=== PATIENT | female | born 1945 | race Caucasian/White ===

== ENCOUNTER 2016-12-20 14:49 | Emergency (ER) | payer OTHER, BC ==
[~2016-12-20] VITALS: Ht 157.5 cm; Wt 56.0 kg
[~2016-12-20 14:49] MED LIST: ASPI81TA28 PO; CARB25TA12 PO; LISI-461 PO; ONDA8TAB6 PO; PRLSR20 PO
[2016-12-20 15:02] VITALS: TEMP 36.4; Ht 157.5 cm; Wt 56.0 kg
[2016-12-20] MEDS ORDERED: DOCU100C31 PO (15:07)
[2016-12-20] MEDS ORDERED: SODIUM CHLORIDE 0.9% 500ML 500 ML IV STA (16:04)
--- NOTE | 2016-12-20 16:05 | EMERGENCY ROOM VISIT NOTE ---
History Report prepared by Gayatri: Cecil Ashton Under the Supervision of: Dr. Kirk Hoff D.O. First contact with patient: 15:50 Chief Complaint: CONSTIPATION Stated Complaint: DEHYDRATED Nursing Triage Summary: pt c/o constipation lbm 2 days ago. pt reports has been seen here for same sx in past History of Present Illness The patient is a 71 year old female who presents to the Emergency Room with complaints of persistent constipation and lower abdominal pains that she has been experiencing for the past several months. The patient states that she believes she is constipated, but normally only has a bowel movement every couple days at baseline. She had a bowel movement two days ago. She has been taking a "couple cups" of Miralax daily, which has not remedied her symptoms. Her abdominal pain is located mainly in her lower abdomen, and is worsened when she sits down. When she sits down she also feels a pain in her vaginal area. The patient also complains of nausea and dry heaving over the past week. She did see a urologist at [facility] yesterday, there were no extraordinary findings from this visit. Her postvoid residual volume was 20. The patient denies headache, change in vision, fevers, chest pain, shortness of breath, and melena. Source of History: patient Onset: Several months Position: other (Gastrointestinal ) Quality: other (Constipation) Timing: other (Persistent) Modifying Factors (Worsening): other (Sitting) Associated Symptoms: + abdominal pain, + nausea Review of Systems See HPI for pertinent positives & negatives. A total of 10 systems reviewed and were otherwise negative. Past Medical & Surgical Medical Problems: (1) CAD (coronary artery disease) (2) Chest Pain (3) CKD (chronic kidney disease) stage 3, GFR 30-59 ml/min (4) Depression (5) Diaphragmatic hernia (6) GERD (gastroesophageal reflux disease) (7) History of breast cancer (8) History of kidney stones (9) Parkinson disease Surgical Problems: (1) H/O breast surgery (2) History of carpal tunnel surgery (3) History of tubal ligation Family History Cancer Hypertension Kidney disease Kidney stones Social History Smoking Status: Never Smoker Alcohol Use: none Drug Use: none Marital Status: Housing Status: lives with significant other Occupation Status: retired Current/Historical Medications Scheduled Aspirin (Aspirin Ec), 81 MG PO DAILY Buspirone HCl (Buspirone HCl), 10 MG PO BID Carbidopa/Levodopa (Sinemet 25MG/100MG), 1 TAB PO QID Docusate Sodium (Docusate Sodium), 1 CAP PO BID Duloxetine HCl (Duloxetine HCl), 60 MG PO DAILY Entacapone (Comtan), 200 MG PO QID Fluticasone Propionate (Nasal) (Flonase Allergy Relief), 2 SPRAY JAYDON DAILY Lisinopril (Lisinopril), 10 MG PO DAILY Mirtazapine Soltab (Remeron Soltab), 15 MG PO HS Omeprazole (Prilosec), 40 MG PO BID Pimavanserin Tartrate (Nuplazid), 2 TABS PO DAILY Polyethylene Glycol 3350 (Miralax), 17 GM PO TID Trospium Chloride (Trospium Chloride), 20 MG PO QPM Scheduled PRN Diphenhydramine Hcl (Benadryl Allergy), 1 CAP PO Q6 PRN for Itching Ondansetron Hcl (Zofran), 8 MG PO BID PRN for Nausea Allergies Coded Allergies: Sulfa Antibiotics (Verified Allergy, Unknown, UNKNOWN, 11/14/16) Selegiline (Verified Adverse Reaction, Intermediate, loss of taste, ) Tramadol (Verified Adverse Reaction, Intermediate, GENERAL ITCHINESS, ) Physical Exam Vital Signs Date Time Temp Pulse Resp B/P Pulse Ox O2 Delivery O2 Flow Rate FiO2 12/20/16 19:48 77 16 137/86 99 12/20/16 19:20 77 16 137/86 99 Room Air 12/20/16 17:02 73 16 129/65 96 Room Air 12/20/16 15:02 36.4 87 18 153/79 98 Room Air Physical Exam GENERAL: Sitting up in bed, soft spoken, in no acute distress. Non-toxic on exam. EYE EXAM: normal conjunctiva. OROPHARYNX: no exudate, no erythema, lips, buccal mucosa, and tongue normal and mucous membranes are moist NECK: supple, no nuchal rigidity, no adenopathy, non-tender LUNGS: Clear to auscultation. Normal chest wall mechanics HEART: no murmurs, S1 normal and S2 normal ABDOMEN: abdomen soft, non-tender, normo-active bowel sounds, no masses, no rebound or guarding. BACK: Back is symmetrical on inspection and there is no deformity, no midline tenderness, no CVA tenderness. SKIN: no rashes and no bruising Rectal: External hemorrhoids present no stool in vault : Normal external genitalia. No obvious prolapse. UPPER EXTREMITIES: upper extremities are grossly normal. LOWER EXTREMITIES: No pitting edema. NEURO EXAM: Normal sensorium. Medical Decision & Procedures ER Provider Diagnostic Interpretation: Xray results per the radiologist and my interpretation. Other results have been interpreted by the radiologist and reviewed by me. ABDOMEN AND PELVIS CT WITH IV CONTRAST CT DOSE: 300.98 mGy.cm HISTORY: Pelvic pain diffuse lower abd pain TECHNIQUE: Multiaxial CT images of the abdomen and pelvis were performed following the use of intravenous contrast. COMPARISON STUDY: 11/05/2016 FINDINGS: Lung bases are clear. Liver spleen and pancreas are uniform. Moderate increase in fecal load throughout the colon consistent with a component of fecal stasis. Appendix is normal. A potential mild nonspecific enteritis. No evidence for fecal impaction. No significant free fluid within the pelvic cul-de-sac. IMPRESSION: 1. Mild nonspecific enteritis. 2. Moderate increase in fecal load throughout the colon consistent with a component of fecal stasis. 3. Otherwise negative study Electronically signed by: Mckay Cerda M.D. 12/20/2016 5:42 PM Dictated Date/Time: 12/20/2016 5:38 PM Laboratory Results 12/20/16 16:21 Red Blood Count 4.09, Mean Corpuscular Volume 91.2, Mean Corpuscular Hemoglobin 30.1, Mean Corpuscular Hemoglobin Concent 33.0, Mean Platelet Volume 8.2, Neutrophils (%) (Auto) 82.1, Lymphocytes (%) (Auto) 11.8, Monocytes (%) (Auto) 4.1, Eosinophils (%) (Auto) 1.5, Basophils (%) (Auto) 0.3, Neutrophils # (Auto) 5.03, Lymphocytes # (Auto) 0.72, Monocytes # (Auto) 0.25, Eosinophils # (Auto) 0.09, Basophils # (Auto) 0.02 12/20/16 16:21 Test 12/20/16 16:21 12/20/16 17:10 White Blood Count 6.12 K/uL (4.8-10.8) Red Blood Count 4.09 M/uL (4.2-5.4) Hemoglobin 12.3 g/dL (12.0-16.0) Hematocrit 37.3 % (37-47) Mean Corpuscular Volume 91.2 fL (80-100) Mean Corpuscular Hemoglobin 30.1 pg (25-34) Mean Corpuscular Hemoglobin Concent 33.0 g/dl (32-36) Platelet Count 225 K/uL (130-400) Mean Platelet Volume 8.2 fL (7.4-10.4) Neutrophils (%) (Auto) 82.1 % Lymphocytes (%) (Auto) 11.8 % Monocytes (%) (Auto) 4.1 % Eosinophils (%) (Auto) 1.5 % Basophils (%) (Auto) 0.3 % Neutrophils # (Auto) 5.03 K/uL (1.4-6.5) Lymphocytes # (Auto) 0.72 K/uL (1.2-3.4) Monocytes # (Auto) 0.25 K/uL (0.11-0.59) Eosinophils # (Auto) 0.09 K/uL (0-0.5) Basophils # (Auto) 0.02 K/uL (0-0.2) RDW Standard Deviation 45.3 fL (36.4-46.3) RDW Coefficient of Variation 13.6 % (11.5-14.5) Immature Granulocyte % (Auto) 0.2 % Immature Granulocyte # (Auto) 0.01 K/uL (0.00-0.02) Anion Gap 6.0 mmol/L (3-11) Est Creatinine Clear Calc Drug Dose 30.5 ml/min Estimated GFR () 47.1 Estimated GFR (Non- 40.7 BUN/Creatinine Ratio 18.9 (10-20) Calcium Level 9.3 mg/dl (8.5-10.1) Total Bilirubin 0.3 mg/dl (0.2-1) Direct Bilirubin < 0.1 mg/dl (0-0.2) Aspartate Amino Transf (AST/SGOT) 22 U/L (15-37) Alanine Aminotransferase (ALT/SGPT) 18 U/L (12-78) Alkaline Phosphatase 64 U/L (45-117) Total Protein 7.3 gm/dl (6.4-8.2) Albumin 3.9 gm/dl (3.4-5.0) Lipase 282 U/L (73-393) Urine Color DK YELLOW Urine Appearance TURBID (CLEAR) Urine pH 8.5 (4.5-7.5) Urine Specific [place] 1.017 (1.000-1.030) Urine Protein NEG (NEG) Urine Glucose (UA) NEG (NEG) Urine Ketones NEG (NEG) Urine Occult Blood NEG (NEG) Urine Nitrite NEG (NEG) Urine Bilirubin NEG (NEG) Urine Urobilinogen NEG (NEG) Urine Leukocyte Esterase TRACE (NEG) Urine WBC (Auto) 1-5 /hpf (0-5) Urine RBC (Auto) 10-30 /hpf (0-4) Urine Hyaline Casts (Auto) 1-5 /lpf (0-5) Urine Epithelial Cells (Auto) 10-20 /lpf (0-5) Urine Bacteria (Auto) NEG (NEG) Laboratory results per my review. Medications Administered Medications (Trade) Dose Ordered Sig/Patricia Route Start Time Stop Time Status Last Admin Dose Admin Sodium Chloride (Nss 500ml) 500 ml @ 999 mls/hr Q31M STAT IV 12/20/16 16:04 12/20/16 16:34 DC 12/20/16 17:05 999 MLS/HR Calcium Carbonate (Tums Chew Tab) 1,000 mg NOW PRN PO 12/20/16 16:45 12/20/16 21:31 DC 12/20/16 17:47 1,000 MG Lorazepam (Ativan Tab) 0.25 mg NOW STAT SL 12/20/16 16:45 12/20/16 16:46 DC 12/20/16 17:03 0.25 MG Miscellaneous (Soap Suds Enema) 1 ea NOW ONCE IN 12/20/16 18:00 12/20/16 18:04 DC 12/20/16 18:47 1 EA Magnesium Citrate (Citrate Of Magnesia Soln) 296 ml NOW ONCE PO 12/20/16 18:00 12/20/16 18:04 DC 12/20/16 18:11 296 ML ED Course ED COURSE: Vital signs were reviewed and showed normal vitals. The patients medical record was reviewed The above diagnostic studies were performed and reviewed. ED treatments and interventions as stated above. 1555: The patient was evaluated in room C4. A complete history and physical examination was performed. 1558: I reviewed the patient's paper work from her urology visit yesterday. She void 17 mL at the visit. 1604: Ordered Sodium Chloride 500 mL @ 999 mL/hr IV. 1645: Ordered Lorazepam 0.25 mg SL, Calcium Carbonate CHEW 1000 mg. 1800: Ordered Magnesium Citrate 296 mL PO, Soap Suds Enema 1 IN. 1809: I updated the patient at this time at bedside. 1927: Upon reevaluation, the patient has had a small bowel movement and is ready to go home.I discussed my findings with the patient and he understands and agrees with the treatment plan. Based on the patients age, coexisting illnesses, exam and lab findings the decision to treat as an outpatient was made. The patient remained stable while under my care. The patient appeared well at the time of discharge. Medical Decision Differential diagnoses includes but is not limited to gastritis, peptic ulcer disease, GERD, gallbladder disease, pancreatitis, small bowel obstruction, acute coronary syndrome, pericarditis, ischemic bowel, irritable bowel disease, irritable bowel syndrome, appendicitis, diverticulitis, malignancy, hernia, urinary tract infection, torsion, [/ectopic (if female)], perforation, trauma, infectious. Patient is a 71-year-old female who presents to the ER for lower abdominal pain which has been present for the past several months. She notes that has been unchanged. She did bowel movement 2 days ago but has not had one since then. Sitting down exacerbates the pain. No other remitting factors. Patient does have Parkinson's. Her abdominal exam is completely benign. CT of the abdomen and pelvis was unremarkable. CBC along with BMP, LFTs, bilirubin and lipase were negative. UA was unremarkable. Patient was given an enema and had a bowel movement. She is discharged follow-up with her primary care doctor. Uncertain of the true etiology of her chronic abdominal pain at this time however the CT did show large stool and she was given a MiraLAX prep to take at home following drinking mag citrate here. Discussed with Pt concerning signs and symptoms to watch out for. Pt was instructed to follow up with their PCP and discussed with the patient their option to return to the ED at anytime for persistent or worsening symptoms. The appropriate anticipatory guidance and out- patient management, including indications for return to the emergency department , were explained at length to the patient and understood. Impression Primary Impression: Abdominal pain Scribe Attestation The scribe's documentation has been prepared under my direction and personally reviewed by me in its entirety. I confirm that the note above accurately reflects all work, treatment, procedures, and medical decision making performed by me. Departure Information Dispostion Home / Self-Care Referrals Michael Mittal M.D. (PCP) Forms HOME CARE DOCUMENTATION FORM, IMPORTANT VISIT INFORMATION Patient Instructions [facility] Additional Instructions Please follow up with your primary care doctor with in the next 24 hours. Any worsening of your symptoms, please return to the ED immediately. This includes worsening pain, fevers greater than 100.4, persistent nausea vomiting, or any other concerning signs or symptoms from your standpoint. If she gets home and she is not having diarrhea please take 250 g of MiraLAX in next with 64 ounces of Gatorade. Drink 8 ounces every 15-30 minutes until you have loose watery stools. This can be repeated once. Problem Qualifiers Primary Impression: Abdominal pain Abdominal location: generalized Qualified Codes: R10.84 - Generalized abdominal pain
[2016-12-20 16:28] LABS: BASO % 0.3 %; BASO ABS # 0.02 K/uL (0-0.2); COMPLETE YES; EOS % 1.5 %; HEMATOCRIT 37.3 % (37-47); IG% 0.2 %; LYMPH % 11.8 %; LYMPH ABS # 0.72 K/uL (1.2-3.4); MEAN CELL VOLUME 91.2 fL (80-100); MEAN CORPUSCULAR HEMOGLOBIN 30.1 pg (25-34); MEAN PLATELET VOLUME 8.2 fL (7.4-10.4); MONO % 4.1 %; NEUT % 82.1 %; PLATELET COUNT 225 K/uL (130-400); RED BLOOD COUNT 4.09 M/uL (4.2-5.4); WHITE BLOOD COUNT 6.12 K/uL (4.8-10.8)
[2016-12-20] MEDS ORDERED: PIMA17TA PO (16:37)
[2016-12-20] MEDS ORDERED: CALCIUM CARBONATE 500 MG CHEWABLE PO PRN (16:45)
[2016-12-20] MEDS ORDERED: LORAZEPAM 0.5 MG TAB SL STA (16:45)
[2016-12-20 16:47] LABS: BLOOD UREA NITROGEN 25 mg/dl (7-18); BUN/CREATININE RATIO 18.9 (10-20); CALCIUM 9.3 mg/dl (8.5-10.1); CARBON DIOXIDE 32 mmol/L (21-32); CHLORIDE 106 mmol/L (98-107); GLUCOSE 129 mg/dl (70-99); POTASSIUM 4.1 mmol/L (3.5-5.1); SODIUM 144 mmol/L (136-145)
[2016-12-20] MEDS ORDERED: TROS20TA3 PO (16:53)
[2016-12-20] MEDS ORDERED: ENTA200T PO (16:53)
[2016-12-20] MEDS ORDERED: DIPH25CA65 PO (16:53)
[2016-12-20] MEDS ORDERED: FLUT0.15 NAE (16:53)
[2016-12-20] MEDS ORDERED: CYM30 PO (16:53)
[2016-12-20 17:02] LABS: ALKALINE PHOSPHATASE 64 U/L (45-117); ALT/SGPT 18 U/L (12-78); AST/SGOT 22 U/L (15-37)
[2016-12-20] MEDS ORDERED: OPTIRAY 320 IV PRN (17:15)
[2016-12-20 17:19] LABS: URINE APPEARANCE TURBID (CLEAR); URINE BILIRUBIN NEG (NEG); URINE COLOR DK YELLOW; URINE NITRITE NEG (NEG); URINE PH 8.5 (4.5-7.5); URINE SPECIFIC GRAVITY 1.017 (1.000-1.030); UROBILINOGEN NEG (NEG); ZZUR CULT IF INDIC CLEAN CATCH NO
[2016-12-20 17:21] LABS: MANUAL MICROSCOPIC REQUIRED? NO; REVIEW REQ? NO
--- NOTE | 2016-12-20 17:43 | DIAGNOSTIC IMAGING REPORT ---
ABDOMEN AND PELVIS CT WITH IV CONTRAST CT DOSE: 300.98 mGy.cm HISTORY: Pelvic pain diffuse lower abd pain TECHNIQUE: Multiaxial CT images of the abdomen and pelvis were performed following the use of intravenous contrast. COMPARISON STUDY: 11/05/2016 FINDINGS: Lung bases are clear. Liver spleen and pancreas are uniform. Moderate increase in fecal load throughout the colon consistent with a component of fecal stasis. Appendix is normal. A potential mild nonspecific enteritis. No evidence for fecal impaction. No significant free fluid within the pelvic cul-de-sac. IMPRESSION: 1. Mild nonspecific enteritis. 2. Moderate increase in fecal load throughout the colon consistent with a component of fecal stasis. 3. Otherwise negative study Electronically signed by: Mckay Cerda M.D. 12/20/2016 5:42 PM Dictated Date/Time: 12/20/2016 5:38 PM
[2016-12-20] MEDS ORDERED: SOAP SUDS ENEMA PR ONE (18:00)
[2016-12-20] MEDS ORDERED: MAGNESIUM CITRATE 296 ML/BTL PO ONE (18:00)
[2016-12-20 19:48] VITALS: BP 137/86; PULSE 77; O2SAT 99
[2016-12-20] MEDS ORDERED: BSP/5 PO (22:48)
[2016-12-20] MEDS ORDERED: POLY335019 PO (23:00)
[2016-12-20] MEDS ORDERED: MIRT15TA2 PO (23:00)
== END 2016-12-20 19:48 | disposition home or self-care (01) ==
LOC: C.EDB 14:50 → C.EDC 19:48
DX: R10.84 Generalized abdominal pain (principal); I25.10 Atherosclerotic heart disease of native coronary artery without angina pectoris; N18.3 Chronic kidney disease, stage 3 (moderate); F32.9 Major depressive disorder, single episode, unspecified; K21.9 Gastro-esophageal reflux disease without esophagitis; G20 Parkinson's disease; Z98.51 Tubal ligation status; Z79.82 Long term (current) use of aspirin

== ENCOUNTER 2017-01-23 17:28 | Emergency (ER) | payer OTHER, BC ==
[~2017-01-23] VITALS: Ht 162.6 cm; Wt 75.0 kg
[~2017-01-23 17:28] MED LIST changes: +BSP/5 PO; +CYM30 PO; +DIPH25CA65 PO; +DOCU100C31 PO; +ENTA200T PO; +FLUT0.15 NAE; +MIRT15TA2 PO; +PIMA17TA PO; +POLY335019 PO; +TROS20TA3 PO
[2017-01-23 17:45] VITALS: TEMP 36.8; O2SAT 97; Ht 162.6 cm; Wt 75.0 kg
[2017-01-23] MEDS ORDERED: SODIUM CHLORIDE 0.9% 500ML 500 ML IV STA (18:38)
[2017-01-23] MEDS ORDERED: MoRPHine SULFATE 4 MG/ML 1 ML CARP\\VIAL IV STA ×2 (18:38→20:35)
[2017-01-23 18:45] LABS: BASO % 0.3 %; BASO ABS # 0.02 K/uL (0-0.2); COMPLETE YES; EOS % 0.7 %; HEMATOCRIT 36.9 % (37-47); IG% 0.2 %; LYMPH % 11.1 %; LYMPH ABS # 0.65 K/uL (1.2-3.4); MEAN CELL VOLUME 90.2 fL (80-100); MEAN CORPUSCULAR HEMOGLOBIN 30.1 pg (25-34); MEAN CORPUSCULAR HGB CONC 33.3 g/dl (32-36); MEAN PLATELET VOLUME 8.7 fL (7.4-10.4); MONO % 9.2 %; NEUT % 78.5 %; PLATELET COUNT 251 K/uL (130-400); RED BLOOD COUNT 4.09 M/uL (4.2-5.4); WHITE BLOOD COUNT 5.85 K/uL (4.8-10.8)
--- NOTE | 2017-01-23 18:46 | DIAGNOSTIC IMAGING REPORT ---
CHEST ONE VIEW PORTABLE CLINICAL HISTORY: Acute change in mental status COMPARISON STUDY: 11/03/2016 FINDINGS: The cardiac and mediastinal contours are normal. There is no evidence of focal pulmonary consolidation. There is no evidence of failure. No pleural effusions are visualized.[ Surgical clips are visualized in the left axillary region. IMPRESSION: No active disease in the chest. Electronically signed by: Dom Askew M.D. 01/23/2017 6:45 PM Dictated Date/Time: 01/23/2017 6:45 PM
[2017-01-23 18:55] LABS: URINE APPEARANCE CLEAR (CLEAR); URINE BILIRUBIN NEG (NEG); URINE COLOR DK YELLOW; URINE EPITHELIAL CELL AUTO 0-5 /lpf (0-5); URINE NITRITE NEG (NEG); URINE PH 7.5 (4.5-7.5); URINE SPECIFIC GRAVITY 1.009 (1.000-1.030); UROBILINOGEN NEG (NEG); ZZURINE CULT IF INDIC CATH NO
[2017-01-23 18:59] LABS: MANUAL MICROSCOPIC REQUIRED? NO; REVIEW REQ? NO
[2017-01-23] MEDS ORDERED: CARBIDOPA/LEVODOPA 25/100MG TAB PO SCH (19:00)
[2017-01-23 19:02] LABS: ALT/SGPT 14 U/L (12-78); AST/SGOT 19 U/L (15-37); BLOOD UREA NITROGEN 26 mg/dl (7-18); BUN/CREATININE RATIO 17.3 (10-20); CALCIUM 8.9 mg/dl (8.5-10.1); CARBON DIOXIDE 33 mmol/L (21-32); CHLORIDE 106 mmol/L (98-107); GLUCOSE 87 mg/dl (70-99); POTASSIUM 4.5 mmol/L (3.5-5.1); SODIUM 144 mmol/L (136-145)
[2017-01-23 19:07] LABS: ALKALINE PHOSPHATASE 56 U/L (45-117)
[2017-01-23 19:10] LABS: PARTIAL THROMBOPLASTIN RATIO 0.9; PROTHROMBIN TIME (PATIENT) 10.6 SECONDS (9.0-12.0)
[2017-01-23] MEDS ORDERED: OPTIRAY 320 IV PRN (19:30)
--- NOTE | 2017-01-23 19:42 | DIAGNOSTIC IMAGING REPORT ---
CT HEAD WITHOUT CONTRAST (CT) CLINICAL HISTORY: Acute change in mental status COMPARISON STUDY: A 2714 TECHNIQUE: Axial CT of the brain is performed from the vertex to the skull base. IV contrast was not administered for this examination. CT DOSE: 537.48 mGy.cm FINDINGS: No intra or extra-axial mass lesions are visualized. There is no CT evidence of acute cortical infarction. There is no evidence of midline shift. There is no acute hemorrhage. No calvarial fractures are visualized. There are minimal white matter hypodensities likely on a small vessel basis. There is no evidence of pathologic ventricular dilatation. There is no evidence of acute sinusitis IMPRESSION: No acute intracranial findings Electronically signed by: Dom Askew M.D. 01/23/2017 7:07 PM Dictated Date/Time: 01/23/2017 7:06 PM
--- NOTE | 2017-01-23 19:49 | DIAGNOSTIC IMAGING REPORT ---
CT ABD/PELVIS IV CONTRAST ONLY CLINICAL HISTORY: Diffuse lower abdominal pain COMPARISON STUDY: December 20, 2016 TECHNIQUE: Following the IV administration of 93 mL of Optiray-320, CT scan of the abdomen and pelvis was performed from the lung bases to the proximal femurs. Images are reviewed in the axial, sagittal, and coronal planes. IV contrast was administered without complication. CT DOSE: 391.10 mGy.cm FINDINGS: Lower chest: There are minor dependent atelectatic changes Liver: The contrast-enhanced liver is normal in size, contour, and attenuation. There is no intrahepatic biliary ductal dilatation. The hepatic veins and portal veins are patent. Gallbladder: Unremarkable. Spleen: Normal in size and attenuation. Pancreas: Unremarkable. Adrenal glands: There is stable bilateral adrenal gland thickening left greater than right Kidneys: There are 4 mm and 5 mm left renal cortical cysts. 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 There is no hydronephrosis. Bowel: There is fecal retention. There are no transition zones indicate bowel obstruction. There is a 6.8 cm stool ball within the rectum. There is diverticulosis. There are no acute peridiverticular inflammatory changes. There are no findings to indicate acute appendicitis. Peritoneum: There is no intraperitoneal free air or abdominal ascites. Vasculature: The abdominal aorta is normal in course and caliber. Adenopathy: None. Pelvic viscera: The bladder, and pelvic viscera are unremarkable. Skeletal structures: No destructive osseous lesions are seen. IMPRESSION: 1. No evidence of bowel obstruction. No evidence of free air 2. No evidence of pathologic adenopathy 3. Diverticulosis. No evidence of acute diverticulitis. No evidence of acute appendicitis. 4. Fecal retention. Constipation is suspected. 5. 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 01/23/2017 7:48 PM Dictated Date/Time: 01/23/2017 7:43 PM
--- NOTE | 2017-01-23 20:03 | DIAGNOSTIC IMAGING REPORT ---
CT LUMBAR SPINE WITHOUT CT DOSE: CLINICAL HISTORY: Low back pain TECHNIQUE: Helical images were acquired in transverse plane. Reformatted sagittal and coronal images were reviewed. CONTRAST: No contrast was administered COMPARISON STUDY: None. FINDINGS: L1-2 level: There is no evidence of significant disc bulge or focal herniation. There is no evidence of spinal or foraminal stenosis. L2-3 level: There is minimal retrolisthesis of L2 on L3. There is a circumferential disc bulge present. There is mild spinal stenosis. L3-4 level: There is a mild circumferential disc bulge. There is mild to moderate spinal stenosis. L4-5 level: There is a circumferential disc bulge. There is mild spinal stenosis. L5-S1 level: There is no evidence of significant disc bulge or focal herniation. There is no evidence of spinal or foraminal stenosis. 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 There is fecal retention. IMPRESSION: 1. No acute fractures or traumatic subluxations identified 2. Lumbar levoscoliosis 3. Multilevel spondylitic changes with multilevel spinal stenosis. Electronically signed by: Dom Askew M.D. 01/23/2017 8:02 PM Dictated Date/Time: 01/23/2017 7:59 PM
[2017-01-23] MEDS ORDERED: HYDROmorphone INJ 0.5 MG/0.5 ML SYR IV ONE (20:45)
[2017-01-23 21:04] VITALS: BP 138/65; PULSE 74; O2SAT 96
--- NOTE | 2017-01-24 00:22 | EMERGENCY ROOM VISIT NOTE ---
History Report prepared by Gayatri: Jodie Win Under the Supervision of: Dr. Kirk Hoff D.O. First contact with patient: 17:54 Chief Complaint: CONFUSION Stated Complaint: AMS Nursing Triage Summary: Patient found wandering around town, PSP called, and then EMS for evaluation. Patient reports vaginal pain, and that her legs hurt because she is due for her Q4hr parkinson medications; though she is not aware of what htis medication is. Patient reports that she was walking around town because her wants her placed in an "old person's home." Patinet oriented to time person, place and event. Negative neurodeficits noted. She does have a blank start on her face; unknown what baseline is. History of Present Illness The patient is a 71 year old female who presents to the Emergency Room with complaints of worsening confusion that was noticed INFORMATION CLERK BROKERAGE. Per the nursing notes, the patient was found wandering around town. The nursing notes also report that her PCP was called and then EMS was called for evaluation. The patient came to the ED via ambulance. The patient states that she ran away from home because her was yelling at her to drink water, but per nursing staff notes that patient ran away because her wants her to be placed in an "old person's home." She is complaining of back pain and abdominal pain. Patient notes that this is been present for the past several years and has not worsened. She states that she feels like she needs to void. The patient denies headaches, changes in vision, and chest pain. She also denies any recent falls. Nursing staff called the patient's daughter and she told them that the patient was walking around town because her was trying to put her in a alf. She also reported that the patient is due for her Parkinson's medications at 1900 and she will get increasingly confused until them. Family notes that she has chronic lower abdominal pain and back pain. This is been present for the past several years. They're working with neurology at this time to treat this. Patient is at her baseline at this point. and daughter is at bedside. They currently have help and are approved for additional help with additional nursing staff. Source of History: patient, nursing staff History Limited By: AMS Onset: INFORMATION CLERK BROKERAGE Quality: other (confusion) Timing: worsening Associated Symptoms: + abdominal pain (like she has to void), + back pain, No chest pain, No headache Note: no changes in vision Review of Systems See HPI for pertinent positives & negatives. ROS limited secondary to altered mental status. Past Medical & Surgical Medical Problems: (1) CAD (coronary artery disease) (2) Chest Pain (3) CKD (chronic kidney disease) stage 3, GFR 30-59 ml/min (4) Depression (5) Diaphragmatic hernia (6) GERD (gastroesophageal reflux disease) (7) History of breast cancer (8) History of kidney stones (9) Parkinson disease Surgical Problems: (1) H/O breast surgery (2) History of carpal tunnel surgery (3) History of tubal ligation Family History Cancer Hypertension Kidney disease Kidney stones Social History Smoking Status: Never Smoker Alcohol Use: none Drug Use: none Marital Status: Housing Status: lives with significant other Occupation Status: retired Current/Historical Medications Scheduled Aspirin (Aspirin Ec), 81 MG PO DAILY Buspirone HCl (Buspirone HCl), 10 MG PO BID Carbidopa/Levodopa (Sinemet 25MG/100MG), 1 TAB PO QID Docusate Sodium (Docusate Sodium), 1 CAP PO BID Duloxetine HCl (Duloxetine HCl), 60 MG PO DAILY Entacapone (Comtan), 200 MG PO QID Fluticasone Propionate (Nasal) (Flonase Allergy Relief), 2 SPRAY JAYDON DAILY Lisinopril (Lisinopril), 10 MG PO DAILY Mirtazapine Soltab (Remeron Soltab), 15 MG PO HS Omeprazole (Prilosec), 40 MG PO BID Pimavanserin Tartrate (Nuplazid), 1 TABS PO DAILY Polyethylene Glycol 3350 (Miralax), 17 GM PO TID Trospium Chloride (Trospium Chloride), 20 MG PO QPM Scheduled PRN Diphenhydramine Hcl (Benadryl Allergy), 1 CAP PO Q6 PRN for Itching Ondansetron Hcl (Zofran), 8 MG PO BID PRN for Nausea Allergies Coded Allergies: Morphine (Unverified Allergy, Unknown, unknown, 01/23/17) Sulfa Antibiotics (Verified Allergy, Unknown, UNKNOWN, 01/23/17) Selegiline (Verified Adverse Reaction, Intermediate, loss of taste, 01/23/17 ) Tramadol (Verified Adverse Reaction, Intermediate, GENERAL ITCHINESS, ) Physical Exam Vital Signs Date Time Temp Pulse Resp B/P Pulse Ox O2 Delivery O2 Flow Rate FiO2 01/23/17 21:04 74 138/65 96 01/23/17 17:45 36.8 84 16 134/56 99 01/23/17 17:45 97 Room Air Physical Exam GENERAL: alert, sitting up in bed, disheveled, chronically ill appearing with blank stare, well nourished, no distress, non-toxic EYE EXAM: normal conjunctiva, PERRL and EOM's intact OROPHARYNX: no exudate, no erythema, lips, buccal mucosa, and tongue normal and mucous membranes are moist NECK: supple, no nuchal rigidity, no adenopathy, non-tender LUNGS: Clear to auscultation. Normal chest wall mechanics HEART: no murmurs, S1 normal and S2 normal ABDOMEN: abdomen soft, non-tender, normo-active bowel sounds, no masses, no rebound or guarding. BACK: Back is symmetrical on inspection and there is no deformity, no midline tenderness, no CVA tenderness. SKIN: no rashes and no bruising UPPER EXTREMITIES: upper extremities are grossly normal. LOWER EXTREMITIES: No pitting edema. NEURO EXAM: Oriented to place and name but not year, cranial nerves II-XII intact, normal speech, no weakness of arms, no weakness of legs. No drift. Finger to nose intact. Gross sensation intact. Medical Decision & Procedures ER Provider Diagnostic Interpretation: Xray results per the radiologist and my interpretation. Other results have been interpreted by the radiologist and reviewed by me. CHEST ONE VIEW PORTABLE IMPRESSION: No active disease in the chest. Electronically signed by: Dom Askew M.D. 01/23/2017 6:45 PM Dictated Date/Time: 01/23/2017 6:[address] HEAD WITHOUT CONTRAST (CT) IMPRESSION: No acute intracranial findings Electronically signed by: Dom Askew M.D. 01/23/2017 7:07 PM Dictated Date/Time: 01/23/2017 7:[address] ABD/PELVIS IV CONTRAST ONLY IMPRESSION: 1. No evidence of bowel obstruction. No evidence of free air 2. No evidence of pathologic adenopathy 3. Diverticulosis. No evidence of acute diverticulitis. No evidence of acute appendicitis. 4. Fecal retention. Constipation is suspected. 5. 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 01/23/2017 7:48 PM Dictated Date/Time: 01/23/2017 7:[address] LUMBAR SPINE WITHOUT IMPRESSION: 1. No acute fractures or traumatic subluxations identified 2. Lumbar levoscoliosis 3. Multilevel spondylitic changes with multilevel spinal stenosis. Electronically signed by: Dom Askew M.D. 01/23/2017 8:02 PM Dictated Date/Time: 01/23/2017 7:59 PM Laboratory Results 01/23/17 18:30 Red Blood Count 4.09, Mean Corpuscular Volume 90.2, Mean Corpuscular Hemoglobin 30.1, Mean Corpuscular Hemoglobin Concent 33.3, Mean Platelet Volume 8.7, Neutrophils (%) (Auto) 78.5, Lymphocytes (%) (Auto) 11.1, Monocytes (%) (Auto) 9.2, Eosinophils (%) (Auto) 0.7, Basophils (%) (Auto) 0.3, Neutrophils # (Auto) 4.59, Lymphocytes # (Auto) 0.65, Monocytes # (Auto) 0.54, Eosinophils # (Auto) 0.04, Basophils # (Auto) 0.02 01/23/17 18:30 Test 01/23/17 00:00 01/23/17 18:30 Urine Color DK YELLOW Urine Appearance CLEAR (CLEAR) Urine pH 7.5 (4.5-7.5) Urine Specific [place] 1.009 (1.000-1.030) Urine Protein NEG (NEG) Urine Glucose (UA) NEG (NEG) Urine Ketones NEG (NEG) Urine Occult Blood NEG (NEG) Urine Nitrite NEG (NEG) Urine Bilirubin NEG (NEG) Urine Urobilinogen NEG (NEG) Urine Leukocyte Esterase NEG (NEG) Urine WBC (Auto) 0 /hpf (0-5) Urine RBC (Auto) 5-10 /hpf (0-4) Urine Hyaline Casts (Auto) 1-5 /lpf (0-5) Urine Epithelial Cells (Auto) 0-5 /lpf (0-5) Urine Bacteria (Auto) NEG (NEG) White Blood Count 5.85 K/uL (4.8-10.8) Red Blood Count 4.09 M/uL (4.2-5.4) Hemoglobin 12.3 g/dL (12.0-16.0) Hematocrit 36.9 % (37-47) Mean Corpuscular Volume 90.2 fL (80-100) Mean Corpuscular Hemoglobin 30.1 pg (25-34) Mean Corpuscular Hemoglobin Concent 33.3 g/dl (32-36) Platelet Count 251 K/uL (130-400) Mean Platelet Volume 8.7 fL (7.4-10.4) Neutrophils (%) (Auto) 78.5 % Lymphocytes (%) (Auto) 11.1 % Monocytes (%) (Auto) 9.2 % Eosinophils (%) (Auto) 0.7 % Basophils (%) (Auto) 0.3 % Neutrophils # (Auto) 4.59 K/uL (1.4-6.5) Lymphocytes # (Auto) 0.65 K/uL (1.2-3.4) Monocytes # (Auto) 0.54 K/uL (0.11-0.59) Eosinophils # (Auto) 0.04 K/uL (0-0.5) Basophils # (Auto) 0.02 K/uL (0-0.2) RDW Standard Deviation 45.9 fL (36.4-46.3) RDW Coefficient of Variation 13.8 % (11.5-14.5) Immature Granulocyte % (Auto) 0.2 % Immature Granulocyte # (Auto) 0.01 K/uL (0.00-0.02) Prothrombin Time 10.6 SECONDS (9.0-12.0) Prothromb Time International Ratio 1.0 (0.9-1.1) Activated Partial Thromboplast Time 24.2 SECONDS (21.0-31.0) Partial Thromboplastin Ratio 0.9 Anion Gap 5.0 mmol/L (3-11) Est Creatinine Clear Calc Drug Dose 33.1 ml/min Estimated GFR () 39.6 Estimated GFR (Non- 34.2 BUN/Creatinine Ratio 17.3 (10-20) Calcium Level 8.9 mg/dl (8.5-10.1) Total Bilirubin 0.4 mg/dl (0.2-1) Direct Bilirubin < 0.1 mg/dl (0-0.2) Aspartate Amino Transf (AST/SGOT) 19 U/L (15-37) Alanine Aminotransferase (ALT/SGPT) 14 U/L (12-78) Alkaline Phosphatase 56 U/L (45-117) Troponin I < 0.015 ng/ml (0-0.045) Total Protein 7.2 gm/dl (6.4-8.2) Albumin 3.9 gm/dl (3.4-5.0) Laboratory results per my review. Medications Administered Medications (Trade) Dose Ordered Sig/Patricia Route Start Time Stop Time Status Last Admin Dose Admin Carbidopa/ Levodopa 1 tab 1 tab ONE PO 01/23/17 19:00 01/23/17 22:47 DC 01/23/17 19:14 1 TAB Sodium Chloride (Nss 500ml) 500 ml @ 999 mls/hr Q31M STAT IV 01/23/17 18:38 01/23/17 19:08 DC 01/23/17 18:38 999 MLS/HR Hydromorphone HCl (Dilaudid Inj) 0.5 mg NOW ONCE IV 01/23/17 20:45 01/23/17 20:46 DC 01/23/17 20:52 0.5 MG ECG Indication: altered mental status Rate (beats per minute): 73 Rhythm: sinus rhythm Findings: no ectopy, other (poor baseline) ED Course ED COURSE: Vital signs were reviewed and showed normal. The patients medical record was reviewed The above diagnostic studies were performed and reviewed. ED treatments and interventions as stated above. 1757: The patient was evaluated in room A3. A complete history and physical examination was performed. 1814: I attempted to call both of the patient's family members, but neither answered my calls. 1816: The nurse informed me that patient's is at bedside. 1835: I reassessed the patient and updated her . Her states that she is at baseline and always complains of lower abdominal pain. He states that she was always complaining of being weak earlier today. 1838: Ordered Sodium Chloride 500 ml @ 999 mls/hr IV 1900: Ordered Carbidopa/Levodopa 1 tab PO 2030: Upon reevaluation, the patient is doing well. The patient's sisters and note that the patient is at her baseline and her complaints are not new. The patient's family reports that this pain has been there for years and the patient agrees. They also informed me that the patient is following with urology for her pain. She is also not allowed to get benzos or narcotics because it will increase her confusion. The patient's family also states that there are additional services coming to help out at home. I discussed my findings with the patient and her family. They understand and agree with the treatment plan. Based on the patients age, coexisting illnesses, exam and lab findings the decision to treat as an inpatient was made. The patient remained stable while under my care. The patient will be evaluated for further management. 2044: Ordered Dilaudid Inj 0.5 mg IV Medical Decision Differential diagnoses includes but is not limited to toxic, metabolic, infectious, traumatic, cardiac, neurologic, hematologic, psychiatric and inflammatory etiologies. Patient is a 71-year-old female who presents the ER following being picked up by EMS by walking around outside. She notes that she left the house because she was frustrated with the who is instructed her to drink more fluids. Patient is complaining of lower abdominal pain and back pain but this has been present for the past several years and unchanged. Family collaborates this story. They note that she is at her baseline. She has no other complaints. She denied any back pain on the ER. The patient's sisters and note that the patient is at her baseline and her complaints are not new. The patient's family reports that this pain has been there for years and the patient agrees. They also informed me that the patient is following with neurology for her pain. She is also not allowed to get benzos or narcotics because it will increase her confusion. The patient's family also states that there are additional services coming to help out at home. CT of the abdomen and pelvis, lumbar and head were unremarkable. CBC along with BMP, LFTs and UA are unremarkable. Chest x-ray was unremarkable. Offered observation/placement but preferred to take the patient home. Impression Primary Impression: Lower abdominal pain Additional Impression: Constipation Scribe Attestation The scribe's documentation has been prepared under my direction and personally reviewed by me in its entirety. I confirm that the note above accurately reflects all work, treatment, procedures, and medical decision making performed by me. Departure Information Dispostion Home / Self-Care Referrals Michael Mittal M.D. (PCP) Forms HOME CARE DOCUMENTATION FORM, IMPORTANT VISIT INFORMATION, WORK / SCHOOL INSTRUCTIONS Patient Instructions Abdominal Pain - [facility], Constipation, My [facility] Additional Instructions Please follow up with your primary care doctor with in the next 24 hours. Any worsening of your symptoms, please return to the ED immediately. This includes fevers, persistent nausea vomiting, worsening pain, or any other concerning signs or symptoms from your standpoint. Please follow up with neurology for persistent pain. Problem Qualifiers Additional Impression: Constipation Constipation type: unspecified constipation type Qualified Codes: K59.00 - Constipation, unspecified
== END 2017-01-23 21:05 | disposition home or self-care (01) ==
LOC: EDBD 17:28 → C.EDA 17:29
DX: R10.30 Lower abdominal pain, unspecified (principal); K59.00 Constipation, unspecified; I25.10 Atherosclerotic heart disease of native coronary artery without angina pectoris; N18.3 Chronic kidney disease, stage 3 (moderate); F32.9 Major depressive disorder, single episode, unspecified; K21.9 Gastro-esophageal reflux disease without esophagitis; Z85.3 Personal history of malignant neoplasm of breast; G20 Parkinson's disease; Z98.51 Tubal ligation status; Z79.82 Long term (current) use of aspirin

== ENCOUNTER 2017-01-29 14:08 | Emergency (ER) | payer OTHER, BC ==
[~2017-01-29] VITALS: Ht 157.5 cm; Wt 60.1 kg
[2017-01-29 14:23] VITALS: TEMP 36.4; Ht 157.5 cm; Wt 60.1 kg
[2017-01-29] MEDS ORDERED: HYDR1CAP85 PO (15:23)
[2017-01-29] MEDS ORDERED: OMEP40CA41 PO (15:23)
--- NOTE | 2017-01-29 16:50 | DIAGNOSTIC IMAGING REPORT ---
PA CHEST RADIOGRAPH AND UPRIGHT AND SUPINE AP RADIOGRAPHS OF THE ABDOMEN CLINICAL HISTORY: Abdominal pain and constipation. COMPARISON STUDY: Chest radiograph and CT of the abdomen and pelvis January 23, 2017. FINDINGS: Left axillary surgical clips are noted. There is no pneumothorax or pleural effusion. Cardiac size is normal. Mediastinal contours are normal. There is no evidence of pulmonary edema. There is a suspected previous distal right clavicular resection. There is no free air. Bowel gas pattern is normal. There is a large amount of stool within the rectum and moderate amount of stool within the ascending colon. Similar findings were shown on CT of January 21, 2017. IMPRESSION: 1. No free air or evidence of bowel obstruction. 2. Large amount stool within the rectum and moderate amount of stool within the ascending colon. 3. No acute cardiopulmonary findings. Electronically signed by: Vinicio Warren M.D. 01/29/2017 4:48 PM Dictated Date/Time: 01/29/2017 4:46 PM
[2017-01-29 17:21] LABS: BASO % 0.1 %; BASO ABS # 0.01 K/uL (0-0.2); COMPLETE YES; HEMATOCRIT 36.6 % (37-47); IG% 0.2 %; LYMPH % 6.4 %; LYMPH ABS # 0.72 K/uL (1.2-3.4); MEAN CELL VOLUME 89.5 fL (80-100); MEAN CORPUSCULAR HEMOGLOBIN 29.8 pg (25-34); MEAN CORPUSCULAR HGB CONC 33.3 g/dl (32-36); MEAN PLATELET VOLUME 8.6 fL (7.4-10.4); MONO % 2.9 %; NEUT % 90.4 %; PLATELET COUNT 241 K/uL (130-400); RED BLOOD COUNT 4.09 M/uL (4.2-5.4)
[2017-01-29 18:16] LABS: ALKALINE PHOSPHATASE 55 U/L (45-117); ALT/SGPT 10 U/L (12-78); AST/SGOT 21 U/L (15-37); BLOOD UREA NITROGEN 28 mg/dl (7-18); BUN/CREATININE RATIO 20.3 (10-20); CALCIUM 9.5 mg/dl (8.5-10.1); CARBON DIOXIDE 27 mmol/L (21-32); CHLORIDE 106 mmol/L (98-107); GLUCOSE 90 mg/dl (70-99); POTASSIUM 4.3 mmol/L (3.5-5.1); SODIUM 140 mmol/L (136-145)
[2017-01-29 20:16] LABS: URINE APPEARANCE CLEAR (CLEAR); URINE BILIRUBIN NEG (NEG); URINE COLOR DK YELLOW; URINE NITRITE NEG (NEG); URINE SPECIFIC GRAVITY 1.015 (1.000-1.030); UROBILINOGEN NEG (NEG); ZZUR CULT IF INDIC CLEAN CATCH NO
[2017-01-29 20:19] LABS: MANUAL MICROSCOPIC REQUIRED? NO; REVIEW REQ? NO
[2017-01-29] MEDS ORDERED: MAGNESIUM CITRATE 296 ML/BTL PO ONE (21:00)
[2017-01-29 21:14] VITALS: BP 105/60; PULSE 75; O2SAT 98
--- NOTE | 2017-01-30 01:14 | EMERGENCY ROOM VISIT NOTE ---
History Report prepared by Gayatri: Perry Sanchez Under the Supervision of: Dr. Manuel Lange M.D. First contact with patient: 15:10 Chief Complaint: ABDOMINAL PAIN Stated Complaint: MUSCLE SPASMS IN STOMACH History of Present Illness The patient is a 71 year old female who presents to the Emergency Room with complaints of constant constipation and severe lower abdominal pain for the past few days. The patient denies seeing any blood in her stool. She is additionally complaining of dysuria. The patient states that similar situations in the past in 2016 and 2013. The patient additionally states that she has been here multiple times in the past few weeks. During those episodes she had pain, nausea, and vomiting. The patient states that she was diagnosed with diverticulosis. She states that she takes stool softeners and two caps of miralax twice every day to try and help with her bowel movements, however she does not take the whole thing. She states that it feels like she is oozing stool , and she has not had a normal bowel movement for a few days now. Her states that the patient has been nauseous as well. He states that she has been taking pain medications due to back pain and feet pain. Additionally, the patient has a past history with constipation, Parkinson's, and Dementia. The states that the patient has been eating well, however she is not drinking very much fluids. Pt denies LOC, headache, fevers, chills, diaphoresis , visual changes, neck pain, chest pain, breathing difficulties, nausea, melena , hematochezia, numbness, weakness, lymphadenopathy, rash, or other complaints. Source of History: patient, spouse/significant other Onset: past few days Position: other (global) Quality: other (constipation) Timing: constant Associated Symptoms: + nausea Review of Systems See HPI for pertinent positives and negatives. A total of ten systems were reviewed and were otherwise negative. Past Medical & Surgical Medical Problems: (1) CAD (coronary artery disease) (2) Chest Pain (3) CKD (chronic kidney disease) stage 3, GFR 30-59 ml/min (4) Depression (5) Diaphragmatic hernia (6) GERD (gastroesophageal reflux disease) (7) History of breast cancer (8) History of kidney stones (9) Parkinson disease Surgical Problems: (1) H/O breast surgery (2) History of carpal tunnel surgery (3) History of tubal ligation Family History Cancer Hypertension Kidney disease Kidney stones Social History Smoking Status: Never Smoker Alcohol Use: none Drug Use: none Marital Status: Housing Status: lives with significant other Occupation Status: retired Current/Historical Medications Scheduled Aspirin (Aspirin Ec), 81 MG PO DAILY Buspirone HCl (Buspirone HCl), 10 MG PO BID Carbidopa/Levodopa (Sinemet 25MG/100MG), 1 TAB PO QID Docusate Sodium (Docusate Sodium), 1 CAP PO BID Duloxetine HCl (Duloxetine HCl), 60 MG PO DAILY Entacapone (Comtan), 200 MG PO QID Fluticasone Propionate (Nasal) (Flonase Allergy Relief), 2 SPRAY JAYDON DAILY Hydroxyzine Pamoate (Vistaril), 25 MG PO TID Lisinopril (Lisinopril), 10 MG PO DAILY Mirtazapine Soltab (Remeron Soltab), 15 MG PO HS Omeprazole (Prilosec), 40 MG PO AMPM Polyethylene Glycol 3350 (Miralax), 17 GM PO TID Trospium Chloride (Trospium Chloride), 20 MG PO QPM Scheduled PRN Diphenhydramine Hcl (Benadryl Allergy), 1 CAP PO Q6 PRN for Itching Ondansetron Hcl (Zofran), 8 MG PO BID PRN for Nausea Allergies Coded Allergies: Morphine (Unverified Allergy, Unknown, unknown, 01/23/17) Sulfa Antibiotics (Verified Allergy, Unknown, UNKNOWN, 01/23/17) Selegiline (Verified Adverse Reaction, Intermediate, loss of taste, 01/23/17 ) Tramadol (Verified Adverse Reaction, Intermediate, GENERAL ITCHINESS, ) Physical Exam Vital Signs Date Time Temp Pulse Resp B/P Pulse Ox O2 Delivery O2 Flow Rate FiO2 01/29/17 21:14 75 18 105/60 98 01/29/17 20:05 78 18 109/56 95 Room Air 01/29/17 18:00 82 18 134/82 96 Room Air 01/29/17 14:23 36.4 93 19 109/57 96 Room Air Physical Exam GENERAL: Awake, alert, well-appearing, in no distress HENT: Normocephalic, atraumatic. Oropharynx unremarkable. EYES: Normal conjunctiva. Sclera non-icteric. NECK: Supple. No nuchal rigidity. FROM. No JVD. RESPIRATORY: Clear to auscultation. CARDIAC: Regular rate, normal rhythm. Extremities warm and well perfused. Pulses equal. ABDOMEN: Mild lower abdominal discomfort. Soft, non-distended. No rebound or guarding. No masses. RECTAL: There is hard brown stool in the rectal vault but it is too far to disimpact manually. MUSCULOSKELETAL: Chest examination reveals no tenderness. The back is symmetrical on inspection without obvious abnormality. There is no CVA tenderness to palpation. No joint edema. LOWER EXTREMITIES: Calves are equal size bilaterally and non-tender. No edema. No discoloration. NEURO: Normal sensorium. No sensory or motor deficits noted. SKIN: No rash or jaundice noted. Medical Decision & Procedures ER Provider Diagnostic Interpretation: X-ray: Per my interpretation, radiologist review. PA CHEST RADIOGRAPH AND UPRIGHT AND SUPINE AP RADIOGRAPHS OF THE ABDOMEN CLINICAL HISTORY: Abdominal pain and constipation. COMPARISON STUDY: Chest radiograph and CT of the abdomen and pelvis January 23, 2017. FINDINGS: Left axillary surgical clips are noted. There is no pneumothorax or pleural effusion. Cardiac size is normal. Mediastinal contours are normal. There is no evidence of pulmonary edema. There is a suspected previous distal right clavicular resection. There is no free air. Bowel gas pattern is normal. There is a large amount of stool within the rectum and moderate amount of stool within the ascending colon. Similar findings were shown on CT of January 21, 2017. IMPRESSION: 1. No free air or evidence of bowel obstruction. 2. Large amount stool within the rectum and moderate amount of stool within the ascending colon. 3. No acute cardiopulmonary findings. Electronically signed by: Vinicio Warren M.D. 01/29/2017 4:48 PM Dictated Date/Time: 01/29/2017 4:46 PM Laboratory Results 01/29/17 17:00 Red Blood Count 4.09, Mean Corpuscular Volume 89.5, Mean Corpuscular Hemoglobin 29.8, Mean Corpuscular Hemoglobin Concent 33.3, Mean Platelet Volume 8.6, Neutrophils (%) (Auto) 90.4, Lymphocytes (%) (Auto) 6.4, Monocytes (%) (Auto) 2.9, Eosinophils (%) (Auto) 0.0, Basophils (%) (Auto) 0.1, Neutrophils # (Auto) 10.22, Lymphocytes # (Auto) 0.72, Monocytes # (Auto) 0.33, Eosinophils # (Auto) 0.00, Basophils # (Auto) 0.01 01/29/17 17:00 Test 01/29/17 17:00 01/29/17 18:45 White Blood Count 11.30 K/uL (4.8-10.8) Red Blood Count 4.09 M/uL (4.2-5.4) Hemoglobin 12.2 g/dL (12.0-16.0) Hematocrit 36.6 % (37-47) Mean Corpuscular Volume 89.5 fL (80-100) Mean Corpuscular Hemoglobin 29.8 pg (25-34) Mean Corpuscular Hemoglobin Concent 33.3 g/dl (32-36) Platelet Count 241 K/uL (130-400) Mean Platelet Volume 8.6 fL (7.4-10.4) Neutrophils (%) (Auto) 90.4 % Lymphocytes (%) (Auto) 6.4 % Monocytes (%) (Auto) 2.9 % Eosinophils (%) (Auto) 0.0 % Basophils (%) (Auto) 0.1 % Neutrophils # (Auto) 10.22 K/uL (1.4-6.5) Lymphocytes # (Auto) 0.72 K/uL (1.2-3.4) Monocytes # (Auto) 0.33 K/uL (0.11-0.59) Eosinophils # (Auto) 0.00 K/uL (0-0.5) Basophils # (Auto) 0.01 K/uL (0-0.2) RDW Standard Deviation 45.5 fL (36.4-46.3) RDW Coefficient of Variation 13.9 % (11.5-14.5) Immature Granulocyte % (Auto) 0.2 % Immature Granulocyte # (Auto) 0.02 K/uL (0.00-0.02) Anion Gap 7.0 mmol/L (3-11) Est Creatinine Clear Calc Drug Dose 28.3 ml/min Estimated GFR () 43.1 Estimated GFR (Non- 37.2 BUN/Creatinine Ratio 20.3 (10-20) Calcium Level 9.5 mg/dl (8.5-10.1) Total Bilirubin 0.5 mg/dl (0.2-1) Direct Bilirubin mg/dl (0-0.2) Aspartate Amino Transf (AST/SGOT) 21 U/L (15-37) Alanine Aminotransferase (ALT/SGPT) 10 U/L (12-78) Alkaline Phosphatase 55 U/L (45-117) Total Protein 6.8 gm/dl (6.4-8.2) Albumin 3.6 gm/dl (3.4-5.0) Lipase 235 U/L (73-393) Chemistry Specimen Hemolysis Urine Color DK YELLOW Urine Appearance CLEAR (CLEAR) Urine pH 5.0 (4.5-7.5) Urine Specific [place] 1.015 (1.000-1.030) Urine Protein NEG (NEG) Urine Glucose (UA) NEG (NEG) Urine Ketones TRACE (NEG) Urine Occult Blood NEG (NEG) Urine Nitrite NEG (NEG) Urine Bilirubin NEG (NEG) Urine Urobilinogen NEG (NEG) Urine Leukocyte Esterase NEG (NEG) Laboratory results reviewed by me ED Course 1557: The patient was evaluated in room B3. A complete history and physical exam was performed. 2050: I reevaluated the patient, and she was feeling better. Repeat abdominal examination was benign. No pain. No CVA tenderness. The patient was smiling. She was ambulating without difficulty. I discussed the plans with the patient 's family as well. Discussed results and discharge instructions: They verbalized understanding and agreement. The patient is ready for discharge. 2100: Magnesium Citrate 296ml PO Medical Decision Prior records/ancillary studies reviewed. Triage Nursing notes reviewed and agree them. Additional history obtained from family. notes that the patient should be taking MiraLAX, 2 capsules but is only drinking about half of this twice a day. Record review indicates that this has been prescribed for 3 times a day. The patient's history was concerning for constipation. Differential diagnosis: Etiologies such as functional constipation, impaction, obstruction, volvulus, metabolic abnormality, infection, neurologic, UTI, as well as others were entertained. Physical examination findings: As above. ER treatment provided: Soapsuds enema with good result On reassessment the patient felt completely better. Diagnostics interpreted by me: The labs revealed a very subtle leukocytosis on CBC. Patient's urinalysis was unremarkable. Chemistry panel was unremarkable. LFTs and lipase were negative. Imaging studies: Obstruction series as above The patient has had issues with constipation. She has had 2 recent Emergency Room visits. CT imaging was unremarkable except for constipation. The patient did have a slight leukocytosis. She had some lower abdominal pain. Obstruction series was unremarkable. Urinalysis was unremarkable. The patient did not have any lower rectal stool for mental disimpaction. A soapsuds enema was ordered. This was done. The patient had a sizable bowel movement. This resolved her symptoms. The patient was observed for an extended period while waiting for urinalysis. Her urinalysis was unremarkable. Repeat abdominal examination was benign. Patient was smiling. She is ambulating without difficulty. The leukocytosis may be from the patient's discomfort or some possible inflammation secondary to the constipation. She had a moderate amount of stool. As her pain is resolved with the clearance of the constipation I discussed conservative management. The patient felt comfortable going home and she is feeling much better, actually better than she has since just after her last Emergency Room visit. I discussed bowel regimen with the patient and family. I discussed use of magnesium citrate to help promote a colon cleanse his it was a moderate amount of stool on the right side. Patient felt comfortable with this. She will follow-up this week with her primary physician or return to the Emergency Room if she worsens in any way. I had a long discussion with the patient and family about this.I gave my usual and customary discussion regarding this issue. By the evaluation outlined above emergent etiologies such as obstruction, volvulus, metabolic abnormality, infection , neurologic, as well as others were deemed relatively unlikely. The patient and family were informed about the findings as listed above. All questions were answered and they were pleased with the treatment. Return instructions were outlined and the patient was discharged in stable condition. Referral: The patient was referred back to their primary care physician for follow-up this week for a recheck of the current condition. The chart was completed utilizing [email or web address] Speech voice recognition software. Grammatical errors, random word insertions, pronoun errors, and incomplete sentences are an occasional consequence of this system due to software limitations, ambient noise, and hardware issues. Any formal questions or concerns about the content, text, or information contained within the body of this dictation should be directly addressed to the physician for clarification. Impression Primary Impression: Constipation Additional Impression: Lower abdominal pain Scribe Attestation The scribe's documentation has been prepared under my direction and personally reviewed by me in its entirety. I confirm that the note above accurately reflects all work, treatment, procedures, and medical decision making performed by me. Departure Information Dispostion Home / Self-Care Referrals Michael Mittal M.D. (PCP) Forms HOME CARE DOCUMENTATION FORM, IMPORTANT VISIT INFORMATION Patient Instructions [facility] Additional Instructions Magnesium citrate, 1/2 bottle for constipation. If you don't have a good bowel movement in 8 hrs then drink the other half. This is available over-the- counter. Rest and drink plenty of fluids. Continue the MiraLAX as recommended. Increase fiber in your diet. Return to the ER for recurrent abdominal pain, vomiting, fevers, bloody stools, or as needed. Follow-up with your primary care physician in one to 2 days for a recheck of your current condition. Problem Qualifiers
== END 2017-01-29 21:08 | disposition home or self-care (01) ==
LOC: C.EDB 14:09
DX: K59.00 Constipation, unspecified (principal); R10.30 Lower abdominal pain, unspecified; F32.9 Major depressive disorder, single episode, unspecified; I25.10 Atherosclerotic heart disease of native coronary artery without angina pectoris; N18.3 Chronic kidney disease, stage 3 (moderate); K21.9 Gastro-esophageal reflux disease without esophagitis; Z85.3 Personal history of malignant neoplasm of breast; G20 Parkinson's disease; Z98.51 Tubal ligation status; Z79.82 Long term (current) use of aspirin

== ENCOUNTER 2017-01-31 21:25 | Emergency (ER) | payer OTHER, BC ==
[~2017-01-31] VITALS: Ht 157.5 cm; Wt 60.4 kg
[~2017-01-31 21:25] MED LIST changes: +HYDR1CAP85 PO; +OMEP40CA41 PO; -PIMA17TA PO; -PRLSR20 PO
[2017-01-31 21:43] VITALS: TEMP 36.4; Ht 157.5 cm; Wt 60.4 kg
[2017-01-31] MEDS: SODIUM CHLORIDE 0.9% 1000ML 1,000 ML IV STA ×2 (22:55→23:06)
[2017-01-31] MEDS ORDERED: HYDR-5688 PO (23:42)
[2017-02-01 00:06] LABS: BASO % 0.7 %; BASO ABS # 0.04 K/uL (0-0.2); COMPLETE YES; EOS % 1.2 %; HEMATOCRIT 33.3 % (37-47); IG% 0.2 %; LYMPH % 17.7 %; LYMPH ABS # 1.05 K/uL (1.2-3.4); MEAN CELL VOLUME 88.3 fL (80-100); MEAN CORPUSCULAR HEMOGLOBIN 29.2 pg (25-34); MEAN PLATELET VOLUME 8.4 fL (7.4-10.4); MONO % 9.1 %; NEUT % 71.1 %; PLATELET COUNT 239 K/uL (130-400); RED BLOOD COUNT 3.77 M/uL (4.2-5.4); WHITE BLOOD COUNT 5.93 K/uL (4.8-10.8)
[2017-02-01 00:30] LABS: ALT/SGPT 16 U/L (12-78); AST/SGOT 22 U/L (15-37); BLOOD UREA NITROGEN 30 mg/dl (7-18); BUN/CREATININE RATIO 21.5 (10-20); CARBON DIOXIDE 30 mmol/L (21-32); CHLORIDE 107 mmol/L (98-107); GLUCOSE 108 mg/dl (70-99); POTASSIUM 4.4 mmol/L (3.5-5.1); SODIUM 143 mmol/L (136-145)
[2017-02-01 00:33] LABS: URINE APPEARANCE CLEAR (CLEAR); URINE BILIRUBIN NEG (NEG); URINE COLOR DK YELLOW; URINE NITRITE NEG (NEG); URINE SPECIFIC GRAVITY 1.022 (1.000-1.030); UROBILINOGEN NEG (NEG)
[2017-02-01 00:34] LABS: ALKALINE PHOSPHATASE 57 U/L (45-117)
[2017-02-01 00:49] LABS: MANUAL MICROSCOPIC REQUIRED? NO; REVIEW REQ? NO
[2017-02-01] MEDS ORDERED: MAGNESIUM CITRATE 296 ML/BTL PO STA (02:44)
[2017-02-01 03:01] VITALS: BP 163/79; PULSE 80; O2SAT 98
--- NOTE | 2017-02-01 06:22 | DIAGNOSTIC IMAGING REPORT ---
ABDOMEN AND PELVIS CT WITHOUT CONTRAST CT DOSE: 461.19 mGy.cm HISTORY: Pain lower abd pain, constipation, urinary symptoms TECHNIQUE: Multiaxial CT images of the abdomen and pelvis were performed without contrast. COMPARISON STUDY: 01/23/2017 FINDINGS: Lung bases are clear. Liver spleen and pancreas are unremarkable. Small benign right adrenal angiomyolipoma. Kidneys are negative for obstructive change. Bowel pattern is nonobstructive. There is increased fecal load throughout the colon. No evidence for fecal impaction. Bladder is midline. IMPRESSION: Mild increase in fecal load throughout the colon. No acute process of the abdomen or pelvis. Electronically signed by: Mckay Cerda M.D. 02/01/2017 6:21 AM Dictated Date/Time: 02/01/2017 6:20 AM
--- NOTE | 2017-02-01 06:28 | EMERGENCY ROOM VISIT NOTE ---
History Report prepared by Gayatri: Med Bradley Under the Supervision of: Dr. Manuel Lange M.D. First contact with patient: 23:06 Chief Complaint: OTHER COMPLAINT Stated Complaint: ABD PAIN, MENTAL HEALTH EVAL? HX OF DEMENTIA/PARKI History of Present Illness The patient is a 71 year old female who presents to the Emergency Room with complaints of persistent abdominal pain for that past few days. The patient presented to the ED a few days ago for similar symptoms. She was treated for constipation and her symptoms resolved after an enema. She was discharged with magnesium citrate. The patient did not take the magnesium citrate when she got home, but instead she drank some Miralax. The patient has not had another bowel movement since being discharged from the hospital a few days ago. Today, she complained of abdominal pain, nausea, and difficulty urinating. The patient also complains of sinus congestion and drainage for the past few days and notes some difficulty breathing. Pt denies LOC, headache, fevers, chills, diaphoresis , visual changes, neck pain, chest pain, vomiting, melena, hematochezia, numbness, weakness, lymphadenopathy, rash, or other complaints. Source of History: patient, family Onset: past few days Position: abdomen Timing: other (persistent) Associated Symptoms: + nausea, + urinary symptoms Note: Other associated symptoms: nasal congestion and drainage. Review of Systems See HPI for pertinent positives and negatives. A total of ten systems were reviewed and were otherwise negative. Past Medical & Surgical Medical Problems: (1) CAD (coronary artery disease) (2) Chest Pain (3) CKD (chronic kidney disease) stage 3, GFR 30-59 ml/min (4) Depression (5) Diaphragmatic hernia (6) GERD (gastroesophageal reflux disease) (7) History of breast cancer (8) History of kidney stones (9) Parkinson disease Surgical Problems: (1) H/O breast surgery (2) History of carpal tunnel surgery (3) History of tubal ligation Family History Cancer Hypertension Kidney disease Kidney stones Social History Smoking Status: Never Smoker Alcohol Use: none Drug Use: none Marital Status: Housing Status: lives with significant other Occupation Status: retired Current/Historical Medications Scheduled Aspirin (Aspirin Ec), 81 MG PO DAILY Buspirone HCl (Buspirone HCl), 10 MG PO BID Carbidopa/Levodopa (Sinemet 25MG/100MG), 1 TAB PO QID Docusate Sodium (Docusate Sodium), 1 CAP PO BID Duloxetine HCl (Duloxetine HCl), 60 MG PO DAILY Entacapone (Comtan), 200 MG PO QID Fluticasone Propionate (Nasal) (Flonase Allergy Relief), 2 SPRAY JAYDON DAILY Hydroxyzine Pamoate (Vistaril), 25 MG PO TID Lisinopril (Lisinopril), 10 MG PO DAILY Mirtazapine Soltab (Remeron Soltab), 15 MG PO HS Omeprazole (Prilosec), 40 MG PO AMPM Polyethylene Glycol 3350 (Miralax), 17 GM PO TID Scheduled PRN Diphenhydramine Hcl (Benadryl Allergy), 1 CAP PO Q6 PRN for Itching Hydrocodone/Acetaminophen 5MG/325MG ([place] 5MG/325MG), 1 TAB PO TID PRN for Pain Ondansetron Hcl (Zofran), 8 MG PO BID PRN for Nausea Allergies Coded Allergies: Morphine (Unverified Allergy, Unknown, unknown, 01/23/17) Sulfa Antibiotics (Verified Allergy, Unknown, UNKNOWN, 01/23/17) Selegiline (Verified Adverse Reaction, Intermediate, loss of taste, 01/23/17 ) Tramadol (Verified Adverse Reaction, Intermediate, GENERAL ITCHINESS, ) Physical Exam Vital Signs Date Time Temp Pulse Resp B/P Pulse Ox O2 Delivery O2 Flow Rate FiO2 02/01/17 03:01 80 20 163/79 98 02/01/17 01:03 82 18 162/70 96 Room Air 01/31/17 23:37 85 20 144/66 96 Room Air 01/31/17 21:43 36.4 85 18 135/71 96 Room Air Physical Exam GENERAL: Awake, alert, tired-appearing, in no distress HENT: Normocephalic, atraumatic. Oropharynx unremarkable. EYES: Normal conjunctiva. Sclera non-icteric. NECK: Supple. No nuchal rigidity. FROM. No JVD. RESPIRATORY: Clear to auscultation. CARDIAC: Regular rate, normal rhythm. Extremities warm and well perfused. Pulses equal. ABDOMEN: Soft, non-distended. Suprapubic abdominal tenderness. No rebound or guarding. No masses. RECTAL: Deferred. MUSCULOSKELETAL: Chest examination reveals no tenderness. The back is symmetrical on inspection without obvious abnormality. There is no CVA tenderness to palpation. No joint edema. Small bruise to anterior left soto. LOWER EXTREMITIES: Calves are equal size bilaterally and non-tender. No edema. No discoloration. NEURO: Normal sensorium. No sensory or motor deficits noted. Masked facies of Parkinson's Disease. SKIN: No rash or jaundice noted. Medical Decision & Procedures ER Provider Diagnostic Interpretation: Radiology results as stated below per my review and radiologist interpretation CT Abdomen & Pelvis: Colonic diverticula without diverticulitis. No GI or urinary tract obstruction. Appendix is not identified. Laboratory Results 01/31/17 23:50 Red Blood Count 3.77, Mean Corpuscular Volume 88.3, Mean Corpuscular Hemoglobin 29.2, Mean Corpuscular Hemoglobin Concent 33.0, Mean Platelet Volume 8.4, Neutrophils (%) (Auto) 71.1, Lymphocytes (%) (Auto) 17.7, Monocytes (%) (Auto) 9.1, Eosinophils (%) (Auto) 1.2, Basophils (%) (Auto) 0.7, Neutrophils # (Auto) 4.22, Lymphocytes # (Auto) 1.05, Monocytes # (Auto) 0.54, Eosinophils # (Auto) 0.07, Basophils # (Auto) 0.04 01/31/17 23:50 Test 01/31/17 23:50 02/01/17 00:01 White Blood Count 5.93 K/uL (4.8-10.8) Red Blood Count 3.77 M/uL (4.2-5.4) Hemoglobin 11.0 g/dL (12.0-16.0) Hematocrit 33.3 % (37-47) Mean Corpuscular Volume 88.3 fL (80-100) Mean Corpuscular Hemoglobin 29.2 pg (25-34) Mean Corpuscular Hemoglobin Concent 33.0 g/dl (32-36) Platelet Count 239 K/uL (130-400) Mean Platelet Volume 8.4 fL (7.4-10.4) Neutrophils (%) (Auto) 71.1 % Lymphocytes (%) (Auto) 17.7 % Monocytes (%) (Auto) 9.1 % Eosinophils (%) (Auto) 1.2 % Basophils (%) (Auto) 0.7 % Neutrophils # (Auto) 4.22 K/uL (1.4-6.5) Lymphocytes # (Auto) 1.05 K/uL (1.2-3.4) Monocytes # (Auto) 0.54 K/uL (0.11-0.59) Eosinophils # (Auto) 0.07 K/uL (0-0.5) Basophils # (Auto) 0.04 K/uL (0-0.2) RDW Standard Deviation 45.5 fL (36.4-46.3) RDW Coefficient of Variation 13.9 % (11.5-14.5) Immature Granulocyte % (Auto) 0.2 % Immature Granulocyte # (Auto) 0.01 K/uL (0.00-0.02) Anion Gap 6.0 mmol/L (3-11) Est Creatinine Clear Calc Drug Dose 30.6 ml/min Estimated GFR () 43.1 Estimated GFR (Non- 37.2 BUN/Creatinine Ratio 21.5 (10-20) Calcium Level 9.0 mg/dl (8.5-10.1) Total Bilirubin 0.4 mg/dl (0.2-1) Direct Bilirubin < 0.1 mg/dl (0-0.2) Aspartate Amino Transf (AST/SGOT) 22 U/L (15-37) Alanine Aminotransferase (ALT/SGPT) 16 U/L (12-78) Alkaline Phosphatase 57 U/L (45-117) Total Protein 6.7 gm/dl (6.4-8.2) Albumin 3.6 gm/dl (3.4-5.0) Lipase 453 U/L (73-393) Urine Color DK YELLOW Urine Appearance CLEAR (CLEAR) Urine pH 6.0 (4.5-7.5) Urine Specific [place] 1.022 (1.000-1.030) Urine Protein NEG (NEG) Urine Glucose (UA) NEG (NEG) Urine Ketones TRACE (NEG) Urine Occult Blood NEG (NEG) Urine Nitrite NEG (NEG) Urine Bilirubin NEG (NEG) Urine Urobilinogen NEG (NEG) Urine Leukocyte Esterase NEG (NEG) Laboratory results reviewed by me Medications Administered Medications (Trade) Dose Ordered Sig/Patricia Route Start Time Stop Time Status Last Admin Dose Admin Sodium Chloride (Nss 1000ml) 1,000 ml @ 125 mls/hr Q8H STAT IV 01/31/17 23:06 02/01/17 03:41 DC 01/31/17 23:06 125 MLS/HR Magnesium Citrate (Citrate Of Magnesia Soln) 296 ml NOW STAT PO 02/01/17 02:44 02/01/17 02:45 DC 02/01/17 02:54 296 ML ED Course 2312: The patient was evaluated in room C1. A complete history and physical exam was performed. 2306: Ordered NSS 1000 ml @ 125 mls/hr IV. 0135: At this time, I reevaluated the patient and updated her and her daughter. Case management is meeting with the patient. 0219: At this time, I reevaluated the patient after they met with case management. The patient doesn't meet criteria for admission and family is not interested in seeing geriatric psych. The patient is feeling better at this time. 0229: I reevaluated the patient. Discussed results and discharge instructions: They verbalized understanding and agreement. The patient is ready for discharge. Medical Decision Triage Nursing notes reviewed. The patient's presentation and history were concerning for abdominal complaints , urinary symptoms, and constipation. The patient did not take the medication as prescribed from her last visit. Etiologies such as constipation, medication noncompliance, appendicitis, diverticulitis, obstruction, inflammatory bowel disease, renal colic, PUD, biliary pathology, pancreatitis, mesenteric ischemia, aortic pathology, infections, genitourinary, UTI, perforated viscus, as well as others were entertained. Patient was evaluated. She appeared clinically the same as she did 2 days ago. She had some suprapubic abdominal discomfort on examination. She had a leukocytosis on her last visit. This was concerning and therefore she underwent CT imaging. The patient also underwent blood work and catheterized urinalysis. She was hydrated. She was minimally dehydrated on chemistry panel. Urinalysis was negative. Her LITES were unremarkable. Her CBC was normal. The patient had an unremarkable CT scan for any acute pathology. She had moderate stool noted on the right side. There is no significant descending colon, sigmoid, or rectal stool present. The patient did receive an enema her last visit. The patient's family notes that she was not taking her MiraLAX as previously prescribed. The patient was also reluctant to take her magnesium citrate as she was worried about the effects. Her complaints are similar to the last visit. There was some concerns about her mood. I did offer through case management to have the patient evaluated. Unfortunately since she has her ongoing medical issues she would have to be referred out of this facility for mental health. The family and patient do not want to go anywhere else. The patient has no criteria for admission after review with case management. Case management did meet with the patient and family. The patient does not wish to To a nursing facility. She is just starting to have home services come to her house. I had a long discussion with the patient and her daughter. At that time the patient felt much more relaxed and was having no symptoms. I reinforced her need to try the magnesium citrate and take the MiraLAX as prescribed. I was somewhat of her abdominal symptoms are directly related to her moderate amount of constipation. She was encouraged to hydrate as well. Her daughter readily admits that the patient does not drink enough fluids. The patient and daughter felt comfortable with going home and following up as an outpatient. I encouraged him to come back to the emergency department if any problems develop or there are more issues at home. If she worsens in anyway she agrees to come back. By the evaluation outlined above other emergent etiologies such as those listed in the differential, as well as others, were deemed relatively unlikely. The patient and daughter were informed about the findings as listed above. All questions were answered and they were pleased with the treatment. Return instructions were outlined and the patient was discharged in stable condition. The patient was referred to her PCP for follow-up on Friday for a recheck of the current condition. The chart was completed utilizing [employer] Speech voice recognition software. Grammatical errors, random word insertions, pronoun errors, and incomplete sentences are an occasional consequence of this system due to software limitations, ambient noise, and hardware issues. Any formal questions or concerns about the content, text, or information contained within the body of this dictation should be directly addressed to the physician for clarification. Impression Primary Impression: Abdominal pain Additional Impressions: Constipation Noncompliance with medications Parkinson disease Scribe Attestation The scribe's documentation has been prepared under my direction and personally reviewed by me in its entirety. I confirm that the note above accurately reflects all work, treatment, procedures, and medical decision making performed by me. Departure Information Dispostion Home / Self-Care Referrals Michael Mittal M.D. (PCP) Forms HOME CARE DOCUMENTATION FORM, IMPORTANT VISIT INFORMATION, WORK / SCHOOL INSTRUCTIONS Patient Instructions My [facility] Additional Instructions Magnesium citrate, 1/2 bottle for constipation. If you don't have a good bowel movement in 8 hrs then drink the other half. This is available over-the- counter. Rest and drink plenty of fluids. Continue the MiraLAX. Make sure you take this 3 times a day as previously prescribed. Increase fiber in your diet. Return to the ER for worsening abdominal pain, vomiting, fevers, bloody stools, or as needed. Follow-up with your primary care physician on Friday for a recheck of your current condition. Problem Qualifiers
== END 2017-02-01 03:02 | disposition home or self-care (01) ==
LOC: C.EDB 21:29 → C.EDC 02-01 03:02
DX: R10.9 Unspecified abdominal pain (principal); K59.00 Constipation, unspecified; Z91.14 Patient's other noncompliance with medication regimen; G20 Parkinson's disease; I25.10 Atherosclerotic heart disease of native coronary artery without angina pectoris; N18.3 Chronic kidney disease, stage 3 (moderate); F32.9 Major depressive disorder, single episode, unspecified; K21.9 Gastro-esophageal reflux disease without esophagitis; Z85.3 Personal history of malignant neoplasm of breast; Z98.51 Tubal ligation status; Z79.82 Long term (current) use of aspirin

== ENCOUNTER 2017-05-26 11:58 | Emergency (ER) | payer OTHER ==
[~2017-05-26] VITALS: Ht 157.5 cm; Wt 60.0 kg
[~2017-05-26 11:58] MED LIST changes: +HYDR-5688 PO; -TROS20TA3 PO
[2017-05-26 12:03] VITALS: TEMP 36.3; Ht 157.5 cm; Wt 60.0 kg
[2017-05-26] MEDS ORDERED: SODIUM CHLORIDE 0.9% 1000ML 1,000 ML IV STA (13:25)
[2017-05-26] MEDS ORDERED: ARTISPR PO (13:44)
[2017-05-26] MEDS ORDERED: PIMA17TA PO (13:44)
[2017-05-26] MEDS ORDERED: MIRT30TA2 PO (13:44)
[2017-05-26] MEDS ORDERED: CITA10TA8 PO (13:44)
--- NOTE | 2017-05-26 14:03 | DIAGNOSTIC IMAGING REPORT ---
CHEST ONE VIEW PORTABLE CLINICAL HISTORY: Altered mental status. Weakness. COMPARISON STUDY: Chest radiograph January 29, 2017. FINDINGS: There is no pneumothorax or pleural effusion. Cardiomediastinal silhouette is normal. There is no evidence of pulmonary edema. There is no consolidation to suggest pneumonia. There are left axillary surgical clips. There are postoperative findings within the left breast. IMPRESSION: No acute cardiopulmonary findings. Electronically signed by: Vinicio Warren M.D. 05/26/2017 2:02 PM Dictated Date/Time: 05/26/2017 2:00 PM
[2017-05-26 14:40] LABS: BASO % 0.4 %; BASO ABS # 0.02 K/uL (0-0.2); COMPLETE YES; EOS % 0.4 %; HEMATOCRIT 32.8 % (37-47); IG% 0.2 %; LYMPH % 14.9 %; LYMPH ABS # 0.74 K/uL (1.2-3.4); MEAN CELL VOLUME 90.6 fL (80-100); MEAN PLATELET VOLUME 8.8 fL (7.4-10.4); MONO % 5.8 %; NEUT % 78.3 %; PLATELET COUNT 229 K/uL (130-400); RED BLOOD COUNT 3.62 M/uL (4.2-5.4); WHITE BLOOD COUNT 4.98 K/uL (4.8-10.8)
[2017-05-26 14:54] LABS: PROTHROMBIN TIME (PATIENT) 10.6 SECONDS (9.0-12.0)
[2017-05-26 14:59] LABS: BLOOD UREA NITROGEN 25 mg/dl (7-18); BUN/CREATININE RATIO 17.5 (10-20); CALCIUM 9.3 mg/dl (8.5-10.1); CARBON DIOXIDE 27 mmol/L (21-32); CHLORIDE 109 mmol/L (98-107); GLUCOSE 87 mg/dl (70-99); POTASSIUM 4.3 mmol/L (3.5-5.1); SODIUM 142 mmol/L (136-145)
[2017-05-26 15:04] LABS: CKMB/CK RATIO 1.6 (0-3.0)
--- NOTE | 2017-05-26 16:07 | EMERGENCY ROOM VISIT NOTE ---
History Report prepared by Gayatri: Art Benson Under the Supervision of: Dr. Aaron Faustin D.O. First contact with patient: 13:13 Chief Complaint: ILLNESS Stated Complaint: STOMACH ACHE, ILLNESS History of Present Illness The patient is a 72 year old female who presents to the Emergency Room with complaints of persistent nausea starting about a month ago. She reports increased mucous production which worsens her nausea. She denies vomiting. This morning, she had a small amount of breakfast, took her prescribed medicine, and started having nausea again. She has been taking Zofran at home with some relief. She currently denies nausea. She denies fevers, chills, or any other complaints. She has a history of Parkinson's disease. Source of History: patient Onset: about a month ago Position: other (global) Quality: other (nausea) Timing: other (persistent) Modifying Factors (Relieving): other (Zofran with some relief) Associated Symptoms: No fevers, No chills, No vomiting Review of Systems See HPI for pertinent positives & negatives. A total of 10 systems reviewed and were otherwise negative. Past Medical & Surgical Medical Problems: (1) CAD (coronary artery disease) (2) Chest Pain (3) CKD (chronic kidney disease) stage 3, GFR 30-59 ml/min (4) Depression (5) Diaphragmatic hernia (6) GERD (gastroesophageal reflux disease) (7) History of breast cancer (8) History of kidney stones (9) Parkinson disease Surgical Problems: (1) H/O breast surgery (2) History of carpal tunnel surgery (3) History of tubal ligation Family History Cancer Hypertension Kidney disease Kidney stones Social History Smoking Status: Never Smoker Alcohol Use: none Drug Use: none Marital Status: Housing Status: lives with significant other Occupation Status: retired Current/Historical Medications Scheduled Artificial Saliva (Biotene Moisturizing Mout), 2 SPRAYS PO PRN Aspirin (Aspirin Ec), 81 MG PO QAM Buspirone HCl (Buspirone HCl), 10 MG PO BID Carbidopa/Levodopa (Sinemet 25MG/100MG), 1 TAB PO 5XD Citalopram Hydrobromide (Celexa), 10 MG PO QAM Docusate Sodium (Docusate Sodium), 1 CAP PO BID Duloxetine HCl (Duloxetine HCl), 60 MG PO DAILY Entacapone (Comtan), 200 MG PO 5XD Fluticasone Propionate (Nasal) (Flonase Allergy Relief), 2 SPRAY JAYDON QAM Lisinopril (Lisinopril), 10 MG PO QAM Mirtazapine Soltab (Remeron Soltab), 30 MG PO HS Omeprazole (Prilosec), 40 MG PO AMPM Pimavanserin Tartrate (Nuplazid), 2 TABS PO DAILY Polyethylene Glycol 3350 (Miralax), 17 GM PO QAM Scheduled PRN Hydrocodone/Acetaminophen 5MG/325MG ([place] 5MG/325MG), 1 TAB PO Q8 PRN for Pain Hydroxyzine Pamoate (Vistaril), 25 MG PO TID PRN for Anxiety Ondansetron Hcl (Zofran), 8 MG PO BID PRN for Nausea Allergies Coded Allergies: Morphine (Unverified Allergy, Unknown, unknown, 05/26/17) Sulfa Antibiotics (Verified Allergy, Unknown, UNKNOWN, 05/26/17) Selegiline (Verified Adverse Reaction, Intermediate, loss of taste, ) Tramadol (Verified Adverse Reaction, Intermediate, GENERAL ITCHINESS, 05/26) Physical Exam Vital Signs Date Time Temp Pulse Resp B/P (MAP) Pulse Ox O2 Delivery O2 Flow Rate FiO2 05/26/17 14:49 64 16 124/61 97 05/26/17 12:46 82 05/26/17 12:03 36.3 94 20 150/69 99 Room Air Physical Exam CONSTITUTIONAL/VITAL SIGNS: Reviewed / noted above. GENERAL: Non-toxic in appearance. INTEGUMENTARY: Warm, dry, and [place]. HEAD: Normocephalic. EYES: without scleral icterus or trauma. ENT/OROPHARYNX: clear and moist. LYMPHADENOPATHY/NECK: Is supple without lymphadenopathy or meningismus. RESPIRATORY: Lungs clear and equal. CARDIOVASCULAR: Regular rate and rhythm. GI/ABDOMEN: Soft and nontender. No organomegaly or pulsatile mass. No rebound or guarding. Normal bowel sounds. EXTREMITIES: Warm and well perfused. BACK: No CVA tenderness. NEUROLOGICAL: Intact without focal deficits. PSYCHIATRIC: normal affect. MUSCULOSKELETAL: Normally developed with good muscle tone. Medical Decision & Procedures ER Provider Diagnostic Interpretation: X ray results and stated below per my interpretation and radiology interpretation. CHEST ONE VIEW PORTABLE CLINICAL HISTORY: Altered mental status. Weakness. COMPARISON STUDY: Chest radiograph January 29, 2017. FINDINGS: There is no pneumothorax or pleural effusion. Cardiomediastinal silhouette is normal. There is no evidence of pulmonary edema. There is no consolidation to suggest pneumonia. There are left axillary surgical clips. There are postoperative findings within the left breast. IMPRESSION: No acute cardiopulmonary findings. Electronically signed by: Vinicio Warren M.D. 05/26/2017 2:02 PM Dictated Date/Time: 05/26/2017 2:00 PM Laboratory Results 05/26/17 14:05 Red Blood Count 3.62, Mean Corpuscular Volume 90.6, Mean Corpuscular Hemoglobin 29.0, Mean Corpuscular Hemoglobin Concent 32.0, Mean Platelet Volume 8.8, Neutrophils (%) (Auto) 78.3, Lymphocytes (%) (Auto) 14.9, Monocytes (%) (Auto) 5.8, Eosinophils (%) (Auto) 0.4, Basophils (%) (Auto) 0.4, Neutrophils # (Auto) 3.90, Lymphocytes # (Auto) 0.74, Monocytes # (Auto) 0.29, Eosinophils # (Auto) 0.02, Basophils # (Auto) 0.02 05/26/17 14:05 Test 05/26/17 14:05 White Blood Count 4.98 K/uL (4.8-10.8) Red Blood Count 3.62 M/uL (4.2-5.4) Hemoglobin 10.5 g/dL (12.0-16.0) Hematocrit 32.8 % (37-47) Mean Corpuscular Volume 90.6 fL (80-100) Mean Corpuscular Hemoglobin 29.0 pg (25-34) Mean Corpuscular Hemoglobin Concent 32.0 g/dl (32-36) Platelet Count 229 K/uL (130-400) Mean Platelet Volume 8.8 fL (7.4-10.4) Neutrophils (%) (Auto) 78.3 % Lymphocytes (%) (Auto) 14.9 % Monocytes (%) (Auto) 5.8 % Eosinophils (%) (Auto) 0.4 % Basophils (%) (Auto) 0.4 % Neutrophils # (Auto) 3.90 K/uL (1.4-6.5) Lymphocytes # (Auto) 0.74 K/uL (1.2-3.4) Monocytes # (Auto) 0.29 K/uL (0.11-0.59) Eosinophils # (Auto) 0.02 K/uL (0-0.5) Basophils # (Auto) 0.02 K/uL (0-0.2) RDW Standard Deviation 46.8 fL (36.4-46.3) RDW Coefficient of Variation 14.1 % (11.5-14.5) Immature Granulocyte % (Auto) 0.2 % Immature Granulocyte # (Auto) 0.01 K/uL (0.00-0.02) Prothrombin Time 10.6 SECONDS (9.0-12.0) Prothromb Time International Ratio 1.0 (0.9-1.1) Activated Partial Thromboplast Time 25.2 SECONDS (21.0-31.0) Partial Thromboplastin Ratio 1.0 Anion Gap 6.0 mmol/L (3-11) Est Creatinine Clear Calc Drug Dose 27.9 ml/min Estimated GFR () 42.8 Estimated GFR (Non- 36.9 BUN/Creatinine Ratio 17.5 (10-20) Calcium Level 9.3 mg/dl (8.5-10.1) Total Creatine Kinase 74 U/L (26-192) Creatine Kinase MB 1.2 ng/ml (0.5-3.6) Creatine Kinase MB Ratio 1.6 (0-3.0) Troponin I < 0.015 ng/ml (0-0.045) Lipase 267 U/L (73-393) Laboratory results as stated above per my review. Medications Administered Medications (Trade) Dose Ordered Sig/Patricia Route Start Time Stop Time Status Last Admin Dose Admin Sodium Chloride 1,000 ml @ 999 mls/hr Q1H1M STAT IV 05/26/17 13:25 05/26/17 14:25 DC 05/26/17 14:07 999 MLS/HR ECG Indication: nausea Rate (beats per minute): 70 Rhythm: sinus rhythm Findings: no acute ischemic change, no ectopy, other (Sinus arrhythmia) ED Course 1313: Previous medical records were reviewed. The patient was evaluated in room C01B. A complete history and physical examination was performed. 1325: Sodium Chloride 1000 ml @ 999 mls/hr IV 1609: On reevaluation, the patient is resting comfortably. I discussed the results and findings with the patient and her . They verbalized agreement of the treatment plan. The patient was discharged home. 1615: Ativan 1mg SL Medical Decision Medication Reconciliation: I attest that I have personally reviewed the patient' s current medication list. Blood pressure Screening: Patient was found to have normal blood pressure on screening and does not require follow-up. Differential diagnosis: Etiologies such as gastroenteritis, food borne illness, infections, appendicitis , diverticulitis, inflammatory bowel disease, obstruction, GI bleed, biliary pathology, as well as others were entertained. This is a 72-year-old female who presents to the ED with a chief complaint of feeling sick for months. The patient states that she has nausea but does not vomit. She states this has been going on for a while. This morning she ate a little breakfast and got nauseated. She tried some Zofran but this didn't help much. The patient came in primarily to see if she was dehydrated. Her physical exam was unremarkable. Her vital signs are stable. An EKG shows a sinus rhythm at a rate of 70. CBC is unremarkable. The BUN is 25 and a creatinine is 1.4. Troponin was negative. Chest x-ray did not reveal acute disease. The patient was treated with IV fluids. She is told results and was felt to be stable for discharge. She was given Ativan SL as well. Impression Primary Impression: Nausea Additional Impression: Dehydration Scribe Attestation The scribe's documentation has been prepared under my direction and personally reviewed by me in its entirety. I confirm that the note above accurately reflects all work, treatment, procedures, and medical decision making performed by me. Departure Information Dispostion Home / Self-Care Referrals Michael Mittal M.D. (PCP) Forms HOME CARE DOCUMENTATION FORM, IMPORTANT VISIT INFORMATION, WORK / SCHOOL INSTRUCTIONS Patient Instructions Dehydration, My [facility] Additional Instructions Follow-up with your doctor for further care and evaluation in 1-2 days. Return to the emergency department for worsening or new symptoms or any concerns. You have been examined and treated today on an emergency basis only. This is not a substitute for, or an effort to provide, complete comprehensive medical care. It is impossible to recognize and treat all injuries or illnesses in a single emergency department visit. It is therefore important that you follow up closely with your doctor. Call as soon as possible for an appointment. Problem Qualifiers
[2017-05-26] MEDS ORDERED: LORAZEPAM 1 MG TAB SL STA (16:12)
[2017-05-26] MEDS ORDERED: D5W AND LACTATED RINGERS 1,000 ML IV STA (16:13)
[2017-05-26 16:33] VITALS: BP 158/71; PULSE 99; O2SAT 97
== END 2017-05-26 16:35 | disposition home or self-care (01) ==
LOC: C.EDB 12:00 → C.EDC 16:35
DX: E86.0 Dehydration (principal); R11.0 Nausea; I25.10 Atherosclerotic heart disease of native coronary artery without angina pectoris; N18.3 Chronic kidney disease, stage 3 (moderate); K21.9 Gastro-esophageal reflux disease without esophagitis; G20 Parkinson's disease; F32.9 Major depressive disorder, single episode, unspecified; Z85.3 Personal history of malignant neoplasm of breast; Z87.442 Personal history of urinary calculi; Z98.51 Tubal ligation status; Z98.890 Other specified postprocedural states; Z79.82 Long term (current) use of aspirin; Z79.899 Other long term (current) drug therapy; Z88.2 Allergy status to sulfonamides; Z88.5 Allergy status to narcotic agent; Z88.8 Allergy status to other drugs, medicaments and biological substances; Z80.9 Family history of malignant neoplasm, unspecified; Z82.49 Family history of ischemic heart disease and other diseases of the circulatory system; Z84.1 Family history of disorders of kidney and ureter

== ENCOUNTER 2017-05-29 14:10 | Emergency (ER) | payer OTHER ==
[~2017-05-29 14:10] MED LIST changes: +ARTISPR PO; +CITA10TA8 PO; -DIPH25CA65 PO; -MIRT15TA2 PO; +MIRT30TA2 PO; +PIMA17TA PO
[2017-05-29 14:25] VITALS: TEMP 36.6; Ht 157.5 cm
[2017-05-29] MEDS ORDERED: MIRT15TA2 PO (15:06)
[2017-05-29] MEDS ORDERED: BUSP-8 PO (15:12)
[2017-05-29] MEDS ORDERED: VASELINE TOP (15:16)
[2017-05-29] MEDS ORDERED: SODIUM CHLORIDE 0.9% 1000ML 1,000 ML IV STA (15:28)
--- NOTE | 2017-05-29 15:34 | EMERGENCY ROOM VISIT NOTE ---
History Report prepared by Gayatri: Daniel Montana Under the Supervision of: Dr. Stuart Ness M.D. First contact with patient: 15:14 Chief Complaint: MENTAL HEALTH EVALUATION Stated Complaint: DR SENT OVER FOR MEDICATIONS History of Present Illness The patient is a 72 year old female with a history of severe depression, Parkinson's, and dementia, who presents to the Emergency Room for a mental health evaluation. Per the patient's daughter, the patient has had worsening emotional ups and downs for the past few weeks, and has been having episodes where she refuses her medications, and is hard to deal with. There is concern that perhaps the patient's depression medication is not at the right place. The patient lives with her , and has a nursing scheduler come in a couple times per week, but the patient's daughter says that it is becoming "impossible" to treat the patient when she has these "down spells". Today, the patient was somehow on the floor, and was refusing to get up, take her medications, or go to the bathroom. The patient did not fall onto the floor. The patient's daughter notes that a few days ago, the patient had a spell where she said she was dying and could not swallow. The patient does get nauseous from her Parkinson's medication , and she does not deal with it well during the down spells. The patient wanted to come here for treatment, but a few hours later, the patient was dancing in the camper and was totally fine. The patient's daughter says that the patient has "manic highs and manic lows". Today, the patient said that her was trying to kill her, although this is not the case. For a while intermittently, the patient has voiced thoughts of hurting herself, but has never tried to hurt herself. She also has intermittent hallucinations, where she says that there are "women and kids" around, when there is no one else around. The patient's daughter got the patient in to see a psychiatrist at [facility], and the patient has seen the psychiatrist once so far. The psychiatrist has not changed any of the patient's medications or doses. The patient's daughter called [facility] today, and it was recommended that the patient come here for possibly looking at having her admitted for evaluation. Any recent falls or overdoses were denied on behalf of the patient. The patient denies any chest pain or abdominal pain. She does note that she does not want to go to a residential. Per the patient's daughter, the patient was here 3 days ago and was noted to be dehydrated. The patient says she has a chronic feeling of having to go to the bathroom all the time, and she is chronically cold. She has complained of having something in her vagina that is "pushing", but the patient had a DEVELOPMENT CHEMIST exam and nothing was abnormal. The patient was admitted to the [facility] 20 years ago. Source of History: patient, family Onset: Past few weeks Position: other (global - mental health evaluation) Quality: other (emotions ups and downs) Timing: worsening Associated Symptoms: No chest pain, No abdominal pain Note: Associated symptoms: Intermittent "down spells" where she refuses medication, very hard to deal with. Intermittent hallucination. Occasionally says she wants to hurt herself, but has not acted on it. Review of Systems See HPI for pertinent positives & negatives. A total of 10 systems reviewed and were otherwise negative. Past Medical & Surgical Medical Problems: (1) CAD (coronary artery disease) (2) Chest Pain (3) CKD (chronic kidney disease) stage 3, GFR 30-59 ml/min (4) Depression (5) Diaphragmatic hernia (6) GERD (gastroesophageal reflux disease) (7) History of breast cancer (8) History of kidney stones (9) Parkinson disease Surgical Problems: (1) H/O breast surgery (2) History of carpal tunnel surgery (3) History of tubal ligation Old medical records were reviewed. Nurse's notes were reviewed and I agree with. Family History Cancer Hypertension Kidney disease Kidney stones Social History Smoking Status: Never Smoker Alcohol Use: none Drug Use: none Marital Status: Housing Status: lives with significant other Occupation Status: retired Current/Historical Medications Scheduled Artificial Saliva (Biotene Moisturizing Mout), 2 SPRAYS PO PRN Aspirin (Aspirin Ec), 81 MG PO QAM Buspirone Hcl (Buspirone Hcl), 10 MG PO BID Carbidopa/Levodopa (Sinemet 25MG/100MG), 1 TAB PO 5XD Citalopram Hydrobromide (Celexa), 10 MG PO QAM Docusate Sodium (Docusate Sodium), 1 CAP PO BID Duloxetine HCl (Duloxetine HCl), 30 MG PO DAILY Entacapone (Comtan), 200 MG PO 5XD Fluticasone Propionate (Nasal) (Flonase Allergy Relief), 2 SPRAY JAYDON QAM Lisinopril (Lisinopril), 10 MG PO QAM Mirtazapine Soltab (Remeron Soltab), 15 MG PO HS Omeprazole (Prilosec), 40 MG PO AMPM Pimavanserin Tartrate (Nuplazid), 34 MG PO DAILY Polyethylene Glycol 3350 (Miralax), 17 GM PO TID Scheduled PRN Hydrocodone/Acetaminophen 5MG/325MG ([place] 5MG/325MG), 1 TAB PO Q8 PRN for Pain Hydroxyzine Pamoate (Vistaril), 25 MG PO TID PRN for Anxiety Ondansetron Hcl (Zofran), 8 MG PO BID PRN for Nausea [Vaseline Oint], 1 APPLN TOP BID PRN for IRRITATION Allergies Coded Allergies: Morphine (Unverified Allergy, Unknown, unknown, 05/29/17) Sulfa Antibiotics (Verified Allergy, Unknown, UNKNOWN, 05/29/17) Selegiline (Verified Adverse Reaction, Intermediate, loss of taste, ) Tramadol (Verified Adverse Reaction, Intermediate, GENERAL ITCHINESS, 05/29) Physical Exam Vital Signs Date Time Temp Pulse Resp B/P (MAP) Pulse Ox O2 Delivery O2 Flow Rate FiO2 05/29/17 23:31 65 20 118/58 95 05/29/17 22:35 78 18 122/55 96 Room Air 05/29/17 20:15 79 18 137/68 96 Room Air 05/29/17 17:51 85 20 147/65 95 Room Air 05/29/17 14:25 36.6 74 20 117/59 99 Room Air Physical Exam General: Well developed well nourished chronically ill appearing older female in no acute distress, breathing comfortably on room air. Normal speech HEENT: Normal cephalic atraumatic. Pupils are equal round and reactive to light. Extraocular movements are intact. Oropharynx is pink with moist mucous membranes. No swelling of the mouth lips or tongue. Neck: Supple with a midline trachea. No meningeal signs or stiffness, no JVD or bruits. No Stridor. Chest: Clear to auscultation bilaterally. No wheezes or rhonchi. No increased work of breathing. Heart: regular rate and rhythm. Abdomen: Soft nontender, nondistended without rebound guarding or rigidity. Extremities: No cyanosis clubbing or edema. No calf tenderness or assymetry Spine/Back. Non tender to palpation. No CVA tenderness Skin: Good turgor without rashes. Neurologic exam: Cranial nerves two through 12 are intact. Motor and sensation are intact and symmetrical throughout. Psych: Flattened affect but answers questions appropriately. Medical Decision & Procedures Laboratory Results 05/29/17 16:18 Red Blood Count 3.73, Mean Corpuscular Volume 89.8, Mean Corpuscular Hemoglobin 29.8, Mean Corpuscular Hemoglobin Concent 33.1, Mean Platelet Volume 8.4, Neutrophils (%) (Auto) 77.1, Lymphocytes (%) (Auto) 11.2, Monocytes (%) (Auto) 10.7, Eosinophils (%) (Auto) 0.5, Basophils (%) (Auto) 0.3, Neutrophils # (Auto ) 4.68, Lymphocytes # (Auto) 0.68, Monocytes # (Auto) 0.65, Eosinophils # (Auto ) 0.03, Basophils # (Auto) 0.02 05/29/17 16:18 05/29/17 17:15 Test 05/29/17 14:45 05/29/17 16:18 05/29/17 17:15 Urine Color DK YELLOW Urine Appearance CLEAR (CLEAR) Urine pH 5.0 (4.5-7.5) Urine Specific [place] 1.017 (1.000-1.030) Urine Protein NEG (NEG) Urine Glucose (UA) NEG (NEG) Urine Ketones NEG (NEG) Urine Occult Blood TRACE (NEG) Urine Nitrite NEG (NEG) Urine Bilirubin NEG (NEG) Urine Urobilinogen NEG (NEG) Urine Leukocyte Esterase NEG (NEG) Urine WBC (Auto) 1-5 /hpf (0-5) Urine RBC (Auto) 0-4 /hpf (0-4) Urine Hyaline Casts (Auto) 1-5 /lpf (0-5) Urine Epithelial Cells (Auto) 10-20 /lpf (0-5) Urine Bacteria (Auto) NEG (NEG) Urine Opiates Screen NEG (NEG) Urine Methadone, Qualitative NEG (NEG) Urine Barbiturates NEG (NEG) Urine Phencyclidine (PCP) Level NEG (NEG) Ur Amphetamine/Methamphetamine NEG (NEG) MDMA (Ecstasy) Screen NEG (NEG) Urine Benzodiazepines Screen NEG (NEG) Urine Cocaine Metabolite NEG (NEG) Urine Marijuana (THC) NEG (NEG) White Blood Count 6.07 K/uL (4.8-10.8) Red Blood Count 3.73 M/uL (4.2-5.4) Hemoglobin 11.1 g/dL (12.0-16.0) Hematocrit 33.5 % (37-47) Mean Corpuscular Volume 89.8 fL (80-100) Mean Corpuscular Hemoglobin 29.8 pg (25-34) Mean Corpuscular Hemoglobin Concent 33.1 g/dl (32-36) Platelet Count 224 K/uL (130-400) Mean Platelet Volume 8.4 fL (7.4-10.4) Neutrophils (%) (Auto) 77.1 % Lymphocytes (%) (Auto) 11.2 % Monocytes (%) (Auto) 10.7 % Eosinophils (%) (Auto) 0.5 % Basophils (%) (Auto) 0.3 % Neutrophils # (Auto) 4.68 K/uL (1.4-6.5) Lymphocytes # (Auto) 0.68 K/uL (1.2-3.4) Monocytes # (Auto) 0.65 K/uL (0.11-0.59) Eosinophils # (Auto) 0.03 K/uL (0-0.5) Basophils # (Auto) 0.02 K/uL (0-0.2) RDW Standard Deviation 45.7 fL (36.4-46.3) RDW Coefficient of Variation 13.8 % (11.5-14.5) Immature Granulocyte % (Auto) 0.2 % Immature Granulocyte # (Auto) 0.01 K/uL (0.00-0.02) Anion Gap 5.0 mmol/L (3-11) Estimated GFR () 42.8 Estimated GFR (Non- 36.9 BUN/Creatinine Ratio 13.7 (10-20) Calcium Level 9.1 mg/dl (8.5-10.1) Total Bilirubin 0.4 mg/dl (0.2-1) Alanine Aminotransferase (ALT/SGPT) 21 U/L (12-78) Alkaline Phosphatase 60 U/L (45-117) Total Protein 6.5 gm/dl (6.4-8.2) Albumin 3.5 gm/dl (3.4-5.0) Lipase 326 U/L (73-393) Thyroid Stimulating Hormone (TSH) 4.390 uIu/ml (0.300-4.500) Ethyl Alcohol mg/dL < 3.0 mg/dl (0-3) Direct Bilirubin 0.1 mg/dl (0-0.2) Aspartate Amino Transf (AST/SGOT) 25 U/L (15-37) Laboratory studies as stated above per my review. Medications Administered Medications (Trade) Dose Ordered Sig/Patricia Route Start Time Stop Time Status Last Admin Dose Admin Sodium Chloride 1,000 ml @ 999 mls/hr Q1H1M STAT IV 05/29/17 15:28 05/29/17 16:28 DC 05/29/17 15:28 999 MLS/HR ED Course 1516: Past medical records reviewed. The patient was evaluated in room A5, and a complete history and physical examination were performed. 1528: Ordered NSS 1000 ml @ 999 mls/hr IV. 1714: Ordered Comtan 200 mg PO. 171: Ordered Sinemet 25/100MG Tab 1 tab PO. 1824: I reevaluated the patient and she is currently being evaluated by the psych wrapper caser at the time. 2199: I was notified by case management that the patient will be going to [facility] in [place] for further treatment. The patient verbally expressed understanding and agreement with the plan. Medical Decision Differentials include, but are not limited to; depression, anxiety, infection, electrolyte or metabolic abnormality, dementia. Medication Reconciliation: I attest that I have personally reviewed the patient' s current medication list. Blood pressure Screening: Patient was found to have normal blood pressure on screening and does not require follow-up. This patient comes in as described above. She does have history of Parkinson's as well as some dementia and has had increasing problems with her depression. Her daughter thinks she has trouble functioning at home. She won't take her medications. She's had no fall or trauma or recent illness. she does have some chronic urinary symptoms. IV access established and she was hydrated with IV normal saline. Multiple blood testing urinalysis was obtained for medical clearance. She was reassessed frequently. She has remained stable. She has nothing to suggest a medical reason for her symptoms . she's been medically cleared. She is being voluntarily transferred to [facility] for geriatric psychiatric program. The patient's family is very happy with this plan as do not feel she is safe at home at present until she gets more stabilized on her medications. Impression Primary Impression: Depression Scribe Attestation The scribe's documentation has been prepared under my direction and personally reviewed by me in its entirety. I confirm that the note above accurately reflects all work, treatment, procedures, and medical decision making performed by me. Departure Information Dispostion Mental Health Acute Care (to [facility]) Referrals Michael Mittal M.D. (PCP) Patient Instructions My [facility]
[2017-05-29 16:07] LABS: URINE APPEARANCE CLEAR (CLEAR); URINE BILIRUBIN NEG (NEG); URINE COLOR DK YELLOW; URINE NITRITE NEG (NEG); URINE SPECIFIC GRAVITY 1.017 (1.000-1.030); UROBILINOGEN NEG (NEG)
[2017-05-29 16:09] LABS: MANUAL MICROSCOPIC REQUIRED? NO; REVIEW REQ? NO
[2017-05-29 16:36] LABS: BASO % 0.3 %; BASO ABS # 0.02 K/uL (0-0.2); COMPLETE YES; EOS % 0.5 %; HEMATOCRIT 33.5 % (37-47); IG% 0.2 %; LYMPH % 11.2 %; LYMPH ABS # 0.68 K/uL (1.2-3.4); MEAN CELL VOLUME 89.8 fL (80-100); MEAN CORPUSCULAR HEMOGLOBIN 29.8 pg (25-34); MEAN CORPUSCULAR HGB CONC 33.1 g/dl (32-36); MEAN PLATELET VOLUME 8.4 fL (7.4-10.4); MONO % 10.7 %; NEUT % 77.1 %; PLATELET COUNT 224 K/uL (130-400); RED BLOOD COUNT 3.73 M/uL (4.2-5.4); WHITE BLOOD COUNT 6.07 K/uL (4.8-10.8)
[2017-05-29 16:37] LABS: BENZODIAZEPINE, URINE NEG (NEG); COCAINE,URINE NEG (NEG); PHENCYCLIDINE, URINE NEG (NEG)
[2017-05-29] MEDS ORDERED: ENTACAPONE 200 MG TAB PO STA (17:14)
[2017-05-29] MEDS ORDERED: CARBIDOPA/LEVODOPA 25/100MG TAB PO STA (17:15)
[2017-05-29 17:42] LABS: ALKALINE PHOSPHATASE 60 U/L (45-117); ALT/SGPT 21 U/L (12-78); BLOOD UREA NITROGEN 19 mg/dl (7-18); BUN/CREATININE RATIO 13.7 (10-20); CALCIUM 9.1 mg/dl (8.5-10.1); CARBON DIOXIDE 27 mmol/L (21-32); CHLORIDE 111 mmol/L (98-107); GLUCOSE 92 mg/dl (70-99); SODIUM 143 mmol/L (136-145)
[2017-05-29 17:43] LABS: POTASSIUM 3.9 mmol/L (3.5-5.1)
[2017-05-29] MEDS ORDERED: CARBIDOPA/LEVODOPA 25/100MG TAB PO SCH (19:00)
[2017-05-29] MEDS ORDERED: ENTACAPONE 200 MG TAB PO SCH (19:00)
[2017-05-29 23:31] VITALS: BP 118/58; PULSE 65; O2SAT 95
== END 2017-05-29 23:31 | disposition short-term general hospital (02) ==
LOC: C.EDB 14:13 → C.EDA 23:31
DX: F32.9 Major depressive disorder, single episode, unspecified (principal); G20 Parkinson's disease; F03.90 Unspecified dementia, unspecified severity, without behavioral disturbance, psychotic disturbance, mood disturbance, and anxiety; N18.3 Chronic kidney disease, stage 3 (moderate); I25.10 Atherosclerotic heart disease of native coronary artery without angina pectoris; K21.9 Gastro-esophageal reflux disease without esophagitis; Z85.3 Personal history of malignant neoplasm of breast; Z87.442 Personal history of urinary calculi; Z98.51 Tubal ligation status; Z98.890 Other specified postprocedural states; Z79.82 Long term (current) use of aspirin; Z79.899 Other long term (current) drug therapy; Z80.9 Family history of malignant neoplasm, unspecified; Z82.49 Family history of ischemic heart disease and other diseases of the circulatory system; Z84.1 Family history of disorders of kidney and ureter; Z88.2 Allergy status to sulfonamides; Z88.5 Allergy status to narcotic agent; Z88.8 Allergy status to other drugs, medicaments and biological substances

== ENCOUNTER 2017-07-11 20:47 | Emergency (ER) | payer OTHER ==
[~2017-07-11] VITALS: Ht 157.5 cm; Wt 60.0 kg
[~2017-07-11 20:47] MED LIST changes: -BSP/5 PO; +BUSP-8 PO; +MIRT15TA2 PO; -MIRT30TA2 PO; +VASELINE TOP
[2017-07-11 20:54] VITALS: TEMP 36.8; Ht 157.5 cm; Wt 60.0 kg
[2017-07-11] MEDS ORDERED: hydrOXYzine HCL 25 MG TAB PO STA (21:09)
[2017-07-11] MEDS ORDERED: SODIUM CHLORIDE 0.9% 1000ML 1,000 ML IV STA (21:09)
[2017-07-11] MEDS ORDERED: CARBIDOPA/LEVODOPA 25/100MG EXT REL TAB PO ONE (21:15)
[2017-07-11] MEDS ORDERED: MIRTAZAPINE TAB 15 MG TAB PO ONE (21:15)
[2017-07-11 21:44] LABS: BASO % 0.8 %; BASO ABS # 0.04 K/uL (0-0.2); COMPLETE YES; EOS % 1.4 %; HEMATOCRIT 34.4 % (37-47); IG% 0.2 %; LYMPH % 21.3 %; LYMPH ABS # 1.05 K/uL (1.2-3.4); MEAN CELL VOLUME 89.6 fL (80-100); MEAN CORPUSCULAR HEMOGLOBIN 30.2 pg (25-34); MEAN CORPUSCULAR HGB CONC 33.7 g/dl (32-36); MEAN PLATELET VOLUME 8.7 fL (7.4-10.4); MONO % 7.5 %; NEUT % 68.8 %; PLATELET COUNT 234 K/uL (130-400); RED BLOOD COUNT 3.84 M/uL (4.2-5.4); WHITE BLOOD COUNT 4.94 K/uL (4.8-10.8)
[2017-07-11 21:54] LABS: URINE APPEARANCE CLEAR (CLEAR); URINE BILIRUBIN NEG (NEG); URINE COLOR DK YELLOW; URINE NITRITE NEG (NEG); URINE PH 6.5 (4.5-7.5); UROBILINOGEN NEG (NEG); ZZURINE CULT IF INDIC CATH NO
[2017-07-11 21:56] LABS: MANUAL MICROSCOPIC REQUIRED? NO; REVIEW REQ? NO
[2017-07-11 22:00] LABS: BLOOD UREA NITROGEN 28 mg/dl (7-18); CALCIUM 9.3 mg/dl (8.5-10.1); CARBON DIOXIDE 30 mmol/L (21-32); CHLORIDE 108 mmol/L (98-107); GLUCOSE 117 mg/dl (70-99); POTASSIUM 4.1 mmol/L (3.5-5.1); SODIUM 142 mmol/L (136-145)
--- NOTE | 2017-07-11 22:11 | DIAGNOSTIC IMAGING REPORT ---
CHEST ONE VIEW PORTABLE HISTORY: 72 years-old Female ALTERED MENTAL STATUS/WEAKNESS COMPARISON: Portable chest radiograph 05/26/2017 TECHNIQUE: Portable upright AP view of the chest FINDINGS: The patient is side bent to the right. Cardiac silhouette is within normal limits. There is atherosclerosis of the aorta. No pneumothorax, pleural effusion or focal airspace consolidation. There are surgical clips in the left axilla. An changes involve the shoulders. IMPRESSION: No acute cardiopulmonary process. The above report was generated using voice recognition software. It may contain grammatical, syntax or spelling errors. Electronically signed by: Say Castrjeon M.D. 07/11/2017 10:10 PM Dictated Date/Time: 07/11/2017 10:03 PM
--- NOTE | 2017-07-11 23:10 | EMERGENCY ROOM VISIT NOTE ---
History Report prepared by Gayatri: Pramod Juárez Under the Supervision of: Dr. Aaron Faustin D.O. First contact with patient: 20:58 Chief Complaint: ILLNESS Stated Complaint: GEN ILLNESS History of Present Illness The patient is a 72 year old female who presents to the Emergency Room with complaints of altered mental status. This history is limited secondary to the patient's altered mental status. Per the patient's daughter, she has a history of Parkinson's Disease. She takes her medications every evening, and gets very nauseated before taking them, because they make her sick when she takes them. However, tonight, the patient called 911 and hung up. She states this was an accident, but is not responding like she normally does at baseline. Source of History: patient, family History Limited By: AMS Onset: today Position: other (global) Symptom Intensity: moderate Quality: other (AMS) Timing: constant Review of Systems Limited secondary to the patient's altered mental status. Past Medical & Surgical Medical Problems: (1) CAD (coronary artery disease) (2) Chest Pain (3) CKD (chronic kidney disease) stage 3, GFR 30-59 ml/min (4) Depression (5) Diaphragmatic hernia (6) GERD (gastroesophageal reflux disease) (7) History of breast cancer (8) History of kidney stones (9) Parkinson disease Surgical Problems: (1) H/O breast surgery (2) History of carpal tunnel surgery (3) History of tubal ligation Family History Cancer Hypertension Kidney disease Kidney stones Social History Smoking Status: Unknown if Ever Smoked Alcohol Use: none Drug Use: none Marital Status: Housing Status: lives with significant other Occupation Status: retired Current/Historical Medications Scheduled Artificial Saliva (Biotene Moisturizing Mout), 2 SPRAYS PO PRN Aspirin (Aspirin Ec), 81 MG PO QAM Buspirone Hcl (Buspirone Hcl), 10 MG PO BID Carbidopa/Levodopa (Sinemet 25MG/100MG), 1 TAB PO 5XD Citalopram Hydrobromide (Celexa), 10 MG PO QAM Docusate Sodium (Docusate Sodium), 1 CAP PO BID Duloxetine HCl (Duloxetine HCl), 30 MG PO DAILY Entacapone (Comtan), 200 MG PO 5XD Fluticasone Propionate (Nasal) (Flonase Allergy Relief), 2 SPRAY JAYDON QAM Lisinopril (Lisinopril), 10 MG PO QAM Mirtazapine Soltab (Remeron Soltab), 15 MG PO HS Omeprazole (Prilosec), 40 MG PO AMPM Pimavanserin Tartrate (Nuplazid), 34 MG PO DAILY Polyethylene Glycol 3350 (Miralax), 17 GM PO TID Scheduled PRN Hydrocodone/Acetaminophen 5MG/325MG ([place] 5MG/325MG), 1 TAB PO Q8 PRN for Pain Hydroxyzine Pamoate (Vistaril), 25 MG PO TID PRN for Anxiety Ondansetron Hcl (Zofran), 8 MG PO BID PRN for Nausea [Vaseline Oint], 1 APPLN TOP BID PRN for IRRITATION Allergies Coded Allergies: Morphine (Unverified Allergy, Unknown, unknown, 05/29/17) Sulfa Antibiotics (Verified Allergy, Unknown, UNKNOWN, 05/29/17) Selegiline (Verified Adverse Reaction, Intermediate, loss of taste, ) Tramadol (Verified Adverse Reaction, Intermediate, GENERAL ITCHINESS, 05/29) Physical Exam Vital Signs Date Time Temp Pulse Resp B/P (MAP) Pulse Ox O2 Delivery O2 Flow Rate FiO2 07/11/17 23:17 65 16 140/66 97 Room Air 07/11/17 22:59 67 18 118/60 97 Room Air 07/11/17 21:04 91 07/11/17 20:54 36.8 89 16 161/65 97 Room Air Physical Exam CONSTITUTIONAL/VITAL SIGNS: Reviewed / noted above. GENERAL: Non-toxic in appearance. Patient appears to be tired but in no distress. INTEGUMENTARY: Warm, dry, and [place]. HEAD: Normocephalic. EYES: without scleral icterus or trauma. ENT/OROPHARYNX: clear and moist. LYMPHADENOPATHY/NECK: Is supple without lymphadenopathy or meningismus. RESPIRATORY: Lungs clear and equal. CARDIOVASCULAR: Regular rate and rhythm. Systolic ejection murmur. GI/ABDOMEN: Soft and nontender. No organomegaly or pulsatile mass. No rebound or guarding. Normal bowel sounds. EXTREMITIES: Warm and well perfused. BACK: No CVA tenderness. NEUROLOGICAL: Intact without focal deficits. PSYCHIATRIC: normal affect. MUSCULOSKELETAL: Normally developed with good muscle tone. Medical Decision & Procedures ER Provider Diagnostic Interpretation: Radiology results as stated below per my review and radiologist interpretation: CHEST ONE VIEW PORTABLE HISTORY: 72 years-old Female ALTERED MENTAL STATUS/WEAKNESS COMPARISON: Portable chest radiograph 05/26/2017 TECHNIQUE: Portable upright AP view of the chest FINDINGS: The patient is side bent to the right. Cardiac silhouette is within normal limits. There is atherosclerosis of the aorta. No pneumothorax, pleural effusion or focal airspace consolidation. There are surgical clips in the left axilla. An changes involve the shoulders. IMPRESSION: No acute cardiopulmonary process. The above report was generated using voice recognition software. It may contain grammatical, syntax or spelling errors. Electronically signed by: Say Castrejon M.D. 07/11/2017 10:10 PM Dictated Date/Time: 07/11/2017 10:03 PM Laboratory Results 07/11/17 21:15 Red Blood Count 3.84, Mean Corpuscular Volume 89.6, Mean Corpuscular Hemoglobin 30.2, Mean Corpuscular Hemoglobin Concent 33.7, Mean Platelet Volume 8.7, Neutrophils (%) (Auto) 68.8, Lymphocytes (%) (Auto) 21.3, Monocytes (%) (Auto) 7.5, Eosinophils (%) (Auto) 1.4, Basophils (%) (Auto) 0.8, Neutrophils # (Auto) 3.40, Lymphocytes # (Auto) 1.05, Monocytes # (Auto) 0.37, Eosinophils # (Auto) 0.07, Basophils # (Auto) 0.04 07/11/17 21:15 Test 07/11/17 21:15 07/11/17 21:25 White Blood Count 4.94 K/uL (4.8-10.8) Red Blood Count 3.84 M/uL (4.2-5.4) Hemoglobin 11.6 g/dL (12.0-16.0) Hematocrit 34.4 % (37-47) Mean Corpuscular Volume 89.6 fL (80-100) Mean Corpuscular Hemoglobin 30.2 pg (25-34) Mean Corpuscular Hemoglobin Concent 33.7 g/dl (32-36) Platelet Count 234 K/uL (130-400) Mean Platelet Volume 8.7 fL (7.4-10.4) Neutrophils (%) (Auto) 68.8 % Lymphocytes (%) (Auto) 21.3 % Monocytes (%) (Auto) 7.5 % Eosinophils (%) (Auto) 1.4 % Basophils (%) (Auto) 0.8 % Neutrophils # (Auto) 3.40 K/uL (1.4-6.5) Lymphocytes # (Auto) 1.05 K/uL (1.2-3.4) Monocytes # (Auto) 0.37 K/uL (0.11-0.59) Eosinophils # (Auto) 0.07 K/uL (0-0.5) Basophils # (Auto) 0.04 K/uL (0-0.2) RDW Standard Deviation 45.4 fL (36.4-46.3) RDW Coefficient of Variation 13.8 % (11.5-14.5) Immature Granulocyte % (Auto) 0.2 % Immature Granulocyte # (Auto) 0.01 K/uL (0.00-0.02) Prothrombin Time 11.0 SECONDS (9.0-12.0) Prothromb Time International Ratio 1.0 (0.9-1.1) Activated Partial Thromboplast Time 25.4 SECONDS (21.0-31.0) Partial Thromboplastin Ratio 1.0 Anion Gap 4.0 mmol/L (3-11) Est Creatinine Clear Calc Drug Dose 27.9 ml/min Estimated GFR () 42.8 Estimated GFR (Non- 36.9 BUN/Creatinine Ratio 20.0 (10-20) Calcium Level 9.3 mg/dl (8.5-10.1) Total Creatine Kinase 93 U/L (26-192) Creatine Kinase MB 1.9 ng/ml (0.5-3.6) Creatine Kinase MB Ratio 2.0 (0-3.0) Troponin I < 0.015 ng/ml (0-0.045) Urine Color DK YELLOW Urine Appearance CLEAR (CLEAR) Urine pH 6.5 (4.5-7.5) Urine Specific [place] 1.020 (1.000-1.030) Urine Protein NEG (NEG) Urine Glucose (UA) NEG (NEG) Urine Ketones NEG (NEG) Urine Occult Blood 1+ (NEG) Urine Nitrite NEG (NEG) Urine Bilirubin NEG (NEG) Urine Urobilinogen NEG (NEG) Urine Leukocyte Esterase NEG (NEG) Urine WBC (Auto) 1-5 /hpf (0-5) Urine RBC (Auto) 10-30 /hpf (0-4) Urine Hyaline Casts (Auto) 1-5 /lpf (0-5) Urine Epithelial Cells (Auto) 10-20 /lpf (0-5) Urine Bacteria (Auto) NEG (NEG) Laboratory results as stated above per my review. Medications Administered Medications (Trade) Dose Ordered Sig/Patricia Route Start Time Stop Time Status Last Admin Dose Admin Sodium Chloride 1,000 ml @ 200 mls/hr Q5H STAT IV 07/11/17 21:09 07/12/17 02:08 07/11/17 21:36 200 MLS/HR Mirtazapine (Remeron Tab) 15 mg NOW ONCE PO 07/11/17 21:15 07/11/17 21:16 DC 07/11/17 21:36 15 MG Hydroxyzine HCl (Vistaril Tab) 25 mg NOW STAT PO 07/11/17 21:09 07/11/17 21:13 DC 07/11/17 21:36 25 MG Carbidopa/Levodopa (Sinemet Cr 25/ 100MG Tab) 1 tab NOW ONCE PO 07/11/17 21:15 07/11/17 21:16 DC 07/11/17 21:36 1 TAB ECG Indication: weakness Rate (beats per minute): 82 Rhythm: normal sinus Findings: no acute ischemic change, no ectopy ED Course 2057: Previous medical records were reviewed. The patient was evaluated in room A10. A complete history and physical examination was performed. 2108: Ordered Vistaril Tab 25 mg PO, Sodium Chloride 1000 ml @ 200 mls/hr IV 2114: Ordered Carbidopa/Levodopa 1 tab PO, Remeron Tab 15 mg PO 2312: On reevaluation, the patient is resting. I discussed the results and findings with the patient and her daughter. They verbalized agreement of the treatment plan. She was discharged home. Medical Decision Differentials include: Acute coronary syndrome, myocardial infarction, CVA, TIA , anemia, infection, pneumonia, UTI, pyelonephritis, poor nutrition, dehydration , electrolyte disturbance, and hypoglycemia. This is a 72-year-old female who presents to the ED with a chief complaint of weakness. The patient called 911 tonight and hung up. She was brought in for evaluation. She states that it was a mistake but she has not been feeling well recently. Her vital signs here are stable. Her physical exam did not reveal any obvious abnormalities. She appears generally tired but otherwise is in no distress. Blood work reveals a normal CBC. Her BUN is 28 and creatinine is 1.4. Troponin was negative. EKG shows a normal sinus rhythm. Urine did not show infection and a chest x-ray was negative for acute disease. The patient was told the results. She was hydrated with IV fluids. The patient was discharged. Medication Reconcilliation Current Medication List: was personally reviewed by me Blood Pressure Screening Patient's blood pressure: Elevated blood pressure Blood pressure disposition: Elevated BP felt to be situational Impression Primary Impression: Weakness Additional Impression: Dehydration Scribe Attestation The scribe's documentation has been prepared under my direction and personally reviewed by me in its entirety. I confirm that the note above accurately reflects all work, treatment, procedures, and medical decision making performed by me. Departure Information Dispostion Home / Self-Care Referrals Michael Mittal M.D. (PCP) Forms HOME CARE DOCUMENTATION FORM, IMPORTANT VISIT INFORMATION, WORK / SCHOOL INSTRUCTIONS Patient Instructions My [facility] Additional Instructions Follow-up with your doctor for further care and evaluation in 1-2 days. Return to the emergency department for worsening or new symptoms or any concerns. You have been examined and treated today on an emergency basis only. This is not a substitute for, or an effort to provide, complete comprehensive medical care. It is impossible to recognize and treat all injuries or illnesses in a single emergency department visit. It is therefore important that you follow up closely with your doctor. Call as soon as possible for an appointment. Problem Qualifiers
[2017-07-11 23:17] VITALS: BP 140/66; PULSE 65; O2SAT 97
== END 2017-07-11 23:28 | disposition home or self-care (01) ==
LOC: EDBD 20:47 → C.ED 20:48 → C.EDA 23:28
DX: R53.1 Weakness (principal); E86.0 Dehydration; G20 Parkinson's disease; I25.10 Atherosclerotic heart disease of native coronary artery without angina pectoris; N18.3 Chronic kidney disease, stage 3 (moderate); F32.9 Major depressive disorder, single episode, unspecified; K21.9 Gastro-esophageal reflux disease without esophagitis; Z85.3 Personal history of malignant neoplasm of breast; Z87.442 Personal history of urinary calculi; Z98.51 Tubal ligation status; Z80.9 Family history of malignant neoplasm, unspecified; Z82.49 Family history of ischemic heart disease and other diseases of the circulatory system; Z84.1 Family history of disorders of kidney and ureter; Z79.82 Long term (current) use of aspirin; Z79.899 Other long term (current) drug therapy

== ENCOUNTER 2017-10-17 16:38 | Inpatient (IN) | payer OTHER ==
[~2017-10-17] VITALS: Ht 157.5 cm; Wt 59.0 kg
[2017-10-17] MEDS ORDERED: KETOROLAC TROMETHAMINE 30 MG/ML VIAL IV STA (17:01)
[2017-10-17 17:34] LABS: BASO % 0.7 %; BASO ABS # 0.03 K/uL (0-0.2); COMPLETE YES; EOS % 2.4 %; HEMATOCRIT 36.5 % (37-47); IG% 0.4 %; LYMPH % 19.7 %; LYMPH ABS # 0.91 K/uL (1.2-3.4); MEAN CELL VOLUME 89.2 fL (80-100); MEAN CORPUSCULAR HEMOGLOBIN 29.3 pg (25-34); MEAN CORPUSCULAR HGB CONC 32.9 g/dl (32-36); MEAN PLATELET VOLUME 8.8 fL (7.4-10.4); MONO % 5.4 %; NEUT % 71.4 %; PLATELET COUNT 204 K/uL (130-400); RED BLOOD COUNT 4.09 M/uL (4.2-5.4); WHITE BLOOD COUNT 4.61 K/uL (4.8-10.8)
[2017-10-17 17:44] LABS: PARTIAL THROMBOPLASTIN RATIO 0.9; PROTHROMBIN TIME (PATIENT) 10.4 SECONDS (9.0-12.0)
--- NOTE | 2017-10-17 17:57 | DIAGNOSTIC IMAGING REPORT ---
SINGLE VIEW CHEST CLINICAL HISTORY: Hip fracture. FINDINGS: 2 AP portable chest radiographs are compared to study dated 07/11/2017. The examination is degraded by portable technique and patient rotation. The cardiomediastinal silhouette is unremarkable. There is atherosclerotic calcification of the thoracic aorta. A calcification projecting over the left lower lobe likely represents a calcified granuloma. No airspace consolidation, large pleural effusion, or pneumothorax is seen. The skeletal structures are osteopenic. The bony thorax is grossly intact. Surgical clips are noted in the left axilla and likely within the left breast. Atherosclerotic calcification is seen in the right carotid bulb. IMPRESSION: No acute cardiopulmonary abnormality. Electronically signed by: Carlos Plummer M.D. 10/17/2017 5:56 PM Dictated Date/Time: 10/17/2017 5:54 PM
[2017-10-17 17:58] LABS: BUN/CREATININE RATIO 19.5 (10-20); CALCIUM 9.6 mg/dl (8.5-10.1); CREATININE 1.67 mg/dl (0.60-1.20); POTASSIUM 4.3 mmol/L (3.5-5.1)
--- NOTE | 2017-10-17 18:00 | DIAGNOSTIC IMAGING REPORT ---
SINGLE VIEW PELVIS; 2 VIEWS LEFT HIP CLINICAL HISTORY: Fall with left hip injury. FINDINGS: An AP view of the pelvis with AP and crosstable lateral views of the left hip are correlated with pelvic CT dated 02/01/2017. The skeletal structures are osteopenic. There is an impacted and distracted subcapital fracture of the left femur. No fracture is seen involving the bony pelvis or the right hip. Mild arthritic change is seen in both hips. The sacroiliac joints appear maintained. Lumbosacral spondylosis and scoliosis are partially visualized. Soft tissue edema is noted in the left upper thigh around the fracture. No bowel obstruction is identified. Pelvic phleboliths are observed. IMPRESSION: 1. There is an impacted and distracted subcapital fracture of the left femur with overlying soft tissue edema. 2. No fracture is seen involving the bony pelvis or the right hip. 3. Osteopenia and mild arthritic change as above. Electronically signed by: Carlos Plummer M.D. 10/17/2017 5:58 PM Dictated Date/Time: 10/17/2017 5:56 PM
--- NOTE | 2017-10-17 18:13 | DIAGNOSTIC IMAGING REPORT ---
LUMBAR SPINE CT CT DOSE: 567.05 mGy.cm HISTORY: fall/back pain TECHNIQUE: Multiaxial CT images of the lumbar spine were performed and reformatted in the sagittal and coronal plane without the use of contrast. A dose lowering technique was utilized adhering to the principles of ALARA. COMPARISON: None. FINDINGS: Mild S-shaped scoliosis of the lumbar spine. No fracture or subluxation. Severe disc space narrowing at L2-L3 and moderate disc space narrowing at L5-S1. Mild disc space narrowing at L3-L4 and L4-L5. Moderate facet degenerative changes seen within the lower lumbar spine. Broad-based posterior disc bulges at L2-L3, L3-L4, L4-L5, and L5-S1. Moderate central canal narrowing at L2-L3, L3-L4, and L4-L5 due to the disc bulges and ligamentum and facet hypertrophy. IMPRESSION: No fractures within the lumbar spine. Degenerative changes and scoliosis as described above. Electronically signed by: Zeeshan Diaz M.D. 10/17/2017 6:12 PM Dictated Date/Time: 10/17/2017 6:06 PM
[2017-10-17] MEDS ORDERED: DULO-24 PO (18:35)
--- NOTE | 2017-10-17 18:41 | EMERGENCY ROOM VISIT NOTE ---
History First contact with patient: 16:46 Chief Complaint: FALL Stated Complaint: FALL /PELVIC PAIN History of Present Illness The patient is a 72 year old female who presents to the Emergency Room to EMS with complaints of left hip pain and low back pain. The patient states that she fell but did not hit her head. The patient denies any dizziness prior to or to the fall. She states she landed on her buttocks and left hip. The patient denies any numbness and tingling in her lower extremities. The patient was not able to ambulate after the fall occurred. The patient denies any chest pain or shortness of breath. The patient denies any head or neck pain. The patient denies any loss of consciousness. Review of Systems 10 system review was performed and was negative unless stated otherwise history of present illness. Past Medical/Surgical History Medical Problems: (1) CAD (coronary artery disease) (2) Chest Pain (3) CKD (chronic kidney disease) stage 3, GFR 30-59 ml/min (4) Depression (5) Diaphragmatic hernia (6) GERD (gastroesophageal reflux disease) (7) History of breast cancer (8) History of kidney stones (9) Parkinson disease Surgical Problems: (1) H/O breast surgery (2) History of carpal tunnel surgery (3) History of tubal ligation Family History Cancer Hypertension Kidney disease Kidney stones Social History Smoking Status: Unknown if Ever Smoked Alcohol Use: none Drug Use: none Marital Status: Housing Status: lives with significant other Occupation Status: retired Current/Historical Medications Scheduled Artificial Saliva (Biotene Moisturizing Mout), 2 SPRAYS PO PRN Aspirin (Aspirin Ec), 81 MG PO QAM Buspirone Hcl (Buspirone Hcl), 10 MG PO Q2D Carbidopa/Levodopa (Sinemet 25MG/100MG), 1 TAB PO 4XD Citalopram Hydrobromide (Celexa), 10 MG PO QAM Docusate Sodium (Docusate Sodium), 1 CAP PO BID Duloxetine HCl (Cymbalta), 2 CAP PO QAM Entacapone (Comtan), 200 MG PO 4XD Fluticasone Propionate (Nasal) (Flonase Allergy Relief), 2 SPRAY JAYDON QAM Hydroxyzine Pamoate (Vistaril), 25 MG PO 4XD Lisinopril (Lisinopril), 10 MG PO QAM Mirtazapine Soltab (Remeron Soltab), 15 MG PO HS Omeprazole (Prilosec), 40 MG PO AMPM Pimavanserin Tartrate (Nuplazid), 34 MG PO DAILY Polyethylene Glycol 3350 (Miralax), 17 GM PO QAM Scheduled PRN Ondansetron Hcl (Zofran), 8 MG PO BID PRN for Nausea [Vaseline Oint], 1 APPLN TOP BID PRN for IRRITATION Physical Exam Vital Signs Date Time Temp Pulse Resp B/P (MAP) Pulse Ox O2 Delivery O2 Flow Rate FiO2 10/17/17 18:17 85 10/17/17 17:00 36.4 84 20 164/68 96 Room Air Physical Exam GENERAL: 72-year-old white female appears older than stated age. MENTAL Status: Alert and oriented. The patient answers questions appropriately. EYES: PERRLA. EOMs intact. NECK: Supple, no lymphadenopathy noted. No carotid bruits noted. LUNGS: Clear auscultation without wheezes rales or rhonchi. CARDIAC: Regular rate and rhythm without murmur. Pulses is full and equal throughout. ABDOMEN: Positive bowel sounds all 4 quadrants. Soft, nontender to palpation without organomegaly or masses. CERVICAL SPINE: Nontender to palpation THORACIC SPINE: Nontender to palpation throughout LUMBAR SPINE: Patient is tender to palpation over the mid to lower spinous processes. PELVIS: The patient is tender to palpation over the left hip right side is nontender. The left foot is shortened and externally rotated. Medical Decision & Procedures ER Provider Diagnostic Interpretation: LUMBAR SPINE CT CT DOSE: 567.05 mGy.cm HISTORY: fall/back pain TECHNIQUE: Multiaxial CT images of the lumbar spine were performed and reformatted in the sagittal and coronal plane without the use of contrast. A dose lowering technique was utilized adhering to the principles of ALARA. COMPARISON: None. FINDINGS: Mild S-shaped scoliosis of the lumbar spine. No fracture or subluxation. Severe disc space narrowing at L2-L3 and moderate disc space narrowing at L5-S1. Mild disc space narrowing at L3-L4 and L4-L5. Moderate facet degenerative changes seen within the lower lumbar spine. Broad-based posterior disc bulges at L2-L3, L3-L4, L4-L5, and L5-S1. Moderate central canal narrowing at L2-L3, L3-L4, and L4-L5 due to the disc bulges and ligamentum and facet hypertrophy. IMPRESSION: No fractures within the lumbar spine. Degenerative changes and scoliosis as described above. Electronically signed by: Zeeshan Diaz M.D. SINGLE VIEW CHEST CLINICAL HISTORY: Hip fracture. FINDINGS: 2 AP portable chest radiographs are compared to study dated 07/11/2017. The examination is degraded by portable technique and patient rotation. The cardiomediastinal silhouette is unremarkable. There is atherosclerotic calcification of the thoracic aorta. A calcification projecting over the left lower lobe likely represents a calcified granuloma. No airspace consolidation, large pleural effusion, or pneumothorax is seen. The skeletal structures are osteopenic. The bony thorax is grossly intact. Surgical clips are noted in the left axilla and likely within the left breast. Atherosclerotic calcification is seen in the right carotid bulb. IMPRESSION: No acute cardiopulmonary abnormality. Electronically signed by: Carlos Plmumer M.D. 10/17/2017 5:56 PM SINGLE VIEW PELVIS; 2 VIEWS LEFT HIP CLINICAL HISTORY: Fall with left hip injury. FINDINGS: An AP view of the pelvis with AP and crosstable lateral views of the left hip are correlated with pelvic CT dated 02/01/2017. The skeletal structures are osteopenic. There is an impacted and distracted subcapital fracture of the left femur. No fracture is seen involving the bony pelvis or the right hip. Mild arthritic change is seen in both hips. The sacroiliac joints appear maintained. Lumbosacral spondylosis and scoliosis are partially visualized. Soft tissue edema is noted in the left upper thigh around the fracture. No bowel obstruction is identified. Pelvic phleboliths are observed. IMPRESSION: 1. There is an impacted and distracted subcapital fracture of the left femur with overlying soft tissue edema. 2. No fracture is seen involving the bony pelvis or the right hip. 3. Osteopenia and mild arthritic change as above. Electronically signed by: Carlos Plummer M.D. 10/17/2017 5:58 PM Laboratory Results 10/17/17 17:15 Red Blood Count 4.09, Mean Corpuscular Volume 89.2, Mean Corpuscular Hemoglobin 29.3, Mean Corpuscular Hemoglobin Concent 32.9, Mean Platelet Volume 8.8, Neutrophils (%) (Auto) 71.4, Lymphocytes (%) (Auto) 19.7, Monocytes (%) (Auto) 5.4, Eosinophils (%) (Auto) 2.4, Basophils (%) (Auto) 0.7, Neutrophils # (Auto) 3.29, Lymphocytes # (Auto) 0.91, Monocytes # (Auto) 0.25, Eosinophils # (Auto) 0.11, Basophils # (Auto) 0.03 10/17/17 17:15 Test 10/17/17 17:15 White Blood Count 4.61 K/uL (4.8-10.8) Red Blood Count 4.09 M/uL (4.2-5.4) Hemoglobin 12.0 g/dL (12.0-16.0) Hematocrit 36.5 % (37-47) Mean Corpuscular Volume 89.2 fL (80-100) Mean Corpuscular Hemoglobin 29.3 pg (25-34) Mean Corpuscular Hemoglobin Concent 32.9 g/dl (32-36) Platelet Count 204 K/uL (130-400) Mean Platelet Volume 8.8 fL (7.4-10.4) Neutrophils (%) (Auto) 71.4 % Lymphocytes (%) (Auto) 19.7 % Monocytes (%) (Auto) 5.4 % Eosinophils (%) (Auto) 2.4 % Basophils (%) (Auto) 0.7 % Neutrophils # (Auto) 3.29 K/uL (1.4-6.5) Lymphocytes # (Auto) 0.91 K/uL (1.2-3.4) Monocytes # (Auto) 0.25 K/uL (0.11-0.59) Eosinophils # (Auto) 0.11 K/uL (0-0.5) Basophils # (Auto) 0.03 K/uL (0-0.2) RDW Standard Deviation 44.7 fL (36.4-46.3) RDW Coefficient of Variation 13.7 % (11.5-14.5) Immature Granulocyte % (Auto) 0.4 % Immature Granulocyte # (Auto) 0.02 K/uL (0.00-0.02) Prothrombin Time 10.4 SECONDS (9.0-12.0) Prothromb Time International Ratio 1.0 (0.9-1.1) Activated Partial Thromboplast Time 24.1 SECONDS (21.0-31.0) Partial Thromboplastin Ratio 0.9 Anion Gap 6.0 mmol/L (3-11) Est Creatinine Clear Calc Drug Dose 23.4 ml/min Estimated GFR () 34.6 Estimated GFR (Non- 29.8 BUN/Creatinine Ratio 19.5 (10-20) Calcium Level 9.6 mg/dl (8.5-10.1) Medications Administered Medications (Trade) Dose Ordered Sig/Patricia Route Start Time Stop Time Status Last Admin Dose Admin Ketorolac Tromethamine (Toradol Inj) 30 mg NOW STAT IV 10/17/17 17:01 10/17/17 17:03 DC 10/17/17 17:41 30 MG ED Course The patient was evaluated. Hip protocol order set was initiated. The patient was given Toradol 30 mg IV for pain since she has allergies to morphine and tramadol. Labs are reviewed. The patient's white count was normal. Coags are normal. The patient's BUN was 33 and creatinine was 1.6 consistent with her chronic kidney disease. Chest x-ray was normal. CT of the lumbar spine revealed degenerative changes but no acute fractures this was interpreted by the radiologist. Pelvis and left hip x-ray was ordered interpreted by the radiologist as above with findings of an impacted and distracted subcapital fracture of the left femur. The patient was independently evaluated by Dr. fermin who agreed with treatment plan. [facility] hospitalist was consulted for admission. I also contacted Dr. Gaspar who is cash applications associate for [facility] to inform him that the patient will be coming into the hospital and they will be contacting him for the hip fracture. Medical Decision Differential diagnosis include hip fracture versus hip contusion. Since the patient had signs of leg shortening and external rotation hip fracture protocol was initiated. [place] Drug Monitoring Program Search Results: patient reviewed within database Medication Reconcilliation Current Medication List: was personally reviewed by me Blood Pressure Screening Patient's blood pressure: Elevated blood pressure Blood pressure disposition: Did not require urgent referral Impression Primary Impression: Hip fracture, left Additional Impressions: Fall Lumbar back pain Departure Information Dispostion Being Evaluated By Hospitalist Condition GOOD Referrals Michael Mittal M.D. (PCP) Patient Instructions My [facility] Problem Qualifiers Primary Impression: Hip fracture, left Encounter type: initial encounter Fracture type: closed Qualified Codes: S72.002A - Fracture of unspecified part of neck of left femur, initial encounter for closed fracture Additional Impressions: Fall Encounter type: initial encounter Qualified Codes: W19.XXXA - Unspecified fall, initial encounter
--- NOTE | 2017-10-17 19:00 | EMERGENCY ROOM VISIT NOTE ---
ED Visit Note First contact with patient: 16:46 HPI: 72F pmhx of parkinson mechanical fall at home onto left side. Plan: Left hip fx with impacted and distracted subcapital fracture of the left femur. Admit to medicine and ortho consultation. I reviewed the patient's past medical history, medications, and visit nursing notes. I discussed the case with the physician geriatric nurse assistant, examined the patient, and agree with the findings and plan as documented in the physician assistants note.
[2017-10-17] MEDS ORDERED: HYDROmorphone INJ 0.5 MG/0.5 ML SYR ONE (19:15)
[2017-10-17] MEDS ORDERED: HYDROmorphone INJ 0.5 MG/0.5 ML SYR IV PRN (19:15)
[2017-10-17] MEDS ORDERED: TRIM300C14 PO (19:19)
[2017-10-17] MEDS ORDERED: QUET1TAB91 PO (19:19)
[2017-10-17] MEDS ORDERED: POLYETHYLENE (MIRALAX) 17 GM PACK PO PRN (19:45)
[2017-10-17] MEDS ORDERED: ACETAMINOPHEN 325 MG TAB PO PRN (19:45)
[2017-10-17] MEDS ORDERED: BISACODYL 10 MG SUPP PR PRN (19:45)
[2017-10-17] MEDS ORDERED: MAGNESIUM HYDROXIDE SUSP 30 ML UDC PO PRN (19:45)
[2017-10-17] MEDS ORDERED: ONDANSETRON INJ 2 MG/ML 2 ML VIAL IV PRN (19:45)
[2017-10-17] MEDS ORDERED: NALOXONE HCL 0.4 MG/1 ML VIAL/CARP IV PRN (19:45)
[2017-10-17] MEDS ORDERED: SOD PHOSPHATE/SOD BIPHOSPHATE ENEMA 132 ML BTL PR PRN (19:45)
[2017-10-17 19:50] VITALS: BP 147/66; PULSE 91; TEMP 36.8; O2SAT 93
[2017-10-17 20:00] VITALS: Ht 157.5 cm; Wt 59.0 kg
--- NOTE | 2017-10-17 20:17 | History and Physical ---
History & Physical Date & Time of Service: Oct 17, 2017 at ~ 19:00 Chief Complaint: Fall, Left Hip Pain Primary Care Physician: Michael Mittal M.D. History of Present Illness 72 year old female who presents to the ER with a fall and left hip pain. Patient was standing from her chair when she lost her balance and fell to the ground onto her left side. She had immediate left hip pain and was unable to stand. There was no preceding lightheadedness, dizziness, chest pain, or shortness of breath. She did not strike her head and did not loose consciousness. Patient's is at the bedside who reports she has been doing well recently. No reports of chest pain or shortness of breath. Denies fever and chills. Her appetite is chronically poor and she has frequent nausea. No abdominal pain, vomiting, or diarrhea. No urinary symptoms. In the ED, patient is found to have subcapital hip fracture. Creat is mildly elevated from baseline at 1.6. Vitals are stable. Other labs are unremarkable. Past Medical/Surgical History Medical Problems: (1) CKD (chronic kidney disease) stage 3, GFR 30-59 ml/min Status: Chronic (2) Depression Status: Chronic (3) Diaphragmatic hernia Status: Chronic (4) GERD (gastroesophageal reflux disease) Status: Chronic (5) History of breast cancer Status: Resolved (6) History of kidney stones Status: Resolved (7) Parkinson disease Status: Chronic Surgical Problems: (1) H/O breast surgery Permanent Comment: malignant-stage I tubular CA left breast Status: Resolved (2) History of carpal tunnel surgery Permanent Comment: R side Status: Resolved (3) History of tubal ligation Status: Resolved (4) Hx of cardiac cath Permanent Comment: 05/2013 - normal coronaries Status: Chronic Family History Cancer FATHER MOTHER BROTHER Social History Smoking Status: Never Smoker Alcohol Use: none Marital Status: Housing status: lives with family Immunizations History of Influenza Vaccine: Yes Influenza Vaccine Date: Aug 11, 2017 History of Tetanus Vaccine?: Yes Tetanus Immunization Date: March 18, 2013 History of Pneumococcal: Yes Pneumococcal Date: Nov 02, 2015 Multi-Drug Resistant Organisms History of MDRO: No Allergies Coded Allergies: Morphine (Unverified Allergy, Unknown, unknown, 10/17/17) Sulfa Antibiotics (Verified Allergy, Unknown, UNKNOWN, 10/17/17) Selegiline (Verified Adverse Reaction, Intermediate, loss of taste, ) Tramadol (Verified Adverse Reaction, Intermediate, GENERAL ITCHINESS, 10/17) Home Medications Scheduled Artificial Saliva (Biotene Moisturizing Mout), 2 SPRAYS PO PRN Aspirin (Aspirin Ec), 81 MG PO QAM Buspirone Hcl (Buspirone Hcl), 10 MG PO Q2D Carbidopa/Levodopa (Sinemet 25MG/100MG), 1 TAB PO 4XD Citalopram Hydrobromide (Celexa), 10 MG PO QAM Docusate Sodium (Docusate Sodium), 1 CAP PO BID Duloxetine HCl (Cymbalta), 2 CAP PO QAM Entacapone (Comtan), 200 MG PO 4XD Fluticasone Propionate (Nasal) (Flonase Allergy Relief), 2 SPRAY JAYDON QAM Hydroxyzine Pamoate (Vistaril), 25 MG PO 4XD Lisinopril (Lisinopril), 10 MG PO QAM Mirtazapine Soltab (Remeron Soltab), 15 MG PO HS Omeprazole (Prilosec), 40 MG PO BID Polyethylene Glycol 3350 (Miralax), 17 GM PO QAM Quetiapine Fumarate (Seroquel), 1 TAB PO BID Scheduled PRN Ondansetron Hcl (Zofran), 8 MG PO BID PRN for Nausea Trimethobenzamide Hcl (Tigan), 1 CAP PO TID PRN for Nausea or Vomiting Review of Systems ROS per HPI, all other systems reviewed and negative Physical Exam Vital Signs Date Time Temp Pulse Resp B/P (MAP) Pulse Ox O2 Delivery O2 Flow Rate FiO2 10/17/17 18:57 87 20 122/61 95 Room Air 10/17/17 18:17 85 10/17/17 17:00 36.4 84 20 164/68 96 Room Air General Appearance: no apparent distress, + thin, + pertinent finding ( chronically ill appearing) Head: normocephalic, atraumatic Eyes: normal inspection, EOMI, sclerae normal ENT: hearing grossly normal, + pertinent finding (mucous membranes dry; weak voice) Neck: supple, no JVD, trachea midline Respiratory/Chest: lungs clear, normal breath sounds, no respiratory distress Cardiovascular: regular rate, rhythm, no edema, normal peripheral pulses Abdomen/GI: normal bowel sounds, non tender, soft, no organomegaly Extremities/Musculoskelatal: no calf tenderness, normal capillary refill, + pertinent finding (pain with palpation over left hip) Neurologic/Psych: no motor/sensory deficits, alert, normal mood/affect, oriented x 3 Skin: normal color, warm/dry Diagnostics Laboratory Results Results Past 24 Hours Test 10/17/17 17:15 Range/Units White Blood Count 4.61 4.8-10.8 K/uL Red Blood Count 4.09 4.2-5.4 M/uL Hemoglobin 12.0 12.0-16.0 g/dL Hematocrit 36.5 37-47 % Mean Corpuscular Volume 89.2 80-100 fL Mean Corpuscular Hemoglobin 29.3 25-34 pg Mean Corpuscular Hemoglobin Concent 32.9 32-36 g/dl Platelet Count 204 130-400 K/uL Mean Platelet Volume 8.8 7.4-10.4 fL Neutrophils (%) (Auto) 71.4 % Lymphocytes (%) (Auto) 19.7 % Monocytes (%) (Auto) 5.4 % Eosinophils (%) (Auto) 2.4 % Basophils (%) (Auto) 0.7 % Neutrophils # (Auto) 3.29 1.4-6.5 K/uL Lymphocytes # (Auto) 0.91 1.2-3.4 K/uL Monocytes # (Auto) 0.25 0.11-0.59 K/uL Eosinophils # (Auto) 0.11 0-0.5 K/uL Basophils # (Auto) 0.03 0-0.2 K/uL RDW Standard Deviation 44.7 36.4-46.3 fL RDW Coefficient of Variation 13.7 11.5-14.5 % Immature Granulocyte % (Auto) 0.4 % Immature Granulocyte # (Auto) 0.02 0.00-0.02 K/uL Prothrombin Time 10.4 9.0-12.0 SECONDS Prothromb Time International Ratio 1.0 0.9-1.1 Activated Partial Thromboplast Time 24.1 21.0-31.0 SECONDS Partial Thromboplastin Ratio 0.9 Sodium Level 138 136-145 mmol/L Potassium Level 4.3 3.5-5.1 mmol/L Chloride Level 103 98-107 mmol/L Carbon Dioxide Level 29 21-32 mmol/L Anion Gap 6.0 3-11 mmol/L Blood Urea Nitrogen 33 7-18 mg/dl Creatinine 1.67 0.60-1.20 mg/dl Est Creatinine Clear Calc Drug Dose 23.4 ml/min Estimated GFR () 34.6 Estimated GFR (Non- 29.8 BUN/Creatinine Ratio 19.5 10-20 Random Glucose 104 70-99 mg/dl Calcium Level 9.6 8.5-10.1 mg/dl Microbiology Results 10/17/17 MRSA DNA Surveillance Screen, [place] Pending Diagnostic Radiology CT LUMBAR SPINE IMPRESSION: No fractures within the lumbar spine. Degenerative changes and scoliosis as described above. PELVIS XR IMPRESSION: 1. There is an impacted and distracted subcapital fracture of the left femur with overlying soft tissue edema. 2. No fracture is seen involving the bony pelvis or the right hip. 3. Osteopenia and mild arthritic change as above. CXR IMPRESSION: No acute cardiopulmonary abnormality. Impression Assessment and Plan LEFT SUBCAPITAL FEMUR FRACTURE - admit to med/surg - patient presenting after a mechanical fall at home trying to get up from the chair; pelvis XR in the ED shows impacted and distracted subcapital fracture of the left femur - ortho consulted - CXR clear, EKG without acute changes, patient denies cardiopulmonary complaints; can proceed to the OR without further testing and be considered low- moderate risk - noted cardiac cath 2012 - normal coronaries - echo 10/2016 - 65-70%, aortic valve sclerosis moderate, without significant aortic valvular stenosis, trace mitral regurgitation,mild tricuspid regurgitation KAYCEE ON CKD STAGE III - likely prerenal due to patient's poor PO intake - baseline creat ~ 1.4, up to 1.6 today - IVF, avoid nephrotoxic agents when able - hold ACEi HTN - BP controlled - holding ACEi for now due to KAYCEE PARKINSON'S - continue Sinemet, Comtan - also had psychiatric complications from Parkinson's - continue BuSpar, Cymbalta, Seroquel. and Remeron DVT PROPHYLAXIS - SCDs in light of likely surgical procedure DISPO In my clinical judgment this beneficiary meets acute admission criteria, established by [facility], that includes being hospitalized through two midnights. ADDENDUM: I have seen and examined the patient and agree with the assessment and plan as above. She was started on Rocephin for empiric coverage for UTI and was also started on scheduled IV Tylenol. The IV was given as she has trouble moving and is a higher aspiration risk with Parkinson's disease. José , DO Level of Care Med/Surg Resuscitation Status FULL RESUSCITATION VTE Prophylaxis VTE Risk Assessment Done? Y/N: Yes Risk Level: Moderate
[2017-10-17] MEDS: ENTACAPONE 200 MG TAB PO SCH (20:55)
[2017-10-17] MEDS: SODIUM CHLORIDE 0.9% 1000ML 1,000 ML IV SCH (20:55)
[2017-10-17] MEDS: MIRTAZAPINE SOLTAB 15 MG PO SCH (20:56)
[2017-10-17] MEDS: QUETIAPINE FUMARATE 25 MG TAB PO SCH (20:56)
[2017-10-17] MEDS: CARBIDOPA/LEVODOPA 25/100MG TAB PO SCH (20:56)
[2017-10-17] MEDS: DOCUSATE SODIUM/SENNA 50/8.6MG TAB PO SCH (20:56)
[2017-10-17] MEDS: PANTOprazole SOD 40 MG TAB PO SCH (20:56)
[2017-10-17 22:26] LABS: MANUAL MICROSCOPIC REQUIRED? YES; REVIEW REQ? NO; SULFASALICYLIC ACID POS (NEG); URINE APPEARANCE CLEAR (CLEAR); URINE COLOR ORANGE; URINE SPECIFIC GRAVITY 1.021 (1.000-1.030)
[2017-10-17 22:32] LABS: URINE BACTERIA 1+ (NEG); URINE HYALINE CAST >30 /lpf (0-5); URINE RBC >30 /hpf (0-4)
[2017-10-17 22:33] LABS: ZZURINE CULT IF INDIC CATH YES
[2017-10-17 23:15] VITALS: BP 131/79; PULSE 76; TEMP 37.1; O2SAT 95
[2017-10-18] MEDS: CEFTRIAXONE SOD INJ 1 GM in DEXTROSE 5% ADD-VANTAGE 50ML 50 ML IV SCH (00:16)
[2017-10-18] MEDS: ACETAMINOPHEN IV 650 MG in EMPTY BAG 0 ML IV SCH ×3 (01:01→16:09)
[2017-10-18] MEDS: SODIUM CHLORIDE 0.9% 1000ML 1,000 ML IV SCH ×2 (05:29→15:37)
[2017-10-18] MEDS ORDERED: CEFAZOLIN IV 2,000 MG in DEXTROSE 5% 50ML 50 ML IV SCH (06:00)
[2017-10-18] MEDS ORDERED: CEFAZOLIN 2000MG IV PUSH 10 ML IV SCH (06:00)
[2017-10-18 07:34] VITALS: BP 146/75; PULSE 77; TEMP 36.8; O2SAT 97
--- NOTE | 2017-10-18 07:41 | Anesthesiology Progress Note ---
Anesthesia Progress Note Date of Service Oct 18, 2017. Progress Notes Per chart review, do not see any contraindications for surgery. has not yet been scheduled with the OR.
[2017-10-18] MEDS: QUETIAPINE FUMARATE 25 MG TAB PO SCH ×2 (08:25→20:03)
[2017-10-18] MEDS: CARBIDOPA/LEVODOPA 25/100MG TAB PO SCH ×4 (08:25→20:01)
[2017-10-18] MEDS: ENTACAPONE 200 MG TAB PO SCH ×4 (08:25→20:01)
[2017-10-18] MEDS: PANTOprazole SOD 40 MG TAB PO SCH ×2 (08:25→20:03)
[2017-10-18] MEDS: DULOXETINE HCL 20 MG CAP PO SCH (08:26)
[2017-10-18] MEDS: CITALOPRAM 20 MG TAB PO SCH (08:26)
[2017-10-18] MEDS: POLYETHYLENE (MIRALAX) 17 GM PACK PO SCH (08:26)
[2017-10-18 08:31] LABS: HEMATOCRIT 33.2 % (37-47); MEAN CELL VOLUME 89.5 fL (80-100); MEAN CORPUSCULAR HEMOGLOBIN 29.6 pg (25-34); MEAN CORPUSCULAR HGB CONC 33.1 g/dl (32-36); MEAN PLATELET VOLUME 8.6 fL (7.4-10.4); PLATELET COUNT 177 K/uL (130-400); RED BLOOD COUNT 3.71 M/uL (4.2-5.4)
[2017-10-18 08:45] LABS: BUN/CREATININE RATIO 20.6 (10-20); CALCIUM 8.8 mg/dl (8.5-10.1); CREATININE 1.54 mg/dl (0.60-1.20); POTASSIUM 4.2 mmol/L (3.5-5.1)
--- NOTE | 2017-10-18 09:47 | ORTHOPEDIC CONSULTATION ---
DATE OF CONSULTATION: 10/18/2017 Special attention to left hip fracture. HISTORY OF PRESENT ILLNESS: This is a 72-year-old female who sustained a mechanical fall while at home. The patient's family states that she was standing on chair, lost her balance, and fell on her left side. She has inability to bear weight on the left hip. She denies any preceding dizziness, chest pain, or shortness of breath. Denies any other injury or loss of consciousness. PAST MEDICAL HISTORY: Chronic kidney disease stage III, depression, hiatal hernia, GERD, breast cancer, history of kidney stones, history of Parkinson's disease with baseline decrease in function. PAST SURGICAL HISTORY: Breast surgery, carpal tunnel release on the right, tubal ligation. She was previously seen in [facility] for her shoulder and her knee. PHYSICAL EXAMINATION: GENERAL: The patient is awake and does respond to stimuli, but is nonconversant. EXTREMITIES: Left hip exam shows pain with logroll. Left hip is slightly shortened and internally rotated. TEDs and SCDs are applied. She can wiggle her toes. AP and lateral of the left hip does show a subcapital displaced femoral neck fracture. I did not see any obvious evidence of a lytic lesion. There is minimal arthritic change in the acetabular region. MEDICATIONS: Reviewed and does not include any blood thinners. ASSESSMENT: A 72-year-old female with: 1. Left subcapital hip fracture. 2. Parkinson's disease. PLAN: I discussed treatment options with the family in detail. Recommendation is for a hemiarthroplasty. I feel it is unlikely she will need a total hip replacement. There are minimal degenerative changes in the acetabulum. Family states that she at baseline ambulates in the house with a cane. She does live at home with her son in [place]. We discussed risks and benefits, reasonable outcomes. We discussed possibility of infection, dislocation, loss of function, anesthesia complications, medical complications, etc. They are agreeable and wished to proceed. Plan is for surgical intervention in the a.m. with a left hip hemiarthroplasty, likely by Dr. Samy Garcia.
[2017-10-18] MEDS: HYDROmorphone INJ 1 MG/ML SYR IV ONE ×2 (12:48→13:28)
--- NOTE | 2017-10-18 14:33 | Progress Note ---
Internal Med Progress Note Date of Service: Oct 18, 2017. Provider Documentation: SUBJECTIVE: Patient seen and examined at bedside. She is soft spoken. bedbound. No acute distress but reporting pain from hip injury OBJECTIVE: General Appearance: No acute distress but reporting pain from hip injury Head: normocephalic, atraumatic Eyes: normal inspection, EOMI, sclerae normal ENT: hearing grossly normal, dry mucous membranes Neck: supple, no JVD, trachea midline Respiratory/Chest: lungs clear, normal breath sounds, no respiratory distress Cardiovascular: regular rate, rhythm, no edema, normal peripheral pulses Abdomen/GI: normal bowel sounds, non tender, soft, no organomegaly Extremities/Musculoskelatal: no calf tenderness, normal capillary refill, pain with palpation over left hip Neurologic/Psych: alert , oriented ASSESSMENT & PLAN: A 72-year-old female with Parkinson's disease and left subcapital hip fracture after mechanical fall Orthopedics planning for left hip hemiarthroplasty on 10/19/2017 NPO after midnight Pain control with Dilaudid, bowel regimen, pre-op antibiotics Continue home medications for Parkinson's disease (continue Sinemet, Comtan) and medications from psychiatric complications from Parkinson's (BuSpar, Cymbalta, Seroquel. and Remero) KAYCEE ON CKD STAGE III: IV fluids, avoid nephrotoxic agents, hold NADIYA inhibitor, blood pressure controlled DVT PROPHYLAXIS: SCDs Vital Signs: Date Time Temp Pulse Resp B/P (MAP) Pulse Ox O2 Delivery O2 Flow Rate FiO2 10/18/17 07:55 Room Air 10/18/17 07:34 36.8 77 16 146/75 (98) 97 Room Air 10/17/17 23:15 37.1 76 16 131/79 (96) 95 Room Air 10/17/17 20:00 Room Air 10/17/17 20:00 Room Air 10/17/17 19:50 36.8 91 18 147/66 (93) 93 Room Air 10/17/17 18:57 87 20 122/61 95 Room Air 10/17/17 18:17 85 10/17/17 17:00 36.4 84 20 164/68 96 Room Air Lab Results: Results Past 24 Hours Test 10/17/17 17:15 10/17/17 22:15 10/18/17 07:31 Range/Units White Blood Count 4.61 5.30 4.8-10.8 K/uL Red Blood Count 4.09 3.71 4.2-5.4 M/uL Hemoglobin 12.0 11.0 12.0-16.0 g/dL Hematocrit 36.5 33.2 37-47 % Mean Corpuscular Volume 89.2 89.5 80-100 fL Mean Corpuscular Hemoglobin 29.3 29.6 25-34 pg Mean Corpuscular Hemoglobin Concent 32.9 33.1 32-36 g/dl Platelet Count 204 177 130-400 K/uL Mean Platelet Volume 8.8 8.6 7.4-10.4 fL Neutrophils (%) (Auto) 71.4 % Lymphocytes (%) (Auto) 19.7 % Monocytes (%) (Auto) 5.4 % Eosinophils (%) (Auto) 2.4 % Basophils (%) (Auto) 0.7 % Neutrophils # (Auto) 3.29 1.4-6.5 K/uL Lymphocytes # (Auto) 0.91 1.2-3.4 K/uL Monocytes # (Auto) 0.25 0.11-0.59 K/uL Eosinophils # (Auto) 0.11 0-0.5 K/uL Basophils # (Auto) 0.03 0-0.2 K/uL RDW Standard Deviation 44.7 45.2 36.4-46.3 fL RDW Coefficient of Variation 13.7 13.7 11.5-14.5 % Immature Granulocyte % (Auto) 0.4 % Immature Granulocyte # (Auto) 0.02 0.00-0.02 K/uL Prothrombin Time 10.4 9.0-12.0 SECONDS Prothromb Time International Ratio 1.0 0.9-1.1 Activated Partial Thromboplast Time 24.1 21.0-31.0 SECONDS Partial Thromboplastin Ratio 0.9 Sodium Level 138 139 136-145 mmol/L Potassium Level 4.3 4.2 3.5-5.1 mmol/L Chloride Level 103 106 98-107 mmol/L Carbon Dioxide Level 29 28 21-32 mmol/L Anion Gap 6.0 5.0 3-11 mmol/L Blood Urea Nitrogen 33 32 7-18 mg/dl Creatinine 1.67 1.54 0.60-1.20 mg/dl Est Creatinine Clear Calc Drug Dose 23.4 25.4 ml/min Estimated GFR () 34.6 38.1 Estimated GFR (Non- 29.8 32.9 BUN/Creatinine Ratio 19.5 20.6 10-20 Random Glucose 104 84 70-99 mg/dl Calcium Level 9.6 8.8 8.5-10.1 mg/dl Urine Color ORANGE Urine Appearance CLEAR CLEAR Urine pH 4.5-7.5 Urine Specific [place] 1.021 1.000-1.030 Urine Protein NEG Urine Glucose (UA) NEG Urine Ketones NEG Urine Occult Blood NEG Urine Nitrite NEG Urine Bilirubin NEG Urine Urobilinogen NEG Urine Leukocyte Esterase NEG Urine RBC >30 0-4 /hpf Urine WBC 10-30 0-5 /hpf Urine Epithelial Cells >30 0-5 /lpf Urine Renal Cells 10-20 FEW /lpf Urine Bacteria 1+ NEG Urine Hyaline Casts >30 0-5 /lpf Microbiology Results 10/17/17 MRSA DNA Surveillance Screen - Final, Complete Specimen Negative for MRSA by DNA Probe 10/17/17 Urine Culture - Preliminary, Resulted NO GROWTH - LESS THAN 1,000 COLONIES/...
[2017-10-18 15:44] VITALS: BP 120/67; PULSE 69; TEMP 36.4; O2SAT 94
--- NOTE | 2017-10-18 16:19 | DIAGNOSTIC IMAGING REPORT ---
L FEMUR 2 VIEWS ROUTINE HISTORY: 72 years-old Female s/p left hip fx follow-up study in a patient with left hip fracture. COMPARISON: Pelvis and left hip radiographs 10/17/2017 TECHNIQUE: Portable AP and crosstable lateral views of the left femur FINDINGS: Impacted mildly angulated subcapital fracture left femur redemonstrated with overlying soft tissue edema and unchanged alignment. The bones appear mildly demineralized. The mid and distal portions of the femur are intact. 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 No pelvic fracture identified. There are degenerative changes of the imaged lower lumbar spine. IMPRESSION: Unchanged alignment of the acute mildly impacted subcapital fracture of the left femur with associated soft tissue swelling. The above report was generated using voice recognition software. It may contain grammatical, syntax or spelling errors. Electronically signed by: Say Castrejon M.D. 10/18/2017 4:18 PM Dictated Date/Time: 10/18/2017 4:15 PM
[2017-10-18] MEDS: HYDROmorphone INJ 0.5 MG/0.5 ML SYR IV SCH (18:35)
[2017-10-18] MEDS: DOCUSATE SODIUM/SENNA 50/8.6MG TAB PO SCH (20:03)
[2017-10-18] MEDS: MIRTAZAPINE SOLTAB 15 MG PO SCH (20:03)
[2017-10-18 22:55] VITALS: BP 150/72; PULSE 84; TEMP 37.5; O2SAT 94
[2017-10-19] VITALS (13 sets, daily range): BP systolic 98–175; BP diastolic 47–81; PULSE 74–117; TEMP 36.5–38.8; O2SAT 92–99
[2017-10-19] MEDS: ACETAMINOPHEN IV 650 MG in EMPTY BAG 0 ML IV SCH ×3 (00:01→16:38)
[2017-10-19] MEDS: CEFTRIAXONE SOD INJ 1 GM in DEXTROSE 5% ADD-VANTAGE 50ML 50 ML IV SCH ×2 (00:01→23:26)
[2017-10-19] MEDS: HYDROmorphone INJ 0.5 MG/0.5 ML SYR IV SCH ×2 (00:01→05:30)
[2017-10-19] MEDS: SODIUM CHLORIDE 0.9% 1000ML 1,000 ML IV SCH ×2 (01:49→13:15)
[2017-10-19] MEDS ORDERED: CEFAZOLIN 2000MG IV PUSH 10 ML IV SCH (06:00)
[2017-10-19] MEDS ORDERED: CEFAZOLIN SOD 1000MG/5 ML IV PUSH IV ONE (06:00)
[2017-10-19 06:17] LABS: BASO % 0.5 %; BASO ABS # 0.03 K/uL (0-0.2); COMPLETE YES; EOS % 5.5 %; HEMATOCRIT 32.2 % (37-47); IG% 0.4 %; LYMPH % 9.3 %; LYMPH ABS # 0.51 K/uL (1.2-3.4); MEAN CELL VOLUME 89.9 fL (80-100); MEAN CORPUSCULAR HEMOGLOBIN 29.1 pg (25-34); MEAN CORPUSCULAR HGB CONC 32.3 g/dl (32-36); MEAN PLATELET VOLUME 8.5 fL (7.4-10.4); MONO % 9.1 %; NEUT % 75.2 %; PLATELET COUNT 159 K/uL (130-400); RED BLOOD COUNT 3.58 M/uL (4.2-5.4); WHITE BLOOD COUNT 5.47 K/uL (4.8-10.8)
[2017-10-19 06:50] LABS: BUN/CREATININE RATIO 18.3 (10-20); CALCIUM 8.5 mg/dl (8.5-10.1); CREATININE 1.28 mg/dl (0.60-1.20); MAGNESIUM 1.7 mg/dl (1.8-2.4); POTASSIUM 4.6 mmol/L (3.5-5.1)
[2017-10-19 06:53] LABS: ALB/GLOB RATIO 0.9 (0.9-2)
[2017-10-19] MEDS: CARBIDOPA/LEVODOPA 25/100MG TAB PO SCH ×4 (07:59→20:16)
[2017-10-19] MEDS: DULOXETINE HCL 20 MG CAP PO SCH (07:59)
[2017-10-19] MEDS: QUETIAPINE FUMARATE 25 MG TAB PO SCH ×2 (07:59→21:26)
[2017-10-19] MEDS: POLYETHYLENE (MIRALAX) 17 GM PACK PO SCH (07:59)
[2017-10-19] MEDS: PANTOprazole SOD 40 MG TAB PO SCH ×2 (07:59→21:26)
[2017-10-19] MEDS: CITALOPRAM 20 MG TAB PO SCH (07:59)
[2017-10-19] MEDS: ENTACAPONE 200 MG TAB PO SCH ×4 (07:59→20:16)
[2017-10-19] MEDS ORDERED: FENTANYL CITRATE INJ 50 MCG/1 ML 2 ML VIAL ONE (08:13)
[2017-10-19] MEDS ORDERED: PROPOFOL IV EMULSION 10 MG/ML 20 ML VIAL IV ONE (08:13)
[2017-10-19] MEDS ORDERED: LIDOCAINE HCL 2% 2 ML VIAL (20MG/ML) ONE (08:13)
--- NOTE | 2017-10-19 08:14 | History & Physical Bridge Note ---
H&P Re-Evaluation Bridge Note: I have examined the patient, reviewed the History & Physical and in the interval since the performance of the History & Physical I have noted the following changes of clinical significance: No changes noted
[2017-10-19] MEDS ORDERED: FLUMAZENIL 0.1 MG/1 ML 10 ML VIAL IV PRN (08:15)
[2017-10-19] MEDS ORDERED: LABETALOL HCL IV 5 MG/ML 20ML IV PRN (08:15)
[2017-10-19] MEDS ORDERED: PHENYLEPHRINE 100MCG/ML 5ML SYR IV PRN (08:15)
[2017-10-19] MEDS ORDERED: ATROPINE SULFATE 0.1 MG/ML 5ML SYR IV PRN (08:15)
[2017-10-19] MEDS ORDERED: FENTANYL CITRATE INJ 50 MCG/1 ML 2 ML VIAL IV PRN (08:15)
[2017-10-19] MEDS ORDERED: MEPERIDINE HCL 25 MG/ML CARP IV PRN (08:15)
[2017-10-19] MEDS ORDERED: HYDROmorphone INJ 2 MG/ML SYR/VIAL IV PRN (08:15)
[2017-10-19] MEDS ORDERED: EpHEDrine SULFATE INJ 50 MG/ML AMP IV PRN (08:15)
[2017-10-19] MEDS ORDERED: NALOXONE HCL 0.4 MG/1 ML VIAL/CARP IV PRN ×2 (08:15→10:45)
[2017-10-19] MEDS ORDERED: ONDANSETRON INJ 2 MG/ML 2 ML VIAL IV PRN ×2 (08:15→10:45)
[2017-10-19] MEDS ORDERED: BACITRACIN 50000 UNIT VIAL ONE (08:16)
[2017-10-19] MEDS ORDERED: POVIDONE-IODINE OP SOLN 30 ML BTL ONE (08:16)
[2017-10-19] MEDS ORDERED: BUPIVACAINE 0.5 % 5 MG/1 ML PF 10ML VIAL ONE (08:30)
[2017-10-19] MEDS ORDERED: CEFAZOLIN SOD 1 GM VIAL ONE (08:50)
--- NOTE | 2017-10-19 10:33 | [facility] Post Operative Brief Note ---
Immediate Operative Summary Operative Date Oct 19, 2017. Pre-Operative Diagnosis Left subcapital hip fracture Post-Operative Diagnosis Left subcapital hip fracture Procedure(s) Performed Left Bipolar Hip Prosthesis Surgeon Dr. Samy Garcia Boat Engine Mechanic Surgeon(s) Sujata Ferraro PA-C Estimated Blood Loss 50 mL Findings garden 4 displaced fracture Specimens Permanent specimens A: Right femoral head Drains 2 hemovac Complication(s) None Disposition Recovery Room / PACU
[2017-10-19] MEDS ORDERED: D5W AND NSS 1,000 ML IV SCH (10:44)
[2017-10-19] MEDS ORDERED: BISACODYL 10 MG SUPP PR PRN (10:45)
[2017-10-19] MEDS ORDERED: HYDROmorphone INJ 0.5 MG/0.5 ML SYR IV PRN (10:45)
[2017-10-19] MEDS ORDERED: ARTIFICIAL SALIVA PO SCH (10:45)
[2017-10-19] MEDS ORDERED: SOD PHOSPHATE/SOD BIPHOSPHATE ENEMA 132 ML BTL PR PRN (10:45)
[2017-10-19] MEDS ORDERED: MAGNESIUM HYDROXIDE SUSP 30 ML UDC PO PRN (10:45)
[2017-10-19] MEDS ORDERED: OXYCODONE HCL IR 5 MG TAB (IMMEDIATE RELEASE) PO PRN ×2 (10:45)
--- NOTE | 2017-10-19 11:09 | Anesthesiology Progress Note ---
Anesthesia Post Op Note Date & Time Oct 19, 2017 at 11:09 Vital Signs Pain Intensity: 0 Vital Signs Past 12 Hours Date Time Temp Pulse Resp B/P (MAP) Pulse Ox O2 Delivery O2 Flow Rate FiO2 10/19/17 10:55 36.8 70 12 141/56 96 Nasal Cannula 2 10/19/17 10:45 65 12 107/70 99 Oxymask 2 10/19/17 10:36 36.7 70 12 136/54 100 Oxymask 4 10/19/17 07:52 Room Air 10/19/17 04:03 81 142/69 (93) 10/19/17 03:20 37.1 95 18 175/78 (110) 92 Room Air 10/19/17 00:00 Room Air Notes Mental Status: alert / awake / arousable, participated in evaluation Pt Amnestic to Procedure: Yes Nausea / Vomiting: adequately controlled Pain: adequately controlled Airway Patency, RR, SpO2: stable & adequate BP & HR: stable & adequate Hydration State: stable & adequate Neuraxial Anesthesia: was administered, sensory block is resolving Anesthetic Complications: no major complications apparent
--- NOTE | 2017-10-19 11:16 | OPERATIVE REPORT ---
DATE OF OPERATION: 10/19/2017 INDICATION FOR PROCEDURE: The patient is a 72-year-old female who has known Parkinson disease. She is a household ambulator. She had a fall and fractured her left hip. She has a displaced femoral neck fracture. PREOPERATIVE DIAGNOSES: 1. Displaced left femoral neck fracture. 2. History of Parkinson disease. POSTOPERATIVE DIAGNOSIS: Same. PROCEDURE: Bipolar hemiarthroplasty, left hip, uncemented. SURGEON: Dr. Garcia. FLOOR TRADER: MARTY Stevenson. ANESTHESIA: Spinal with sedation. OPERATIVE PROCEDURE: The patient was taken to the operating room, anesthetized under anesthesia as dictated. She was placed supine on the operating room table. She was placed on a sacral pad. She was translated to the left side of the bed, so her hip could be exposed. We did place a lumbar towel roll under her hip for support. Placed a foot roll to flex her knee to 90 degrees and hip 60 degrees during the procedure as needed. The bed was placed in some Trendelenburg and tilted to the right to help expose the left hip. Her exam demonstrates she had significant scoliosis given her pelvic obliquity. The left leg appeared to be a bit more short of than it should be, based on her pelvic obliquity. The left hip also had some bruising from the injury and skin was all intact. Her left hip was then prepped and draped in usual sterile fashion. She did have 2 grams of IV Ancef preop. Her hip was sterilely prepped and draped with ChloraPrep. A longitudinal incision was made over the lateral left hip. Skin was incised sharply and deep layer fat was divided down to the fascia. The subcutaneous bleeders were cauterized. Subcutaneous flaps were elevated. The fascia geoffrey was divided longitudinally and the gluteus chacorta fascia was split proximally. We did a lateral type approach to the hip with a Hardinge type approach. The abductors had some multiple bone spurs underneath the abductor tendon, but there was no superficial tearing of the abductors. The gluteus medius was split between its anterior 40% and posterior 60%. A curvilinear incision was made through the gluteus medius tendon leaving a cuff of tissue for repair on the greater trochanter. The vastus lateralis was split for about 3.5 cm. Muscular capsular flap was elevated off the hip. While this was being elevated, there was some deeper tearing of the abductors, chronic type tearing and some bone spurs on the trochanter. We released the minimus and reflected off the deep capsule, the capsule was divided longitudinally up to the acetabular labrum which was kept intact. The femur fracture was exposed with flexion and external rotation. We used the [employer] Accolade pressfit stem and bipolar head for the procedure. The femoral neck cut was freshened up to 15 mm proximal to the lesser trochanter in neutral anteversion. The neck fragments were removed. There was good calcar were noted. The patient had very thick calcar bone which I felt was good for pressfit stem. The femoral head fracture was identified. Then, the corkscrew was placed into the femoral head and hip skid was used to remove it. There was some bleeding from the ligamentum teres, which the remnants were resected and the bleeders were cauterized. The box osteotome was used to open up the canal followed by canal reamer, followed by sequential broaches up to a size 3, which had the appropriate fit and fill. A trial reduction with a +0 neck length and the bipolar head was measured at a 26 inner diameter and a 42 mm outer diameter to match the femoral diameter. We did a trial reduction with those and the leg lengths to be satisfactory and range of motion and soft tissue tension on the abductors was satisfactory. The patient had stable full range of motion including complete flexion, adduction, internal rotation, and external rotation, adduction. The trials were removed. After copious irrigation with antibiotic solution and bacitracin, the final implants were placed. The Accolade II stem size 3 with 127 degree neck angle was impacted and fully seated and then the +0 mm, 26 mm cobalt chromium head was impacted onto the stem followed by the bipolar 42/26 mm diameter bipolar head. This was reduced to the acetabulum. Stability was verified. After Betadine soaked and further irrigation, 2 Hemovac drains were brought out laterally. The abductor tear was performed by removing some of the bone spurs on the greater trochanter and then placing transosseous #5 FiberWire sutures through the trochanter. Then, the capsule and minimus were repaired with [id number] #1 Vicryl sutures. The medius was repaired with the #5 FiberWire sutures using Junior-Macario suture technique and lateral row soft tissue repair performed with [id number] #2 FiberWire and the split in the vastus lateralis closed with a running #1 Vicryl and interrupted [id number] #1 Vicryls in the split in the gluteus medius. A stable repair was performed and the hip was taken through full range of motion and the repair was secure. After further irrigation of the fascia geoffrey, the gluteus chacorta fascia was closed with ghaqeu-[id number] #1 Vicryl sutures. Subcutaneous tissue closed with interrupted large #2 Vicryls to close the space and then 2-0 Vicryl and skin shereen and Silverlon dressing. The patient had 50 mL of blood loss estimated, and tolerated the procedure well. Sujata Ferraro was my physician pharmacy affairs assistant and se assisted in patient positioning, prepping, draping, soft tissue retraction, instrument management during the procedure and she assisted in the subcutaneous skin closure with just postoperative care of the patient. I attest to the content of the Intraoperative Record and any orders documented therein. Any exception s are noted below.
--- NOTE | 2017-10-19 11:44 | DIAGNOSTIC IMAGING REPORT ---
LEFT HIP 2 VIEWS CLINICAL HISTORY: Postoperative examination. FINDINGS: AP and crosstable lateral views of the left hip are correlated with femoral radiographs dated 10/18/2017. The skeletal structures are osteopenic. A unipolar left hip arthroplasty is in near-anatomic alignment. No acute fracture is seen. The visualized left hemipelvis appears intact. There are expected postoperative changes overlying the left hip including skin clips, subcutaneous gas, soft tissue swelling, and a surgical drain. IMPRESSION: Expected postoperative findings status post left hip arthroplasty. No acute fracture is seen. Electronically signed by: Carlos Plummer M.D. 10/19/2017 11:42 AM Dictated Date/Time: 10/19/2017 11:41 AM
[2017-10-19] MEDS: hydrOXYzine HCL 25 MG TAB PO SCH ×3 (13:24→21:26)
[2017-10-19] MEDS ORDERED: NURSING VERBAL MED ORDER ONE (14:00)
[2017-10-19] MEDS ORDERED: CEFAZOLIN IV 1,000 MG in DEXTROSE 5% 50ML 50 ML IV SCH (16:00)
--- NOTE | 2017-10-19 16:19 | Progress Note ---
Internal Med Progress Note Date of Service: Oct 19, 2017. Provider Documentation: SUBJECTIVE: Patient seen and examined at bedside. s/p orthopedic surgery for hip fracture. She is soft spoken. Sometimes mumbling OBJECTIVE: General Appearance: No acute distress Head: normocephalic, atraumatic Eyes: normal inspection, EOMI, sclerae normal ENT: hearing grossly normal, dry mucous membranes Neck: supple, no JVD, trachea midline Respiratory/Chest: lungs clear, normal breath sounds, no respiratory distress Cardiovascular: mild tachycardia Abdomen/GI: normal bowel sounds, non tender, soft, no organomegaly Extremities/Musculoskelatal: left hip/leg in supports, pulses palpable, able to wiggle toes on both feet when asked Neurologic/Psych: awake, follows verbal commands ASSESSMENT & PLAN: A 72-year-old female with Parkinson's disease and left subcapital hip fracture after mechanical fall. S/P Left Bipolar Hip Prosthesis on 10/19/17 Pain control medications, bowel regimen Continue home medications for Parkinson's disease (continue Sinemet, Comtan) and medications from psychiatric complications from Parkinson's (BuSpar, Cymbalta, Seroquel. and Remero) KAYCEE ON CKD STAGE III: IV fluids, avoid nephrotoxic agents, hold NADIYA inhibitor, blood pressure controlled Diet: diet ordered post-op but patient may need assistance with eating and may have poor oral intake. Start D5 - 1/2 normal saline at 75 cc/hr for now to avoid hypoglycemia DVT PROPHYLAXIS Vital Signs: Date Time Temp Pulse Resp B/P (MAP) Pulse Ox O2 Delivery O2 Flow Rate FiO2 10/19/17 15:55 95 Room Air 10/19/17 15:12 38.8 105 20 142/62 (88) 97 Nasal Cannula 2.0 10/19/17 14:19 38.1 106 20 162/69 (100) 96 Nasal Cannula 2.0 10/19/17 13:37 117 15 157/75 (102) 95 Nasal Cannula 2.0 10/19/17 12:26 89 16 158/81 (106) 99 Nasal Cannula 2.0 10/19/17 12:02 91 16 154/75 (101) 97 2.0 10/19/17 11:53 98 Nasal Cannula 2.0 10/19/17 11:30 36.5 74 16 137/47 (77) 98 Nasal Cannula 2.0 10/19/17 11:05 72 12 141/56 96 Nasal Cannula 2 10/19/17 10:55 36.8 70 12 141/56 96 Nasal Cannula 2 10/19/17 10:45 65 12 107/70 99 Oxymask 2 10/19/17 10:36 36.7 70 12 136/54 100 Oxymask 4 10/19/17 07:52 Room Air 10/19/17 04:03 81 142/69 (93) 10/19/17 03:20 37.1 95 18 175/78 (110) 92 Room Air 10/19/17 00:00 Room Air 10/18/17 22:55 37.5 84 16 150/72 (98) 94 Room Air Lab Results: Results Past 24 Hours Test 10/19/17 05:54 Range/Units White Blood Count 5.47 4.8-10.8 K/uL Red Blood Count 3.58 4.2-5.4 M/uL Hemoglobin 10.4 12.0-16.0 g/dL Hematocrit 32.2 37-47 % Mean Corpuscular Volume 89.9 80-100 fL Mean Corpuscular Hemoglobin 29.1 25-34 pg Mean Corpuscular Hemoglobin Concent 32.3 32-36 g/dl Platelet Count 159 130-400 K/uL Mean Platelet Volume 8.5 7.4-10.4 fL Neutrophils (%) (Auto) 75.2 % Lymphocytes (%) (Auto) 9.3 % Monocytes (%) (Auto) 9.1 % Eosinophils (%) (Auto) 5.5 % Basophils (%) (Auto) 0.5 % Neutrophils # (Auto) 4.11 1.4-6.5 K/uL Lymphocytes # (Auto) 0.51 1.2-3.4 K/uL Monocytes # (Auto) 0.50 0.11-0.59 K/uL Eosinophils # (Auto) 0.30 0-0.5 K/uL Basophils # (Auto) 0.03 0-0.2 K/uL RDW Standard Deviation 45.1 36.4-46.3 fL RDW Coefficient of Variation 13.6 11.5-14.5 % Immature Granulocyte % (Auto) 0.4 % Immature Granulocyte # (Auto) 0.02 0.00-0.02 K/uL Sodium Level 138 136-145 mmol/L Potassium Level 4.6 3.5-5.1 mmol/L Chloride Level 107 98-107 mmol/L Carbon Dioxide Level 27 21-32 mmol/L Anion Gap 4.0 3-11 mmol/L Blood Urea Nitrogen 23 7-18 mg/dl Creatinine 1.28 0.60-1.20 mg/dl Est Creatinine Clear Calc Drug Dose 30.5 ml/min Estimated GFR () 47.7 Estimated GFR (Non- 41.1 BUN/Creatinine Ratio 18.3 10-20 Random Glucose 104 70-99 mg/dl Calcium Level 8.5 8.5-10.1 mg/dl Magnesium Level 1.7 1.8-2.4 mg/dl Total Bilirubin 0.3 0.2-1 mg/dl Aspartate Amino Transf (AST/SGOT) 22 15-37 U/L Alanine Aminotransferase (ALT/SGPT) 9 12-78 U/L Alkaline Phosphatase 56 45-117 U/L Total Protein 6.4 6.4-8.2 gm/dl Albumin 3.0 3.4-5.0 gm/dl Globulin 3.4 2.5-4.0 gm/dl Albumin/Globulin Ratio 0.9 0.9-2
[2017-10-19] MEDS ORDERED: D5W AND 1/2NSS 1,000 ML IV SCH (17:00)
[2017-10-19] MEDS: CEFAZOLIN IV 1,000 MG in SYRINGE 0 ML IV SCH ×2 (17:21→23:25)
[2017-10-19] MEDS ORDERED: DOCUSATE SODIUM/SENNA 50/8.6MG TAB PO SCH (21:00)
[2017-10-19] MEDS: ASPIRIN/ALUM/MAGNES/CAL CARB 325 MG TAB PO SCH (21:26)
[2017-10-19] MEDS: MIRTAZAPINE SOLTAB 15 MG PO SCH (21:26)
[2017-10-19] MEDS: DOCUSATE SODIUM/SENNA 50/8.6MG TAB PO SCH (21:26)
[2017-10-20] VITALS (8 sets, daily range): BP systolic 86–130; BP diastolic 49–65; PULSE 60–80; TEMP 36.4–37.1; O2SAT 95–97
[2017-10-20] MEDS: ACETAMINOPHEN IV 650 MG in EMPTY BAG 0 ML IV SCH ×3 (00:43→15:40)
[2017-10-20] MEDS ORDERED: SODIUM CHLORIDE 0.9% 1000ML 1,000 ML IV SCH (04:00)
[2017-10-20 04:11] LABS: HEMATOCRIT 23.8 % (37-47); MEAN CELL VOLUME 87.8 fL (80-100); MEAN CORPUSCULAR HEMOGLOBIN 29.2 pg (25-34); MEAN CORPUSCULAR HGB CONC 33.2 g/dl (32-36); MEAN PLATELET VOLUME 8.3 fL (7.4-10.4); PLATELET COUNT 104 K/uL (130-400); RED BLOOD COUNT 2.71 M/uL (4.2-5.4); WHITE BLOOD COUNT 6.47 K/uL (4.8-10.8)
[2017-10-20 04:28] LABS: BUN/CREATININE RATIO 15.4 (10-20); CALCIUM 7.8 mg/dl (8.5-10.1); CREATININE 1.11 mg/dl (0.60-1.20); MAGNESIUM 1.5 mg/dl (1.8-2.4); POTASSIUM 3.8 mmol/L (3.5-5.1)
[2017-10-20] MEDS: MAGNESIUM SULFATE 1GM / D5W 1 GM in PREMIXED IN D5W 100 ML IV SCH ×2 (04:48→06:06)
[2017-10-20 04:58] LABS: BASO % 0.2 %; BASO ABS # 0.01 K/uL (0-0.2); COMPLETE YES; EOS % 0.6 %; IG% 0.2 %; LYMPH % 11.1 %; LYMPH ABS # 0.72 K/uL (1.2-3.4); MONO % 9.3 %; NEUT % 78.6 %
[2017-10-20] MEDS ORDERED: NSS + 20MEQ KCL 1000ML 1,000 ML IV ONE (05:00)
[2017-10-20 06:37] LABS: URINE APPEARANCE CLEAR (CLEAR); URINE BILIRUBIN NEG (NEG); URINE COLOR DK YELLOW; URINE NITRITE NEG (NEG); URINE SPECIFIC GRAVITY 1.026 (1.000-1.030); UROBILINOGEN NEG (NEG); ZZUR CULT IF INDIC CLEAN CATCH NO
[2017-10-20 06:38] LABS: MANUAL MICROSCOPIC REQUIRED? NO; REVIEW REQ? NO
[2017-10-20] MEDS ORDERED: hydrOXYzine HCL 25 MG TAB PO PRN (09:00)
[2017-10-20] MEDS: CARBIDOPA/LEVODOPA 25/100MG TAB PO SCH ×4 (09:33→20:09)
[2017-10-20] MEDS: ENTACAPONE 200 MG TAB PO SCH ×4 (09:33→20:09)
[2017-10-20] MEDS: ASPIRIN/ALUM/MAGNES/CAL CARB 325 MG TAB PO SCH ×2 (09:33→21:12)
[2017-10-20] MEDS: PANTOprazole SOD 40 MG TAB PO SCH ×2 (09:34→21:33)
[2017-10-20] MEDS: QUETIAPINE FUMARATE 25 MG TAB PO SCH ×2 (09:34→21:11)
[2017-10-20] MEDS: CITALOPRAM 20 MG TAB PO SCH (09:34)
[2017-10-20] MEDS: DULOXETINE HCL 20 MG CAP PO SCH (09:35)
[2017-10-20] MEDS: LISINOPRIL 10 MG TAB PO SCH (09:35)
[2017-10-20] MEDS: POLYETHYLENE (MIRALAX) 17 GM PACK PO SCH (09:36)
--- NOTE | 2017-10-20 10:08 | Orthopedic Progress Note ---
Orthopedic Progress Note Date of Service Oct 20, 2017. Subjective Post OP Day: 1 Additional Notes: Pt sitting up in bed this AM. Nursing helping her take her medicines. Pt states she's having pain off and on in the operative hip. No other complaints. Objective calves soft nontender, N/V intact, dressing C/D/I, toes mobile Date Time Temp Pulse Resp B/P (MAP) Pulse Ox O2 Delivery O2 Flow Rate FiO2 10/20/17 08:11 96 Room Air 10/20/17 07:57 36.5 74 18 130/64 (86) 96 Room Air 10/20/17 04:05 75 124/65 (84) 10/20/17 03:28 37.0 60 22 98/52 (67) 97 Room Air 10/19/17 23:30 Room Air 10/19/17 22:45 36.8 76 18 98/59 (72) 96 Room Air 10/19/17 19:45 37.7 83 20 119/63 (81) 95 Room Air 10/19/17 16:30 97 Nasal Cannula 2.0 10/19/17 15:55 95 Room Air 10/19/17 15:12 38.8 105 20 142/62 (88) 97 Nasal Cannula 2.0 10/19/17 14:19 38.1 106 20 162/69 (100) 96 Nasal Cannula 2.0 10/19/17 13:37 117 15 157/75 (102) 95 Nasal Cannula 2.0 10/19/17 12:26 89 16 158/81 (106) 99 Nasal Cannula 2.0 10/19/17 12:02 91 16 154/75 (101) 97 2.0 10/19/17 11:53 98 Nasal Cannula 2.0 10/19/17 11:30 36.5 74 16 137/47 (77) 98 Nasal Cannula 2.0 10/19/17 11:05 72 12 141/56 96 Nasal Cannula 2 10/19/17 10:55 36.8 70 12 141/56 96 Nasal Cannula 2 10/19/17 10:45 65 12 107/70 99 Oxymask 2 10/19/17 10:36 36.7 70 12 136/54 100 Oxymask 4 Laboratory Results 24 Hours: Test 10/20/17 04:01 White Blood Count 6.47 K/uL Red Blood Count 2.71 M/uL Hemoglobin 7.9 g/dL Hematocrit 23.8 % Mean Corpuscular Volume 87.8 fL Mean Corpuscular Hemoglobin 29.2 pg Mean Corpuscular Hemoglobin Concent 33.2 g/dl Platelet Count 104 K/uL Mean Platelet Volume 8.3 fL Neutrophils (%) (Auto) 78.6 % Lymphocytes (%) (Auto) 11.1 % Monocytes (%) (Auto) 9.3 % Eosinophils (%) (Auto) 0.6 % Basophils (%) (Auto) 0.2 % Neutrophils # (Auto) 5.09 K/uL Lymphocytes # (Auto) 0.72 K/uL Monocytes # (Auto) 0.60 K/uL Eosinophils # (Auto) 0.04 K/uL Basophils # (Auto) 0.01 K/uL Assessment & Plan Assessment: POD 1 s/p Left Bipolar Hemiarthroplasty Acute blood loss anemia likely due to procedure. Plan: PT/OT - WBAT; hip precautions DC plans - [facility] referral placed. H/H rechecked at 11. Hgb 9.0 . Follow for now Inhouse Planning Pain Management: Dilaudid, Oxy IR DVT Prophylaxis: TEDs, SCDs, ASA Discharge Planning Discharge Planning: rehab hospital
--- NOTE | 2017-10-20 10:09 | Consultant Recommendations ---
Bunk Assembler Recommendations Date of Service Oct 20, 2017. Bunk Assembler Recommendations ACTIVITY RECOMMENDATIONS: SELF CARE INSTRUCTIONS AFTER BIPOLAR HEMIARTHROPLASTY HIP REPLACEMENT Until the incision and soft tissues around your hip have healed, there is a possibility that the hip prosthesis could dislocate. A. Observe the following precautions to prevent dislocation: 1. Don't bend your hip greater than 90 degrees. 2. Avoid crossing your legs or ankles while standing or lying. 3. Sit with your feet placed 6 inches apart. 4. When sitting, keep your knees below your hips. Sit on a firm surface, avoid deep, soft chairs and couches. Use an elevated toilet seat in the bathroom. 5. Don't bend over at the waist. Use a long handled shoehorn and a sock aid to help you put on your shoes and socks. A dragline operator can help you pickling drum operator objects that are too high or too low to reach. 6. Keep car riding to a minimum for at least one month after surgery. B. Your balance may be shaky for a while. Use crutches or a walker until directed by your doctor. C. Use hand rails when walking on stairs. D. Wear low heeled shoes with non-slip soles. E. Be sure that your floors are free of things that could trip you - throw rugs , electrical cords, small objects. Avoid wet and waxed floors, especially with crutches and canes. F. Try to walk several times a day with rest periods between. G. Continue with all the exercises taught to you in the hospital. Again, make walking a part of your daily routine. SPECIAL CARE INSTRUCTIONS: VERY IMPORTANT TO READ AND REVIEW A. You may still be at risk for phlebitis and blood clots. 1. Wear surgical stockings (JUAN ALBERTO hose) for 2 weeks after surgery to improve circulation and reduce swelling. 2. Take Aspirin 325mg twice daily for 4 weeks or as directed by your doctor. This is your blood thinner. 3. High risk patients may be prescribed a stronger blood thinner if necessary. 4. If you are on Coumadin normally, your family doctor/community youth secretary should monitor your blood work. Expect a phone call the day of or the day after bloodwork is drawn to adjust your dosage. B. You must take antibiotics before having dental work, bladder, bowel and other surgery. Your doctor will provide you with a permanent card to carry describing precautions. C. Call [facility] if you have a fever, redness or swelling around the incision, cloudy drainage from incision, or sudden increase in pain in your hip, not relieved by your regular pain medication. D. Please call the office at if you have any concerns or questions about your operation or recovery. * YOU MAY SHOWER, NO TUB BATHS UNTIL CLEARED BY YOUR DOCTOR. * WEAR JUAN ALBERTO HOSE 20 HOURS PER DAY FOR 2 WEEKS. * YOU SHOULD USE A WALKER OR CRUTCHES FOR 2-4 WEEKS. THIS WILL HELP PREVENT STRAIN ON YOUR HIP MUSCLE AND ALLOW IT TO HEAL PROPERLY. YOU MAY WEAN TO A CANE TOLERATED. * MOST PATIENTS WILL HAVE HOME NURSING FOR THERAPY. IF YOU DECIDE TO DO OUTPATIENT PHYSICAL THERAPY, PLEASE SCHEDULE THIS 3 TIMES PER WEEK. * Silverlon- This is a large adhesive bandage that contains silver ions. This helps your incision heal by fighting off bacteria and protecting it from the outside environment. You are permitted to shower with this dressing. This will remain on your incision for 7 days and then should be removed. Some visible blood or drainage through the dressing window is normal. If there is significant drainage or leaking noted before the 7 days notify your doctor's office immediately. Once removed, keep incision clean and dry. If there is any drainage or redness noted, please call your surgeon. . FOLLOW UP VISIT: If appointment is not already scheduled: Please call [facility] to make a follow-up appointment for 2 weeks after your surgery at .
[2017-10-20 11:05] LABS: HEMATOCRIT 27.1 % (37-47); MEAN CELL VOLUME 87.1 fL (80-100); MEAN CORPUSCULAR HEMOGLOBIN 28.9 pg (25-34); MEAN CORPUSCULAR HGB CONC 33.2 g/dl (32-36); MEAN PLATELET VOLUME 8.4 fL (7.4-10.4); PLATELET COUNT 155 K/uL (130-400); RED BLOOD COUNT 3.11 M/uL (4.2-5.4); WHITE BLOOD COUNT 9.19 K/uL (4.8-10.8)
[2017-10-20 11:24] LABS: BUN/CREATININE RATIO 13.9 (10-20); CALCIUM 8.3 mg/dl (8.5-10.1); CREATININE 1.19 mg/dl (0.60-1.20); MAGNESIUM 2.2 mg/dl (1.8-2.4); POTASSIUM 3.9 mmol/L (3.5-5.1)
[2017-10-20 11:27] LABS: ALB/GLOB RATIO 0.8 (0.9-2)
[2017-10-20 11:45] LABS: BASO % 0.2 %; BASO ABS # 0.02 K/uL (0-0.2); COMPLETE YES; EOS % 0.9 %; IG% 0.2 %; LYMPH % 5.8 %; LYMPH ABS # 0.53 K/uL (1.2-3.4); MONO % 6.1 %; NEUT % 86.8 %
[2017-10-20] MEDS ORDERED: SODIUM CHLORIDE 0.9% 1000ML 1,000 ML IV ONE (14:15)
--- NOTE | 2017-10-20 19:58 | Progress Note ---
Internal Med Progress Note Date of Service: Oct 20, 2017. Provider Documentation: SUBJECTIVE: Patient seen and examined at bedside. s/p orthopedic surgery for hip fracture. Denies acute concerns OBJECTIVE: General Appearance: No acute distress Head: normocephalic, atraumatic Eyes: normal inspection, EOMI, sclerae normal ENT: hearing grossly normal, dry mucous membranes Neck: supple, no JVD, trachea midline Respiratory/Chest: lungs clear, normal breath sounds, no respiratory distress Cardiovascular: mild tachycardia Abdomen/GI: normal bowel sounds, non tender, soft, no organomegaly Extremities/Musculoskelatal: left hip/leg with wound dressing and WADE drain, pulses palpable, able to wiggle toes on both feet when asked Neurologic/Psych: awake, follows verbal commands ASSESSMENT & PLAN: A 72-year-old female with Parkinson's disease and left subcapital hip fracture after mechanical fall. S/P Left Bipolar Hip Prosthesis on 10/19/17 POD 1 s/p Left Bipolar Hemiarthroplasty Acute blood loss anemia likely due to procedure, rechecked CBC was acceptable level and blood transfusion not needed at this time Pain control medications, bowel regimen Continue home medications for Parkinson's disease (continue Sinemet, Comtan) and medications from psychiatric complications from Parkinson's (BuSpar, Cymbalta, Seroquel. and Remero) KAYCEE ON CKD STAGE III: IV fluids, avoid nephrotoxic agents, hold NADIYA inhibitor, blood pressure controlled Diet: diet ordered post-op but patient may need assistance with eating and may have poor oral intake. IV fluids given today DVT ppx Plan: PT/OT - WBAT; hip precautions DC plans - [facility] referral placed. Vital Signs: Date Time Temp Pulse Resp B/P (MAP) Pulse Ox O2 Delivery O2 Flow Rate FiO2 10/20/17 15:48 36.4 80 15 101/60 (74) 96 Room Air 10/20/17 15:23 Room Air 10/20/17 13:45 91/51 (64) 10/20/17 11:53 36.7 18 86/49 (61) 95 Room Air 10/20/17 08:11 96 Room Air 10/20/17 08:00 Room Air 10/20/17 07:57 36.5 74 18 130/64 (86) 96 Room Air 10/20/17 04:05 75 124/65 (84) 10/20/17 03:28 37.0 60 22 98/52 (67) 97 Room Air 10/19/17 23:30 Room Air 10/19/17 22:45 36.8 76 18 98/59 (72) 96 Room Air Lab Results: Results Past 24 Hours Test 10/20/17 04:01 10/20/17 06:12 10/20/17 10:50 Range/Units White Blood Count 6.47 9.19 4.8-10.8 K/uL Red Blood Count 2.71 3.11 4.2-5.4 M/uL Hemoglobin 7.9 9.0 12.0-16.0 g/dL Hematocrit 23.8 27.1 37-47 % Mean Corpuscular Volume 87.8 87.1 80-100 fL Mean Corpuscular Hemoglobin 29.2 28.9 25-34 pg Mean Corpuscular Hemoglobin Concent 33.2 33.2 32-36 g/dl Platelet Count 104 155 130-400 K/uL Mean Platelet Volume 8.3 8.4 7.4-10.4 fL Neutrophils (%) (Auto) 78.6 86.8 % Lymphocytes (%) (Auto) 11.1 5.8 % Monocytes (%) (Auto) 9.3 6.1 % Eosinophils (%) (Auto) 0.6 0.9 % Basophils (%) (Auto) 0.2 0.2 % Neutrophils # (Auto) 5.09 7.98 1.4-6.5 K/uL Lymphocytes # (Auto) 0.72 0.53 1.2-3.4 K/uL Monocytes # (Auto) 0.60 0.56 0.11-0.59 K/uL Eosinophils # (Auto) 0.04 0.08 0-0.5 K/uL Basophils # (Auto) 0.01 0.02 0-0.2 K/uL RDW Standard Deviation 43.6 43.9 36.4-46.3 fL RDW Coefficient of Variation 13.5 13.7 11.5-14.5 % Immature Granulocyte % (Auto) 0.2 0.2 % Immature Granulocyte # (Auto) 0.01 0.02 0.00-0.02 K/uL Basophilic Stippling OCCASIONAL Sodium Level 137 136 136-145 mmol/L Potassium Level 3.8 3.9 3.5-5.1 mmol/L Chloride Level 107 106 98-107 mmol/L Carbon Dioxide Level 27 24 21-32 mmol/L Anion Gap 3.0 6.0 3-11 mmol/L Blood Urea Nitrogen 17 17 7-18 mg/dl Creatinine 1.11 1.19 0.60-1.20 mg/dl Est Creatinine Clear Calc Drug Dose 35.2 32.8 ml/min Estimated GFR () 56.7 52.1 Estimated GFR (Non- 48.9 44.9 BUN/Creatinine Ratio 15.4 13.9 10-20 Random Glucose 143 125 70-99 mg/dl Lactic Acid Level 1.2 0.4-2.0 mmol/L Calcium Level 7.8 8.3 8.5-10.1 mg/dl Magnesium Level 1.5 2.2 1.8-2.4 mg/dl Urine Color DK YELLOW Urine Appearance CLEAR CLEAR Urine pH 5.0 4.5-7.5 Urine Specific [place] 1.026 1.000-1.030 Urine Protein TRACE NEG Urine Glucose (UA) NEG NEG Urine Ketones TRACE NEG Urine Occult Blood 2+ NEG Urine Nitrite NEG NEG Urine Bilirubin NEG NEG Urine Urobilinogen NEG NEG Urine Leukocyte Esterase NEG NEG Urine WBC (Auto) 1-5 0-5 /hpf Urine RBC (Auto) >30 0-4 /hpf Urine Hyaline Casts (Auto) 5-10 0-5 /lpf Urine Epithelial Cells (Auto) 10-20 0-5 /lpf Urine Bacteria (Auto) NEG NEG Total Bilirubin 0.3 0.2-1 mg/dl Aspartate Amino Transf (AST/SGOT) 33 15-37 U/L Alanine Aminotransferase (ALT/SGPT) 9 12-78 U/L Alkaline Phosphatase 51 45-117 U/L Total Protein 6.3 6.4-8.2 gm/dl Albumin 2.8 3.4-5.0 gm/dl Globulin 3.5 2.5-4.0 gm/dl Albumin/Globulin Ratio 0.8 0.9-2
[2017-10-20] MEDS: MIRTAZAPINE SOLTAB 15 MG PO SCH (21:11)
[2017-10-20] MEDS: DOCUSATE SODIUM/SENNA 50/8.6MG TAB PO SCH (21:11)
[2017-10-21] MEDS: CEFTRIAXONE SOD INJ 1 GM in DEXTROSE 5% ADD-VANTAGE 50ML 50 ML IV SCH (00:02)
[2017-10-21] MEDS: ACETAMINOPHEN IV 650 MG in EMPTY BAG 0 ML IV SCH ×3 (00:03→16:39)
[2017-10-21 03:40] VITALS: BP 115/66; PULSE 83; TEMP 36.8; O2SAT 95
[2017-10-21 05:37] VITALS: BP 114/66
[2017-10-21 07:24] VITALS: BP 124/75; PULSE 98; TEMP 36.7; O2SAT 99
--- NOTE | 2017-10-21 07:47 | Orthopedic Progress Note ---
Orthopedic Progress Note Date of Service Oct 21, 2017. Subjective Post OP Day: 2 Reports: pain controlled w PO medications, Denies: complaints, chest pain, SOB, nausea / vomiting, light headedness, calf pain Objective calves soft nontender, N/V intact, capillary refill less than 2 sec., incision C /D/I, toes mobile Patient confused, sitting in chair this AM [place] in tact. Drain sponge in tact. Date Time Temp Pulse Resp B/P (MAP) Pulse Ox O2 Delivery O2 Flow Rate FiO2 10/21/17 07:24 36.7 98 18 124/75 (91) 99 Room Air 10/21/17 05:37 114/66 (82) 10/21/17 03:40 36.8 83 18 115/66 (82) 95 Room Air 10/21/17 00:10 Room Air 10/20/17 23:02 37.1 78 18 99/59 (72) 96 Room Air 10/20/17 15:48 36.4 80 15 101/60 (74) 96 Room Air 10/20/17 15:23 Room Air 10/20/17 13:45 91/51 (64) 10/20/17 11:53 36.7 18 86/49 (61) 95 Room Air 10/20/17 08:11 96 Room Air 10/20/17 08:00 Room Air 10/20/17 07:57 36.5 74 18 130/64 (86) 96 Room Air Laboratory Results 24 Hours: Test 10/20/17 10:50 10/21/17 04:44 White Blood Count 9.19 K/uL Red Blood Count 3.11 M/uL Hemoglobin 9.0 g/dL Hematocrit 27.1 % Mean Corpuscular Volume 87.1 fL Mean Corpuscular Hemoglobin 28.9 pg Mean Corpuscular Hemoglobin Concent 33.2 g/dl Platelet Count 155 K/uL Mean Platelet Volume 8.4 fL Neutrophils (%) (Auto) 86.8 % Lymphocytes (%) (Auto) 5.8 % Monocytes (%) (Auto) 6.1 % Eosinophils (%) (Auto) 0.9 % Basophils (%) (Auto) 0.2 % Neutrophils # (Auto) 7.98 K/uL Lymphocytes # (Auto) 0.53 K/uL Monocytes # (Auto) 0.56 K/uL Eosinophils # (Auto) 0.08 K/uL Basophils # (Auto) 0.02 K/uL Assessment & Plan Assessment: POD 2 s/p Left Bipolar Hemiarthroplasty Acute blood loss anemia likely due to procedure, AM labs pending Plan: PT/OT - WBAT; hip precautions DC plans - [facility] referral placed. As per miguel AM labs pending. Inhouse Planning Pain Management: Dilaudid, Oxy IR DVT Prophylaxis: TEDs, SCDs, ASA Discharge Planning Discharge Planning: rehab hospital
[2017-10-21] MEDS: POLYETHYLENE (MIRALAX) 17 GM PACK PO SCH (07:58)
[2017-10-21] MEDS: CARBIDOPA/LEVODOPA 25/100MG TAB PO SCH ×4 (07:59→20:00)
[2017-10-21] MEDS: ASPIRIN/ALUM/MAGNES/CAL CARB 325 MG TAB PO SCH ×2 (07:59→21:00)
[2017-10-21] MEDS: ENTACAPONE 200 MG TAB PO SCH ×4 (07:59→20:00)
[2017-10-21] MEDS: CITALOPRAM 20 MG TAB PO SCH (08:00)
[2017-10-21] MEDS: QUETIAPINE FUMARATE 25 MG TAB PO SCH ×2 (08:00→21:00)
[2017-10-21] MEDS: PANTOprazole SOD 40 MG TAB PO SCH ×2 (08:00→21:00)
[2017-10-21] MEDS: DULOXETINE HCL 20 MG CAP PO SCH (08:00)
[2017-10-21] MEDS: LISINOPRIL 10 MG TAB PO SCH (08:01)
[2017-10-21 08:32] LABS: BASO % 0.3 %; BASO ABS # 0.02 K/uL (0-0.2); EOS % 2.2 %; HEMATOCRIT 23.8 % (37-47); IG% 0.1 %; LYMPH % 5.9 %; LYMPH ABS # 0.43 K/uL (1.2-3.4); MEAN CELL VOLUME 87.8 fL (80-100); MEAN CORPUSCULAR HEMOGLOBIN 29.2 pg (25-34); MEAN CORPUSCULAR HGB CONC 33.2 g/dl (32-36); MEAN PLATELET VOLUME 8.7 fL (7.4-10.4); MONO % 4.1 %; NEUT % 87.4 %; PLATELET COUNT 180 K/uL (130-400); RED BLOOD COUNT 2.71 M/uL (4.2-5.4); WHITE BLOOD COUNT 7.23 K/uL (4.8-10.8)
[2017-10-21 09:32] LABS: COMPLETE YES
--- NOTE | 2017-10-21 11:00 | Progress Note ---
Internal Med Progress Note Date of Service: Oct 21, 2017. Provider Documentation: SUBJECTIVE: Patient seen and examined at bedside. Patient soft spoken. Denies acute pain. OBJECTIVE: General Appearance: No acute distress Head: normocephalic, atraumatic Eyes: normal inspection, EOMI, sclerae normal ENT: hearing grossly normal Neck: no JVD, trachea midline Respiratory/Chest: lungs clear, normal breath sounds, no respiratory distress Cardiovascular: RRR Abdomen/GI: normal bowel sounds, non tender, soft, no organomegaly Extremities/Musculoskelatal: left hip/leg with wound dressing, pulses palpable, able to wiggle toes on both feet when asked Neurologic/Psych: awake, follows verbal commands ASSESSMENT & PLAN: A 72-year-old female with Parkinson's disease and left subcapital hip fracture after mechanical fall. Continue home medications for Parkinson's disease (continue Sinemet, Comtan) and medications from psychiatric complications from Parkinson's (BuSpar, Cymbalta, Seroquel. and Remero) S/P Left Bipolar Hip Prosthesis on 10/19/17 POD 2 s/p Left Bipolar Hemiarthroplasty Acute blood loss anemia likely due to procedure with Hgb 7.9 on 10/20/17, rechecked CBC later on 10/20/17 was acceptable level and blood transfusion not needed, Hgb 7.9 again seen on morning labs today and suggests stability of true post-op hemoglobin to be 7.9 KAYCEE ON CKD STAGE III resolving Pain Management: Dilaudid, Oxy IR DVT Prophylaxis: TEDs, SCDs, ASA Discharge Planning: rehab hospital ACTIVITY RECOMMENDATIONS for patient as per othropedics: SELF CARE INSTRUCTIONS AFTER BIPOLAR HEMIARTHROPLASTY HIP REPLACEMENT Until the incision and soft tissues around your hip have healed, there is a possibility that the hip prosthesis could dislocate. A. Observe the following precautions to prevent dislocation: 1. Don't bend your hip greater than 90 degrees. 2. Avoid crossing your legs or ankles while standing or lying. 3. Sit with your feet placed 6 inches apart. 4. When sitting, keep your knees below your hips. Sit on a firm surface, avoid deep, soft chairs and couches. Use an elevated toilet seat in the bathroom. 5. Don't bend over at the waist. Use a long handled shoehorn and a sock aid to help you put on your shoes and socks. A finish opener can help you sweet pickle maker objects that are too high or too low to reach. 6. Keep car riding to a minimum for at least one month after surgery. B. Your balance may be shaky for a while. Use crutches or a walker until directed by your doctor. C. Use hand rails when walking on stairs. D. Wear low heeled shoes with non-slip soles. E. Be sure that your floors are free of things that could trip you - throw rugs , electrical cords, small objects. Avoid wet and waxed floors, especially with crutches and canes. F. Try to walk several times a day with rest periods between. G. Continue with all the exercises taught to you in the hospital. Again, make walking a part of your daily routine. SPECIAL CARE INSTRUCTIONS: VERY IMPORTANT TO READ AND REVIEW A. You may still be at risk for phlebitis and blood clots. 1. Wear surgical stockings (JUAN ALBERTO hose) for 2 weeks after surgery to improve circulation and reduce swelling. 2. Take Aspirin 325mg twice daily for 4 weeks or as directed by your doctor. This is your blood thinner. 3. High risk patients may be prescribed a stronger blood thinner if necessary. 4. If you are on Coumadin normally, your family doctor/branch associate teller should monitor your blood work. Expect a phone call the day of or the day after bloodwork is drawn to adjust your dosage. B. You must take antibiotics before having dental work, bladder, bowel and other surgery. Your doctor will provide you with a permanent card to carry describing precautions. C. Call [facility] if you have a fever, redness or swelling around the incision, cloudy drainage from incision, or sudden increase in pain in your hip, not relieved by your regular pain medication. D. Please call the office at if you have any concerns or questions about your operation or recovery. * YOU MAY SHOWER, NO TUB BATHS UNTIL CLEARED BY YOUR DOCTOR. * WEAR JUAN ALBERTO HOSE 20 HOURS PER DAY FOR 2 WEEKS. * YOU SHOULD USE A WALKER OR CRUTCHES FOR 2-4 WEEKS. THIS WILL HELP PREVENT STRAIN ON YOUR HIP MUSCLE AND ALLOW IT TO HEAL PROPERLY. YOU MAY WEAN TO A CANE TOLERATED. * MOST PATIENTS WILL HAVE HOME NURSING FOR THERAPY. IF YOU DECIDE TO DO OUTPATIENT PHYSICAL THERAPY, PLEASE SCHEDULE THIS 3 TIMES PER WEEK. * Silverlon- This is a large adhesive bandage that contains silver ions. This helps your incision heal by fighting off bacteria and protecting it from the outside environment. You are permitted to shower with this dressing. This will remain on your incision for 7 days and then should be removed. Some visible blood or drainage through the dressing window is normal. If there is significant drainage or leaking noted before the 7 days notify your doctor's office immediately. Once removed, keep incision clean and dry. If there is any drainage or redness noted, please call your surgeon. . FOLLOW UP VISIT: If appointment is not already scheduled: Please call [facility] to make a follow-up appointment for 2 weeks after your surgery at . Vital Signs: Date Time Temp Pulse Resp B/P (MAP) Pulse Ox O2 Delivery O2 Flow Rate FiO2 10/21/17 07:24 36.7 98 18 124/75 (91) 99 Room Air 10/21/17 05:37 114/66 (82) 10/21/17 03:40 36.8 83 18 115/66 (82) 95 Room Air 10/21/17 00:10 Room Air 10/20/17 23:02 37.1 78 18 99/59 (72) 96 Room Air 10/20/17 15:48 36.4 80 15 101/60 (74) 96 Room Air 10/20/17 15:23 Room Air 10/20/17 13:45 91/51 (64) 10/20/17 11:53 36.7 18 86/49 (61) 95 Room Air Lab Results: Results Past 24 Hours Test 10/21/17 07:53 Range/Units White Blood Count 7.23 4.8-10.8 K/uL Red Blood Count 2.71 4.2-5.4 M/uL Hemoglobin 7.9 12.0-16.0 g/dL Hematocrit 23.8 37-47 % Mean Corpuscular Volume 87.8 80-100 fL Mean Corpuscular Hemoglobin 29.2 25-34 pg Mean Corpuscular Hemoglobin Concent 33.2 32-36 g/dl Platelet Count 180 130-400 K/uL Mean Platelet Volume 8.7 7.4-10.4 fL Neutrophils (%) (Auto) 87.4 % Lymphocytes (%) (Auto) 5.9 % Monocytes (%) (Auto) 4.1 % Eosinophils (%) (Auto) 2.2 % Basophils (%) (Auto) 0.3 % Neutrophils # (Auto) 6.31 1.4-6.5 K/uL Lymphocytes # (Auto) 0.43 1.2-3.4 K/uL Monocytes # (Auto) 0.30 0.11-0.59 K/uL Eosinophils # (Auto) 0.16 0-0.5 K/uL Basophils # (Auto) 0.02 0-0.2 K/uL RDW Standard Deviation 45.1 36.4-46.3 fL RDW Coefficient of Variation 14.0 11.5-14.5 % Immature Granulocyte % (Auto) 0.1 % Immature Granulocyte # (Auto) 0.01 0.00-0.02 K/uL Red Blood Cell Morphology Unremarkable
[2017-10-21] MEDS ORDERED: RXC5 PO (11:07)
--- NOTE | 2017-10-21 11:22 | Discharge Instructions ---
Discharge Instructions Date of Service Oct 21, 2017. Admission Reason for Admission: Hip Fracture, Left Discharge Discharge Diagnosis / Problem: Parkinson's, left subcapital hip fracture, HEMIARTHROPLASTY left hip Discharge Goals Goal(s): Improve function Activity Recommendations Activity Limitations: per Instructions/Follow-up section . Instructions / Follow-Up Instructions / Follow-Up A 72-year-old female with Parkinson's disease and left subcapital hip fracture after mechanical fall. Continue home medications for Parkinson's disease (continue Sinemet, Comtan) and medications from psychiatric complications from Parkinson's (BuSpar, Cymbalta, Seroquel. and Remero) S/P Left Bipolar Hip Prosthesis on 10/19/17 POD 2 s/p Left Bipolar Hemiarthroplasty Acute blood loss anemia likely due to procedure with Hgb 7.9 on 10/20/17, rechecked CBC later on 10/20/17 was acceptable level and blood transfusion not needed, Hgb 7.9 again seen on morning labs today and suggests stability of true post-op hemoglobin to be 7.9 KAYCEE ON CKD STAGE III resolving Pain Management: Dilaudid, Oxy IR DVT Prophylaxis: TEDs, SCDs, ASA Discharge Planning: rehab hospital ACTIVITY RECOMMENDATIONS for patient as per othropedics: SELF CARE INSTRUCTIONS AFTER BIPOLAR HEMIARTHROPLASTY HIP REPLACEMENT Until the incision and soft tissues around your hip have healed, there is a possibility that the hip prosthesis could dislocate. A. Observe the following precautions to prevent dislocation: 1. Don't bend your hip greater than 90 degrees. 2. Avoid crossing your legs or ankles while standing or lying. 3. Sit with your feet placed 6 inches apart. 4. When sitting, keep your knees below your hips. Sit on a firm surface, avoid deep, soft chairs and couches. Use an elevated toilet seat in the bathroom. 5. Don't bend over at the waist. Use a long handled shoehorn and a sock aid to help you put on your shoes and socks. A health plan advisor can help you picker and packer objects that are too high or too low to reach. 6. Keep car riding to a minimum for at least one month after surgery. B. Your balance may be shaky for a while. Use crutches or a walker until directed by your doctor. C. Use hand rails when walking on stairs. D. Wear low heeled shoes with non-slip soles. E. Be sure that your floors are free of things that could trip you - throw rugs , electrical cords, small objects. Avoid wet and waxed floors, especially with crutches and canes. F. Try to walk several times a day with rest periods between. G. Continue with all the exercises taught to you in the hospital. Again, make walking a part of your daily routine. SPECIAL CARE INSTRUCTIONS: VERY IMPORTANT TO READ AND REVIEW A. You may still be at risk for phlebitis and blood clots. 1. Wear surgical stockings (JUAN ALBERTO hose) for 2 weeks after surgery to improve circulation and reduce swelling. 2. Take Aspirin 325mg twice daily for 4 weeks or as directed by your doctor. This is your blood thinner. 3. High risk patients may be prescribed a stronger blood thinner if necessary. 4. If you are on Coumadin normally, your family doctor/quality cloth tester should monitor your blood work. Expect a phone call the day of or the day after bloodwork is drawn to adjust your dosage. B. You must take antibiotics before having dental work, bladder, bowel and other surgery. Your doctor will provide you with a permanent card to carry describing precautions. C. Call [facility] if you have a fever, redness or swelling around the incision, cloudy drainage from incision, or sudden increase in pain in your hip, not relieved by your regular pain medication. D. Please call the office at if you have any concerns or questions about your operation or recovery. * YOU MAY SHOWER, NO TUB BATHS UNTIL CLEARED BY YOUR DOCTOR. * WEAR JUAN ALBERTO HOSE 20 HOURS PER DAY FOR 2 WEEKS. * YOU SHOULD USE A WALKER OR CRUTCHES FOR 2-4 WEEKS. THIS WILL HELP PREVENT STRAIN ON YOUR HIP MUSCLE AND ALLOW IT TO HEAL PROPERLY. YOU MAY WEAN TO A CANE TOLERATED. * MOST PATIENTS WILL HAVE HOME NURSING FOR THERAPY. IF YOU DECIDE TO DO OUTPATIENT PHYSICAL THERAPY, PLEASE SCHEDULE THIS 3 TIMES PER WEEK. * Silverlon- This is a large adhesive bandage that contains silver ions. This helps your incision heal by fighting off bacteria and protecting it from the outside environment. You are permitted to shower with this dressing. This will remain on your incision for 7 days and then should be removed. Some visible blood or drainage through the dressing window is normal. If there is significant drainage or leaking noted before the 7 days notify your doctor's office immediately. Once removed, keep incision clean and dry. If there is any drainage or redness noted, please call your surgeon. . FOLLOW UP VISIT: If appointment is not already scheduled: Please call [facility] to make a follow-up appointment for 2 weeks after your surgery at . Current Hospital Diet Patient's current hospital diet: Regular Diet Discharge Diet Recommended Diet: Regular Diet Procedures Procedures Performed: Left Bipolar Hip Prosthesis Pending Studies Studies pending at discharge: no Laboratory Results 10/21/17 07:53 Red Blood Count 2.71, Mean Corpuscular Volume 87.8, Mean Corpuscular Hemoglobin 29.2, Mean Corpuscular Hemoglobin Concent 33.2, Mean Platelet Volume 8.7, Neutrophils (%) (Auto) 87.4, Lymphocytes (%) (Auto) 5.9, Monocytes (%) (Auto) 4.1, Eosinophils (%) (Auto) 2.2, Basophils (%) (Auto) 0.3, Neutrophils # (Auto) 6.31, Lymphocytes # (Auto) 0.43, Monocytes # (Auto) 0.30, Eosinophils # (Auto) 0.16, Basophils # (Auto) 0.02 10/20/17 10:50 Test 10/17/17 17:15 10/17/17 22:15 10/20/17 04:01 10/20/17 06:12 Prothrombin Time 10.4 SECONDS (9.0-12.0) Prothromb Time International Ratio 1.0 (0.9-1.1) Activated Partial Thromboplast Time 24.1 SECONDS (21.0-31.0) Partial Thromboplastin Ratio 0.9 Urine RBC >30 /hpf (0-4) Urine WBC 10-30 /hpf (0-5) Urine Epithelial Cells >30 /lpf (0-5) Urine Renal Cells 10-20 /lpf (FEW) Urine Bacteria 1+ (NEG) Urine Hyaline Casts >30 /lpf (0-5) Basophilic Stippling OCCASIONAL Lactic Acid Level 1.2 mmol/L (0.4-2.0) Urine Color DK YELLOW Urine Appearance CLEAR (CLEAR) Urine pH 5.0 (4.5-7.5) Urine Specific [place] 1.026 (1.000-1.030) Urine Protein TRACE (NEG) Urine Glucose (UA) NEG (NEG) Urine Ketones TRACE (NEG) Urine Occult Blood 2+ (NEG) Urine Nitrite NEG (NEG) Urine Bilirubin NEG (NEG) Urine Urobilinogen NEG (NEG) Urine Leukocyte Esterase NEG (NEG) Urine WBC (Auto) 1-5 /hpf (0-5) Urine RBC (Auto) >30 /hpf (0-4) Urine Hyaline Casts (Auto) 5-10 /lpf (0-5) Urine Epithelial Cells (Auto) 10-20 /lpf (0-5) Urine Bacteria (Auto) NEG (NEG) Test 10/20/17 10:50 10/21/17 07:53 Anion Gap 6.0 mmol/L (3-11) Est Creatinine Clear Calc Drug Dose 32.8 ml/min Estimated GFR () 52.1 Estimated GFR (Non- 44.9 BUN/Creatinine Ratio 13.9 (10-20) Calcium Level 8.3 mg/dl (8.5-10.1) Magnesium Level 2.2 mg/dl (1.8-2.4) Total Bilirubin 0.3 mg/dl (0.2-1) Aspartate Amino Transf (AST/SGOT) 33 U/L (15-37) Alanine Aminotransferase (ALT/SGPT) 9 U/L (12-78) Alkaline Phosphatase 51 U/L (45-117) Total Protein 6.3 gm/dl (6.4-8.2) Albumin 2.8 gm/dl (3.4-5.0) Globulin 3.5 gm/dl (2.5-4.0) Albumin/Globulin Ratio 0.8 (0.9-2) White Blood Count 7.23 K/uL (4.8-10.8) Red Blood Count 2.71 M/uL (4.2-5.4) Hemoglobin 7.9 g/dL (12.0-16.0) Hematocrit 23.8 % (37-47) Mean Corpuscular Volume 87.8 fL (80-100) Mean Corpuscular Hemoglobin 29.2 pg (25-34) Mean Corpuscular Hemoglobin Concent 33.2 g/dl (32-36) Platelet Count 180 K/uL (130-400) Mean Platelet Volume 8.7 fL (7.4-10.4) Neutrophils (%) (Auto) 87.4 % Lymphocytes (%) (Auto) 5.9 % Monocytes (%) (Auto) 4.1 % Eosinophils (%) (Auto) 2.2 % Basophils (%) (Auto) 0.3 % Neutrophils # (Auto) 6.31 K/uL (1.4-6.5) Lymphocytes # (Auto) 0.43 K/uL (1.2-3.4) Monocytes # (Auto) 0.30 K/uL (0.11-0.59) Eosinophils # (Auto) 0.16 K/uL (0-0.5) Basophils # (Auto) 0.02 K/uL (0-0.2) RDW Standard Deviation 45.1 fL (36.4-46.3) RDW Coefficient of Variation 14.0 % (11.5-14.5) Immature Granulocyte % (Auto) 0.1 % Immature Granulocyte # (Auto) 0.01 K/uL (0.00-0.02) Red Blood Cell Morphology Unremarkable Date/Time Source Procedure Growth Status 10/17/17 20:00 Nasal MRSA DNA Surveillance Screen - Final Specimen Negative for MRSA by DNA Probe Complete 10/17/17 22:15 Urine,Catheterized Urine Culture - Final NO GROWTH - LESS THAN 1,000 COLONIES/ML Complete Medical Emergencies . Who to Call and When: Medical Emergencies: If at any time you feel your situation is an emergency, please call 911 immediately. . Non-Emergent Contact Non-Emergency issues call your: Primary Care Provider, Specialist (orthopedics) . . "Provider Documentation" section prepared by Graham Matias. . Rechecker Recommendations Rechecker Recommendations: ACTIVITY RECOMMENDATIONS: SELF CARE INSTRUCTIONS AFTER BIPOLAR HEMIARTHROPLASTY HIP REPLACEMENT Until the incision and soft tissues around your hip have healed, there is a possibility that the hip prosthesis could dislocate. A. Observe the following precautions to prevent dislocation: 1. Don't bend your hip greater than 90 degrees. 2. Avoid crossing your legs or ankles while standing or lying. 3. Sit with your feet placed 6 inches apart. 4. When sitting, keep your knees below your hips. Sit on a firm surface, avoid deep, soft chairs and couches. Use an elevated toilet seat in the bathroom. 5. Don't bend over at the waist. Use a long handled shoehorn and a sock aid to help you put on your shoes and socks. A health plan advisor can help you picker and packer objects that are too high or too low to reach. 6. Keep car riding to a minimum for at least one month after surgery. B. Your balance may be shaky for a while. Use crutches or a walker until directed by your doctor. C. Use hand rails when walking on stairs. D. Wear low heeled shoes with non-slip soles. E. Be sure that your floors are free of things that could trip you - throw rugs , electrical cords, small objects. Avoid wet and waxed floors, especially with crutches and canes. F. Try to walk several times a day with rest periods between. G. Continue with all the exercises taught to you in the hospital. Again, make walking a part of your daily routine. SPECIAL CARE INSTRUCTIONS: VERY IMPORTANT TO READ AND REVIEW A. You may still be at risk for phlebitis and blood clots. 1. Wear surgical stockings (JUAN ALBERTO hose) for 2 weeks after surgery to improve circulation and reduce swelling. 2. Take Aspirin 325mg twice daily for 4 weeks or as directed by your doctor. This is your blood thinner. 3. High risk patients may be prescribed a stronger blood thinner if necessary. 4. If you are on Coumadin normally, your family doctor/quality cloth tester should monitor your blood work. Expect a phone call the day of or the day after bloodwork is drawn to adjust your dosage. B. You must take antibiotics before having dental work, bladder, bowel and other surgery. Your doctor will provide you with a permanent card to carry describing precautions. C. Call [facility] if you have a fever, redness or swelling around the incision, cloudy drainage from incision, or sudden increase in pain in your hip, not relieved by your regular pain medication. D. Please call the office at if you have any concerns or questions about your operation or recovery. * YOU MAY SHOWER, NO TUB BATHS UNTIL CLEARED BY YOUR DOCTOR. * WEAR JUAN ALBERTO HOSE 20 HOURS PER DAY FOR 2 WEEKS. * YOU SHOULD USE A WALKER OR CRUTCHES FOR 2-4 WEEKS. THIS WILL HELP PREVENT STRAIN ON YOUR HIP MUSCLE AND ALLOW IT TO HEAL PROPERLY. YOU MAY WEAN TO A CANE TOLERATED. * MOST PATIENTS WILL HAVE HOME NURSING FOR THERAPY. IF YOU DECIDE TO DO OUTPATIENT PHYSICAL THERAPY, PLEASE SCHEDULE THIS 3 TIMES PER WEEK. * Silverlon- This is a large adhesive bandage that contains silver ions. This helps your incision heal by fighting off bacteria and protecting it from the outside environment. You are permitted to shower with this dressing. This will remain on your incision for 7 days and then should be removed. Some visible blood or drainage through the dressing window is normal. If there is significant drainage or leaking noted before the 7 days notify your doctor's office immediately. Once removed, keep incision clean and dry. If there is any drainage or redness noted, please call your surgeon. . FOLLOW UP VISIT: If appointment is not already scheduled: Please call [facility] to make a follow-up appointment for 2 weeks after your surgery at . VTE Core Measure Inpt VTE Proph given/why not?: Unfractionated heparin SQ, Other Anticoagulation (aspirin 325 mg BID), SCD's
[2017-10-21] MEDS ORDERED: ASPI325T60 PO (11:24)
--- NOTE | 2017-10-21 11:32 | Discharge Summary ---
Discharge Summary Date of Service Oct 21, 2017. Discharge Summary Admission Date: Oct 17, 2017 at 19:09 Discharge Date: Oct 21, 2017 Discharge Disposition: Rehab Principal Diagnosis: Parkinson's disease, mechanical fall, left subcapital hip fracture,BIPOLAR HEMIARTHROPLASTY HIP REPLACEMENT Consultations: orthopedics Medication Reconciliation New Medications: Aspirin Buffered (Thom Carb-Mag (Tri-Buffered Aspirin) 1 Tab Tab 325 MG PO BID for 30 Days, #60 TAB Oxycodone HCl (Oxycodone HCl) 5 Mg Tab 5 MG PO Q4H PRN for Moderate Pain (pain scale 4-6) for 7 Days, #28 TAB Oxycodone HCl (Oxycodone HCl) 5 Mg Tab 10 MG PO Q4H PRN for Severe pain (pain scale 7-10) for 7 Days, #56 TAB Continued Medications: Artificial Saliva (Biotene Moisturizing Mout) 1 Spr Spr 2 SPRAYS PO PRN TWO SPRAYS TO THE MOUTH OR THROAT NEEDED Buspirone Hcl (Buspirone Hcl) 10 Mg Tab 10 MG PO Q2D Carbidopa/Levodopa (Sinemet 25MG/100MG) Tab 1 TAB PO 4XD 0754-7839-0490-2000 Citalopram Hydrobromide (Celexa) 10 Mg Tab 10 MG PO QAM Docusate Sodium (Docusate Sodium) 100 Mg Cap 1 CAP PO BID Duloxetine HCl (Cymbalta) 20 Mg Cap 2 CAP PO QAM Entacapone (Comtan) 200 Mg Tab 200 MG PO 4XD 5079-3964-8247-2000 Fluticasone Propionate (Nasal) (Flonase Allergy Relief) 50 Mcg/Act Spr 2 SPRAY JAYDON QAM Hydroxyzine Pamoate (Vistaril) 25 Mg Cap 25 MG PO 4XD 0800/1200/1600/2000 Lisinopril (Lisinopril) 10 Mg Tab 10 MG PO QAM Mirtazapine Soltab (Remeron Soltab) 15 Mg Soltab 15 MG PO HS Omeprazole (Prilosec) 40 Mg Cap 40 MG PO BID Ondansetron Hcl (Zofran) 8 Mg Tab 8 MG PO BID PRN for Nausea Polyethylene Glycol 3350 (Miralax) 1 Pow Pow 17 GM PO QAM Quetiapine Fumarate (Seroquel) 25 Mg Tab 1 TAB PO BID for 30 Days, #30 TAB 2 Refills Trimethobenzamide Hcl (Tigan) 300 Mg Cap 1 CAP PO TID PRN for Nausea or Vomiting Discontinued Medications: Aspirin (Aspirin Ec) 81 Mg Tab 81 MG PO QAM Admission Information HPI (per Admitting provider): 72 year old female who presents to the ER with a fall and left hip pain. Patient was standing from her chair when she lost her balance and fell to the ground onto her left side. She had immediate left hip pain and was unable to stand. There was no preceding lightheadedness, dizziness, chest pain, or shortness of breath. She did not strike her head and did not loose consciousness. Patient's is at the bedside who reports she has been doing well recently. No reports of chest pain or shortness of breath. Denies fever and chills. Her appetite is chronically poor and she has frequent nausea. No abdominal pain, vomiting, or diarrhea. No urinary symptoms. In the ED, patient is found to have subcapital hip fracture. Creat is mildly elevated from baseline at 1.6. Vitals are stable. Other labs are unremarkable. Physical Exam (per Admitting): General Appearance: no apparent distress, + thin, + pertinent finding ( chronically ill appearing) Head: normocephalic, atraumatic Eyes: normal inspection, EOMI, sclerae normal ENT: hearing grossly normal, + pertinent finding (mucous membranes dry; weak voice) Neck: supple, no JVD, trachea midline Respiratory/Chest: lungs clear, normal breath sounds, no respiratory distress Cardiovascular: regular rate, rhythm, no edema, normal peripheral pulses Abdomen/GI: normal bowel sounds, non tender, soft, no organomegaly Extremities/Musculoskelatal: no calf tenderness, normal capillary refill, + pertinent finding (pain with palpation over left hip) Neurologic/Psych: no motor/sensory deficits, alert, normal mood/affect, oriented x 3 Skin: normal color, warm/dry Hospital Course A 72-year-old female with Parkinson's disease and left subcapital hip fracture after mechanical fall. Continue home medications for Parkinson's disease (continue Sinemet, Comtan) and medications from psychiatric complications from Parkinson's (BuSpar, Cymbalta, Seroquel. and Remero) S/P Left Bipolar Hip Prosthesis on 10/19/17 POD 2 s/p Left Bipolar Hemiarthroplasty Acute blood loss anemia likely due to procedure with Hgb 7.9 on 10/20/17, rechecked CBC later on 10/20/17 was acceptable level and blood transfusion not needed, Hgb 7.9 again seen on morning labs today and suggests stability of true post-op hemoglobin to be 7.9 KAYCEE ON CKD STAGE III resolving Pain Management: Dilaudid, Oxy IR DVT Prophylaxis: TEDs, SCDs, ASA Discharge Planning: rehab hospital ACTIVITY RECOMMENDATIONS for patient as per othropedics: SELF CARE INSTRUCTIONS AFTER BIPOLAR HEMIARTHROPLASTY HIP REPLACEMENT Until the incision and soft tissues around your hip have healed, there is a possibility that the hip prosthesis could dislocate. A. Observe the following precautions to prevent dislocation: 1. Don't bend your hip greater than 90 degrees. 2. Avoid crossing your legs or ankles while standing or lying. 3. Sit with your feet placed 6 inches apart. 4. When sitting, keep your knees below your hips. Sit on a firm surface, avoid deep, soft chairs and couches. Use an elevated toilet seat in the bathroom. 5. Don't bend over at the waist. Use a long handled shoehorn and a sock aid to help you put on your shoes and socks. A supervisor wall mirror department can help you sweet pickled fruit maker objects that are too high or too low to reach. 6. Keep car riding to a minimum for at least one month after surgery. B. Your balance may be shaky for a while. Use crutches or a walker until directed by your doctor. C. Use hand rails when walking on stairs. D. Wear low heeled shoes with non-slip soles. E. Be sure that your floors are free of things that could trip you - throw rugs , electrical cords, small objects. Avoid wet and waxed floors, especially with crutches and canes. F. Try to walk several times a day with rest periods between. G. Continue with all the exercises taught to you in the hospital. Again, make walking a part of your daily routine. SPECIAL CARE INSTRUCTIONS: VERY IMPORTANT TO READ AND REVIEW A. You may still be at risk for phlebitis and blood clots. 1. Wear surgical stockings (JUAN ALBERTO hose) for 2 weeks after surgery to improve circulation and reduce swelling. 2. Take Aspirin 325mg twice daily for 4 weeks or as directed by your doctor. This is your blood thinner. 3. High risk patients may be prescribed a stronger blood thinner if necessary. 4. If you are on Coumadin normally, your family doctor/wet cotton feeder should monitor your blood work. Expect a phone call the day of or the day after bloodwork is drawn to adjust your dosage. B. You must take antibiotics before having dental work, bladder, bowel and other surgery. Your doctor will provide you with a permanent card to carry describing precautions. C. Call [facility] if you have a fever, redness or swelling around the incision, cloudy drainage from incision, or sudden increase in pain in your hip, not relieved by your regular pain medication. D. Please call the office at if you have any concerns or questions about your operation or recovery. * YOU MAY SHOWER, NO TUB BATHS UNTIL CLEARED BY YOUR DOCTOR. * WEAR JUAN ALBERTO HOSE 20 HOURS PER DAY FOR 2 WEEKS. * YOU SHOULD USE A WALKER OR CRUTCHES FOR 2-4 WEEKS. THIS WILL HELP PREVENT STRAIN ON YOUR HIP MUSCLE AND ALLOW IT TO HEAL PROPERLY. YOU MAY WEAN TO A CANE TOLERATED. * MOST PATIENTS WILL HAVE HOME NURSING FOR THERAPY. IF YOU DECIDE TO DO OUTPATIENT PHYSICAL THERAPY, PLEASE SCHEDULE THIS 3 TIMES PER WEEK. * Silverlon- This is a large adhesive bandage that contains silver ions. This helps your incision heal by fighting off bacteria and protecting it from the outside environment. You are permitted to shower with this dressing. This will remain on your incision for 7 days and then should be removed. Some visible blood or drainage through the dressing window is normal. If there is significant drainage or leaking noted before the 7 days notify your doctor's office immediately. Once removed, keep incision clean and dry. If there is any drainage or redness noted, please call your surgeon. . FOLLOW UP VISIT: If appointment is not already scheduled: Please call [facility] to make a follow-up appointment for 2 weeks after your surgery at . Total time spent on discharge = This includes examination of the patient, discharge planning, medication reconciliation, and communication with other providers. Discharge Instructions see above
[2017-10-21 15:30] VITALS: O2SAT 99
[2017-10-21 15:43] VITALS: BP 108/63; PULSE 81; TEMP 36.8; O2SAT 98
[2017-10-21] MEDS: DOCUSATE SODIUM/SENNA 50/8.6MG TAB PO SCH (21:00)
[2017-10-21] MEDS: MIRTAZAPINE SOLTAB 15 MG PO SCH (21:00)
[2017-10-21 23:11] VITALS: BP 126/64; PULSE 87; TEMP 37.3; O2SAT 95
[2017-10-22] MEDS: ACETAMINOPHEN IV 650 MG in EMPTY BAG 0 ML IV SCH ×3 (00:26→15:50)
[2017-10-22 03:27] VITALS: BP 155/70; PULSE 91; TEMP 36.8; O2SAT 96
--- NOTE | 2017-10-22 07:47 | Orthopedic Progress Note ---
Orthopedic Progress Note Date of Service Oct 22, 2017. Subjective Post OP Day: 2 Additional Notes: Pt lying in bed. Nursing staff currently present taking care of morning patient needs. Pt is awake but nonverbal this AM. Appears comfortable. Objective Incision benign. Mild swelling noted in thigh but soft. Palpation of calves are soft and causes no painful response. No edema noted. Bruising on LLE noted. Date Time Temp Pulse Resp B/P (MAP) Pulse Ox O2 Delivery O2 Flow Rate FiO2 10/22/17 03:27 36.8 91 18 155/70 (98) 96 Room Air 10/21/17 23:35 Room Air 10/21/17 23:11 37.3 87 18 126/64 (84) 95 Room Air 10/21/17 15:43 36.8 81 15 108/63 (78) 98 Room Air 10/21/17 15:30 99 Room Air Laboratory Results 24 Hours: Test 10/21/17 07:53 White Blood Count 7.23 K/uL Red Blood Count 2.71 M/uL Hemoglobin 7.9 g/dL Hematocrit 23.8 % Mean Corpuscular Volume 87.8 fL Mean Corpuscular Hemoglobin 29.2 pg Mean Corpuscular Hemoglobin Concent 33.2 g/dl Platelet Count 180 K/uL Mean Platelet Volume 8.7 fL Neutrophils (%) (Auto) 87.4 % Lymphocytes (%) (Auto) 5.9 % Monocytes (%) (Auto) 4.1 % Eosinophils (%) (Auto) 2.2 % Basophils (%) (Auto) 0.3 % Neutrophils # (Auto) 6.31 K/uL Lymphocytes # (Auto) 0.43 K/uL Monocytes # (Auto) 0.30 K/uL Eosinophils # (Auto) 0.16 K/uL Basophils # (Auto) 0.02 K/uL Assessment & Plan Assessment: POD 2 s/p Left Bipolar Hemiarthroplasty Acute blood loss anemia likely due to procedure Plan: PT/OT - WBAT; hip precautions Transfuse as per Med Service DC plans - [facility] referral placed. Transfer when ok with Med Service Inhouse Planning Pain Management: Dilaudid, Oxy IR DVT Prophylaxis: TEDs, SCDs, ASA Discharge Planning Discharge Planning: rehab hospital
[2017-10-22 08:11] VITALS: BP 158/76; PULSE 93; TEMP 37.4; O2SAT 95
[2017-10-22] MEDS: CARBIDOPA/LEVODOPA 25/100MG TAB PO SCH ×4 (08:22→20:55)
[2017-10-22] MEDS: ENTACAPONE 200 MG TAB PO SCH ×4 (08:22→20:55)
[2017-10-22] MEDS: LISINOPRIL 10 MG TAB PO SCH (09:26)
[2017-10-22] MEDS: QUETIAPINE FUMARATE 25 MG TAB PO SCH ×2 (09:27→20:55)
[2017-10-22] MEDS: ASPIRIN/ALUM/MAGNES/CAL CARB 325 MG TAB PO SCH ×2 (09:27→20:55)
[2017-10-22] MEDS: PANTOprazole SOD 40 MG TAB PO SCH ×2 (09:27→20:55)
[2017-10-22] MEDS: DULOXETINE HCL 20 MG CAP PO SCH (09:28)
[2017-10-22] MEDS: CITALOPRAM 20 MG TAB PO SCH (09:28)
[2017-10-22] MEDS: POLYETHYLENE (MIRALAX) 17 GM PACK PO SCH (10:22)
[2017-10-22 15:30] VITALS: O2SAT 95
[2017-10-22 16:21] VITALS: BP 128/74; PULSE 84; TEMP 36.6; O2SAT 97
--- NOTE | 2017-10-22 19:24 | Progress Note ---
Medicine Progress Note Date & Time of Visit: Oct 22, 2017 at 17:10 . Subjective Pleasantly confused. Denies pain. No chest pain. No cough or dyspnea. No nausea or vomiting. No reported BM. and daughter visiting. . Objective Last 8 Hrs Date Time Temp Pulse Resp B/P (MAP) Pulse Ox O2 Delivery O2 Flow Rate FiO2 10/22/17 16:21 36.6 84 16 128/74 (92) 97 Room Air 10/22/17 15:30 95 Room Air Physical Exam: General- lying in bed, no distress Neck- no JVD Lungs- clear Heart- RRR, no gallop Abdomen- + BS, soft, nontender Extremities- no pretibial edema or calf tenderness Skin- warm & dry Neuro- alert, pleasantly confused; no cogwheel rigidity . Assessment & Plan LEFT HIP FRACTURE S/P left bipolar hemiarthroplasty performed by Dr. Garcia 10/19/17. WBAT. ACUTE BLOOD LOSS ANEMIA Hgb 12.0 --> --> 7.9. Acute blood loss anemia secondary to hip fracture. No need for transfusion at this time per current guidelines. Follow. CKD III Serum creatinine at time of admission was 1.67. Creatinine 121/4 = 1.19. Follow. PARKINSON'S DISEASE Continue usual meds. DEMENTIA Monitor for delirium. VTE PROPHYLAXIS Aspirin, SCD's. DISPOSITION Needs skilled care or rehab. Case Management consulted. Family Medicine follow-up with Dr. Mittal. . Consultants: orthopedics Current Inpatient Medications: Current Inpatient Medications Medications (Trade) Dose Ordered Sig/Patricia Route Start Time Stop Time Status Last Admin Dose Admin Acetaminophen (Tylenol Tab) 650 mg Q4H PRN PO 10/17/17 19:45 11/16/17 19:44 Ondansetron HCl (Zofran Inj) 4 mg Q6H PRN IV 10/17/17 19:45 11/16/17 19:44 Naloxone HCl (Narcan Inj) 0.1 mg PRN PRN IV 10/17/17 19:45 11/16/17 19:44 Senna/Docusate Sodium (Senokot S Tab) 2 tab HS PO 10/17/17 21:00 11/16/17 20:59 10/20/17 21:11 2 TAB Polyethylene (Miralax Powder Packet) 17 gm DAILY PRN PO 10/17/17 19:45 11/16/17 19:44 Magnesium Hydroxide (Milk Of Magnesia Susp) 30 ml DAILY PRN PO 10/17/17 19:45 11/16/17 19:44 Bisacodyl (Dulcolax Supp) 10 mg DAILY PRN SD 10/17/17 19:45 11/16/17 19:44 Sodium Biphosphate/ Sodium Phosphate (Fleet Enema) 132 ml PRN PRN SD 10/17/17 19:45 Citalopram Hydrobromide (celeXA TAB) 10 mg QAM PO 10/18/17 09:00 11/17/17 08:59 10/22/17 09:28 10 MG Duloxetine HCl (Cymbalta Cap) 40 mg QAM PO 10/18/17 09:00 11/17/17 08:59 10/22/17 09:28 40 MG Quetiapine Fumarate (seroQUEL TAB) 25 mg BID PO 10/17/17 21:00 11/16/17 20:59 10/22/17 09:27 25 MG Buspirone HCl (Buspar Tab) 10 mg Q2D@0900 PO 10/18/17 09:00 11/17/17 08:59 10/22/17 09:27 10 MG Entacapone (Comtan) 200 mg QID@0800,1200,1600,2000 PO 10/17/17 20:30 11/16/17 20:29 10/22/17 15:50 200 MG Mirtazapine (Remeron Solutab) 15 mg HS PO 10/17/17 21:00 11/16/17 20:59 10/20/17 21:11 15 MG Pantoprazole Sodium (Protonix Tab) 40 mg BID PO 10/17/17 21:00 11/16/17 20:59 10/22/17 09:27 40 MG Polyethylene (Miralax Powder Packet) 17 gm QAM PO 10/18/17 09:00 11/17/17 08:59 10/22/17 10:22 17 GM Acetaminophen 650 mg/Empty Bag 65 ml @ 400 mls/hr Q8H IV 10/18/17 00:00 11/17/17 00:00 10/22/17 15:50 400 MLS/HR Carbidopa/Levodopa (Sinemet 25/ 100MG Tab) 1 tab QID@0800,1200,1600,2000 PO 10/18/17 20:00 11/16/17 19:59 10/22/17 15:50 1 TAB Oxycodone HCl (Roxicodone Immediate Rel Tab) 5 mg Q4H PRN PO 10/19/17 10:45 11/02/17 10:44 Oxycodone HCl (Roxicodone Immediate Rel Tab) 10 mg Q4H PRN PO 10/19/17 10:45 11/02/17 10:44 Aspirin/Aluminum/ Magnesium/Ca Carb (Ascriptin Tab) 325 mg BID PO 10/19/17 21:00 11/18/17 20:59 10/22/17 09:27 325 MG Hydromorphone HCl (Dilaudid Inj) 0.25 mg Q20M PRN IV 10/19/17 10:45 11/02/17 10:44 Naloxone HCl (Narcan Inj) 0.4 mg Q1M PRN IV 10/19/17 10:45 11/18/17 10:44 Lisinopril (Zestril Tab) 10 mg QAM PO 10/20/17 09:00 11/19/17 08:59 10/22/17 09:26 10 MG Hydroxyzine HCl (Vistaril Tab) 25 mg TID PRN PO 10/20/17 09:00 11/18/17 12:59
[2017-10-22] MEDS: MIRTAZAPINE SOLTAB 15 MG PO SCH (20:55)
[2017-10-22] MEDS: DOCUSATE SODIUM/SENNA 50/8.6MG TAB PO SCH (21:00)
[2017-10-22 22:44] VITALS: BP 118/74; PULSE 67; TEMP 37; O2SAT 96
[2017-10-23] MEDS: ACETAMINOPHEN IV 650 MG in EMPTY BAG 0 ML IV SCH ×2 (00:02→08:35)
[2017-10-23 02:44] VITALS: BP 122/63; PULSE 67; TEMP 36.4; O2SAT 96
[2017-10-23 07:15] VITALS: BP 114/68; PULSE 73; TEMP 36.5; O2SAT 99
[2017-10-23] MEDS: ENTACAPONE 200 MG TAB PO SCH ×2 (07:16→11:59)
[2017-10-23] MEDS: CARBIDOPA/LEVODOPA 25/100MG TAB PO SCH ×2 (07:16→11:59)
[2017-10-23 07:47] LABS: HEMATOCRIT 23.4 % (37-47); MEAN CELL VOLUME 87.6 fL (80-100); MEAN CORPUSCULAR HGB CONC 34.2 g/dl (32-36); MEAN PLATELET VOLUME 8.2 fL (7.4-10.4); PLATELET COUNT 229 K/uL (130-400); RED BLOOD COUNT 2.67 M/uL (4.2-5.4); WHITE BLOOD COUNT 4.81 K/uL (4.8-10.8)
[2017-10-23 08:17] LABS: BUN/CREATININE RATIO 23.2 (10-20); CALCIUM 8.6 mg/dl (8.5-10.1); CREATININE 1.09 mg/dl (0.60-1.20); POTASSIUM 3.9 mmol/L (3.5-5.1)
[2017-10-23] MEDS: LISINOPRIL 10 MG TAB PO SCH (08:35)
[2017-10-23] MEDS: QUETIAPINE FUMARATE 25 MG TAB PO SCH (08:35)
[2017-10-23] MEDS: ASPIRIN/ALUM/MAGNES/CAL CARB 325 MG TAB PO SCH (08:36)
[2017-10-23] MEDS: CITALOPRAM 20 MG TAB PO SCH (08:36)
[2017-10-23] MEDS: PANTOprazole SOD 40 MG TAB PO SCH (08:36)
[2017-10-23] MEDS: DULOXETINE HCL 20 MG CAP PO SCH (08:36)
[2017-10-23] MEDS: POLYETHYLENE (MIRALAX) 17 GM PACK PO SCH (08:37)
--- NOTE | 2017-10-23 09:05 | Orthopedic Progress Note ---
Orthopedic Progress Note Date of Service Oct 23, 2017. Subjective Post OP Day: 4 Additional Notes: Pt sitting in chair at bedside sleeping. Will wake up briefly but quickly falls back asleep. Objective hip located, incision C/D/I mild thigh swelling but soft Date Time Temp Pulse Resp B/P (MAP) Pulse Ox O2 Delivery O2 Flow Rate FiO2 10/23/17 07:15 Room Air 10/23/17 07:15 36.5 73 16 114/68 (83) 99 Room Air 10/23/17 02:44 36.4 67 16 122/63 (82) 96 Room Air 10/22/17 23:55 Room Air 10/22/17 22:44 37.0 67 15 118/74 (89) 96 Room Air 10/22/17 16:21 36.6 84 16 128/74 (92) 97 Room Air 10/22/17 15:30 95 Room Air Laboratory Results 24 Hours: Test 10/23/17 07:34 Hematocrit 23.4 % Hemoglobin 8.0 g/dL Assessment & Plan Assessment: POD 4 s/p Left Bipolar Hemiarthroplasty Acute blood loss anemia likely due to procedure Plan: PT/OT - WBAT; hip precautions Transfuse as per Med Service DC plans - [facility]/ SNF referral placed. Transfer when ok with Med Service Ortho will sign off at this time. Please call with any questions. Inhouse Planning Pain Management: Dilaudid, Oxy IR DVT Prophylaxis: TEDs, SCDs, ASA Discharge Planning [facility]charge Planning: [facility]
[2017-10-23 10:56] VITALS: BP 114/68; PULSE 73; TEMP 36.5; O2SAT 99
[2017-10-23] MEDS ORDERED: ACET-1138 PO (12:29)
[2017-10-23] MEDS ORDERED: CALCTAB65 PO (12:33)
--- NOTE | 2017-10-23 12:47 | Progress Note ---
Medicine Progress Note Date & Time of Visit: Oct 23, 2017 at ~ 11:15 . Subjective Ambulating with walker and assistance. Not experiencing much pain. Good PO intake. Had BM 2 days ago. visiting. . Objective Last 8 Hrs Date Time Temp Pulse Resp B/P (MAP) Pulse Ox O2 Delivery O2 Flow Rate FiO2 10/23/17 10:56 36.5 73 16 99 Room Air 10/23/17 07:15 Room Air 10/23/17 07:15 36.5 73 16 114/68 (83) 99 Room Air Physical Exam: General- lying in bed, no distress Neck- no JVD Lungs- clear Heart- RRR, no gallop Abdomen- + BS, soft, nontender Extremities- no pretibial edema or calf tenderness; left hip incision stapled, no erythema or drainage Skin- warm & dry Neuro- alert, pleasantly confused; no cogwheel rigidity . Laboratory Results: Last 24 Hours Test 10/23/17 00:00 10/23/17 07:34 White Blood Count 4.81 K/uL Red Blood Count 2.67 M/uL Hemoglobin 8.0 g/dL Hematocrit 23.4 % Mean Corpuscular Volume 87.6 fL Mean Corpuscular Hemoglobin 30.0 pg Mean Corpuscular Hemoglobin Concent 34.2 g/dl RDW Standard Deviation 46.1 fL RDW Coefficient of Variation 14.3 % Platelet Count 229 K/uL Mean Platelet Volume 8.2 fL Sodium Level 140 mmol/L Potassium Level 3.9 mmol/L Chloride Level 108 mmol/L Carbon Dioxide Level 26 mmol/L Anion Gap 5.0 mmol/L Blood Urea Nitrogen 25 mg/dl Creatinine 1.09 mg/dl Est Creatinine Clear Calc Drug Dose 35.8 ml/min Estimated GFR () 57.9 Estimated GFR (Non- 50.0 BUN/Creatinine Ratio 23.2 Random Glucose 84 mg/dl Calcium Level 8.6 mg/dl Assessment & Plan LEFT HIP FRACTURE S/P left bipolar hemiarthroplasty performed by Dr. Garcia 10/19/17. WBAT. Check vitamin D level- pending. Start calcium + D. ACUTE BLOOD LOSS ANEMIA Hgb 12.0 --> --> 8.0. Acute blood loss anemia secondary to hip fracture. No need for transfusion at this time per current guidelines. Discharge on FeSO4 (with vitamin C in light of PPI). Follow. GERD / HIATAL HERNIA Continue PPI. CKD III Serum creatinine at time of admission was 1.67. Creatinine today = 1.09. Follow. PARKINSON'S DISEASE Continue carbidopa / levodopa, entacapone, hydroxyzine. DEMENTIA Monitor for delirium. DEPRESSION / PSYCHOTIC FEATURES Medications reviewed with . Buspirone is being tapered and he feels that it is time to discontinue it. Med reconciliation listed 2 SSRI's - citalopram and duloxetine. No longer taking citalopram and it was removed from outpt med list. Continue duloxetine,mirtazapine, quetiapine. VTE PROPHYLAXIS Aspirin, SCD's. DISPOSITION Needs skilled care or rehab. Case Management consulted. Family Medicine follow-up with Dr. Mittal. . Consultants: orthopedics Current Inpatient Medications: Current Inpatient Medications Medications (Trade) Dose Ordered Sig/Patricia Route Start Time Stop Time Status Last Admin Dose Admin Acetaminophen (Tylenol Tab) 650 mg Q4H PRN PO 10/17/17 19:45 11/16/17 19:44 10/23/17 12:02 650 MG Ondansetron HCl (Zofran Inj) 4 mg Q6H PRN IV 10/17/17 19:45 11/16/17 19:44 Naloxone HCl (Narcan Inj) 0.1 mg PRN PRN IV 10/17/17 19:45 11/16/17 19:44 Senna/Docusate Sodium (Senokot S Tab) 2 tab HS PO 10/17/17 21:00 11/16/17 20:59 10/20/17 21:11 2 TAB Polyethylene (Miralax Powder Packet) 17 gm DAILY PRN PO 10/17/17 19:45 11/16/17 19:44 Magnesium Hydroxide (Milk Of Magnesia Susp) 30 ml DAILY PRN PO 10/17/17 19:45 11/16/17 19:44 Bisacodyl (Dulcolax Supp) 10 mg DAILY PRN PA 10/17/17 19:45 11/16/17 19:44 Sodium Biphosphate/ Sodium Phosphate (Fleet Enema) 132 ml PRN PRN PA 10/17/17 19:45 Citalopram Hydrobromide (celeXA TAB) 10 mg QAM PO 10/18/17 09:00 11/17/17 08:59 10/23/17 08:36 10 MG Duloxetine HCl (Cymbalta Cap) 40 mg QAM PO 10/18/17 09:00 11/17/17 08:59 10/23/17 08:36 40 MG Quetiapine Fumarate (seroQUEL TAB) 25 mg BID PO 10/17/17 21:00 11/16/17 20:59 10/23/17 08:35 25 MG Buspirone HCl (Buspar Tab) 10 mg Q2D@0900 PO 10/18/17 09:00 11/17/17 08:59 10/22/17 09:27 10 MG Entacapone (Comtan) 200 mg QID@0800,1200,1600,2000 PO 10/17/17 20:30 11/16/17 20:29 10/23/17 11:59 200 MG Mirtazapine (Remeron Solutab) 15 mg HS PO 10/17/17 21:00 11/16/17 20:59 10/22/17 20:55 15 MG Pantoprazole Sodium (Protonix Tab) 40 mg BID PO 10/17/17 21:00 11/16/17 20:59 10/23/17 08:36 40 MG Polyethylene (Miralax Powder Packet) 17 gm QAM PO 10/18/17 09:00 11/17/17 08:59 10/23/17 08:37 17 GM Acetaminophen 650 mg/Empty Bag 65 ml @ 400 mls/hr Q8H IV 10/18/17 00:00 11/17/17 00:00 10/23/17 08:35 400 MLS/HR Carbidopa/Levodopa (Sinemet 25/ 100MG Tab) 1 tab QID@0800,1200,1600,2000 PO 10/18/17 20:00 11/16/17 19:59 10/23/17 11:59 1 TAB Oxycodone HCl (Roxicodone Immediate Rel Tab) 5 mg Q4H PRN PO 10/19/17 10:45 11/02/17 10:44 Oxycodone HCl (Roxicodone Immediate Rel Tab) 10 mg Q4H PRN PO 10/19/17 10:45 11/02/17 10:44 Aspirin/Aluminum/ Magnesium/Ca Carb (Ascriptin Tab) 325 mg BID PO 10/19/17 21:00 11/18/17 20:59 10/23/17 08:36 325 MG Hydromorphone HCl (Dilaudid Inj) 0.25 mg Q20M PRN IV 10/19/17 10:45 11/02/17 10:44 Naloxone HCl (Narcan Inj) 0.4 mg Q1M PRN IV 10/19/17 10:45 11/18/17 10:44 Lisinopril (Zestril Tab) 10 mg QAM PO 10/20/17 09:00 11/19/17 08:59 10/23/17 08:35 10 MG Hydroxyzine HCl (Vistaril Tab) 25 mg TID PRN PO 10/20/17 09:00 11/18/17 12:59
[2017-10-23] MEDS ORDERED: FRRS300 PO (12:50)
[2017-10-23] MEDS ORDERED: [UNRECOGNIZED DRUG - OTHER] PO (12:50)
== END 2017-10-23 14:10 | DRG 470 ==
LOC: EDBD 16:38 → C.EDC 16:40 → C.MSN 19:09 → ENRESERV 19:23 → C.MSN 10-19 12:10
PROVIDERS: ADMIT Hospitalist; ATTEND Hospitalist
PROC: 0SRS0JA Replacement of Left Hip Joint, Femoral Surface with Synthetic Substitute, Uncemented, Open Approach (ICD-10-PCS; principal; 2017-10-19 11:00)
DX: S72.012A Unspecified intracapsular fracture of left femur, initial encounter for closed fracture (principal); N17.9 Acute kidney failure, unspecified; D62 Acute posthemorrhagic anemia; F32.3 Major depressive disorder, single episode, severe with psychotic features; G20 Parkinson's disease; I25.10 Atherosclerotic heart disease of native coronary artery without angina pectoris; N18.3 Chronic kidney disease, stage 3 (moderate); K21.9 Gastro-esophageal reflux disease without esophagitis; F03.90 Unspecified dementia, unspecified severity, without behavioral disturbance, psychotic disturbance, mood disturbance, and anxiety; Z79.82 Long term (current) use of aspirin; Z79.899 Other long term (current) drug therapy; W18.30XA Fall on same level, unspecified, initial encounter; Z88.2 Allergy status to sulfonamides; Z88.6 Allergy status to analgesic agent

== ENCOUNTER 2017-10-31 14:14 | Inpatient (IN) | payer OTHER ==
[2017-10-31] VITALS (7 sets, daily range): BP systolic 123–149; BP diastolic 64–72; PULSE 88–103; TEMP 36.7–37.6; O2SAT 94–97; Ht 157.5 cm; Wt 55.4 kg
[~2017-10-31] VITALS: Ht 157.5 cm; Wt 55.4 kg
[~2017-10-31 14:14] MED LIST changes: -ARTISOL23 BU; -ASCO500T16 PO; -BISA10SU5 RE; -CALC-456 PO; -CALC600T9 PO
[2017-10-31] MEDS ORDERED: SODIUM CHLORIDE 0.9% 1000ML 1,000 ML IV STA (14:38)
--- NOTE | 2017-10-31 14:49 | EMERGENCY ROOM VISIT NOTE ---
History Report prepared by Gayatri: Fabiana Valentine Under the Supervision of: Dr. Manuel Lange M.D. First contact with patient: 14:18 Chief Complaint: FALL Stated Complaint: LEG/BACK AND HIP PAIN History of Present Illness The patient is a 72 year old female who presents to the Emergency Room with complaints of sudden left hip pain after an unwitnessed fall. The patient recently was in the hospital and had a left hip replacement. She was at the [facility]. She was found on the floor. Reports indicated that she was complaining of left hip pain and they thought the leg was externally rotated. She was brought to the hospital for further evaluation. The patient denies any headache but does note some neck pain. She has pain in the left hip/ pelvis area. She cannot quantify. She denied any leg pain or upper extremity pain. She denied any back pain. The patient has Parkinson's. She is a difficult historian secondary to her advanced Parkinson's in mental status. Source of History: patient History Limited By: other (advanced Parkinson's in mental status ) Onset: shortly prior to arrival Position: other (left hip ) Quality: other (sudden) Associated Symptoms: + neck pain, No headache, No back pain Review of Systems As noted in history of present illness but otherwise limited secondary to mental status. Past Medical & Surgical Medical Problems: (1) CKD (chronic kidney disease) stage 3, GFR 30-59 ml/min (2) Depression (3) Diaphragmatic hernia (4) GERD (gastroesophageal reflux disease) (5) History of breast cancer (6) History of kidney stones (7) Parkinson disease Surgical Problems: (1) Closed fracture of left hip requiring operative repair (2) H/O breast surgery (3) History of carpal tunnel surgery (4) History of tubal ligation (5) Hx of cardiac cath Family History Cancer FATHER MOTHER BROTHER Social History Smoking Status: Never Smoker Alcohol Use: none Marital Status: Housing Status: lives with significant other Current/Historical Medications Scheduled Ascorbic Acid (Ascorbic Acid), 500 MG PO DAILY Aspirin Buffered (Thom Carb-Mag (Tri-Buffered Aspirin), 325 MG PO BID Calcium Carbonate-Vitamin D (Calcium + D), 1 TAB PO BID Calcium Carbonate-Vitamin D W/ (Caltrate 600+D Plus Min 300-800 mg-Unit), 1 TAB PO BID Carbidopa/Levodopa (Sinemet 25MG/100MG), 1 TAB PO 4XD Docusate Sodium (Docusate Sodium), 100 MG PO BID Duloxetine HCl (Cymbalta), 40 MG PO QAM Entacapone (Comtan), 200 MG PO 4XD Ferrous Sulfate (Ferrous Sulfate), 325 MG PO DAILY Fluticasone Propionate (Nasal) (Flonase Allergy Relief), 2 SPRAY JAYDON QAM Hydroxyzine Pamoate (Vistaril), 25 MG PO 4XD Lisinopril (Lisinopril), 10 MG PO QAM Mirtazapine Soltab (Remeron Soltab), 15 MG PO HS Omeprazole (Prilosec), 40 MG PO BID Polyethylene Glycol 3350 (Miralax), 17 GM PO QAM Quetiapine Fumarate (Seroquel), 20 MG PO BID Scheduled PRN Acetaminophen (Tylenol Extra Strength), 500 MG PO Q4H PRN for Pain Artificial Saliva (Mouthkote), 2 SPRAYS BU DAILY PRN for DRY MOUTH Bisacodyl (Bisacodyl), 10 MG RE DAILY PRN for Constipation Ondansetron Hcl (Zofran), 8 MG PO BID PRN for Nausea Allergies Coded Allergies: Morphine (Unverified Allergy, Unknown, unknown, 10/31/17) Sulfa Antibiotics (Verified Allergy, Unknown, UNKNOWN, 10/31/17) Selegiline (Verified Adverse Reaction, Intermediate, loss of taste, ) Tramadol (Verified Adverse Reaction, Intermediate, GENERAL ITCHINESS, ) Physical Exam Vital Signs Date Time Temp Pulse Resp B/P (MAP) Pulse Ox O2 Delivery O2 Flow Rate FiO2 10/31/17 17:43 107 142/61 96 Room Air 10/31/17 15:32 94 10/31/17 15:21 94 152/68 96 Room Air 10/31/17 14:15 37.8 96 18 140/54 96 Room Air 10/31/17 14:15 96 Room Air Physical Exam GENERAL: Awake, tired-appearing, in no distress HENT: Normocephalic, atraumatic. Oropharynx unremarkable. EYES: Normal conjunctiva. Sclera non-icteric. NECK: Supple. No nuchal rigidity. FROM. No JVD. RESPIRATORY: Clear to auscultation. CARDIAC: Systolic ejection murmur present. Regular rate, normal rhythm. Extremities warm and well perfused. Pulses equal. ABDOMEN: Soft, non-distended. No tenderness to palpation. No rebound or guarding. No masses. RECTAL: Deferred. MUSCULOSKELETAL: Chest examination reveals no tenderness. No joint edema. The incision is clean dry and intact of the left hip. The left hip there is limited range of motion secondary to pain. There is no significant shortening of the lower leg on the left side. Calves are equal size bilaterally and non-tender. No edema. No discoloration. NEURO: Masked facies present. Lethargic Sensorium. Unable to assess the left lower extremity secondary to pain. Moving upper extremities without difficulty. SKIN: No rash or jaundice noted. Medical Decision & Procedures ER Provider Diagnostic Interpretation: Radiology results as stated below per my review and radiologist interpretation: PELVIS 1 OR 2 VIEW ROUTINE CLINICAL HISTORY: fall, left hip pain, recent surgery COMPARISON STUDY: Left hip 10/19/2017. FINDINGS: Patient is status post left hip hemiarthroplasty. There is a new periprosthetic/intertrochanteric fracture within the proximal left femur. This demonstrates up to 8 mm of lateral displacement. There are lateral skin shereen and soft tissue swelling within the left hip. The visualized pelvic bones are intact. No dislocation of the left femoral prosthesis. No fracture or dislocation within the right hip. IMPRESSION: There is a new mildly displaced periprosthetic/intertrochanteric fracture within the proximal left femur. Electronically signed by: Zeeshan Diaz M.D. 10/31/2017 3:24 PM Dictated Date/Time: 10/31/2017 3:23 PM CHEST ONE VIEW PORTABLE CLINICAL HISTORY: Fall. Weakness. COMPARISON STUDY: Chest radiograph October 17, 2017. FINDINGS: Left axillary/left breast surgical clips are noted. Lungs are clear. No pneumothorax or pleural effusion is present. Cardiomediastinal silhouette is normal. Pulmonary vascularity is normal. IMPRESSION: No acute cardiopulmonary findings. Electronically signed by: Vinicio Warren M.D. 10/31/2017 3:22 PM Dictated Date/Time: 10/31/2017 3:21 PM CERVICAL SPINE W/O CLINICAL HISTORY: 72 years-old Female presenting with fall. TECHNIQUE: Multidetector CT of the cervical spine was performed without the use of intravenous contrast. IV contrast: None. A dose lowering technique was used consistent with the principles of ALARA (as low as reasonably achievable). COMPARISON: Cervical spine MR from 2007. CT DOSE (mGy.cm): The estimated cumulative dose is 958.48 mGy.cm. FINDINGS: Shift Superintendent topogram: Unremarkable. Allowing for cranial extension, overall slight straightening of normal cervical lordosis likely positional and/or degenerative. No acute fracture or subluxation. Multilevel degenerative changes. Uncovertebral hypertrophy results in bilateral osseous neural foraminal narrowing at C4-5 and to a lesser extent at C5-6. No osseous spinal canal narrowing. Allowing for noncontrast technique, few small thyroid nodules suggested. Atherosclerosis noted. Lung apices clear apart from minimal scarring at the right apex. IMPRESSION: No acute osseous injury of the cervical spine. Electronically signed by: Shamir Alejandro M.D. 10/31/2017 3:54 PM Dictated Date/Time: 10/31/2017 3:50 PM HEAD WITHOUT CONTRAST (CT) CLINICAL HISTORY: 72 years-old Female presenting with EVALUATE WEAKNESS. TECHNIQUE: Multidetector CT imaging of the head was performed without the use of intravenous contrast. IV contrast: None. A dose lowering technique was used consistent with the principles of ALARA (as low as reasonably achievable). COMPARISON: 01/23/2017. CT DOSE (mGy.cm): The estimated cumulative dose is 958.[address] cervical spine. FINDINGS: Shift Superintendent topogram: Unremarkable. Proportional ventricular and sulcal prominence, likely age-related parenchymal volume loss. Periventricular and subcortical white matter hypoattenuation, nonspecific but likely indicative of chronic small vessel ischemic change. No mass effect or midline shift. No hemorrhage or acute territorial infarct. No extra-axial fluid collection. Paranasal sinuses and mastoid air cells clear. Calvarium intact. IMPRESSION: 1. No acute intracranial abnormality. Electronically signed by: Shamir Alejandro M.D. 10/31/2017 3:50 PM Dictated Date/Time: 10/31/2017 3:48 PM LEFT HIP 2 VIEWS HISTORY: periprosthetic fx COMPARISON: Pelvis 10/31/2017. FINDINGS: The left femoral periprosthetic/intertrochanteric fracture is better appreciated on the pelvis radiograph. There is soft tissue swelling within the left hip. Lateral skin shereen are noted. The visual pelvic bones are intact. No dislocation of the left hip hemiarthroplasty. IMPRESSION: There is a left femoral periprosthetic/intertrochanteric fracture which is better appreciated on the prior pelvis radiograph. Electronically signed by: Zeeshan Diaz M.D. 10/31/2017 5:02 PM Dictated Date/Time: 10/31/2017 4:59 PM Laboratory Results 10/31/17 17:10 Red Blood Count 2.63, Mean Corpuscular Volume 90.9, Mean Corpuscular Hemoglobin 28.9, Mean Corpuscular Hemoglobin Concent 31.8, Mean Platelet Volume 7.9, Neutrophils (%) (Auto) 90.3, Lymphocytes (%) (Auto) 5.3, Monocytes (%) (Auto) 3.7, Eosinophils (%) (Auto) 0.1, Basophils (%) (Auto) 0.2, Neutrophils # (Auto) 12.87, Lymphocytes # (Auto) 0.75, Monocytes # (Auto) 0.52, Eosinophils # (Auto) 0.01, Basophils # (Auto) 0.03 10/31/17 17:10 Test 10/31/17 16:10 10/31/17 17:10 10/31/17 18:48 Urine WBC (Auto) 1-5 /hpf (0-5) Urine RBC (Auto) 0-4 /hpf (0-4) Urine Hyaline Casts (Auto) 10-30 /lpf (0-5) Urine Epithelial Cells (Auto) >30 /lpf (0-5) Urine Bacteria (Auto) NEG (NEG) Urine Renal Epithelial Cells 0-5 /lpf (0-5) White Blood Count 14.23 K/uL (4.8-10.8) Red Blood Count 2.63 M/uL (4.2-5.4) Hemoglobin 7.6 g/dL (12.0-16.0) Hematocrit 23.9 % (37-47) Mean Corpuscular Volume 90.9 fL (80-100) Mean Corpuscular Hemoglobin 28.9 pg (25-34) Mean Corpuscular Hemoglobin Concent 31.8 g/dl (32-36) Platelet Count 512 K/uL (130-400) Mean Platelet Volume 7.9 fL (7.4-10.4) Neutrophils (%) (Auto) 90.3 % Lymphocytes (%) (Auto) 5.3 % Monocytes (%) (Auto) 3.7 % Eosinophils (%) (Auto) 0.1 % Basophils (%) (Auto) 0.2 % Neutrophils # (Auto) 12.87 K/uL (1.4-6.5) Lymphocytes # (Auto) 0.75 K/uL (1.2-3.4) Monocytes # (Auto) 0.52 K/uL (0.11-0.59) Eosinophils # (Auto) 0.01 K/uL (0-0.5) Basophils # (Auto) 0.03 K/uL (0-0.2) RDW Standard Deviation 52.1 fL (36.4-46.3) RDW Coefficient of Variation 16.0 % (11.5-14.5) Immature Granulocyte % (Auto) 0.4 % Immature Granulocyte # (Auto) 0.05 K/uL (0.00-0.02) Basophilic Stippling 1+ Prothrombin Time 10.9 SECONDS (9.0-12.0) Prothromb Time International Ratio 1.0 (0.9-1.1) Activated Partial Thromboplast Time 23.8 SECONDS (21.0-31.0) Partial Thromboplastin Ratio 0.9 Anion Gap 6.0 mmol/L (3-11) Est Creatinine Clear Calc Drug Dose 31.7 ml/min Estimated GFR () 50.0 Estimated GFR (Non- 43.2 BUN/Creatinine Ratio 18.9 (10-20) Calcium Level 9.0 mg/dl (8.5-10.1) Magnesium Level 2.0 mg/dl (1.8-2.4) Total Bilirubin 0.5 mg/dl (0.2-1) Direct Bilirubin 0.1 mg/dl (0-0.2) Aspartate Amino Transf (AST/SGOT) 24 U/L (15-37) Alanine Aminotransferase (ALT/SGPT) 12 U/L (12-78) Alkaline Phosphatase 64 U/L (45-117) Troponin I < 0.015 ng/ml (0-0.045) Total Protein 7.0 gm/dl (6.4-8.2) Albumin 3.4 gm/dl (3.4-5.0) Lipase 235 U/L (73-393) Thyroid Stimulating Hormone (TSH) 3.120 uIu/ml (0.300-4.500) Laboratory results reviewed by me Medications Administered Medications (Trade) Dose Ordered Sig/Patricia Route Start Time Stop Time Status Last Admin Dose Admin Sodium Chloride 1,000 ml @ 125 mls/hr Q8H STAT IV 10/31/17 14:38 10/31/17 22:37 10/31/17 14:38 125 MLS/HR Fentanyl Citrate (Fentanyl Inj) 25 mcg Q15M PRN IV 10/31/17 18:00 11/14/17 17:59 10/31/17 18:06 25 MCG ED Course 1420: The patient was evaluated in room C8. A complete history and physical exam was performed. 1438: Ordered Sodium Chloride 1,000 ml @ 125 mls/hr IV. 1544: I checked on the patient. She is stable, the IV is in, and medications have been administered. 1636: I updated the patient's family. 1648: Discussed the patient's case with Jane Man PA-C. The patient will be evaluated for further treatment and disposition. 1650: Upon reexamination, the patient was resting. I discussed the test results and treatment plan with her family. The patient will be evaluated for further management. 1752: Discussed the patient's case with Dr. Fernandez. The patient will be evaluated for further treatment and disposition. Medical Decision Triage Nursing notes reviewed. The patient's presentation and history were concerning for hip pain and a fall. Etiologies such as soft tissue injury, fracture, dislocation, neurovascular compromise, compartment syndrome, closed head injury, metabolic issues, as well as others were entertained. The patient was evaluated. Imaging was ordered. She initially declined analgesia. Blood work and urinalysis was ordered as well. Head and neck CT did not reveal any evidence of injury. Pelvis imaging was concerning for a periprosthetic left hip fracture. The patient had a formal x-ray performed. Her CBC showed a mild anemia. She has been receiving iron for anemia. Patient had a leukocytosis. There is no evidence of UTI on urinalysis. Remainder of her blood work unremarkable. Chest Imaging was unremarkable. IV fentanyl was ordered. The patient was hydrated. She was kept nothing by mouth. Consultation was made with internal medicine and orthopedics. Both teams were notified of the situation. The patient was evaluated in the Emergency Room for further management. Medication Reconcilliation Current Medication List: was personally reviewed by me Blood Pressure Screening Patient's blood pressure: Elevated blood pressure Blood pressure disposition: Referred to PCP (will be evaluated by hospitalist ) Consults Time Called: 164 Consulting Physician: Jane Man PA-C Returned Call: 164 Discussed the patient's case. The patient will be evaluated for further treatment and disposition. Additional Consults: Time Called: 1700 Consulted Physician: Dr. Fernandez-Orthopedics Returned Call: [phone] Additional Comments: Discussed the patient's case. The patient will be evaluated for further treatment and disposition. Impression Primary Impression: Periprosthetic fracture around internal prosthetic left hip joint Additional Impressions: Fall Anemia Scribe Attestation The scribe's documentation has been prepared under my direction and personally reviewed by me in its entirety. I confirm that the note above accurately reflects all work, treatment, procedures, and medical decision making performed by me. Departure Information Dispostion Being Evaluated By Hospitalist Referrals [facility] (PCP) Patient Instructions My [facility] Problem Qualifiers
--- NOTE | 2017-10-31 15:23 | DIAGNOSTIC IMAGING REPORT ---
CHEST ONE VIEW PORTABLE CLINICAL HISTORY: Fall. Weakness. COMPARISON STUDY: Chest radiograph October 17, 2017. FINDINGS: Left axillary/left breast surgical clips are noted. Lungs are clear. No pneumothorax or pleural effusion is present. Cardiomediastinal silhouette is normal. Pulmonary vascularity is normal. IMPRESSION: No acute cardiopulmonary findings. Electronically signed by: Vinicio Warren M.D. 10/31/2017 3:22 PM Dictated Date/Time: 10/31/2017 3:21 PM
--- NOTE | 2017-10-31 15:26 | DIAGNOSTIC IMAGING REPORT ---
PELVIS 1 OR 2 VIEW ROUTINE CLINICAL HISTORY: fall, left hip pain, recent surgery COMPARISON STUDY: Left hip 10/19/2017. FINDINGS: Patient is status post left hip hemiarthroplasty. There is a new periprosthetic/intertrochanteric fracture within the proximal left femur. This demonstrates up to 8 mm of lateral displacement. There are lateral skin shereen and soft tissue swelling within the left hip. The visualized pelvic bones are intact. No dislocation of the left femoral prosthesis. No fracture or dislocation within the right hip. IMPRESSION: There is a new mildly displaced periprosthetic/intertrochanteric fracture within the proximal left femur. Electronically signed by: Zeeshan Diaz M.D. 10/31/2017 3:24 PM Dictated Date/Time: 10/31/2017 3:23 PM
[2017-10-31] MEDS ORDERED: ARTISOL23 BU (15:33)
[2017-10-31] MEDS ORDERED: CALC-456 PO (15:33)
[2017-10-31] MEDS ORDERED: ASCO500T16 PO (15:33)
[2017-10-31] MEDS ORDERED: BISA10SU5 RE (15:33)
--- NOTE | 2017-10-31 15:51 | DIAGNOSTIC IMAGING REPORT ---
HEAD WITHOUT CONTRAST (CT) CLINICAL HISTORY: 72 years-old Female presenting with EVALUATE WEAKNESS. TECHNIQUE: Multidetector CT imaging of the head was performed without the use of intravenous contrast. IV contrast: None. A dose lowering technique was used consistent with the principles of ALARA (as low as reasonably achievable). COMPARISON: 01/23/2017. CT DOSE (mGy.cm): The estimated cumulative dose is 958.[address] cervical spine. FINDINGS: Teaching Supervisor topogram: Unremarkable. Proportional ventricular and sulcal prominence, likely age-related parenchymal volume loss. Periventricular and subcortical white matter hypoattenuation, nonspecific but likely indicative of chronic small vessel ischemic change. No mass effect or midline shift. No hemorrhage or acute territorial infarct. No extra-axial fluid collection. Paranasal sinuses and mastoid air cells clear. Calvarium intact. IMPRESSION: 1. No acute intracranial abnormality. Electronically signed by: Shamir Alejandro M.D. 10/31/2017 3:50 PM Dictated Date/Time: 10/31/2017 3:48 PM
--- NOTE | 2017-10-31 15:55 | DIAGNOSTIC IMAGING REPORT ---
CERVICAL SPINE W/O CLINICAL HISTORY: 72 years-old Female presenting with fall. TECHNIQUE: Multidetector CT of the cervical spine was performed without the use of intravenous contrast. IV contrast: None. A dose lowering technique was used consistent with the principles of ALARA (as low as reasonably achievable). COMPARISON: Cervical spine MR from 2007. CT DOSE (mGy.cm): The estimated cumulative dose is 958.48 mGy.cm. FINDINGS: Rate Setter topogram: Unremarkable. Allowing for cranial extension, overall slight straightening of normal cervical lordosis likely positional and/or degenerative. No acute fracture or subluxation. Multilevel degenerative changes. Uncovertebral hypertrophy results in bilateral osseous neural foraminal narrowing at C4-5 and to a lesser extent at C5-6. No osseous spinal canal narrowing. Allowing for noncontrast technique, few small thyroid nodules suggested. Atherosclerosis noted. Lung apices clear apart from minimal scarring at the right apex. IMPRESSION: No acute osseous injury of the cervical spine. Electronically signed by: Shamir Alejandro M.D. 10/31/2017 3:54 PM Dictated Date/Time: 10/31/2017 3:50 PM
--- NOTE | 2017-10-31 17:03 | DIAGNOSTIC IMAGING REPORT ---
LEFT HIP 2 VIEWS HISTORY: periprosthetic fx COMPARISON: Pelvis 10/31/2017. FINDINGS: The left femoral periprosthetic/intertrochanteric fracture is better appreciated on the pelvis radiograph. There is soft tissue swelling within the left hip. Lateral skin shereen are noted. The visual pelvic bones are intact. No dislocation of the left hip hemiarthroplasty. IMPRESSION: There is a left femoral periprosthetic/intertrochanteric fracture which is better appreciated on the prior pelvis radiograph. Electronically signed by: Zeeshan Diaz M.D. 10/31/2017 5:02 PM Dictated Date/Time: 10/31/2017 4:59 PM
[2017-10-31 17:21] LABS: HEMATOCRIT 23.9 % (37-47); MEAN CELL VOLUME 90.9 fL (80-100); MEAN CORPUSCULAR HEMOGLOBIN 28.9 pg (25-34); MEAN CORPUSCULAR HGB CONC 31.8 g/dl (32-36); MEAN PLATELET VOLUME 7.9 fL (7.4-10.4); PLATELET COUNT 512 K/uL (130-400); RED BLOOD COUNT 2.63 M/uL (4.2-5.4); WHITE BLOOD COUNT 14.23 K/uL (4.8-10.8)
[2017-10-31 17:42] LABS: ALT/SGPT 12 U/L (12-78); BLOOD UREA NITROGEN 23 mg/dl (7-18); BUN/CREATININE RATIO 18.9 (10-20); CARBON DIOXIDE 28 mmol/L (21-32); CHLORIDE 106 mmol/L (98-107); CREATININE 1.23 mg/dl (0.60-1.20); GLUCOSE 121 mg/dl (70-99); POTASSIUM 4.4 mmol/L (3.5-5.1); SODIUM 141 mmol/L (136-145)
[2017-10-31 17:49] LABS: PARTIAL THROMBOPLASTIN RATIO 0.9; PROTHROMBIN TIME (PATIENT) 10.9 SECONDS (9.0-12.0)
[2017-10-31 17:53] LABS: ALKALINE PHOSPHATASE 64 U/L (45-117); AST/SGOT 24 U/L (15-37)
[2017-10-31] MEDS ORDERED: FENTANYL CITRATE INJ 50 MCG/1 ML 2 ML VIAL IV PRN (18:00)
[2017-10-31] MEDS ORDERED: SOD PHOSPHATE/SOD BIPHOSPHATE ENEMA 132 ML BTL PR PRN (18:15)
[2017-10-31] MEDS ORDERED: HYDROmorphone INJ 0.5 MG/0.5 ML SYR IM PRN (18:15)
[2017-10-31] MEDS ORDERED: POLYETHYLENE (MIRALAX) 17 GM PACK PO PRN (18:15)
[2017-10-31] MEDS ORDERED: NALOXONE HCL 0.4 MG/1 ML VIAL/CARP IV PRN (18:15)
[2017-10-31] MEDS ORDERED: MAGNESIUM HYDROXIDE SUSP 30 ML UDC PO PRN (18:15)
[2017-10-31] MEDS ORDERED: ONDANSETRON INJ 2 MG/ML 2 ML VIAL IV PRN (18:15)
[2017-10-31] MEDS ORDERED: BISACODYL 10 MG SUPP PR PRN (18:15)
[2017-10-31 18:23] LABS: BASO % 0.2 %; BASO ABS # 0.03 K/uL (0-0.2); COMPLETE YES; EOS % 0.1 %; IG% 0.4 %; LYMPH % 5.3 %; LYMPH ABS # 0.75 K/uL (1.2-3.4); MONO % 3.7 %; NEUT % 90.3 %
[2017-10-31] MEDS ORDERED: CALC600T9 PO (18:38)
[2017-10-31 19:02] LABS: URINE APPEARANCE CLEAR (CLEAR); URINE BILIRUBIN NEG (NEG); URINE COLOR DK YELLOW; URINE EPITHELIAL CELL AUTO >30 /lpf (0-5); URINE NITRITE NEG (NEG); URINE SPECIFIC GRAVITY 1.026 (1.000-1.030); UROBILINOGEN NEG (NEG)
[2017-10-31 19:05] LABS: MANUAL MICROSCOPIC REQUIRED? NO; REVIEW REQ? YES
--- NOTE | 2017-10-31 19:20 | DIAGNOSTIC IMAGING REPORT ---
R HIP UNILATERAL 2 VIEWS CLINICAL HISTORY: 72 years-old Female presenting with pain. TECHNIQUE: Frontal and frog-leg lateral views of the right hip were obtained. COMPARISON: Pelvic radiograph performed earlier the same day and CT from 02/01/2017. FINDINGS: The right hip joint is congruent. The right acetabulum appears somewhat irregular with apparent abnormally shallow posterior wall with prominence of the ischial portion of the inferior acetabulum. However, no such abnormality is detected on prior CT. This may be projectional. No femoral neck fracture. Joint space is preserved at the hip joint. Visualized portion of the bony pelvis within normal limits. Large stool burden noted. IMPRESSION: No acute osseous injury of the right hip. Electronically signed by: Shamir Alejandro M.D. 10/31/2017 7:18 PM Dictated Date/Time: 10/31/2017 7:13 PM
--- NOTE | 2017-10-31 19:46 | DIAGNOSTIC IMAGING REPORT ---
L HIP-LOWER EXTREMITY WITHOUT CLINICAL HISTORY: 72 years-old Female presenting with Periprosthetic fracture left hip. TECHNIQUE: Multidetector CT of the left hip was performed without the use of intravenous contrast. 3-D volumetric and/or maximum intensity projection (MIP) images were subsequently reconstructed for review. IV contrast: None. A dose lowering technique was used consistent with the principles of ALARA (as low as reasonably achievable). COMPARISON: Plain radiographs of the left hip performed earlier the same day. CT DOSE (mGy.cm): The estimated cumulative dose is 596.97 mGy.cm. FINDINGS: Treasury Analyst topogram: Unremarkable. Total left hip arthroplasty. No malalignment. Evidence of a subtrochanteric obliquely oriented periprosthetic fracture, which primarily involves the posterior third of the proximal metaphysis. There is 7 mm of diastases at the fracture plane posteriorly. The prosthesis remains well seated within the medullary cavity of the proximal femoral diaphysis. Similarly, the femoral head and acetabular components are nondisplaced. Associated gas within the medullary space and anteromedial to the fracture plane may represent postsurgical change. Extensive associated muscular edema. Underlying hematoma is also likely present surrounding the fracture plane. Overlying skin shereen evidence of recent surgery. No acetabular fracture. Large stool burden in the rectum. IMPRESSION: Subtrochanteric obliquely oriented periprosthetic fracture without significant displacement of the total left hip arthroplasty prosthesis. 7 mm of diastases at the fracture plane. Electronically signed by: Shamir Alejandro M.D. 10/31/2017 7:44 PM Dictated Date/Time: 10/31/2017 7:40 PM
--- NOTE | 2017-10-31 20:40 | History and Physical ---
History & Physical Date & Time of Service: Oct 31, 2017 at 18:16 Chief Complaint: Leg/Back And Hip Pain Primary Care Physician: Edwige Young History of Present Illness Source: family, spouse, clinic records, hospital records Pt is 72 y/o F with PMH Parkinson's, dementia, depression, GERD, CKD III, HTN presented to ER after fall. Pt is unable to give any history. Pt hospitalized -10/23/17 for fall and L hip fracture and repaired by Dr Garcia on . She was discharged to [facility]. states pt was ambulating with walking in PT. He reports he was told by nursing staff yesterday that pt was found to be wondering the halls without a walker and she has been getting up out of bed frequently with her hx dementia. He reports today was told pt was found lying on floor at bottom of her bed. reports was told she c/o L hip pain. Pt with hx post op anemia. reports was told pt eating ok. Unsure if has been any fevers reported. reports pt's current mental status is at baseline. Today in ER temp: 37.8C. WBC: 14 (was 7 this am). Hgb: 7.6. (was 7.9 on 10/21/17 and 8.0 on 10/23/17). Cr: 1.2 (baseline 1.4, was 1.1 on 10/20/17), pending u/a. pending blood cultures. L hip xray: mildly displaced periprosthetic/ intertrochanteric fracture w/i L proximal femur. Negative head CT. Negative CXR. Negative C-spine xray. pt given fentanyl. Past Medical/Surgical History Medical Problems: (1) CKD (chronic kidney disease) stage 3, GFR 30-59 ml/min Status: Chronic (2) Depression Status: Chronic (3) Diaphragmatic hernia Status: Chronic (4) GERD (gastroesophageal reflux disease) Status: Chronic (5) History of breast cancer Status: Resolved (6) History of kidney stones Status: Resolved (7) Parkinson disease Status: Chronic Surgical Problems: (1) Closed fracture of left hip requiring operative repair Permanent Comment: 10/19/17 - Dr Garcia Status: Resolved (2) H/O breast surgery Permanent Comment: malignant-stage I tubular CA left breast Status: Resolved (3) History of carpal tunnel surgery Permanent Comment: R side Status: Resolved (4) History of tubal ligation Status: Resolved (5) Hx of cardiac cath Permanent Comment: 05/2013 - normal coronaries Status: Chronic Family History Cancer FATHER MOTHER BROTHER Social History Smoking Status: Never Smoker Smokeless Tobacco Use: No Alcohol Use: none Drug Use: none Marital Status: Housing status: other ([facility]) Immunizations History of Influenza Vaccine: Yes Influenza Vaccine Date: Aug 11, 2017 History of Tetanus Vaccine?: Yes Tetanus Immunization Date: March 18, 2013 History of Pneumococcal: Yes Pneumococcal Date: Nov 02, 2015 Multi-Drug Resistant Organisms History of MDRO: No Allergies Coded Allergies: Morphine (Unverified Allergy, Unknown, unknown, 10/31/17) Sulfa Antibiotics (Verified Allergy, Unknown, UNKNOWN, 10/31/17) Selegiline (Verified Adverse Reaction, Intermediate, loss of taste, ) Tramadol (Verified Adverse Reaction, Intermediate, GENERAL ITCHINESS, ) Home Medications Scheduled Ascorbic Acid (Ascorbic Acid), 500 MG PO DAILY Aspirin Buffered (Thom Carb-Mag (Tri-Buffered Aspirin), 325 MG PO BID Calcium Carbonate-Vitamin D (Calcium + D), 1 TAB PO BID Calcium Carbonate-Vitamin D W/ (Caltrate 600+D Plus Min 300-800 mg-Unit), 1 TAB PO BID Carbidopa/Levodopa (Sinemet 25MG/100MG), 1 TAB PO 4XD Docusate Sodium (Docusate Sodium), 100 MG PO BID Duloxetine HCl (Cymbalta), 40 MG PO QAM Entacapone (Comtan), 200 MG PO 4XD Ferrous Sulfate (Ferrous Sulfate), 325 MG PO DAILY Fluticasone Propionate (Nasal) (Flonase Allergy Relief), 2 SPRAY JAYDON QAM Hydroxyzine Pamoate (Vistaril), 25 MG PO 4XD Lisinopril (Lisinopril), 10 MG PO QAM Mirtazapine Soltab (Remeron Soltab), 15 MG PO HS Omeprazole (Prilosec), 40 MG PO BID Polyethylene Glycol 3350 (Miralax), 17 GM PO QAM Quetiapine Fumarate (Seroquel), 20 MG PO BID Scheduled PRN Acetaminophen (Tylenol Extra Strength), 500 MG PO Q4H PRN for Pain Artificial Saliva (Mouthkote), 2 SPRAYS BU DAILY PRN for DRY MOUTH Bisacodyl (Bisacodyl), 10 MG RE DAILY PRN for Constipation Ondansetron Hcl (Zofran), 8 MG PO BID PRN for Nausea Review of Systems unable to further obtain secondary to pt's mental status Physical Exam Vital Signs Date Time Temp Pulse Resp B/P (MAP) Pulse Ox O2 Delivery O2 Flow Rate FiO2 10/31/17 17:43 107 142/61 96 Room Air 10/31/17 15:32 94 10/31/17 15:21 94 152/68 96 Room Air 10/31/17 14:15 37.8 96 18 140/54 96 Room Air 10/31/17 14:15 96 Room Air General Appearance: + thin, + pertinent finding (chronic ill appearing, alert, lying in bed without noted distress) Head: normocephalic, atraumatic Eyes: normal inspection, PERRL ENT: pharynx normal, + pertinent finding (mucous membranes dry) Neck: supple, no JVD, trachea midline Respiratory/Chest: chest non-tender, lungs clear, normal breath sounds, no respiratory distress, no accessory muscle use Cardiovascular: regular rate, rhythm, no murmur, normal peripheral pulses Abdomen/GI: normal bowel sounds, non tender, soft Extremities/Musculoskelatal: + pertinent finding (Left hip: +surgical incision with shereen in place without surrounding erythema, edema or discharge. Pt c/o pain with palpation Left hip, holding L hip extended and will not move. Limited ROM R hip, pt c/o pain, non-tender to palpation. bilateral lower extremities non -tender to palpation, Pt moves upper extremities without difficulty or c/o pain. distal pulses intact, brisk capillary refill) Neurologic/Psych: alert (confused, pleasant) Skin: normal color, warm/dry (see extremity) Diagnostics Laboratory Results Last 24 Hours Test 10/31/17 16:10 10/31/17 17:10 10/31/17 18:48 Urine Color DK YELLOW Urine Appearance CLEAR Urine pH 5.0 Urine Specific [place] 1.026 Urine Protein NEG Urine Glucose (UA) NEG Urine Ketones 1+ Urine Occult Blood NEG Urine Nitrite NEG Urine Bilirubin NEG Urine Urobilinogen NEG Urine Leukocyte Esterase TRACE White Blood Count 14.23 K/uL Red Blood Count 2.63 M/uL Hemoglobin 7.6 g/dL Hematocrit 23.9 % Mean Corpuscular Volume 90.9 fL Mean Corpuscular Hemoglobin 28.9 pg Mean Corpuscular Hemoglobin Concent 31.8 g/dl Platelet Count 512 K/uL Mean Platelet Volume 7.9 fL Neutrophils (%) (Auto) 90.3 % Lymphocytes (%) (Auto) 5.3 % Monocytes (%) (Auto) 3.7 % Eosinophils (%) (Auto) 0.1 % Basophils (%) (Auto) 0.2 % Neutrophils # (Auto) 12.87 K/uL Lymphocytes # (Auto) 0.75 K/uL Monocytes # (Auto) 0.52 K/uL Eosinophils # (Auto) 0.01 K/uL Basophils # (Auto) 0.03 K/uL RDW Standard Deviation 52.1 fL RDW Coefficient of Variation 16.0 % Immature Granulocyte % (Auto) 0.4 % Immature Granulocyte # (Auto) 0.05 K/uL Basophilic Stippling 1+ Prothrombin Time 10.9 SECONDS Prothromb Time International Ratio 1.0 Activated Partial Thromboplast Time 23.8 SECONDS Partial Thromboplastin Ratio 0.9 Sodium Level 141 mmol/L Potassium Level 4.4 mmol/L Chloride Level 106 mmol/L Carbon Dioxide Level 28 mmol/L Anion Gap 6.0 mmol/L Blood Urea Nitrogen 23 mg/dl Creatinine 1.23 mg/dl Est Creatinine Clear Calc Drug Dose 31.7 ml/min Estimated GFR () 50.0 Estimated GFR (Non- 43.2 BUN/Creatinine Ratio 18.9 Random Glucose 121 mg/dl Calcium Level 9.0 mg/dl Magnesium Level 2.0 mg/dl Total Bilirubin 0.5 mg/dl Direct Bilirubin 0.1 mg/dl Aspartate Amino Transf (AST/SGOT) 24 U/L Alanine Aminotransferase (ALT/SGPT) 12 U/L Alkaline Phosphatase 64 U/L Troponin I < 0.015 ng/ml Total Protein 7.0 gm/dl Albumin 3.4 gm/dl Lipase 235 U/L Thyroid Stimulating Hormone (TSH) 3.120 uIu/ml Diagnostic Radiology CXR: IMPRESSION: No acute cardiopulmonary findings HEAD CT: IMPRESSION: 1. No acute intracranial abnormality. L HIP XRAY: IMPRESSION: There is a left femoral periprosthetic/intertrochanteric fracture which is better appreciated on the prior pelvis radiograph. PELVIS XRAY: IMPRESSION: There is a new mildly displaced periprosthetic/intertrochanteric fracture within the proximal left femur. CERVICAL SPINE XRAY: IMPRESSION: No acute osseous injury of the cervical spine. Impression Assessment and Plan L PERIPROSTHETIC FRACTURE Pt with hx L hip fracture on 10/17/17 with repair on 10/19/17 with secondary post op anemia. Today pt fell. L hip xray: new mildly displaced periprosthetic/ intertrochanteric fracture within the proximal left femur. CXR: no infiltrate. Negative CT head. EKG: sinus tachy 101 Hx echo 10/2016: EF: 65-70%, moderate aortic valve sclerosis, mild tricuspid regurg, trace mitral regurg. Hx normal cardiac cath cath 2012 Moderate surgical risk - admit to med/surg -hold asa -ortho consulted -consult anesthesia LEUKOCYTOSIS WBC: 14 tonight was 7 this am. U/A non-remarkable. Negative CXR. L hip surgical incision without erythema or discharge -pending blood cultures. -continue to monitor at this time -IVF -cbc in am ANEMIA Hx post op anemia. Hgb 7.9 on 10/21/17 & 8.0 on 10/23/17. Today Hgb: 7.6. No active bleeding. -continue iron -Type and Cross 2 units PRBC -transfuse 1 unit -cbc in am CKD III Cr: 1.2 today. Previous baseline 1.4 -avoid nephrotoxic agents when able -prp in am HTN -continue lisinopril PARKINSON'S Hx psych symptoms from Parkinson's. -continue Comtan, Sinemet -continue Cymbalta, Seroquel, Remeron DVT PROPHYLAXIS -SCD's DISPOSITION -admit med/surg -Full Code as per discussion with family -Follows with Dr Mittal for routine care Pt was seen with Dr Fernández. See addendum ADDENDUM: This is a 72 year old female with a PMH of dementia, Parkinson's, CKD stage 3 - with recent L hip fracture and repair on October 19, 2017. Was at the intermediate when she got up and fell on the L side. Presented here, had radiographs and a CT of the hip showing periprosthetic fracture - no displacement of the L RICKI. Plan: fall risk and bed alarm consult ortho and anesthesia EKG - NSR echo done one year prior - normal LVEF, no significant wall motion abnormality she has chronic anemia, though Hgb today is 7.6, lower than prior - will type and cross and transfuse one unit further management as per ortho Level of Care Med/Surg Resuscitation Status FULL RESUSCITATION VTE Prophylaxis VTE Risk Assessment Done? Y/N: Yes Risk Level: Moderate Given or contraindicated: SCD's Additional Copies To Michael Mittal M.D.
[2017-10-31] MEDS ORDERED: PANTOprazole SOD 40 MG TAB PO SCH (21:00)
[2017-10-31] MEDS ORDERED: SODIUM CHLORIDE 0.9% 1000ML 1,000 ML IV SCH (21:15)
[2017-10-31] MEDS: MIRTAZAPINE SOLTAB 15 MG PO SCH (21:59)
[2017-10-31] MEDS: DOCUSATE SODIUM/SENNA 50/8.6MG TAB PO SCH (22:00)
[2017-10-31] MEDS: CARBIDOPA/LEVODOPA 25/100MG TAB PO SCH (22:00)
[2017-10-31] MEDS: CALCIUM 600MG + VIT D 400 IU TAB PO SCH (23:07)
[2017-10-31] MEDS: QUETIAPINE FUMARATE 25 MG TAB PO SCH (23:07)
[2017-10-31] MEDS: ACETAMINOPHEN 325 MG TAB PO PRN (23:26)
[2017-11-01] VITALS (13 sets, daily range): BP systolic 103–156; BP diastolic 61–80; PULSE 74–91; TEMP 36.4–37; O2SAT 94–98
[2017-11-01] MEDS ORDERED: CEFAZOLIN 2000MG IV PUSH 10 ML IV SCH (06:00)
[2017-11-01] MEDS ORDERED: CEFAZOLIN IV 2,000 MG in DEXTROSE 5% 50ML 50 ML IV SCH (06:00)
[2017-11-01] MEDS: CARBIDOPA/LEVODOPA 25/100MG TAB PO SCH ×4 (08:17→20:40)
[2017-11-01] MEDS: FLUTICASONE PROPIONATE NA SPR 16 GM BTL NAE SCH (08:17)
[2017-11-01] MEDS: hydrOXYzine HCL 25 MG TAB PO SCH ×4 (08:18→20:39)
[2017-11-01] MEDS: LANSOPRAZOLE SOLUTAB 30 MG PO SCH ×2 (08:18→20:40)
[2017-11-01] MEDS: QUETIAPINE FUMARATE 25 MG TAB PO SCH ×2 (08:18→20:38)
[2017-11-01] MEDS: ASCORBIC ACID 500 MG TAB PO SCH (08:18)
[2017-11-01] MEDS: ENTACAPONE 200 MG TAB PO SCH ×4 (08:19→20:39)
[2017-11-01] MEDS: DULOXETINE HCL 20 MG CAP PO SCH (08:19)
[2017-11-01] MEDS: FERROUS SULFATE 325 MG TAB PO SCH (08:19)
[2017-11-01] MEDS: LISINOPRIL 10 MG TAB PO SCH (08:19)
[2017-11-01 08:25] LABS: BASO % 0.2 %; BASO ABS # 0.02 K/uL (0-0.2); EOS % 0.4 %; HEMATOCRIT 26.9 % (37-47); IG% 0.2 %; LYMPH % 7.8 %; LYMPH ABS # 0.63 K/uL (1.2-3.4); MEAN CELL VOLUME 90.9 fL (80-100); MEAN CORPUSCULAR HEMOGLOBIN 30.1 pg (25-34); MEAN CORPUSCULAR HGB CONC 33.1 g/dl (32-36); MEAN PLATELET VOLUME 8.2 fL (7.4-10.4); MONO % 6.9 %; NEUT % 84.5 %; PLATELET COUNT 353 K/uL (130-400); RED BLOOD COUNT 2.96 M/uL (4.2-5.4)
[2017-11-01 08:43] LABS: COMPLETE YES
[2017-11-01 08:56] LABS: CALCIUM 8.8 mg/dl (8.5-10.1); CREATININE 1.09 mg/dl (0.60-1.20); POTASSIUM 4.1 mmol/L (3.5-5.1)
--- NOTE | 2017-11-01 09:15 | Orthopedic Progress Note ---
Orthopedic Progress Note Date of Service Nov 01, 2017. Subjective Additional Notes: No hx from the patient. She has dementia. Most of the visit the patient was sleeping. Discussed the fall with the patient's . [facility] and suffered a fall after getting up from her wheelchair on her own. Objective calves soft nontender, N/V intact, hip located, capillary refill less than 2 sec., incision C/D/I Left hip: Walling still intact at the lateral hip. Incision is healing well. No ROM or strength testing were performed on the left hip. Date Time Temp Pulse Resp B/P (MAP) Pulse Ox O2 Delivery O2 Flow Rate FiO2 11/01/17 07:15 Room Air 11/01/17 06:57 36.8 85 16 139/67 (91) 97 Room Air 11/01/17 01:22 119/62 11/01/17 01:21 36.6 80 16 105/62 95 11/01/17 00:24 37.0 86 16 130/73 95 10/31/17 23:20 Room Air 10/31/17 23:19 36.9 88 17 123/72 97 10/31/17 22:48 36.7 97 16 136/70 94 10/31/17 22:23 37.1 95 16 138/70 96 10/31/17 22:05 37.0 98 16 136/64 95 0.0 10/31/17 21:48 37.6 103 16 137/67 94 0.0 10/31/17 19:59 36.9 100 20 149/65 (93) 94 Room Air 10/31/17 19:50 Room Air 10/31/17 19:42 101 142/73 97 10/31/17 19:00 36.9 100 20 149/65 96 Room Air 10/31/17 17:43 107 142/61 96 Room Air 10/31/17 15:32 94 10/31/17 15:21 94 152/68 96 Room Air 10/31/17 14:15 37.8 96 18 140/54 96 Room Air 10/31/17 14:15 96 Room Air Laboratory Results 24 Hours: Test 10/31/17 17:10 11/01/17 08:04 White Blood Count 14.23 K/uL 8.10 K/uL Red Blood Count 2.63 M/uL 2.96 M/uL Hemoglobin 7.6 g/dL 8.9 g/dL Hematocrit 23.9 % 26.9 % Mean Corpuscular Volume 90.9 fL 90.9 fL Mean Corpuscular Hemoglobin 28.9 pg 30.1 pg Mean Corpuscular Hemoglobin Concent 31.8 g/dl 33.1 g/dl Platelet Count 512 K/uL 353 K/uL Mean Platelet Volume 7.9 fL 8.2 fL Neutrophils (%) (Auto) 90.3 % 84.5 % Lymphocytes (%) (Auto) 5.3 % 7.8 % Monocytes (%) (Auto) 3.7 % 6.9 % Eosinophils (%) (Auto) 0.1 % 0.4 % Basophils (%) (Auto) 0.2 % 0.2 % Neutrophils # (Auto) 12.87 K/uL 6.84 K/uL Lymphocytes # (Auto) 0.75 K/uL 0.63 K/uL Monocytes # (Auto) 0.52 K/uL 0.56 K/uL Eosinophils # (Auto) 0.01 K/uL 0.03 K/uL Basophils # (Auto) 0.03 K/uL 0.02 K/uL Prothromb Time International Ratio 1.0 Prothrombin Time 10.9 SECONDS Assessment & Plan Assessment: Left hip periprosthetic hip fx 13 days s/p left hip hemiarthroplasty performed for a displaced left femoral neck fx. Plan: The case has been discussed with Dr. Fernandez and he has also discussed the films with Dr. Garcia. At this time, it is recommended the patient has a revision of the left hip bipolar hemiarthroplasty using a cemented long stem implant and ORIF of the periprosthetic hip fx with cables. The surgery has been discussed with the patient's and he agrees to proceed. Will plan for the surgery to be tomorrow. NPO after midnight tonight. Consent was placed on the front of the chart for signing to be done by Dr. Garcia or Dr. Fernandez and with the patient's POA. Discharge Planning Discharge Planning: uncertain
[2017-11-01] MEDS: CALCIUM 600MG + VIT D 400 IU TAB PO SCH ×2 (09:34→20:38)
--- NOTE | 2017-11-01 10:37 | DIAGNOSTIC IMAGING REPORT ---
R FEMUR 2 VIEWS ROUTINE, L FEMUR 2 VIEWS ROUTINE CLINICAL HISTORY: preop. Left hip fracture. COMPARISON STUDY: Right hip and left hip 10/31/2017. FINDINGS: No fracture or dislocation within the right femur. Mild osteoarthritis at the right knee. Redemonstration of the left femoral intertrochanteric fracture. This demonstrates mild lateral displacement of approximately 6 mm. The left hip hemiarthroplasty is again noted. No dislocation. Soft tissue swelling within the left hip. Lateral skin shereen are noted. No fractures identified within the mid to distal left femur. IMPRESSION: 1. No fracture or dislocation within the right femur. 2. No significant change in the left femoral intertrochanteric/periprosthetic fracture. Electronically signed by: Zeeshan Diaz M.D. 11/01/2017 10:36 AM Dictated Date/Time: 11/01/2017 10:32 AM
[2017-11-01] MEDS: ACETAMINOPHEN 325 MG TAB PO PRN ×3 (11:52→17:33)
--- NOTE | 2017-11-01 13:46 | Progress Note ---
Internal Med Progress Note Date of Service: Nov 01, 2017. Provider Documentation: SUBJECTIVE: The patient was seen and examined S/P Left ORIF on 10/19/17 ,s/p fall with fracture involving the prosthesis No pain at rest No other symptoms OBJECTIVE: Vital Signs-as noted below Exam: General-No distress at rest Eyes-normal ENT-Normal Neck-supple Lungs-Clear to ausucltate bilaterally Heart-Regular,2/6 ESM precordial area Abdomen-Benign,no masses,bowel sound present Extremities-No edema Any movement of the left lower extremity is painful Neuro-AAOx3 Lab data as noted below. ASSESSMENT & PLAN: L PERIPROSTHETIC FRACTURE Pt with hx L hip fracture on 10/17/17 with repair on 10/19/17 S/P Fall with new mildly displaced periprosthetic/intertrochanteric fracture within the proximal left femur. CXR: no infiltrate. Negative CT head. EKG: sinus tachy 101 Hx echo 10/2016: EF: 65-70%, moderate aortic valve sclerosis, mild tricuspid regurg, trace mitral regurg. Hx normal cardiac cath cath 2012 Caries moderate risk for surgery No contraindication for the proposed surgery Appreciate Ortho input LEUKOCYTOSIS Likely indued due to stress WBC: 14 tonight was 7 this am. U/A non-remarkable. Negative CXR. L hip surgical incision without erythema or discharge -pending blood cultures. -continue to monitor at this time -Gentle amount of IVF -WCC normalized ANEMIA Hx post op anemia. Hgb 7.9 on 10/21/17 & 8.0 on 10/23/17. Today Hgb: 7.6. No active bleeding. -continue iron -Type and Cross 2 units PRBC -transfuse 1 unit -Hb >8 CKD III Cr: 1.2 today. Previous baseline 1.4 -avoid nephrotoxic agents when able -creatinine-normalized HTN -continue lisinopril PARKINSON'S Hx psych symptoms from Parkinson's. -continue Comtan, Sinemet -continue Cymbalta, Seroquel, Remeron -no acute issue DVT PROPHYLAXIS -SCD's DISPOSITION -admit med/surg -Full Code as per discussion with family -Follows with Dr Mittal for routine care Vital Signs: Date Time Temp Pulse Resp B/P (MAP) Pulse Ox O2 Delivery O2 Flow Rate FiO2 11/01/17 07:15 Room Air 11/01/17 06:57 36.8 85 16 139/67 (91) 97 Room Air 11/01/17 01:22 119/62 11/01/17 01:21 36.6 80 16 105/62 95 11/01/17 00:24 37.0 86 16 130/73 95 10/31/17 23:20 Room Air 10/31/17 23:19 36.9 88 17 123/72 97 10/31/17 22:48 36.7 97 16 136/70 94 10/31/17 22:23 37.1 95 16 138/70 96 10/31/17 22:05 37.0 98 16 136/64 95 0.0 10/31/17 21:48 37.6 103 16 137/67 94 0.0 10/31/17 19:59 36.9 100 20 149/65 (93) 94 Room Air 10/31/17 19:50 Room Air 10/31/17 19:42 101 142/73 97 10/31/17 19:00 36.9 100 20 149/65 96 Room Air 10/31/17 17:43 107 142/61 96 Room Air 10/31/17 15:32 94 10/31/17 15:21 94 152/68 96 Room Air 10/31/17 14:15 37.8 96 18 140/54 96 Room Air 10/31/17 14:15 96 Room Air Lab Results: Results Past 24 Hours Test 10/31/17 16:10 10/31/17 17:10 11/01/17 08:04 Range/Units Urine Color DK YELLOW Urine Appearance CLEAR CLEAR Urine pH 5.0 4.5-7.5 Urine Specific [place] 1.026 1.000-1.030 Urine Protein NEG NEG Urine Glucose (UA) NEG NEG Urine Ketones 1+ NEG Urine Occult Blood NEG NEG Urine Nitrite NEG NEG Urine Bilirubin NEG NEG Urine Urobilinogen NEG NEG Urine Leukocyte Esterase TRACE NEG Urine WBC (Auto) 1-5 0-5 /hpf Urine RBC (Auto) 0-4 0-4 /hpf Urine Hyaline Casts (Auto) 10-30 0-5 /lpf Urine Epithelial Cells (Auto) >30 0-5 /lpf Urine Bacteria (Auto) NEG NEG Urine Renal Epithelial Cells 0-5 0-5 /lpf White Blood Count 14.23 8.10 4.8-10.8 K/uL Red Blood Count 2.63 2.96 4.2-5.4 M/uL Hemoglobin 7.6 8.9 12.0-16.0 g/dL Hematocrit 23.9 26.9 37-47 % Mean Corpuscular Volume 90.9 90.9 80-100 fL Mean Corpuscular Hemoglobin 28.9 30.1 25-34 pg Mean Corpuscular Hemoglobin Concent 31.8 33.1 32-36 g/dl Platelet Count 512 353 130-400 K/uL Mean Platelet Volume 7.9 8.2 7.4-10.4 fL Neutrophils (%) (Auto) 90.3 84.5 % Lymphocytes (%) (Auto) 5.3 7.8 % Monocytes (%) (Auto) 3.7 6.9 % Eosinophils (%) (Auto) 0.1 0.4 % Basophils (%) (Auto) 0.2 0.2 % Neutrophils # (Auto) 12.87 6.84 1.4-6.5 K/uL Lymphocytes # (Auto) 0.75 0.63 1.2-3.4 K/uL Monocytes # (Auto) 0.52 0.56 0.11-0.59 K/uL Eosinophils # (Auto) 0.01 0.03 0-0.5 K/uL Basophils # (Auto) 0.03 0.02 0-0.2 K/uL RDW Standard Deviation 52.1 49.9 36.4-46.3 fL RDW Coefficient of Variation 16.0 15.7 11.5-14.5 % Immature Granulocyte % (Auto) 0.4 0.2 % Immature Granulocyte # (Auto) 0.05 0.02 0.00-0.02 K/uL Basophilic Stippling 1+ Prothrombin Time 10.9 9.0-12.0 SECONDS Prothromb Time International Ratio 1.0 0.9-1.1 Activated Partial Thromboplast Time 23.8 21.0-31.0 SECONDS Partial Thromboplastin Ratio 0.9 Sodium Level 141 141 136-145 mmol/L Potassium Level 4.4 4.1 3.5-5.1 mmol/L Chloride Level 106 108 98-107 mmol/L Carbon Dioxide Level 28 28 21-32 mmol/L Anion Gap 6.0 5.0 3-11 mmol/L Blood Urea Nitrogen 23 24 7-18 mg/dl Creatinine 1.23 1.09 0.60-1.20 mg/dl Est Creatinine Clear Calc Drug Dose 31.7 35.8 ml/min Estimated GFR () 50.0 57.9 Estimated GFR (Non- 43.2 50.0 BUN/Creatinine Ratio 18.9 22.0 10-20 Random Glucose 121 92 70-99 mg/dl Calcium Level 9.0 8.8 8.5-10.1 mg/dl Magnesium Level 2.0 1.8-2.4 mg/dl Total Bilirubin 0.5 0.2-1 mg/dl Direct Bilirubin 0.1 0-0.2 mg/dl Aspartate Amino Transf (AST/SGOT) 24 15-37 U/L Alanine Aminotransferase (ALT/SGPT) 12 12-78 U/L Alkaline Phosphatase 64 45-117 U/L Troponin I < 0.015 0-0.045 ng/ml Total Protein 7.0 6.4-8.2 gm/dl Albumin 3.4 3.4-5.0 gm/dl Lipase 235 73-393 U/L Thyroid Stimulating Hormone (TSH) 3.120 0.300-4.500 uIu/ml Red Blood Cell Morphology Unremarkable Microbiology Results 10/31/17 Blood Culture, Received Pending 10/31/17 Blood Culture, Received Pending 10/31/17 MRSA DNA Surveillance Screen - Final, Complete Specimen Negative for MRSA by DNA Probe 10/31/17 Urine Culture, Received Pending
[2017-11-01] MEDS ORDERED: NURSING VERBAL MED ORDER ONE (15:30)
--- NOTE | 2017-11-01 20:32 | ORTHOPEDIC CONSULTATION ---
DATE OF CONSULTATION: 11/01/2017 HISTORY OF PRESENT ILLNESS: This is a 72-year-old female who underwent recent left hemiarthroplasty for a hip fracture performed by Dr. Garcia on 10/19/2017. The patient was discharged to [facility] and patient had been ambulating with a walker and physical therapy. Apparently, the patient was also wandering the halls without a walker and she was getting out of bed frequently without an syrup mixer assistant. The patient has significant history of dementia and parkinsonism and this contributed to her recent fall, which occurred on 10/31/2017. The patient was found lying on the floor at the bottom of her bed and she complained of left hip pain. She was then transferred to [facility] where radiographs were performed. The patient was noted to have a minimally displaced, but subsided left hip periprosthetic intertrochanteric hip fracture. The patient was admitted to the medical service. Consultation made for orthopedic surgery. Radiographs and CT scan were obtained and the patient is being optimized for surgery. Currently, patient cannot have surgery because she is currently being optimized for surgical procedure. She will be cleared for surgery likely for tomorrow. PAST MEDICAL HISTORY: Chronic kidney disease stage III, depression chronic, diaphragmatic hernia, gastroesophageal reflux disease, history of breast cancer, history of kidney stones, parkinsonism, history of hip fracture. PAST SURGICAL HISTORY: Left hip hemiarthroplasty 10/19/[address] Garcia, history of breast surgery, carpal tunnel surgery, tubal ligation and cardiac catheterization. ALLERGIES: MORPHINE, SULFA, SELEGILINE, TRAMADOL. HOME MEDICATIONS: Please see the medication list provided. SOCIAL HISTORY: This is a female who has never smoked. She denies smokeless tobacco. Denies alcohol or drug use. She is . She is retired. She lives at [facility]. PHYSICAL EXAMINATION: GENERAL: This is a 72-year-old female who is lying supine in her hospital room bed. She appears alert and oriented. She is responding to questioning; however, she has inappropriate response. She does recognize her location as being in the hospital. She has a mask-like facies consistent with her parkinsonism. EXTREMITIES: Examination of the left hip demonstrates intact left hip incision with multiple skin shereen. No erythema. No redness, no streaking, no purulence. Hip leg lengths are essentially equal with slight reduction of leg length on the left compared to the right. Slight external rotation of the left hip compared to the right. The patient has discomfort with active and passive range of motion of the left hip. Dorsalis pedis and posterior tibialis pulses are 2/4 bilateral lower extremities. Feet are warm. Cap refill which is brisk. Multiple radiographs and CT scan were reviewed demonstrating a minimally displaced left hip intertrochanteric periprosthetic hip fracture with the hemiarthroplasty still well seated within the acetabulum. There is subsidence noted of the prosthesis with essentially a 3-4-part intertrochanteric hip fracture. IMPRESSION: 1. Left intertrochanteric periprosthetic hip fracture with subsidence. 2. Multiple medical comorbidities. 3. Anemia chronic, exacerbated with recent surgery and fall. RECOMMENDATIONS: Transfuse 1 unit today over an extended period of time. Pretreat with Benadryl and Tylenol. Plan for revision surgery tomorrow morning with a longer cemented prosthesis and cerclage wiring of the left periprosthetic hip fracture. Discussed the case with Dr. Garcia who will also be assisting. Continue medical management as appropriate. Will discuss with medical care team. N.p.o. after midnight. Attempted to obtain consent by phone, however the patient's was unreachable. I did discuss the care of plan with the patient, however prefer to speak with the patient's as well due to her history of dementia, anyways continuing. Thank you for the opportunity to consult in the care of this patient.
[2017-11-01] MEDS: MIRTAZAPINE SOLTAB 15 MG PO SCH (20:39)
[2017-11-01] MEDS: DOCUSATE SODIUM/SENNA 50/8.6MG TAB PO SCH (20:40)
[2017-11-01] MEDS ORDERED: SODIUM CHLORIDE 0.45% 1000ML 1,000 ML IV ONE (22:45)
[2017-11-02] VITALS (9 sets, daily range): BP systolic 105–144; BP diastolic 53–72; PULSE 76–103; TEMP 36.3–37.4; O2SAT 92–99
[2017-11-02] MEDS: HYDROmorphone INJ 0.5 MG/0.5 ML SYR IV PRN (05:08)
[2017-11-02 06:43] LABS: BUN/CREATININE RATIO 23.3 (10-20); CALCIUM 8.7 mg/dl (8.5-10.1); CREATININE 0.94 mg/dl (0.60-1.20); POTASSIUM 4.1 mmol/L (3.5-5.1)
[2017-11-02] MEDS: LANSOPRAZOLE SOLUTAB 30 MG PO SCH ×2 (09:00→20:13)
[2017-11-02] MEDS: LISINOPRIL 10 MG TAB PO SCH (09:00)
[2017-11-02] MEDS: DULOXETINE HCL 20 MG CAP PO SCH (09:00)
[2017-11-02] MEDS: CALCIUM 600MG + VIT D 400 IU TAB PO SCH ×2 (09:00→20:12)
[2017-11-02] MEDS: CARBIDOPA/LEVODOPA 25/100MG TAB PO SCH ×6 (09:00→20:12)
[2017-11-02] MEDS: ASCORBIC ACID 500 MG TAB PO SCH (09:00)
[2017-11-02] MEDS: FERROUS SULFATE 325 MG TAB PO SCH (09:00)
[2017-11-02] MEDS: QUETIAPINE FUMARATE 25 MG TAB PO SCH ×2 (09:00→20:13)
[2017-11-02] MEDS ORDERED: PROPOFOL IV EMULSION 10 MG/ML 20 ML VIAL IV ONE (09:39)
[2017-11-02] MEDS ORDERED: MIDAZOLAM HCL 1 MG/ML 2ML VIAL ONE (09:39)
[2017-11-02] MEDS ORDERED: ROCURONIUM BROMIDE 10 MG/ML 5 ML VIAL IV ONE (09:39)
[2017-11-02] MEDS ORDERED: LIDOCAINE HCL 2% 2 ML VIAL (20MG/ML) ONE (09:39)
[2017-11-02] MEDS ORDERED: ONDANSETRON INJ 2 MG/ML 2 ML VIAL ONE ×2 (09:39→14:12)
[2017-11-02] MEDS ORDERED: FENTANYL CITRATE INJ 50 MCG/1 ML 2 ML VIAL ONE (09:40)
[2017-11-02] MEDS: ENTACAPONE 200 MG TAB PO SCH ×7 (10:02→20:12)
[2017-11-02] MEDS: hydrOXYzine HCL 25 MG TAB PO SCH ×8 (10:02→20:12)
[2017-11-02] MEDS: FLUTICASONE PROPIONATE NA SPR 16 GM BTL NAE SCH (10:02)
[2017-11-02] MEDS ORDERED: PHENYLEPHRINE HCL INJ 10 MG/ML VIAL ONE (11:13)
[2017-11-02] MEDS ORDERED: SODIUM CHLORIDE 0.9% INJ 10 ML VIAL ONE (11:24)
[2017-11-02] MEDS ORDERED: CEFAZOLIN SOD 1 GM VIAL ONE (11:24)
[2017-11-02] MEDS: BACITRACIN 50000 UNIT VIAL ONE ×2 (11:26→12:53)
[2017-11-02] MEDS: POVIDONE-IODINE OP SOLN 30 ML BTL ONE ×2 (11:27→12:52)
[2017-11-02] MEDS ORDERED: PHENYLEPHRINE 100MCG/ML 5ML SYR IV PRN (12:30)
[2017-11-02] MEDS ORDERED: HYDROmorphone INJ 2 MG/ML SYR/VIAL IV PRN (12:30)
[2017-11-02] MEDS ORDERED: EpHEDrine SULFATE INJ 50 MG/ML AMP IV PRN (12:30)
[2017-11-02] MEDS ORDERED: ONDANSETRON INJ 2 MG/ML 2 ML VIAL IV PRN (12:30)
[2017-11-02] MEDS ORDERED: ATROPINE SULFATE 0.1 MG/ML 5ML SYR IV PRN (12:30)
[2017-11-02] MEDS ORDERED: GLYCOPYRROLATE INJ 0.2 MG/ML VIAL ONE (12:41)
[2017-11-02] MEDS ORDERED: NEOSTIGMINE METHYLSULFATE 5 MG/5 ML SYR ONE (12:41)
--- NOTE | 2017-11-02 13:31 | [facility] Post Operative Brief Note ---
Immediate Operative Summary Operative Date Nov 02, 2017. Pre-Operative Diagnosis Left intertrochanteric periprosthetic hip fracture with subsidence of bipolar hemiarthroplasty Post-Operative Diagnosis Left intertrochanteric periprosthetic hip fracture with subsidence of bipolar hemiarthroplasty Procedure(s) Performed 1. Left Hip Revision Bipolar Hemiarthroplasty with cement and cable fixation. 2. ORIF Periprosthetic Femur fracture with cabling and cement Surgeon Dr Fernandez and Dr Garcia Museum Attendant Surgeon(s) Arvnid Box PA-C Estimated Blood Loss 300ml Findings See dict Specimens Permanent Specimen A: Explanted hardware left hip Drains HV x 2 Anesthesia GLMA Complication(s) None Disposition Recovery Room / PACU
[2017-11-02] MEDS ORDERED: CEFAZOLIN IV 1,000 MG in DEXTROSE 5% 50ML 50 ML IV SCH (13:45)
--- NOTE | 2017-11-02 14:12 | DIAGNOSTIC IMAGING REPORT ---
L HIP UNILATERAL 2 VIEWS CLINICAL HISTORY: 72 years-old Female presenting with post-op. TECHNIQUE: Frontal and crosstable lateral views of the left hip were obtained. COMPARISON: 10/31/2017. FINDINGS: There has been interval 2 cerclage wire stabilization of the periprosthetic fracture at the left intertrochanteric region. There has also suggestion of replacement of the femoral prosthetic component of the total left hip arthroplasty. Greater cement noted in the medullary cavity. Overlying surgical skin shereen and a surgical drain in place. Expected soft tissue emphysema. Heterotopic ossification noted along the greater trochanter. Visualized portion of the bony pelvis within normal limits. Mild gaseous distention of bowel. IMPRESSION: Expected postsurgical appearance status post total left hip arthroplasty revision for the intertrochanteric/periprosthetic left femoral fracture. Electronically signed by: Shamir Alejandro M.D. 11/02/2017 2:11 PM Dictated Date/Time: 11/02/2017 2:09 PM
--- NOTE | 2017-11-02 15:38 | Anesthesiology Progress Note ---
Anesthesia Post Op Note Date & Time Nov 02, 2017 at 15:38 Vital Signs Pain Intensity: 0 Vital Signs Past 12 Hours Date Time Temp Pulse Resp B/P (MAP) Pulse Ox O2 Delivery O2 Flow Rate FiO2 11/02/17 15:15 36.9 102 16 107/61 (76) 94 Nasal Cannula 2.0 11/02/17 15:00 99 20 115/55 98 Nasal Cannula 2 11/02/17 14:50 102 20 116/57 100 Nasal Cannula 2 11/02/17 14:45 105 20 139/66 94 Nasal Cannula 2 11/02/17 14:35 109 20 112/61 94 Nasal Cannula 2 11/02/17 14:25 106 20 121/60 99 Nasal Cannula 2 11/02/17 14:15 116 20 131/70 95 Nasal Cannula 2 11/02/17 14:05 36.6 107 20 140/67 92 Nasal Cannula 2 11/02/17 13:55 94 20 146/67 98 Oxymask 10 11/02/17 13:45 90 18 145/70 99 Oxymask 10 11/02/17 13:35 36.5 74 16 150/51 100 Oxymask 10 11/02/17 08:15 Room Air 11/02/17 07:42 36.9 89 18 144/72 (96) 94 Room Air Notes Mental Status: alert / awake / arousable, participated in evaluation Pt Amnestic to Procedure: Yes Nausea / Vomiting: adequately controlled Pain: adequately controlled Airway Patency, RR, SpO2: stable & adequate BP & HR: stable & adequate Hydration State: stable & adequate Anesthetic Complications: no major complications apparent
--- NOTE | 2017-11-02 15:47 | Progress Note ---
Internal Med Progress Note Date of Service: Nov 02, 2017. Provider Documentation: SUBJECTIVE: The patient was seen and examined S/P Left ORIF on 10/19/17 ,s/p fall with fracture involving the prosthesis No pain at rest No other symptoms S/P Left Hip revision surgery OBJECTIVE: Vital Signs-as noted below Exam: General-No distress at rest Remains very drowsy from the surgery Eyes-normal ENT-Normal Neck-supple Lungs-Clear to ausucltate bilaterally Heart-Regular,2/6 ESM precordial area Abdomen-Benign,no masses,bowel sound present Extremities-No edema Any movement of the left lower extremity is painful Neuro-AAOx3 Lab data as noted below. ASSESSMENT & PLAN: L PERIPROSTHETIC FRACTURE S/P::Left Hip Revision Bipolar Hemiarthroplasty with cement and cable fixation. ORIF Periprosthetic Femur fracture with cabling and cement Pt with hx L hip fracture on 10/17/17 with repair on 10/19/17 S/P Fall with new mildly displaced periprosthetic/intertrochanteric fracture within the proximal left femur. CXR: no infiltrate. Negative CT head. EKG: sinus tachy 101 Hx echo 10/2016: EF: 65-70%, moderate aortic valve sclerosis, mild tricuspid regurg, trace mitral regurg. Hx normal cardiac cath cath 2012 Caries moderate risk for surgery No contraindication for the proposed surgery Appreciate Ortho input Remains stable following the surgery Continue IVF for now LEUKOCYTOSIS Likely indued due to stress WBC: 14 tonight was 7 this am. U/A non-remarkable. Negative CXR. L hip surgical incision without erythema or discharge -pending blood cultures. -continue to monitor at this time -Gentle amount of IVF -WCC normalized -check CBC in AM ANEMIA Hx post op anemia. Hgb 7.9 on 10/21/17 & 8.0 on 10/23/17. Today Hgb: 7.6. No active bleeding. -continue iron -Type and Cross 2 units PRBC -transfuse 1 unit -Hb >8 -received in total of 2 units of PRBC CKD III Cr: 1.2 today. Previous baseline 1.4 -avoid nephrotoxic agents when able -creatinine-normalized HTN -continue lisinopril PARKINSON'S Hx psych symptoms from Parkinson's. -continue Comtan, Sinemet -continue Cymbalta, Seroquel, Remeron -no acute issue DVT PROPHYLAXIS -SCD's DISPOSITION -admit med/surg -Full Code as per discussion with family -Follows with Dr Mittal for routine care Vital Signs: Date Time Temp Pulse Resp B/P (MAP) Pulse Ox O2 Delivery O2 Flow Rate FiO2 11/02/17 15:15 36.9 102 16 107/61 (76) 94 Nasal Cannula 2.0 11/02/17 15:00 99 20 115/55 98 Nasal Cannula 2 11/02/17 14:50 102 20 116/57 100 Nasal Cannula 2 11/02/17 14:45 105 20 139/66 94 Nasal Cannula 2 11/02/17 14:35 109 20 112/61 94 Nasal Cannula 2 11/02/17 14:25 106 20 121/60 99 Nasal Cannula 2 11/02/17 14:15 116 20 131/70 95 Nasal Cannula 2 11/02/17 14:05 36.6 107 20 140/67 92 Nasal Cannula 2 11/02/17 13:55 94 20 146/67 98 Oxymask 10 11/02/17 13:45 90 18 145/70 99 Oxymask 10 11/02/17 13:35 36.5 74 16 150/51 100 Oxymask 10 11/02/17 08:15 Room Air 11/02/17 07:42 36.9 89 18 144/72 (96) 94 Room Air 11/02/17 03:25 36.6 76 16 113/65 (81) 96 Room Air 11/02/17 00:10 Room Air 11/01/17 22:56 36.5 77 16 133/79 (97) 97 Room Air 11/01/17 21:28 36.8 74 16 117/66 (83) 97 Room Air 11/01/17 20:14 36.9 78 16 115/66 (82) 94 Room Air 11/01/17 19:44 36.6 90 16 127/72 (90) 97 Room Air 11/01/17 18:39 36.7 11/01/17 18:30 36.7 91 16 145/73 (97) 98 Room Air 11/01/17 18:30 36.7 91 16 156/72 (100) 97 Room Air 11/01/17 18:24 36.4 91 16 149/80 (103) 98 Room Air 11/01/17 17:58 36.8 78 16 103/61 97 Lab Results: Results Past 24 Hours Test 11/02/17 05:37 Range/Units Sodium Level 138 136-145 mmol/L Potassium Level 4.1 3.5-5.1 mmol/L Chloride Level 106 98-107 mmol/L Carbon Dioxide Level 27 21-32 mmol/L Anion Gap 5.0 3-11 mmol/L Blood Urea Nitrogen 22 7-18 mg/dl Creatinine 0.94 0.60-1.20 mg/dl Est Creatinine Clear Calc Drug Dose 41.5 ml/min Estimated GFR () 69.3 Estimated GFR (Non- 59.8 BUN/Creatinine Ratio 23.3 10-20 Random Glucose 88 70-99 mg/dl Calcium Level 8.7 8.5-10.1 mg/dl
[2017-11-02] MEDS: SODIUM CHLORIDE 0.9% 1000ML 1,000 ML IV SCH (15:49)
--- NOTE | 2017-11-02 16:30 | OPERATIVE REPORT ---
DATE OF OPERATION: 11/02/2017 INDICATION FOR PROCEDURE: The patient is a 72-year-old female who I performed 2 weeks ago a bipolar uncemented [place] [employer] hemiarthroplasty with bipolar head for femoral neck fracture, displaced. The patient was doing well, [facility] She apparently was unsupervised got out of bed, fell and had pain in her hip and rotation of her leg and had x-rays demonstrating a periprosthetic fracture about the proximal femur. The x-rays demonstrate she has subsidence and a large split type fracture proximally goes down just below the lesser trochanter. She also has some more proximal fracturing of the greater trochanter without any significant cephalad migration. The shortening and malrotation will compromise function and healing and she may not have a stable implant, so we have to proceed with revision of the implant. PREOPERATIVE DIAGNOSIS: Left hip periprosthetic femur fracture around an uncemented bipolar hip replacement. POSTOPERATIVE DIAGNOSIS: Same. PROCEDURE: Revision bipolar hemiarthroplasty with cement fixation of the stem and cabling, ORIF of the periprosthetic femur fracture. SURGEON: Dr. Garcia and Dr. Fernandez. PATIENT ACCOUNT REPRESENTATIVE: Arvind Box PA-C ANESTHESIA: General. OPERATIVE PROCEDURE: The patient was taken to the operating room, anesthetized under general anesthetic. She was placed supine on the operating room table. She was brought down onto a sacral pad under the pelvis. A foot roll was placed under her left foot to flex her knee to 90 degrees and hip 60 degrees. The bed was placed in Trendelenburg and tilted to the right to help expose the left hip. Her shereen were removed. The left hip was then sterilely prepped and draped with Betadine scrub and paint. The patient did have 2 grams Ancef IV preop. The prior incision was used along the lateral left hip and we extended this distally about 3 cm for further exposure about the distal femur. Skin was incised sharply through the old incision which opened easily. She had a deep layer fat which was divided by down to the fascia. We removed all the subcutaneous sutures that we could identify. There were some large #2 Vicryl sutures that were used to close the fat. The fascial repair was completely intact. The Vicryl sutures in the fascial repair were all removed and the fascial repair was opened up and extended distally. We evacuated hematoma. We assessed the gluteus medius repair and this was completely intact including the vastus lateralis repair. The old sutures in the vastus lateralis, the #5 FiberWires were cut in the gluteus medius, reflected that off the bone and then there was already some early healing and healing of the capsule noted. So we had to divide the minimus, removed the deep sutures, incision to the capsule leaving the acetabular labrum intact and doing a partial capsulectomy to gain exposure to the hip joint. We did a subperiosteal dissection around the anterior femur until we entered the fracture hematoma and this was evacuated. The bone hook was placed around the prosthetic neck, we were able to dislocate the hip and then inspect the fracture. The femoral prosthetic was noted to be retroverted as it rotated least 35 degrees from its position that was in previously and it blew out the back of the femur through the fracture. There was a large fracture fragment that was attached to the iliopsoas tendon including the lesser trochanter. Then, there was a separate superior fragment that was attached to the gluteus medius and proximal abductors and this was not significantly displaced superiorly but more rotated posteriorly. The stem was not grossly loose, it was wedged in its posteriorly rotated position. We got the extraction device and the stem was removed fairly easily. We did remove the bipolar head first prior to removing the stem. Then, the fracture hematoma was irrigated out copiously and we assessed the fracture and felt this could be reduced and cabled. We placed in longitudinal traction on the femur and rotated it in appropriate position to bring some of the fragments together. We used 2 lion's jaw clamps to close the tube of the femur and reduced the main 2 large fracture fragments. Then, after holding that in place, we went ahead and placed two 2.0 mm beaded cables around the major fracture fragments. We tightened them individually and then crimped with the crimper device to lock the cables and then cut off the wires. The femur was then broached for a secure fit advanced stem. She had a very small canal, we felt that this would get purchase in the canal, the longer than the previous implant and even though suppressed the device, we felt that we should go ahead and cement this in place as there was an option for cementing the stem. We broaches up to a 5 and a 6 was too tight, so we dropped down her size to a 4 to cement this in place. We did place a cement restrictor distal to the length of the stem and was noted that this cement restrictor was even tightly going in the canal, she did have a tight isthmus area. The canal was irrigated and we used a tampon sponge to dry it and then we used Simplex G cement and cemented the stem in position, putting in at appropriate anteversion, the stem was placed previously at the previous surgery. I held the appropriate height and then held it in position until the cement cured completely. Then I irrigated copiously and then we did a trial reduction with a +0 mm 26 mm trial head and the 42 bipolar trial. Then went ahead and did a reduction and there was no shuck, she was stable to full flexion, internal rotation, adduction, extension, external rotation, no instability. We checked her leg lengths to few millimeters longer in her opposite leg; however, soft distention was normal in the abductors. The trials were then removed and then we went ahead and placed the final implant, which was the cobalt chromium 26 mm +0 head on and the 42 mm outer diameter, 26 inner diameter bipolar head. After that was placed, we reduced it again, verified stability then irrigated out the hip copiously. I then placed one #5 FiberWire sutures through the proximal greater trochanter fragment and placed a transosseous suture through the greater trochanter area that was still attached to the shaft and 2 further transosseous sutures to the shaft of greater trochanter to repair the abductors. We did a Betadine soak and we placed 2 drains out laterally and then placed those into the hip joint deep. After further irrigation, went ahead and repaired the capsule and minimus with [id number] #1 Vicryl sutures and then we repaired the medius with the Junior-Macario suture technique using the #5 FiberWires previously placed and the other #5 FiberWire was sutured tight to repair the tip of the trochanter fracture. Then, the lateral soft tissue repair performed in the medius with [id number] #2 FiberWire, the split in the medius was repaired with [id number] #1 Vicryl, the vastus lateralis split repaired with a running #1 Vicryl, the wound was irrigated and then the subcutaneous tissues were closed with large #2 Vicryls to close the space and then 2-0 Vicryl to the subcutaneous closure and then skin shereen and a Silverlon dressing. The patient had approximately 300 mL of blood loss which occurred more earlier in the procedure during the exposure and then she tolerated the procedure well without any complication noted at this time. Dr. Fernandez was my cataloging assistant and co-surgeon in the surgery, present for the entire procedure and participated in the entire procedure and Arvind Box, assisted in soft tissue retraction and he performed the outer subcutaneous and skin closure and will participate in postoperative care of the patient. I attest to the content of the Intraoperative Record and any orders documented therein. Any exception s are noted below.
[2017-11-02] MEDS: CEFAZOLIN IV 1,000 MG in SYRINGE 0 ML IV SCH (17:56)
[2017-11-02] MEDS: ASPIRIN 81 MG ECTAB PO SCH (20:02)
[2017-11-02] MEDS: DOCUSATE SODIUM/SENNA 50/8.6MG TAB PO SCH (20:13)
[2017-11-02] MEDS: MIRTAZAPINE SOLTAB 15 MG PO SCH (20:13)
[2017-11-03] VITALS (12 sets, daily range): BP systolic 91–133; BP diastolic 53–66; PULSE 76–99; TEMP 36.1–37.2; O2SAT 95–97
[2017-11-03] MEDS: CEFAZOLIN IV 1,000 MG in SYRINGE 0 ML IV SCH ×2 (01:45→12:38)
[2017-11-03] MEDS: SODIUM CHLORIDE 0.9% 1000ML 1,000 ML IV SCH ×2 (03:41→18:59)
[2017-11-03] MEDS: ACETAMINOPHEN 325 MG TAB PO PRN ×3 (03:42→13:00)
[2017-11-03 07:20] LABS: BUN/CREATININE RATIO 24.6 (10-20); CALCIUM 7.5 mg/dl (8.5-10.1); CREATININE 1.12 mg/dl (0.60-1.20); MAGNESIUM 1.7 mg/dl (1.8-2.4)
[2017-11-03 07:27] LABS: HEMATOCRIT 20.4 % (37-47); MEAN CELL VOLUME 89.5 fL (80-100); MEAN CORPUSCULAR HEMOGLOBIN 29.8 pg (25-34); MEAN CORPUSCULAR HGB CONC 33.3 g/dl (32-36); MEAN PLATELET VOLUME 8.2 fL (7.4-10.4); PLATELET COUNT 292 K/uL (130-400); RED BLOOD COUNT 2.28 M/uL (4.2-5.4); WHITE BLOOD COUNT 8.24 K/uL (4.8-10.8)
[2017-11-03] MEDS: ENTACAPONE 200 MG TAB PO SCH ×4 (08:27→22:19)
[2017-11-03] MEDS: CARBIDOPA/LEVODOPA 25/100MG TAB PO SCH ×4 (08:27→22:18)
[2017-11-03] MEDS: LISINOPRIL 10 MG TAB PO SCH (08:28)
[2017-11-03] MEDS: DULOXETINE HCL 20 MG CAP PO SCH (08:29)
[2017-11-03] MEDS: QUETIAPINE FUMARATE 25 MG TAB PO SCH ×2 (08:30→22:19)
[2017-11-03] MEDS: FERROUS SULFATE 325 MG TAB PO SCH (08:30)
[2017-11-03] MEDS: ASPIRIN 81 MG ECTAB PO SCH ×2 (08:30→22:20)
[2017-11-03] MEDS ORDERED: FUROSEMIDE INJ 20 MG in SYRINGE 0 ML IV SCH (08:30)
[2017-11-03] MEDS: hydrOXYzine HCL 25 MG TAB PO SCH ×4 (08:31→22:18)
[2017-11-03] MEDS: CEROVITE ADV FORMULA TAB PO SCH (08:39)
[2017-11-03] MEDS: ASCORBIC ACID 500 MG TAB PO SCH (08:39)
[2017-11-03] MEDS: LANSOPRAZOLE SOLUTAB 30 MG PO SCH ×2 (08:39→22:20)
[2017-11-03] MEDS: CALCIUM 600MG + VIT D 400 IU TAB PO SCH ×2 (08:39→22:20)
[2017-11-03] MEDS: FLUTICASONE PROPIONATE NA SPR 16 GM BTL NAE SCH (08:40)
--- NOTE | 2017-11-03 10:08 | Clinical Documentation Query ---
CLINICAL DOCUMENTATION QUERY 72-y/o female who suffered a right hip periprosthetic fracture after a fall. Dispute transfusions H/H continues to decline to 6.8/20.4. In your clinical opinion is this patient being managed for: ( + ) Acute blood loss anemia in setting of complicated periprosthetic fracture treated with 3 units of PRBC's. ( ) Not Agree ( ) Other explanation of clinical findings (Please Explain) ( ) Unable to determine (Please Define) ( ) Need to Discuss The medical record reflects the following clinical findings, treatment, and risk factors. Clinical Indicators: As above. Treatment: 3 units of PRBC's. Risk Factors: Long bone fracture, Noted hematomas during procedure, recent surgery both this admission and previous. Please clarify and document your clinical opinion in the progress notes and discharge summary. Terms such as "probable", "suspected", "likely", "questionable", "possible", or "still to be ruled out" are acceptable. IF IN AGREEMENT, YOU MUST DOCUMENT ABOVE DIAGNOSTIC STATEMENT IN DAILY PROGRESS NOTES AND DISCHARGE SUMMARY. This document is not part of the patient's record. Thank You, Humberto Sifuentes, RN [phone]
--- NOTE | 2017-11-03 10:45 | Orthopedic Progress Note ---
Orthopedic Progress Note Date of Service Nov 03, 2017. Subjective Post OP Day: 1 Additional Notes: Pt somnelent. Arouses to manipulation of her hip dressing and moving the LLE. Nonconversant. Generally appears to be comfortable. Objective N/V intact, hip located, capillary refill less than 2 sec., dressing C/D/I calves are soft and appear NT with no painful response on palpation. Date Time Temp Pulse Resp B/P (MAP) Pulse Ox O2 Delivery O2 Flow Rate FiO2 11/03/17 10:14 37.0 80 16 104/63 96 11/03/17 09:45 37.2 76 18 95/54 96 11/03/17 09:30 36.8 83 16 91/57 11/03/17 09:15 36.7 81 16 126/56 11/03/17 08:54 36.1 81 18 127/64 11/03/17 07:20 Room Air 11/03/17 07:00 36.7 81 16 114/58 (76) 97 Room Air 11/03/17 06:21 99 102/55 (71) 97 Room Air 11/03/17 03:35 36.6 99 16 125/60 (81) 97 Room Air 11/02/17 23:30 Room Air 11/02/17 22:46 37.4 100 16 129/68 (88) 94 Room Air 11/02/17 20:01 36.6 103 15 118/54 (75) 93 Nasal Cannula 3.0 11/02/17 18:26 36.3 103 15 107/53 (71) 93 Room Air 11/02/17 17:36 36.7 101 16 126/70 (88) 92 Room Air 11/02/17 16:19 36.8 98 20 124/68 (86) 99 Nasal Cannula 2.0 11/02/17 15:46 36.8 97 15 105/63 (77) 99 Nasal Cannula 2.0 11/02/17 15:15 36.9 102 16 107/61 (76) 94 Nasal Cannula 2.0 11/02/17 15:15 Nasal Cannula 2.0 11/02/17 15:15 Nasal Cannula 2.0 11/02/17 15:00 99 20 115/55 98 Nasal Cannula 2 11/02/17 14:50 102 20 116/57 100 Nasal Cannula 2 11/02/17 14:45 105 20 139/66 94 Nasal Cannula 2 11/02/17 14:35 109 20 112/61 94 Nasal Cannula 2 11/02/17 14:25 106 20 121/60 99 Nasal Cannula 2 11/02/17 14:15 116 20 131/70 95 Nasal Cannula 2 11/02/17 14:05 36.6 107 20 140/67 92 Nasal Cannula 2 11/02/17 13:55 94 20 146/67 98 Oxymask 10 11/02/17 13:45 90 18 145/70 99 Oxymask 10 11/02/17 13:35 36.5 74 16 150/51 100 Oxymask 10 Laboratory Results 24 Hours: Test 11/03/17 06:14 Hematocrit 20.4 % Hemoglobin 6.8 g/dL Assessment & Plan Assessment: POD 1 s/p ORIF L Proximal Femur with Revision of L Hemiarthroplasty Left hip periprosthetic hip fx 13 days s/p left hip hemiarthroplasty performed for a displaced left femoral neck fx. Acute Blood Loss Anemia likely from surgery Plan: OOB as able; WBAT/PT with walker if able RICKI precautions DVT Prophylaxis Pain management Discharge Planning Discharge Planning: uncertain
--- NOTE | 2017-11-03 16:07 | Progress Note ---
Internal Med Progress Note Date of Service: Nov 03, 2017. Provider Documentation: SUBJECTIVE: The patient was seen and examined S/P Left ORIF on 10/19/17 ,s/p fall with fracture involving the prosthesis No pain at rest No other symptoms S/P Left Hip revision surgery 11/02/17 Remains very weak today -but denies any symptoms OBJECTIVE: Vital Signs-as noted below Exam: General-No distress at rest Remains very drowsy Eyes-normal ENT-Normal Neck-supple Lungs-Clear to ausucltate bilaterally Heart-Regular,2/6 ESM precordial area Abdomen-Benign,no masses,bowel sound present Extremities-No edema Any movement of the left lower extremity is painful Neuro-AAOx3 Lab data as noted below. ASSESSMENT & PLAN: L PERIPROSTHETIC FRACTURE S/P::Left Hip Revision Bipolar Hemiarthroplasty with cement and cable fixation. ORIF Periprosthetic Femur fracture with cabling and cement Pt with hx L hip fracture on 10/17/17 with repair on 10/19/17 S/P Fall with new mildly displaced periprosthetic/intertrochanteric fracture within the proximal left femur. CXR: no infiltrate. Negative CT head. EKG: sinus tachy 101 Hx echo 10/2016: EF: 65-70%, moderate aortic valve sclerosis, mild tricuspid regurg, trace mitral regurg. Hx normal cardiac cath cath 2012 Caries moderate risk for surgery No contraindication for the proposed surgery Appreciate Ortho input Remains stable following the surgery Continue IVF for now LEUKOCYTOSIS Likely indued due to stress WBC: 14 tonight was 7 this am. U/A non-remarkable. Negative CXR. L hip surgical incision without erythema or discharge -pending blood cultures. -continue to monitor at this time -Gentle amount of IVF -WCC normalized -check CBC in AM-went down <7.0 -received i unit of PRBC this morning ANEMIA Hx post op anemia. Hgb 7.9 on 10/21/17 & 8.0 on 10/23/17. Today Hgb: 7.6. No active bleeding. -continue iron -received in total of 3 units of PRBC -Check CBC in AM CKD III Cr: 1.2 today. Previous baseline 1.4 -avoid nephrotoxic agents when able -creatinine-normalized HTN -continue lisinopril PARKINSON'S Hx psych symptoms from Parkinson's. -continue Comtan, Sinemet -continue Cymbalta, Seroquel, Remeron -no acute issue DVT PROPHYLAXIS -on Aspirin now -As per ortho DISPOSITION -admit med/surg -Full Code as per discussion with family -Follows with Dr Mittal for routine care -discussed with the and Daughter Vital Signs: Date Time Temp Pulse Resp B/P (MAP) Pulse Ox O2 Delivery O2 Flow Rate FiO2 11/03/17 15:35 36.4 82 16 93/53 (66) 95 Room Air 11/03/17 12:22 36.4 88 18 133/66 95 11/03/17 10:41 36.7 80 16 100/60 11/03/17 10:14 37.0 80 16 104/63 96 11/03/17 09:45 37.2 76 18 95/54 96 11/03/17 09:30 36.8 83 16 91/57 11/03/17 09:15 36.7 81 16 126/56 11/03/17 08:54 36.1 81 18 127/64 11/03/17 07:20 Room Air 11/03/17 07:00 36.7 81 16 114/58 (76) 97 Room Air 11/03/17 06:21 99 102/55 (71) 97 Room Air 11/03/17 03:35 36.6 99 16 125/60 (81) 97 Room Air 11/02/17 23:30 Room Air 11/02/17 22:46 37.4 100 16 129/68 (88) 94 Room Air 11/02/17 20:01 36.6 103 15 118/54 (75) 93 Nasal Cannula 3.0 11/02/17 18:26 36.3 103 15 107/53 (71) 93 Room Air 11/02/17 17:36 36.7 101 16 126/70 (88) 92 Room Air 11/02/17 16:19 36.8 98 20 124/68 (86) 99 Nasal Cannula 2.0 Lab Results: Results Past 24 Hours Test 11/03/17 06:14 Range/Units White Blood Count 8.24 4.8-10.8 K/uL Red Blood Count 2.28 4.2-5.4 M/uL Hemoglobin 6.8 12.0-16.0 g/dL Hematocrit 20.4 37-47 % Mean Corpuscular Volume 89.5 80-100 fL Mean Corpuscular Hemoglobin 29.8 25-34 pg Mean Corpuscular Hemoglobin Concent 33.3 32-36 g/dl RDW Standard Deviation 50.9 36.4-46.3 fL RDW Coefficient of Variation 15.9 11.5-14.5 % Platelet Count 292 130-400 K/uL Mean Platelet Volume 8.2 7.4-10.4 fL Sodium Level 137 136-145 mmol/L Potassium Level 4.0 3.5-5.1 mmol/L Chloride Level 107 98-107 mmol/L Carbon Dioxide Level 23 21-32 mmol/L Anion Gap 7.0 3-11 mmol/L Blood Urea Nitrogen 28 7-18 mg/dl Creatinine 1.12 0.60-1.20 mg/dl Est Creatinine Clear Calc Drug Dose 34.9 ml/min Estimated GFR () 56.0 Estimated GFR (Non- 48.4 BUN/Creatinine Ratio 24.6 10-20 Random Glucose 94 70-99 mg/dl Calcium Level 7.5 8.5-10.1 mg/dl Magnesium Level 1.7 1.8-2.4 mg/dl
[2017-11-03] MEDS: DOCUSATE SODIUM/SENNA 50/8.6MG TAB PO SCH (22:18)
[2017-11-03] MEDS: MIRTAZAPINE SOLTAB 15 MG PO SCH (22:19)
[2017-11-04 07:25] VITALS: BP 112/53; PULSE 73; TEMP 37.2; O2SAT 98
--- NOTE | 2017-11-04 07:54 | Orthopedic Progress Note ---
Orthopedic Progress Note Date of Service Nov 04, 2017. Subjective Post OP Day: 2 Additional Notes: Pt resting quietly. Nonverbal. Appears comfortable. Arouses with stimulation. Objective N/V intact, dressing C/D/I calves soft, appear NT. Date Time Temp Pulse Resp B/P (MAP) Pulse Ox O2 Delivery O2 Flow Rate FiO2 11/03/17 23:21 36.7 80 16 92/56 (68) 96 Room Air 11/03/17 23:20 Room Air 11/03/17 16:36 Room Air 11/03/17 15:35 36.4 82 16 93/53 (66) 95 Room Air 11/03/17 12:22 36.4 88 18 133/66 95 11/03/17 10:41 36.7 80 16 100/60 11/03/17 10:14 37.0 80 16 104/63 96 11/03/17 09:45 37.2 76 18 95/54 96 11/03/17 09:30 36.8 83 16 91/57 11/03/17 09:15 36.7 81 16 126/56 11/03/17 08:54 36.1 81 18 127/64 Laboratory Results 24 Hours: Test 11/04/17 04:44 Assessment & Plan Assessment: POD 2 s/p ORIF L Proximal Femur with Revision of L Hemiarthroplasty Left hip periprosthetic hip fx 13 days s/p left hip hemiarthroplasty performed for a displaced left femoral neck fx. Acute Blood Loss Anemia likely from surgery Plan: DC drain today. OOB as able; WBAT/PT with walker if able RICKI precautions DVT Prophylaxis Pain management Discharge Planning Discharge Planning: uncertain
[2017-11-04] MEDS: CALCIUM 600MG + VIT D 400 IU TAB PO SCH ×2 (08:23→21:32)
[2017-11-04] MEDS: ASPIRIN 81 MG ECTAB PO SCH ×2 (08:23→21:30)
[2017-11-04] MEDS: hydrOXYzine HCL 25 MG TAB PO SCH ×4 (08:23→21:33)
[2017-11-04] MEDS: DULOXETINE HCL 20 MG CAP PO SCH (08:24)
[2017-11-04] MEDS: FERROUS SULFATE 325 MG TAB PO SCH (08:24)
[2017-11-04] MEDS: ASCORBIC ACID 500 MG TAB PO SCH (08:24)
[2017-11-04] MEDS: QUETIAPINE FUMARATE 25 MG TAB PO SCH ×2 (08:24→21:32)
[2017-11-04] MEDS: LANSOPRAZOLE SOLUTAB 30 MG PO SCH ×2 (08:24→21:26)
[2017-11-04] MEDS: ENTACAPONE 200 MG TAB PO SCH ×4 (08:24→21:29)
[2017-11-04] MEDS: CEROVITE ADV FORMULA TAB PO SCH (08:24)
[2017-11-04] MEDS: CARBIDOPA/LEVODOPA 25/100MG TAB PO SCH ×4 (08:25→21:29)
[2017-11-04] MEDS: FLUTICASONE PROPIONATE NA SPR 16 GM BTL NAE SCH (08:25)
[2017-11-04] MEDS: LISINOPRIL 10 MG TAB PO SCH (08:25)
[2017-11-04 09:06] LABS: HEMATOCRIT 22.3 % (37-47); MEAN CELL VOLUME 87.8 fL (80-100); MEAN CORPUSCULAR HEMOGLOBIN 29.9 pg (25-34); MEAN CORPUSCULAR HGB CONC 34.1 g/dl (32-36); MEAN PLATELET VOLUME 8.3 fL (7.4-10.4); PLATELET COUNT 247 K/uL (130-400); RED BLOOD COUNT 2.54 M/uL (4.2-5.4); WHITE BLOOD COUNT 6.39 K/uL (4.8-10.8)
[2017-11-04 09:28] LABS: BUN/CREATININE RATIO 28.4 (10-20); CALCIUM 7.8 mg/dl (8.5-10.1); CREATININE 0.85 mg/dl (0.60-1.20); POTASSIUM 3.8 mmol/L (3.5-5.1)
[2017-11-04] MEDS: SODIUM CHLORIDE 0.9% 1000ML 1,000 ML IV SCH ×2 (11:49→21:05)
[2017-11-04] MEDS: ACETAMINOPHEN 325 MG TAB PO PRN ×2 (12:26→16:59)
--- NOTE | 2017-11-04 14:27 | Consultant Recommendations ---
Reservations Specialist Recommendations Date of Service Nov 04, 2017. Reservations Specialist Recommendations ACTIVITY RECOMMENDATIONS: SELF CARE INSTRUCTIONS AFTER HIP HEMIARTHROPLASTY Until the incision and soft tissues around your hip have healed, there is a possibility that the hip prosthesis could dislocate. A. Observe the following precautions to prevent dislocation: 1. Don't bend your hip greater than 90 degrees. 2. Avoid crossing your legs or ankles while standing or lying. 3. Sit with your feet placed 6 inches apart. 4. When sitting, keep your knees below your hips. Sit on a firm surface, avoid deep, soft chairs and couches. Use an elevated toilet seat in the bathroom. 5. Don't bend over at the waist. Use a long handled shoehorn and a sock aid to help you put on your shoes and socks. A home stereo equipment installer can help you tack picker objects that are too high or too low to reach. 6. Keep car riding to a minimum for at least one month after surgery. B. Your balance may be shaky for a while. Use crutches or a walker until directed by your doctor. C. Use hand rails when walking on stairs. D. Wear low heeled shoes with non-slip soles. E. Be sure that your floors are free of things that could trip you - throw rugs , electrical cords, small objects. Avoid wet and waxed floors, especially with crutches and canes. F. Try to walk several times a day with rest periods between. G. Continue with all the exercises taught to you in the hospital. Again, make walking a part of your daily routine. SPECIAL CARE INSTRUCTIONS: VERY IMPORTANT TO READ AND REVIEW A. You may still be at risk for phlebitis and blood clots. 1. Wear surgical stockings (JUAN ALBERTO hose) for 2 weeks after surgery to improve circulation and reduce swelling. 2. Take Aspirin 81mg twice daily for 4 weeks or as directed by your doctor. This is your blood thinner. 3. High risk patients may be prescribed a stronger blood thinner if necessary. 4. If you are on Coumadin normally, your family doctor/broadcast supervisor should monitor your blood work. Expect a phone call the day of or the day after bloodwork is drawn to adjust your dosage. B. You must take antibiotics before having dental work, bladder, bowel and other surgery. Your doctor will provide you with a permanent card to carry describing precautions. C. Call [facility] if you have a fever, redness or swelling around the incision, cloudy drainage from incision, or sudden increase in pain in your hip, not relieved by your regular pain medication. D. Please call the office at if you have any concerns or questions about your operation or recovery. * NO SHOWERING WITH CURRENT CONFIGURATION OF SILVERLON DRESSING. YOU MAY SHOWER ONCE DRESSING IS REMOVED. * WEAR JUAN ALBERTO HOSE 20 HOURS PER DAY FOR 2 WEEKS. * YOU SHOULD USE A WALKER OR CRUTCHES FOR 2-4 WEEKS. THIS WILL HELP PREVENT STRAIN ON YOUR HIP MUSCLE AND ALLOW IT TO HEAL PROPERLY. YOU MAY WEAN TO A CANE TOLERATED. * MOST PATIENTS WILL HAVE HOME NURSING FOR THERAPY. IF YOU DECIDE TO DO OUTPATIENT PHYSICAL THERAPY, PLEASE SCHEDULE THIS 3 TIMES PER WEEK. * YOU MAY HAVE A LARGE, BAND-AID LIKE DRESSING (SILVERON). THIS WILL REMAIN ON YOUR INCISION FOR 7 DAYS, THEN CAN BE REMOVED. IF INCISION IS LEAKING THROUGH DRESSING, PLEASE CALL THE OFFICE . IF YOU HAVE A REGULAR GAUZE DRESSING, CHANGE DAILY. FOLLOW UP VISIT: If appointment is not already scheduled: Please call [facility] to make a follow-up appointment for 2 weeks after your surgery at .
[2017-11-04 15:54] VITALS: BP 110/61; PULSE 77; TEMP 36.6; O2SAT 97
--- NOTE | 2017-11-04 18:12 | Progress Note ---
Internal Med Progress Note Date of Service: Nov 04, 2017. Provider Documentation: SUBJECTIVE: Seen and examined at bedside Reports nausea and some leg pain Denies chest pain, SOB, dizziness Mendez discontinued today OBJECTIVE: Vital Signs-as noted below Physical Exam: General Appearance:Thin, no apparent distress Head: normocephalic, Atraumatic Eyes: normal inspection, EOMI, PERRL Neck: supple, Trachea midline Respiratory/Chest: Normal breath sounds, CTA Cardiovascular: S1, S2, + systolic murmur Abdomen/GI:Soft, Non tender, Bowel sounds present Extremities/Musculoskelatal:normal inspection, no edema, Left hip surgical site in bandage Neurologic/Psych:grossly no focal neurological deficits Skin: normal color, warm Lab data as noted below. ASSESSMENT & PLAN: L PERIPROSTHETIC FRACTURE S/P::Left Hip Revision Bipolar Hemiarthroplasty with cement and cable fixation. ORIF Periprosthetic Femur fracture with cabling and cement Pt with hx L hip fracture on 10/17/17 with repair on 10/19/17 S/P Fall with new mildly displaced periprosthetic/intertrochanteric fracture within the proximal left femur. CXR: no infiltrate. Negative CT head. EKG: sinus tachy Hx echo 10/2016: EF: 65-70%, moderate aortic valve sclerosis, mild tricuspid regurg, trace mitral regurg. Hx normal cardiac cath cath 2013 Appreciate Ortho input Continue IVF secondary to decreased Urine Output Drain discontinued Pain control LEUKOCYTOSIS Likely indued due to stress Resolved Negative CXR. L hip surgical incision without erythema or discharge Blood cultures: No growth to date ANEMIA Hx post op anemia. No active bleeding. Hb:7.6 today continue iron S/P 3 units of PRBC Monitor CBC CKD III Cr at baseline avoid nephrotoxic agents when able HTN continue lisinopril PARKINSON'S Hx psych symptoms from Parkinson's. continue Comtan, Sinemet continue Cymbalta, Seroquel, Remeron no acute issue DVT Px: on Aspirin now As per ortho DISPOSITION Needs Rehab placement Code Status: Full Code Follows with Dr Mittal for routine care Vital Signs: Date Time Temp Pulse Resp B/P (MAP) Pulse Ox O2 Delivery O2 Flow Rate FiO2 11/04/17 16:44 Room Air 11/04/17 15:54 36.6 77 16 110/61 (77) 97 Room Air 11/04/17 07:25 37.2 73 15 112/53 (72) 98 Room Air 11/04/17 07:20 Room Air 11/03/17 23:21 36.7 80 16 92/56 (68) 96 Room Air 11/03/17 23:20 Room Air Lab Results: Results Past 24 Hours Test 11/04/17 08:18 Range/Units White Blood Count 6.39 4.8-10.8 K/uL Red Blood Count 2.54 4.2-5.4 M/uL Hemoglobin 7.6 12.0-16.0 g/dL Hematocrit 22.3 37-47 % Mean Corpuscular Volume 87.8 80-100 fL Mean Corpuscular Hemoglobin 29.9 25-34 pg Mean Corpuscular Hemoglobin Concent 34.1 32-36 g/dl RDW Standard Deviation 53.5 36.4-46.3 fL RDW Coefficient of Variation 17.0 11.5-14.5 % Platelet Count 247 130-400 K/uL Mean Platelet Volume 8.3 7.4-10.4 fL Sodium Level 141 136-145 mmol/L Potassium Level 3.8 3.5-5.1 mmol/L Chloride Level 110 98-107 mmol/L Carbon Dioxide Level 26 21-32 mmol/L Anion Gap 6.0 3-11 mmol/L Blood Urea Nitrogen 24 7-18 mg/dl Creatinine 0.85 0.60-1.20 mg/dl Est Creatinine Clear Calc Drug Dose 45.9 ml/min Estimated GFR () 78.2 Estimated GFR (Non- 67.5 BUN/Creatinine Ratio 28.4 10-20 Random Glucose 106 70-99 mg/dl Calcium Level 7.8 8.5-10.1 mg/dl
[2017-11-04] MEDS: DOCUSATE SODIUM/SENNA 50/8.6MG TAB PO SCH ×2 (21:29→22:22)
[2017-11-04] MEDS: MIRTAZAPINE SOLTAB 15 MG PO SCH (21:33)
[2017-11-04 23:52] VITALS: BP 107/64; PULSE 77; TEMP 36.7; O2SAT 97
[2017-11-05] MEDS: SODIUM CHLORIDE 0.9% 1000ML 1,000 ML IV SCH ×2 (01:01→14:04)
[2017-11-05 07:49] VITALS: BP 116/66; PULSE 78; TEMP 36.7; O2SAT 97
[2017-11-05 08:20] LABS: HEMATOCRIT 23.3 % (37-47); MEAN CELL VOLUME 88.9 fL (80-100); MEAN CORPUSCULAR HEMOGLOBIN 29.8 pg (25-34); MEAN CORPUSCULAR HGB CONC 33.5 g/dl (32-36); MEAN PLATELET VOLUME 8.4 fL (7.4-10.4); PLATELET COUNT 258 K/uL (130-400); RED BLOOD COUNT 2.62 M/uL (4.2-5.4); WHITE BLOOD COUNT 5.51 K/uL (4.8-10.8)
[2017-11-05] MEDS: ACETAMINOPHEN 325 MG TAB PO PRN (08:40)
[2017-11-05] MEDS: FLUTICASONE PROPIONATE NA SPR 16 GM BTL NAE SCH (08:41)
[2017-11-05] MEDS: CEROVITE ADV FORMULA TAB PO SCH (08:41)
[2017-11-05] MEDS: hydrOXYzine HCL 25 MG TAB PO SCH ×4 (08:41→19:49)
[2017-11-05] MEDS: QUETIAPINE FUMARATE 25 MG TAB PO SCH ×2 (08:41→21:18)
[2017-11-05] MEDS: CARBIDOPA/LEVODOPA 25/100MG TAB PO SCH ×4 (08:42→21:15)
[2017-11-05] MEDS: DULOXETINE HCL 20 MG CAP PO SCH (08:42)
[2017-11-05] MEDS: LANSOPRAZOLE SOLUTAB 30 MG PO SCH ×2 (08:42→21:15)
[2017-11-05] MEDS: ENTACAPONE 200 MG TAB PO SCH ×4 (08:42→19:49)
[2017-11-05] MEDS: ASPIRIN 81 MG ECTAB PO SCH ×2 (08:42→21:18)
[2017-11-05] MEDS: ASCORBIC ACID 500 MG TAB PO SCH (08:43)
[2017-11-05] MEDS: LISINOPRIL 10 MG TAB PO SCH (08:43)
[2017-11-05] MEDS: CALCIUM 600MG + VIT D 400 IU TAB PO SCH ×2 (08:43→21:17)
[2017-11-05] MEDS: FERROUS SULFATE 325 MG TAB PO SCH (08:43)
[2017-11-05 08:47] LABS: BUN/CREATININE RATIO 26.5 (10-20); CALCIUM 8.2 mg/dl (8.5-10.1); CREATININE 0.73 mg/dl (0.60-1.20); MAGNESIUM 1.9 mg/dl (1.8-2.4); POTASSIUM 4.3 mmol/L (3.5-5.1)
--- NOTE | 2017-11-05 13:10 | Orthopedic Progress Note ---
Orthopedic Progress Note Date of Service Nov 05, 2017. Subjective Post OP Day: 3 Objective calves soft nontender, N/V intact, dressing C/D/I, A&O x3, toes mobile Date Time Temp Pulse Resp B/P (MAP) Pulse Ox O2 Delivery O2 Flow Rate FiO2 11/05/17 08:00 Room Air 11/05/17 07:49 36.7 78 16 116/66 (83) 97 Room Air 11/04/17 23:52 36.7 77 18 107/64 (78) 97 Room Air 11/04/17 23:28 Room Air 11/04/17 16:44 Room Air 11/04/17 15:54 36.6 77 16 110/61 (77) 97 Room Air Laboratory Results 24 Hours: Test 11/05/17 07:41 Hematocrit 23.3 % Hemoglobin 7.8 g/dL Assessment & Plan Assessment: POD 3 s/p ORIF L Proximal Femur with Revision of L Hemiarthroplasty Left hip periprosthetic hip fx Acute Blood Loss Anemia likely from surgery Plan: OOB as able; WBAT/PT with walker if able RICKI precautions DVT Prophylaxis Pain management Ortho will sign off for now. Instructions placed in EMR. Please call with any questions. Discharge Planning Discharge Planning: uncertain
[2017-11-05 15:34] VITALS: BP 127/68; PULSE 91; TEMP 36.4; O2SAT 97
[2017-11-05] MEDS: HYDROmorphone INJ 0.5 MG/0.5 ML SYR IV PRN (15:57)
[2017-11-05 16:00] VITALS: O2SAT 97
--- NOTE | 2017-11-05 17:25 | Progress Note ---
Internal Med Progress Note Date of Service: Nov 05, 2017. Provider Documentation: SUBJECTIVE: Seen and examined at bedside Poor appetite Reports left leg pain Denies chest pain, SOB, dizziness Family at bedside No new complaints OBJECTIVE: Vital Signs-as noted below Physical Exam: General Appearance:Thin, no apparent distress Head: normocephalic, Atraumatic Eyes: normal inspection, EOMI, PERRL Neck: supple, Trachea midline Respiratory/Chest: Normal breath sounds, CTA Cardiovascular: S1, S2, + systolic murmur Abdomen/GI:Soft, Non tender, Bowel sounds present Extremities/Musculoskelatal:normal inspection, no edema, Left hip surgical site in bandage Neurologic/Psych:grossly no focal neurological deficits Skin: normal color, warm Lab data as noted below. ASSESSMENT & PLAN: L PERIPROSTHETIC FRACTURE S/P::Left Hip Revision Bipolar Hemiarthroplasty with cement and cable fixation. ORIF Periprosthetic Femur fracture with cabling and cement Pt with hx L hip fracture on 10/17/17 with repair on 10/19/17 S/P Fall with new mildly displaced periprosthetic/intertrochanteric fracture within the proximal left femur. CXR: no infiltrate. Negative CT head. EKG: sinus tachy Hx echo 10/2016: EF: 65-70%, moderate aortic valve sclerosis, mild tricuspid regurg, trace mitral regurg. Hx normal cardiac cath cath 2012 Continue IVF secondary to decreased Urine Output and Poor oral intake Drain discontinued Pain control Appreciate Ortho input LEUKOCYTOSIS Likely indued due to stress Resolved Negative CXR. L hip surgical incision without erythema or discharge Blood cultures: No growth to date ANEMIA Hx post op anemia. No active bleeding. Hb:7.8 today continue iron S/P 3 units of PRBC Monitor CBC CKD III Cr at baseline avoid nephrotoxic agents when able HTN continue lisinopril PARKINSON'S Hx psych symptoms from Parkinson's. continue Comtan, Sinemet continue Cymbalta, Seroquel, Remeron no acute issue DVT Px: on Aspirin now As per ortho DISPOSITION Plan to discharge to Rehab tomorrow if stable Code Status: Full Code Follows with Dr Mittal for routine care Vital Signs: Date Time Temp Pulse Resp B/P (MAP) Pulse Ox O2 Delivery O2 Flow Rate FiO2 11/05/17 15:34 36.4 91 15 127/68 (87) 97 Room Air 11/05/17 08:00 Room Air 11/05/17 07:49 36.7 78 16 116/66 (83) 97 Room Air 11/04/17 23:52 36.7 77 18 107/64 (78) 97 Room Air 11/04/17 23:28 Room Air Lab Results: Results Past 24 Hours Test 11/05/17 07:41 Range/Units White Blood Count 5.51 4.8-10.8 K/uL Red Blood Count 2.62 4.2-5.4 M/uL Hemoglobin 7.8 12.0-16.0 g/dL Hematocrit 23.3 37-47 % Mean Corpuscular Volume 88.9 80-100 fL Mean Corpuscular Hemoglobin 29.8 25-34 pg Mean Corpuscular Hemoglobin Concent 33.5 32-36 g/dl RDW Standard Deviation 53.3 36.4-46.3 fL RDW Coefficient of Variation 16.7 11.5-14.5 % Platelet Count 258 130-400 K/uL Mean Platelet Volume 8.4 7.4-10.4 fL Sodium Level 141 136-145 mmol/L Potassium Level 4.3 3.5-5.1 mmol/L Chloride Level 112 98-107 mmol/L Carbon Dioxide Level 24 21-32 mmol/L Anion Gap 5.0 3-11 mmol/L Blood Urea Nitrogen 19 7-18 mg/dl Creatinine 0.73 0.60-1.20 mg/dl Est Creatinine Clear Calc Drug Dose 53.5 ml/min Estimated GFR () 94.0 Estimated GFR (Non- 81.1 BUN/Creatinine Ratio 26.5 10-20 Random Glucose 85 70-99 mg/dl Calcium Level 8.2 8.5-10.1 mg/dl Magnesium Level 1.9 1.8-2.4 mg/dl
[2017-11-05] MEDS: DOCUSATE SODIUM/SENNA 50/8.6MG TAB PO SCH (21:00)
[2017-11-05] MEDS: BOOST VANILLA PO SCH ×2 (21:00)
[2017-11-05] MEDS: MIRTAZAPINE SOLTAB 15 MG PO SCH (21:15)
[2017-11-05] MEDS ORDERED: NURSING VERBAL MED ORDER ONE (23:30)
[2017-11-05 23:46] VITALS: BP 125/64; PULSE 77; TEMP 36.9; O2SAT 97
[2017-11-06] MEDS: SODIUM CHLORIDE 0.9% 1000ML 1,000 ML IV SCH (03:19)
[2017-11-06 07:51] VITALS: BP 144/72; PULSE 83; TEMP 36.5; O2SAT 99
[2017-11-06] MEDS: FLUTICASONE PROPIONATE NA SPR 16 GM BTL NAE SCH (08:37)
[2017-11-06] MEDS: ACETAMINOPHEN 325 MG TAB PO PRN (08:37)
[2017-11-06] MEDS: BOOST VANILLA PO SCH ×2 (08:38)
[2017-11-06] MEDS: DULOXETINE HCL 20 MG CAP PO SCH (08:38)
[2017-11-06] MEDS: ASPIRIN 81 MG ECTAB PO SCH (08:38)
[2017-11-06] MEDS: hydrOXYzine HCL 25 MG TAB PO SCH ×2 (08:38→12:53)
[2017-11-06] MEDS: QUETIAPINE FUMARATE 25 MG TAB PO SCH (08:39)
[2017-11-06] MEDS: ASCORBIC ACID 500 MG TAB PO SCH (08:39)
[2017-11-06] MEDS: LISINOPRIL 10 MG TAB PO SCH (08:39)
[2017-11-06] MEDS: ENTACAPONE 200 MG TAB PO SCH ×2 (08:39→12:53)
[2017-11-06] MEDS: CARBIDOPA/LEVODOPA 25/100MG TAB PO SCH ×2 (08:40→12:53)
[2017-11-06] MEDS: CALCIUM 600MG + VIT D 400 IU TAB PO SCH (08:40)
[2017-11-06] MEDS: CEROVITE ADV FORMULA TAB PO SCH (08:40)
[2017-11-06] MEDS: LANSOPRAZOLE SOLUTAB 30 MG PO SCH (08:40)
[2017-11-06] MEDS: FERROUS SULFATE 325 MG TAB PO SCH (08:40)
--- NOTE | 2017-11-06 08:50 | Progress Note ---
Internal Med Progress Note Date of Service: Nov 06, 2017. Provider Documentation: SUBJECTIVE: Seen and examined at bedside left leg pain is controlled Denies chest pain, SOB, dizziness No new complaints Planned to be discharged to Rehab facility today OBJECTIVE: Vital Signs-as noted below Physical Exam: General Appearance:Thin, no apparent distress Head: normocephalic, Atraumatic Eyes: normal inspection, EOMI, PERRL Neck: supple, Trachea midline Respiratory/Chest: Normal breath sounds, CTA Cardiovascular: S1, S2, + systolic murmur Abdomen/GI:Soft, Non tender, Bowel sounds present Extremities/Musculoskelatal:normal inspection, no edema, Left hip surgical site in bandage Neurologic/Psych:grossly no focal neurological deficits Skin: normal color, warm Lab data as noted below. ASSESSMENT & PLAN: L PERIPROSTHETIC FRACTURE S/P::Left Hip Revision Bipolar Hemiarthroplasty with cement and cable fixation. ORIF Periprosthetic Femur fracture with cabling and cement Pt with hx L hip fracture on 10/17/17 with repair on 10/19/17 S/P Fall with new mildly displaced periprosthetic/intertrochanteric fracture within the proximal left femur. CXR: no infiltrate. Negative CT head. EKG: sinus tachy Hx echo 10/2016: EF: 65-70%, moderate aortic valve sclerosis, mild tricuspid regurg, trace mitral regurg. Hx normal cardiac cath cath 2012 Continue IVF secondary to decreased Urine Output and Poor oral intake Drain discontinued Pain control Appreciate Ortho input Needs follow up with Orthopedics in 2 weeks LEUKOCYTOSIS Likely indued due to stress Resolved Negative CXR. L hip surgical incision without erythema or discharge Blood cultures: No growth to date ANEMIA Hx post op anemia. No active bleeding. Hb:7.8 continue iron S/P 3 units of PRBC Monitor CBC CKD III Cr at baseline avoid nephrotoxic agents when able HTN continue lisinopril PARKINSON'S Hx psych symptoms from Parkinson's. continue Comtan, Sinemet continue Cymbalta, Seroquel, Remeron no acute issue DVT Px: on Aspirin now As per ortho DISPOSITION Plan to discharge to Rehab today Code Status: Full Code Follow up with your Orthopedic Surgeon in 2 weeks as advised Please call [facility] [place] to make a follow-up appointment at . Follows with Dr Joiner for routine care in 1 week after being discharged from Rehab Facility Seek immediate medical attention if your symptoms reoccur or worsen Vital Signs: Date Time Temp Pulse Resp B/P (MAP) Pulse Ox O2 Delivery O2 Flow Rate FiO2 11/06/17 07:51 36.5 83 16 144/72 (96) 99 Room Air 11/05/17 23:46 36.9 77 17 125/64 (84) 97 Room Air 11/05/17 19:40 Room Air 11/05/17 16:00 97 Room Air 11/05/17 15:34 36.4 91 15 127/68 (87) 97 Room Air Lab Results: Results Past 24 Hours Test 11/06/17 08:23 Range/Units
[2017-11-06] MEDS ORDERED: SENN8.6T7 PO (08:56)
--- NOTE | 2017-11-06 09:00 | Discharge Summary ---
Discharge Summary Date of Service Nov 06, 2017. Discharge Summary Admission Date: Oct 31, 2017 at 18:06 Discharge Date: Nov 06, 2017 Discharge Disposition: Rehab Principal Diagnosis: L PERIPROSTHETIC FRACTURE S/P::Left Hip Revision Bipolar Hemiarthroplasty Procedures: Pelvic X ray: There is a new mildly displaced periprosthetic/intertrochanteric fracture within the proximal left femur. CT Head: No acute intracranial abnormality. CXR: No acute cardiopulmonary findings CT C-spine: No acute osseous injury of the cervical spine. L Hip CT: Subtrochanteric obliquely oriented periprosthetic fracture without significant displacement of the total left hip arthroplasty prosthesis. 7 mm of diastases at the fracture plane. Consultations: Orthopedics Pending Studies/Follow-Up: Follow up with your Orthopedic Surgeon in 2 weeks as advised Please call [facility] to make a follow-up appointment at . Follows with Dr Joiner for routine care in 1 week after being discharged from Rehab Facility Seek immediate medical attention if your symptoms reoccur or worsen Medication Reconciliation New Medications: Sennosides-Docusate Sodium (Senokot S) 1 Tab Tab 2 TAB PO HS for 10 Days, #10 TAB Continued Medications: Acetaminophen (Tylenol Extra Strength) 500 Mg Tab 500 MG PO Q4H PRN for Pain for 30 Days Artificial Saliva (Mouthkote) 1 Rissa Rissa 2 SPRAYS BU DAILY PRN for DRY MOUTH Ascorbic Acid (Ascorbic Acid) 500 Mg Tab 500 MG PO DAILY, TAB Aspirin Buffered (Thom Carb-Mag (Tri-Buffered Aspirin) 1 Tab Tab 325 MG PO BID for 30 Days, #60 TAB Bisacodyl (Bisacodyl) 10 Mg Sup 10 MG RE DAILY PRN for Constipation Calcium Carbonate-Vitamin D (Calcium + D) 1 Tab Tab 1 TAB PO BID Calcium Carbonate-Vitamin D W/ (Caltrate 600+D Plus Min 300-800 mg-Unit) 1 Tab Tab 1 TAB PO BID Carbidopa/Levodopa (Sinemet 25MG/100MG) Tab 1 TAB PO 4XD 2652-8369-4860-2000 Docusate Sodium (Docusate Sodium) 100 Mg Cap 100 MG PO BID Duloxetine HCl (Cymbalta) 20 Mg Cap 40 MG PO QAM Entacapone (Comtan) 200 Mg Tab 200 MG PO 4XD 5424-3364-0952-2000 Ferrous Sulfate (Ferrous Sulfate) 325 Mg Tab 325 MG PO DAILY for 30 Days with lunch Fluticasone Propionate (Nasal) (Flonase Allergy Relief) 50 Mcg/Act Spr 2 SPRAY JAYDON QAM Hydroxyzine Pamoate (Vistaril) 25 Mg Cap 25 MG PO 4XD 0800/1199/ Lisinopril (Lisinopril) 10 Mg Tab 10 MG PO QAM Mirtazapine Soltab (Remeron Soltab) 15 Mg Soltab 15 MG PO HS Omeprazole (Prilosec) 40 Mg Cap 40 MG PO BID Ondansetron Hcl (Zofran) 8 Mg Tab 8 MG PO BID PRN for Nausea Polyethylene Glycol 3350 (Miralax) 1 Pow Pow 17 GM PO QAM Quetiapine Fumarate (Seroquel) 25 Mg Tab 25 MG PO BID Admission Information HPI (per Admitting provider): Pt is 72 y/o F with PMH Parkinson's, dementia, depression, GERD, CKD III, HTN presented to ER after fall. Pt is unable to give any history. Pt hospitalized -10/23/17 for fall and L hip fracture and repaired by Dr Garcia on . She was discharged to [facility]. states pt was ambulating with walking in PT. He reports he was told by nursing staff yesterday that pt was found to be wondering the halls without a walker and she has been getting up out of bed frequently with her hx dementia. He reports today was told pt was found lying on floor at bottom of her bed. reports was told she c/o L hip pain. Pt with hx post op anemia. reports was told pt eating ok. Unsure if has been any fevers reported. reports pt's current mental status is at baseline. Today in ER temp: 37.8C. WBC: 14 (was 7 this am). Hgb: 7.6. (was 7.9 on 10/21/17 and 8.0 on 10/23/17). Cr: 1.2 (baseline 1.4, was 1.1 on 10/20/17), pending u/a. pending blood cultures. L hip xray: mildly displaced periprosthetic/ intertrochanteric fracture w/i L proximal femur. Negative head CT. Negative CXR. Negative C-spine xray. pt given fentanyl. Physical Exam (per Admitting): General Appearance: + thin, + pertinent finding (chronic ill appearing, alert, lying in bed without noted distress) Head: normocephalic, atraumatic Eyes: normal inspection, PERRL ENT: pharynx normal, + pertinent finding (mucous membranes dry) Neck: supple, no JVD, trachea midline Respiratory/Chest: chest non-tender, lungs clear, normal breath sounds, no respiratory distress, no accessory muscle use Cardiovascular: regular rate, rhythm, no murmur, normal peripheral pulses Abdomen/GI: normal bowel sounds, non tender, soft Extremities/Musculoskelatal: + pertinent finding (Left hip: +surgical incision with shereen in place without surrounding erythema, edema or discharge. Pt c/o pain with palpation Left hip, holding L hip extended and will not move. Limited ROM R hip, pt c/o pain, non-tender to palpation. bilateral lower extremities non-tender to palpation, Pt moves upper extremities without difficulty or c/o pain. distal pulses intact, brisk capillary refill) Neurologic/Psych: alert (confused, pleasant) Skin: normal color, warm/dry (see extremity) Hospital Course L PERIPROSTHETIC FRACTURE S/P::Left Hip Revision Bipolar Hemiarthroplasty with cement and cable fixation. ORIF Periprosthetic Femur fracture with cabling and cement Pt with hx L hip fracture on 10/17/17 with repair on 10/19/17 S/P Fall with new mildly displaced periprosthetic/intertrochanteric fracture within the proximal left femur. CXR: no infiltrate. Negative CT head. EKG: sinus tachy Hx echo 10/2016: EF: 65-70%, moderate aortic valve sclerosis, mild tricuspid regurg, trace mitral regurg. Hx normal cardiac cath cath 2012 Continue IVF secondary to decreased Urine Output and Poor oral intake Drain discontinued Pain control Appreciate Ortho input Needs follow up with Orthopedics in 2 weeks LEUKOCYTOSIS Likely indued due to stress Resolved Negative CXR. L hip surgical incision without erythema or discharge Blood cultures: No growth to date ANEMIA Hx post op anemia. No active bleeding. Hb:7.8 continue iron S/P 3 units of PRBC Monitor CBC CKD III Cr at baseline avoid nephrotoxic agents when able HTN continue lisinopril PARKINSON'S Hx psych symptoms from Parkinson's. continue Comtan, Sinemet continue Cymbalta, Seroquel, Remeron no acute issue DVT Px: on Aspirin now As per ortho DISPOSITION Plan to discharge to Rehab today Code Status: Full Code Follow up with your Orthopedic Surgeon in 2 weeks as advised Please call [facility] to make a follow-up appointment at . Follows with Dr Joiner for routine care in 1 week after being discharged from Rehab Facility Seek immediate medical attention if your symptoms reoccur or worsen Total time spent on discharge = 36 minutes This includes examination of the patient, discharge planning, medication reconciliation, and communication with other providers. Discharge Instructions Discharge Instructions Date of Service Nov 06, 2017. Admission Reason for Admission: Periprostheitc Fracture Around Internal Prosthetic Discharge Discharge Diagnosis / Problem: L PERIPROSTHETIC FRACTURE S/P::Left Hip Revision Bipolar Hemiarthroplasty Discharge Goals Goal(s): Decrease discomfort, Improve function Activity Recommendations Activity Limitations: per Instructions/Follow-up section Exercise/Sports Limitations: as tolerated . Instructions / Follow-Up Instructions / Follow-Up Follow up with your Orthopedic Surgeon in 2 weeks as advised Please call [facility] to make a follow-up appointment at . Follows with Dr Joiner for routine care in 1 week after being discharged from Rehab Facility Seek immediate medical attention if your symptoms reoccur or worsen Folder Seamer Automatic Recommendations Date of Service Nov 04, 2017. Folder Seamer Automatic Recommendations ACTIVITY RECOMMENDATIONS: SELF CARE INSTRUCTIONS AFTER HIP HEMIARTHROPLASTY Until the incision and soft tissues around your hip have healed, there is a possibility that the hip prosthesis could dislocate. A. Observe the following precautions to prevent dislocation: 1. Don't bend your hip greater than 90 degrees. 2. Avoid crossing your legs or ankles while standing or lying. 3. Sit with your feet placed 6 inches apart. 4. When sitting, keep your knees below your hips. Sit on a firm surface, avoid deep, soft chairs and couches. Use an elevated toilet seat in the bathroom. 5. Don't bend over at the waist. Use a long handled shoehorn and a sock aid to help you put on your shoes and socks. A auto repair technician can help you cherry picker operator objects that are too high or too low to reach. 6. Keep car riding to a minimum for at least one month after surgery. B. Your balance may be shaky for a while. Use crutches or a walker until directed by your doctor. C. Use hand rails when walking on stairs. D. Wear low heeled shoes with non-slip soles. E. Be sure that your floors are free of things that could trip you - throw rugs , electrical cords, small objects. Avoid wet and waxed floors, especially with crutches and canes. F. Try to walk several times a day with rest periods between. G. Continue with all the exercises taught to you in the hospital. Again, make walking a part of your daily routine. SPECIAL CARE INSTRUCTIONS: VERY IMPORTANT TO READ AND REVIEW A. You may still be at risk for phlebitis and blood clots. 1. Wear surgical stockings (JUAN ALBERTO hose) for 2 weeks after surgery to improve circulation and reduce swelling. 2. Take Aspirin 81mg twice daily for 4 weeks or as directed by your doctor. This is your blood thinner. 3. High risk patients may be prescribed a stronger blood thinner if necessary. 4. If you are on Coumadin normally, your family doctor/auto vinyl top installer should monitor your blood work. Expect a phone call the day of or the day after bloodwork is drawn to adjust your dosage. B. You must take antibiotics before having dental work, bladder, bowel and other surgery. Your doctor will provide you with a permanent card to carry describing precautions. C. Call [facility] if you have a fever, redness or swelling around the incision, cloudy drainage from incision, or sudden increase in pain in your hip, not relieved by your regular pain medication. D. Please call the office at if you have any concerns or questions about your operation or recovery. * NO SHOWERING WITH CURRENT CONFIGURATION OF SILVERLON DRESSING. YOU MAY SHOWER ONCE DRESSING IS REMOVED. * WEAR JUAN ALBERTO HOSE 20 HOURS PER DAY FOR 2 WEEKS. * YOU SHOULD USE A WALKER OR CRUTCHES FOR 2-4 WEEKS. THIS WILL HELP PREVENT STRAIN ON YOUR HIP MUSCLE AND ALLOW IT TO HEAL PROPERLY. YOU MAY WEAN TO A CANE TOLERATED. * MOST PATIENTS WILL HAVE HOME NURSING FOR THERAPY. IF YOU DECIDE TO DO OUTPATIENT PHYSICAL THERAPY, PLEASE SCHEDULE THIS 3 TIMES PER WEEK. * YOU MAY HAVE A LARGE, BAND-AID LIKE DRESSING (SILVERON). THIS WILL REMAIN ON YOUR INCISION FOR 7 DAYS, THEN CAN BE REMOVED. IF INCISION IS LEAKING THROUGH DRESSING, PLEASE CALL THE OFFICE . IF YOU HAVE A REGULAR GAUZE DRESSING, CHANGE DAILY. FOLLOW UP VISIT: If appointment is not already scheduled: Please call [facility] to make a follow-up appointment for 2 weeks after your surgery at . Current Hospital Diet Patient's current hospital diet: AHA Diet (Heart Healthy) Discharge Diet Recommended Diet: AHA Diet (Heart Healthy) Procedures Procedures Performed: 1. Left Hip Revision Bipolar Hemiarthroplasty with cement and cable fixation. 2. ORIF Periprosthetic Femur fracture with cabling and cement Pending Studies Studies pending at discharge: no Medical Emergencies . Who to Call and When: Medical Emergencies: If at any time you feel your situation is an emergency, please call 911 immediately. . Non-Emergent Contact Non-Emergency issues call your: Primary Care Provider, Surgeon (Your Orthopedic Surgeon ) Call Non-Emergent contact if: you have a fever, your pain is not controlled, your pain is worsening, your pain is unusual for you, your pain is concerning you, you have any medication questions Seek immediate medical attention if your symptoms reoccur or worsen . . "Provider Documentation" section prepared by Daniele Acuña. . Folder Seamer Automatic Recommendations Folder Seamer Automatic Recommendations: ACTIVITY RECOMMENDATIONS: SELF CARE INSTRUCTIONS AFTER HIP HEMIARTHROPLASTY Until the incision and soft tissues around your hip have healed, there is a possibility that the hip prosthesis could dislocate. A. Observe the following precautions to prevent dislocation: 1. Don't bend your hip greater than 90 degrees. 2. Avoid crossing your legs or ankles while standing or lying. 3. Sit with your feet placed 6 inches apart. 4. When sitting, keep your knees below your hips. Sit on a firm surface, avoid deep, soft chairs and couches. Use an elevated toilet seat in the bathroom. 5. Don't bend over at the waist. Use a long handled shoehorn and a sock aid to help you put on your shoes and socks. A auto repair technician can help you cherry picker operator objects that are too high or too low to reach. 6. Keep car riding to a minimum for at least one month after surgery. B. Your balance may be shaky for a while. Use crutches or a walker until directed by your doctor. C. Use hand rails when walking on stairs. D. Wear low heeled shoes with non-slip soles. E. Be sure that your floors are free of things that could trip you - throw rugs , electrical cords, small objects. Avoid wet and waxed floors, especially with crutches and canes. F. Try to walk several times a day with rest periods between. G. Continue with all the exercises taught to you in the hospital. Again, make walking a part of your daily routine. SPECIAL CARE INSTRUCTIONS: VERY IMPORTANT TO READ AND REVIEW A. You may still be at risk for phlebitis and blood clots. 1. Wear surgical stockings (JUAN ALBERTO hose) for 2 weeks after surgery to improve circulation and reduce swelling. 2. Take Aspirin 81mg twice daily for 4 weeks or as directed by your doctor. This is your blood thinner. 3. High risk patients may be prescribed a stronger blood thinner if necessary. 4. If you are on Coumadin normally, your family doctor/auto vinyl top installer should monitor your blood work. Expect a phone call the day of or the day after bloodwork is drawn to adjust your dosage. B. You must take antibiotics before having dental work, bladder, bowel and other surgery. Your doctor will provide you with a permanent card to carry describing precautions. C. Call [facility] if you have a fever, redness or swelling around the incision, cloudy drainage from incision, or sudden increase in pain in your hip, not relieved by your regular pain medication. D. Please call the office at if you have any concerns or questions about your operation or recovery. * NO SHOWERING WITH CURRENT CONFIGURATION OF SILVERLON DRESSING. YOU MAY SHOWER ONCE DRESSING IS REMOVED. * WEAR JUAN ALBERTO HOSE 20 HOURS PER DAY FOR 2 WEEKS. * YOU SHOULD USE A WALKER OR CRUTCHES FOR 2-4 WEEKS. THIS WILL HELP PREVENT STRAIN ON YOUR HIP MUSCLE AND ALLOW IT TO HEAL PROPERLY. YOU MAY WEAN TO A CANE TOLERATED. * MOST PATIENTS WILL HAVE HOME NURSING FOR THERAPY. IF YOU DECIDE TO DO OUTPATIENT PHYSICAL THERAPY, PLEASE SCHEDULE THIS 3 TIMES PER WEEK. * YOU MAY HAVE A LARGE, BAND-AID LIKE DRESSING (SILVERON). THIS WILL REMAIN ON YOUR INCISION FOR 7 DAYS, THEN CAN BE REMOVED. IF INCISION IS LEAKING THROUGH DRESSING, PLEASE CALL THE OFFICE . IF YOU HAVE A REGULAR GAUZE DRESSING, CHANGE DAILY. FOLLOW UP VISIT: If appointment is not already scheduled: Please call [facility] [place] to make a follow-up appointment for 2 weeks after your surgery at . VTE Core Measure Inpt VTE Proph given/why not?: SCD's <Electronically signed by Daniele Acuña MD> Signed: 11/06/17 0900 Signed: The status of this report is Signed * If report status is Draft, the document has not been finalized by the responsible provider.
[2017-11-06 09:10] LABS: HEMATOCRIT 26.5 % (37-47)
[2017-11-06 11:56] VITALS: BP 144/72; PULSE 83; TEMP 36.5; O2SAT 99
[2017-11-06] MEDS ORDERED: NURSING VERBAL MED ORDER ONE (12:15)
[2017-11-06] MEDS ORDERED: BOOST VANILLA PO SCH ×2 (12:30)
== END 2017-11-06 15:20 | DRG 467 ==
LOC: EDBD 14:14 → C.EDC 14:15 → C.MSN 18:06 → ENRESERV 18:47
PROVIDERS: ADMIT Family Medicine; ATTEND Internal Medicine
PROC: 0SWS0JZ Revision of Synthetic Substitute in Left Hip Joint, Femoral Surface, Open Approach (ICD-10-PCS; principal; 2017-11-02 10:00)
PROC: 0QS706Z Reposition Left Upper Femur with Intramedullary Internal Fixation Device, Open Approach (ICD-10-PCS; principal; 2017-11-02 10:00)
DX: S72.142A Displaced intertrochanteric fracture of left femur, initial encounter for closed fracture (principal); M97.02XA Periprosthetic fracture around internal prosthetic left hip joint, initial encounter; D62 Acute posthemorrhagic anemia; G31.83 Neurocognitive disorder with Lewy bodies; N18.3 Chronic kidney disease, stage 3 (moderate); K21.9 Gastro-esophageal reflux disease without esophagitis; F32.9 Major depressive disorder, single episode, unspecified; F02.80 Dementia in other diseases classified elsewhere, unspecified severity, without behavioral disturbance, psychotic disturbance, mood disturbance, and anxiety; I12.9 Hypertensive chronic kidney disease with stage 1 through stage 4 chronic kidney disease, or unspecified chronic kidney disease; Z79.82 Long term (current) use of aspirin; Z79.899 Other long term (current) drug therapy; Z88.2 Allergy status to sulfonamides; Z88.6 Allergy status to analgesic agent; W19.XXXA Unspecified fall, initial encounter; Z96.642 Presence of left artificial hip joint

== ENCOUNTER → 2017-10-31 | Outpatient (CLI) | payer OTHER ==
[~2017-10-31] MED LIST changes: +ACET-1138 PO; +ARTISOL23 BU; +ASCO500T16 PO; +ASPI325T60 PO; +BISA10SU5 RE; -BUSP-8 PO; +CALC-456 PO; +CALC600T9 PO; +CALCTAB65 PO; -CITA10TA8 PO; -CYM30 PO; +DULO-24 PO; +FRRS300 PO; -HYDR-5688 PO; -PIMA17TA PO; +QUET1TAB91 PO; -VASELINE TOP; +[UNRECOGNIZED DRUG - OTHER] PO
[2017-10-31 08:25] LABS: HEMATOCRIT 23.2 % (37-47); MEAN CELL VOLUME 91.7 fL (80-100); MEAN CORPUSCULAR HEMOGLOBIN 29.6 pg (25-34); MEAN CORPUSCULAR HGB CONC 32.3 g/dl (32-36); MEAN PLATELET VOLUME 8.4 fL (7.4-10.4); PLATELET COUNT 485 K/uL (130-400); RED BLOOD COUNT 2.53 M/uL (4.2-5.4); WHITE BLOOD COUNT 7.07 K/uL (4.8-10.8)
[2017-10-31 08:38] LABS: BLOOD UREA NITROGEN 23 mg/dl (7-18); BUN/CREATININE RATIO 17.9 (10-20); CALCIUM 8.7 mg/dl (8.5-10.1); CARBON DIOXIDE 30 mmol/L (21-32); CHLORIDE 107 mmol/L (98-107); CREATININE 1.27 mg/dl (0.60-1.20); GLUCOSE 96 mg/dl (70-99); SODIUM 141 mmol/L (136-145)
== END ==
LOC: C.LABCC 08:08
PROVIDERS: ATTEND Internal Medicine
DX: D64.9 Anemia, unspecified (principal)

== ENCOUNTER → 2017-11-13 | Outpatient (CLI) | payer OTHER ==
[~2017-11-13] MED LIST changes: +ARTISOL23 BU; -ARTISPR PO; +ASCO500T16 PO; -ASPI81TA28 PO; +BISA10SU5 RE; +CALC-456 PO; +CALC600T9 PO; -CALCTAB65 PO; +SENN8.6T7 PO; -[UNRECOGNIZED DRUG - OTHER] PO
[2017-11-13 08:46] LABS: BASO % 0.1 %; BASO ABS # 0.02 K/uL (0-0.2); EOS % 0.3 %; HEMATOCRIT 26.2 % (37-47); IG% 0.3 %; LYMPH ABS # 0.78 K/uL (1.2-3.4); MEAN CELL VOLUME 91.9 fL (80-100); MEAN CORPUSCULAR HEMOGLOBIN 29.1 pg (25-34); MEAN CORPUSCULAR HGB CONC 31.7 g/dl (32-36); MEAN PLATELET VOLUME 8.4 fL (7.4-10.4); MONO % 4.4 %; NEUT % 90.9 %; PLATELET COUNT 446 K/uL (130-400); RED BLOOD COUNT 2.85 M/uL (4.2-5.4)
[2017-11-13 08:53] LABS: BLOOD UREA NITROGEN 22 mg/dl (7-18); BUN/CREATININE RATIO 27.9 (10-20); CALCIUM 8.2 mg/dl (8.5-10.1); CARBON DIOXIDE 30 mmol/L (21-32); CHLORIDE 110 mmol/L (98-107); GLUCOSE 89 mg/dl (70-99); POTASSIUM 3.9 mmol/L (3.5-5.1); SODIUM 144 mmol/L (136-145)
[2017-11-13 08:58] LABS: FERRITIN 551.9 ng/ml (8.0-388.0); TOTAL IRON BINDING CAPACITY 154 mcg/dl (250-450)
[2017-11-13 09:17] LABS: COMPLETE YES
--- NOTE | 2017-11-19 11:01 | CODING QUERY MEDICAL NECESSITY ---
SUPPORTING DIAGNOSIS NEEDED A supporting diagnosis is required for the test/procedure performed on this patient in order for us to be reimbursed by the patient's insurance. Please provide a supporting diagnosis for the following test/procedure listed below next to the test name along with your signature. *If there is no additional diagnosis for this patient that would support the following test/procedure please document that below next to the test/procedure. Test(s)/Procedure(s) that require a supporting diagnosis: * VITAMIN B12 DIAGNOSIS: * FOLIC ACID DIAGNOSIS: Provider Signature: Date: Thank you Yvette [place] [employer] Once completed, please kindly fax back to [phone] For questions please call [phone]
== END ==
LOC: C.LABCC 08:14
PROVIDERS: ATTEND Internal Medicine
DX: N18.3 Chronic kidney disease, stage 3 (moderate) (principal); D64.9 Anemia, unspecified; E55.9 Vitamin D deficiency, unspecified

== ENCOUNTER → 2017-11-14 | Outpatient (CLI) | payer OTHER | LOC: C.LABCC 16:49 | PROVIDERS: ATTEND Internal Medicine | DX: D72.829 Elevated white blood cell count, unspecified (principal); D64.9 Anemia, unspecified ==

== ENCOUNTER → 2017-11-18 | Outpatient (CLI) | payer OTHER ==
[2017-11-18 08:40] LABS: BASO % 0.2 %; BASO ABS # 0.03 K/uL (0-0.2); EOS % 0.5 %; EOS ABS # 0.06 K/uL (0-0.5); HEMATOCRIT 29.4 % (37-47); HEMOGLOBIN 9.1 g/dL (12.0-16.0); IG# 0.07 K/uL (0.00-0.02); LYMPH % 8.9 %; LYMPH ABS # 1.15 K/uL (1.2-3.4); MEAN CELL VOLUME 93.6 fL (80-100); MEAN PLATELET VOLUME 8.5 fL (7.4-10.4); MONO % 5.8 %; MONO ABS # 0.75 K/uL (0.11-0.59); NEUT % 84.1 %; NEUT ABS # 10.82 K/uL (1.4-6.5); PLATELET COUNT 463 K/uL (130-400); RED CELL DISTRIBUTION WIDTH CV 16.1 % (11.5-14.5); RED CELL DISTRIBUTION WIDTH SD 54.5 fL (36.4-46.3); WHITE BLOOD COUNT 12.88 K/uL (4.8-10.8)
--- NOTE | 2017-11-25 13:46 | CODING QUERY NO DIAGNOSIS ---
TREATMENT RENDERED WITHOUT A DIAGNOSIS To promote full compliance with coding requirements relating to patient care, physician participation is requested in all cases of finish sander uncertainty. Please assist us with providing a diagnosis/symptom for the test(s) below: A diagnosis/symptom was not documented on your Order. A valid diagnosis/symptom is required to bill all insurances. Please remember that we are unable to code a diagnosis of rule out, probable, possible, questionable, or suspected. Tests that require a diagnosis: * CBC W/ AUTO DIFF DIAGNOSIS: Provider Signature: Date: Thank you Yvette [place] [employer] Once completed, please kindly fax back to [phone] For questions please call [phone]
== END ==
LOC: C.LABCC 08:15
PROVIDERS: ATTEND Internal Medicine
DX: D64.9 Anemia, unspecified (principal); D72.829 Elevated white blood cell count, unspecified

== ENCOUNTER → 2017-12-03 | Outpatient (CLI) | payer OTHER ==
[2017-12-03 09:54] LABS: HEMATOCRIT 29.2 % (37-47); HEMOGLOBIN 9.1 g/dL (12.0-16.0); MEAN CELL VOLUME 94.2 fL (80-100); MEAN CORPUSCULAR HEMOGLOBIN 29.4 pg (25-34); MEAN CORPUSCULAR HGB CONC 31.2 g/dl (32-36); MEAN PLATELET VOLUME 8.7 fL (7.4-10.4); PLATELET COUNT 373 K/uL (130-400); RED CELL DISTRIBUTION WIDTH CV 16.5 % (11.5-14.5); RED CELL DISTRIBUTION WIDTH SD 56.9 fL (36.4-46.3); WHITE BLOOD COUNT 5.95 K/uL (4.8-10.8)
== END ==
LOC: C.LABCC 08:33
PROVIDERS: ATTEND Internal Medicine
DX: D64.9 Anemia, unspecified (principal)

== ENCOUNTER → 2017-12-04 | Outpatient (CLI) | payer OTHER | LOC: C.LABSPEC 17:38 | PROVIDERS: ATTEND Internal Medicine | DX: R50.9 Fever, unspecified (principal) ==

== ENCOUNTER → 2017-12-11 | Outpatient (CLI) | payer OTHER ==
[2017-12-11 09:35] LABS: BASO ABS # 0.04 K/uL (0-0.2); EOS % 6.3 %; EOS ABS # 0.24 K/uL (0-0.5); HEMATOCRIT 25.9 % (37-47); HEMOGLOBIN 8.3 g/dL (12.0-16.0); LYMPH ABS # 0.65 K/uL (1.2-3.4); MEAN CELL VOLUME 92.5 fL (80-100); MEAN CORPUSCULAR HEMOGLOBIN 29.6 pg (25-34); MEAN PLATELET VOLUME 8.8 fL (7.4-10.4); MONO % 10.7 %; MONO ABS # 0.41 K/uL (0.11-0.59); NEUT ABS # 2.48 K/uL (1.4-6.5); PLATELET COUNT 223 K/uL (130-400); RED CELL DISTRIBUTION WIDTH CV 16.4 % (11.5-14.5); RED CELL DISTRIBUTION WIDTH SD 56.6 fL (36.4-46.3); WHITE BLOOD COUNT 3.82 K/uL (4.8-10.8)
== END ==
LOC: C.LABCC 08:38
PROVIDERS: ATTEND Internal Medicine
DX: D50.9 Iron deficiency anemia, unspecified (principal)

== ENCOUNTER → 2017-12-18 | Outpatient (CLI) | payer OTHER ==
[2017-12-18 08:52] LABS: BASO % 1.1 %; BASO ABS # 0.05 K/uL (0-0.2); EOS % 6.6 %; HEMATOCRIT 26.3 % (37-47); HEMOGLOBIN 8.4 g/dL (12.0-16.0); IG# 0.01 K/uL (0.00-0.02); LYMPH % 21.2 %; LYMPH ABS # 0.97 K/uL (1.2-3.4); MEAN CELL VOLUME 91.3 fL (80-100); MEAN CORPUSCULAR HEMOGLOBIN 29.2 pg (25-34); MEAN CORPUSCULAR HGB CONC 31.9 g/dl (32-36); MEAN PLATELET VOLUME 8.2 fL (7.4-10.4); MONO % 11.4 %; MONO ABS # 0.52 K/uL (0.11-0.59); NEUT % 59.5 %; NEUT ABS # 2.72 K/uL (1.4-6.5); PLATELET COUNT 265 K/uL (130-400); RED CELL DISTRIBUTION WIDTH SD 53.7 fL (36.4-46.3); WHITE BLOOD COUNT 4.57 K/uL (4.8-10.8)
== END ==
LOC: C.LABCC 08:35
PROVIDERS: ATTEND Internal Medicine
DX: D64.9 Anemia, unspecified (principal)

== ENCOUNTER → 2017-12-26 | Outpatient (CLI) | payer OTHER ==
[~2017-12-26] MED LIST changes: +ACET-1693 PO; +MULT-513 PO
[2017-12-26 08:34] LABS: HEMATOCRIT 27.2 % (37-47); HEMOGLOBIN 8.7 g/dL (12.0-16.0); MEAN CELL VOLUME 92.2 fL (80-100); MEAN CORPUSCULAR HEMOGLOBIN 29.5 pg (25-34); MEAN PLATELET VOLUME 8.9 fL (7.4-10.4); PLATELET COUNT 265 K/uL (130-400); RED CELL DISTRIBUTION WIDTH CV 16.3 % (11.5-14.5); RED CELL DISTRIBUTION WIDTH SD 55.3 fL (36.4-46.3); WHITE BLOOD COUNT 3.78 K/uL (4.8-10.8)
== END ==
LOC: C.LABCC 08:10
PROVIDERS: ATTEND Internal Medicine
DX: D64.9 Anemia, unspecified (principal)

== ENCOUNTER 2017-12-28 19:48 | Emergency (ER) | payer OTHER ==
[~2017-12-28] VITALS: Ht 152.4 cm; Wt 47.8 kg
[~2017-12-28 19:48] MED LIST changes: -ACET-1693 PO; -MULT-513 PO
[2017-12-28 19:59] VITALS: Ht 152.4 cm; Wt 47.8 kg
[2017-12-28] MEDS ORDERED: SODIUM CHLORIDE 0.9% 1000ML 500 ML IV STA (20:01)
[2017-12-28 20:03] VITALS: O2SAT 97
[2017-12-28] MEDS ORDERED: ACET-1693 PO (20:26)
[2017-12-28] MEDS ORDERED: MULT-513 PO (20:26)
[2017-12-28 20:45] LABS: BASO % 0.7 %; BASO ABS # 0.03 K/uL (0-0.2); EOS % 1.9 %; EOS ABS # 0.08 K/uL (0-0.5); HEMATOCRIT 29.7 % (37-47); HEMOGLOBIN 9.6 g/dL (12.0-16.0); IG# 0.01 K/uL (0.00-0.02); LYMPH % 19.4 %; LYMPH ABS # 0.83 K/uL (1.2-3.4); MEAN CELL VOLUME 91.1 fL (80-100); MEAN CORPUSCULAR HEMOGLOBIN 29.4 pg (25-34); MEAN CORPUSCULAR HGB CONC 32.3 g/dl (32-36); MEAN PLATELET VOLUME 8.5 fL (7.4-10.4); MONO % 9.6 %; MONO ABS # 0.41 K/uL (0.11-0.59); NEUT % 68.2 %; NEUT ABS # 2.92 K/uL (1.4-6.5); PLATELET COUNT 269 K/uL (130-400); RED CELL DISTRIBUTION WIDTH CV 15.9 % (11.5-14.5); RED CELL DISTRIBUTION WIDTH SD 53.3 fL (36.4-46.3); WHITE BLOOD COUNT 4.28 K/uL (4.8-10.8)
--- NOTE | 2017-12-28 20:53 | DIAGNOSTIC IMAGING REPORT ---
CHEST ONE VIEW PORTABLE CLINICAL HISTORY: EVALUATE ALTERED MENTAL STATUS/WEAKNESS COMPARISON STUDY: 10/31/2017 FINDINGS: Chronic postoperative changes left hemithorax. Lungs are clear. Diaphragms are smooth. IMPRESSION: Chronic and postoperative change. No acute process. The above report was generated using voice recognition software. It may contain grammatical, syntax or spelling errors. Electronically signed by: Mckay Cerda M.D. 12/28/2017 8:51 PM Dictated Date/Time: 12/28/2017 8:50 PM
[2017-12-28 20:55] LABS: PTT PATIENT 20.1 SECONDS (21.0-31.0)
[2017-12-28 20:58] LABS: ALBUMIN 3.2 gm/dl (3.4-5.0); ALT/SGPT 8 U/L (12-78); BLOOD UREA NITROGEN 23 mg/dl (7-18); CARBON DIOXIDE 30 mmol/L (21-32); CREATININE 1.32 mg/dl (0.60-1.20); GLUCOSE 102 mg/dl (70-99); POTASSIUM 3.6 mmol/L (3.5-5.1); SODIUM 144 mmol/L (136-145)
[2017-12-28 21:08] LABS: ALKALINE PHOSPHATASE 123 U/L (45-117); AST/SGOT 18 U/L (15-37); TOTAL PROTEIN 6.6 gm/dl (6.4-8.2)
--- NOTE | 2017-12-28 21:28 | DIAGNOSTIC IMAGING REPORT ---
HEAD WITHOUT CONTRAST (CT) CT DOSE: 679.75 mGycm HISTORY: Mental status change trauma TECHNIQUE: Multiaxial CT images of the head were performed without the use of intravenous contrast. A dose lowering technique was utilized adhering to the principles of ALARA. Comparison: 10/31/2017 Findings: The paranasal sinuses and mastoid air cells are clear. The calvarium and skull base are intact. The ventricles and sulci are within normal limits. There is no mass, hematoma, midline shift, or acute infarct. Impression: No acute intracranial abnormality. The above report was generated using voice recognition software. It may contain grammatical, syntax or spelling errors. Electronically signed by: Mckay Cerda M.D. 12/28/2017 9:27 PM Dictated Date/Time: 12/28/2017 9:26 PM
[2017-12-28] MEDS ORDERED: SODIUM CHLORIDE 0.9% 500ML 500 ML IV STA (22:13)
--- NOTE | 2017-12-28 23:52 | EMERGENCY ROOM VISIT NOTE ---
History Report prepared by Gayatri: Erin Schreibre Under the Supervision of: Dr. Carlos Henao M.D. First contact with patient: 19:50 Stated Complaint: AMS, HYPOTENSION, FALL History of Present Illness The patient is a 72 year old female who presents to the Emergency Room with complaints of an episode of fall around 2 hours ago. The patient presents to the ED by EMS from [facility]. The patient had an unwitnessed fall around 1810 today. She hit her head in the fall. She was given Tylenol at 1830 for a headache. Her blood pressure was found to be low into the 70s. Staff at [facility] noted that the patient has been more lethargic than usual. She is complaining of tailbone pain and buttock pain. She denies having any neck pain or dizziness. She is not on any blood thinners. The patient has a history of confusion. The history is limited secondary to the patient's confusion. Source of History: patient, EMS History Limited By: other (confusion) Onset: 2 hours ago Position: other (global) Quality: other (fall) Timing: other (episodic) Associated Symptoms: + headache, No neck pain Note: Pt reports buttock pain, tailbone pain. Review of Systems Limited secondary to the patient's confusion. Past Medical & Surgical Medical Problems: (1) CKD (chronic kidney disease) stage 3, GFR 30-59 ml/min (2) Depression (3) Diaphragmatic hernia (4) GERD (gastroesophageal reflux disease) (5) History of breast cancer (6) History of kidney stones (7) Parkinson disease Surgical Problems: (1) Closed fracture of left hip requiring operative repair (2) H/O breast surgery (3) History of carpal tunnel surgery (4) History of tubal ligation (5) Hx of cardiac cath Family History Cancer FATHER MOTHER BROTHER Social History Smoking Status: Never Smoker Alcohol Use: none Drug Use: none Marital Status: Housing Status: care home Occupation Status: retired Current/Historical Medications Scheduled Ascorbic Acid (Ascorbic Acid), 500 MG PO DAILY Aspirin Buffered (Thom Carb-Mag (Tri-Buffered Aspirin), 325 MG PO BID Calcium Carbonate-Vitamin D (Calcium + D), 1 TAB PO BID Carbidopa/Levodopa (Sinemet 25MG/100MG), 1 TAB PO 4XD Docusate Sodium (Docusate Sodium), 100 MG PO BID Duloxetine HCl (Cymbalta), 40 MG PO QAM Entacapone (Comtan), 200 MG PO 4XD Ferrous Sulfate (Ferrous Sulfate), 325 MG PO DAILY Fluticasone Propionate (Nasal) (Flonase Allergy Relief), 2 SPRAY JAYDON QAM Hydroxyzine Pamoate (Vistaril), 25 MG PO 4XD Lisinopril (Lisinopril), 10 MG PO QAM Mirtazapine Soltab (Remeron Soltab), 15 MG PO HS Multivitamins/Minerals (Mvi With Minerals), 1 TAB PO DAILY Omeprazole (Prilosec), 40 MG PO BID Polyethylene Glycol 3350 (Miralax), 17 GM PO QAM Quetiapine Fumarate (Seroquel), 25 MG PO HS Scheduled PRN Acetaminophen Tab (Tylenol), 650 MG PO Q6 PRN for Pain or Fever Artificial Saliva (Mouthkote), 2 SPRAYS BU DAILY PRN for DRY MOUTH Bisacodyl (Bisacodyl), 10 MG RE DAILY PRN for Constipation Ondansetron Hcl (Zofran), 8 MG PO BID PRN for Nausea Allergies Coded Allergies: Morphine (Unverified Allergy, Unknown, unknown, 10/31/17) Sulfa Antibiotics (Verified Allergy, Unknown, UNKNOWN, 10/31/17) Selegiline (Verified Adverse Reaction, Intermediate, loss of taste, ) Tramadol (Verified Adverse Reaction, Intermediate, GENERAL ITCHINESS, ) Physical Exam Vital Signs Date Time Temp Pulse Resp B/P (MAP) Pulse Ox O2 Delivery O2 Flow Rate FiO2 12/28/17 23:31 128/62 99 Room Air 12/28/17 23:30 94 20 12/28/17 23:01 144/66 12/28/17 23:00 95 18 12/28/17 21:47 74 18 115/48 98 Room Air 12/28/17 21:44 73 12/28/17 20:03 97 Room Air 12/28/17 19:59 37.2 71 18 105/45 97 Room Air Physical Exam GENERAL: Patient is in no acute distress. HEENT: No acute trauma, normocephalic atraumatic, mucous membranes dry, no nasal congestion, no scleral icterus. NECK: No stridor, no adenopathy, no meningismus, trachea is midline. LUNGS: Clear to auscultation bilaterally, no wheeze, no rhonchi, breath sounds equal. HEART: 2/6 systolic murmur, regular rate and rhythm. ABDOMEN: Soft, nontender, bowel sounds positive, no hernias, no peritonitis. BUTTOCK: Healing mid sacral ulcer, no cellulitis. RECTAL: Black stool, heme negative. EXTREMITIES: No cyanosis or edema, full range of motion of all the joints without pain or difficulty, no signs for acute trauma. NEUROLOGIC: Awake, moving all extremities, no focal deficits, mild confusion consistent with past history. SKIN: No rash, no jaundice, no diaphoresis. Medical Decision & Procedures ER Provider Diagnostic Interpretation: X-ray results as stated below per interpretation by me and the radiologist. Radiology results as stated below per my review and radiologist interpretation: CHEST ONE VIEW PORTABLE CLINICAL HISTORY: EVALUATE ALTERED MENTAL STATUS/WEAKNESS COMPARISON STUDY: 10/31/2017 FINDINGS: Chronic postoperative changes left hemithorax. Lungs are clear. Diaphragms are smooth. IMPRESSION: Chronic and postoperative change. No acute process. The above report was generated using voice recognition software. It may contain grammatical, syntax or spelling errors. Electronically signed by: Mckay Cerda M.D. 12/28/2017 8:51 PM Dictated Date/Time: 12/28/2017 8:50 PM HEAD WITHOUT CONTRAST (CT) CT DOSE: 679.75 mGycm HISTORY: Mental status change trauma TECHNIQUE: Multiaxial CT images of the head were performed without the use of intravenous contrast. A dose lowering technique was utilized adhering to the principles of ALARA. Comparison: 10/31/2017 Findings: The paranasal sinuses and mastoid air cells are clear. The calvarium and skull base are intact. The ventricles and sulci are within normal limits. There is no mass, hematoma, midline shift, or acute infarct. Impression: No acute intracranial abnormality. The above report was generated using voice recognition software. It may contain grammatical, syntax or spelling errors. Electronically signed by: Mckay Cerda M.D. 12/28/2017 9:27 PM Dictated Date/Time: 12/28/2017 9:26 PM Laboratory Results 12/28/17 20:36 Red Blood Count 3.26, Mean Corpuscular Volume 91.1, Mean Corpuscular Hemoglobin 29.4, Mean Corpuscular Hemoglobin Concent 32.3, Mean Platelet Volume 8.5, Neutrophils (%) (Auto) 68.2, Lymphocytes (%) (Auto) 19.4, Monocytes (%) (Auto) 9.6, Eosinophils (%) (Auto) 1.9, Basophils (%) (Auto) 0.7, Neutrophils # (Auto) 2.92, Lymphocytes # (Auto) 0.83, Monocytes # (Auto) 0.41, Eosinophils # (Auto) 0.08, Basophils # (Auto) 0.03 12/28/17 20:36 Test 12/28/17 20:36 12/28/17 23:40 White Blood Count 4.28 K/uL (4.8-10.8) Red Blood Count 3.26 M/uL (4.2-5.4) Hemoglobin 9.6 g/dL (12.0-16.0) Hematocrit 29.7 % (37-47) Mean Corpuscular Volume 91.1 fL (80-100) Mean Corpuscular Hemoglobin 29.4 pg (25-34) Mean Corpuscular Hemoglobin Concent 32.3 g/dl (32-36) Platelet Count 269 K/uL (130-400) Mean Platelet Volume 8.5 fL (7.4-10.4) Neutrophils (%) (Auto) 68.2 % Lymphocytes (%) (Auto) 19.4 % Monocytes (%) (Auto) 9.6 % Eosinophils (%) (Auto) 1.9 % Basophils (%) (Auto) 0.7 % Neutrophils # (Auto) 2.92 K/uL (1.4-6.5) Lymphocytes # (Auto) 0.83 K/uL (1.2-3.4) Monocytes # (Auto) 0.41 K/uL (0.11-0.59) Eosinophils # (Auto) 0.08 K/uL (0-0.5) Basophils # (Auto) 0.03 K/uL (0-0.2) RDW Standard Deviation 53.3 fL (36.4-46.3) RDW Coefficient of Variation 15.9 % (11.5-14.5) Immature Granulocyte % (Auto) 0.2 % Immature Granulocyte # (Auto) 0.01 K/uL (0.00-0.02) Prothrombin Time 10.6 SECONDS (9.0-12.0) Prothromb Time International Ratio 1.0 (0.9-1.1) Activated Partial Thromboplast Time 20.1 SECONDS (21.0-31.0) Partial Thromboplastin Ratio 0.8 Anion Gap 7.0 mmol/L (3-11) Est Creatinine Clear Calc Drug Dose 26.9 ml/min Estimated GFR () 45.9 Estimated GFR (Non- 39.6 BUN/Creatinine Ratio 17.2 (10-20) Calcium Level 9.0 mg/dl (8.5-10.1) Magnesium Level 2.1 mg/dl (1.8-2.4) Total Bilirubin 0.3 mg/dl (0.2-1) Aspartate Amino Transf (AST/SGOT) 18 U/L (15-37) Alanine Aminotransferase (ALT/SGPT) 8 U/L (12-78) Alkaline Phosphatase 123 U/L (45-117) Troponin I < 0.015 ng/ml (0-0.045) Total Protein 6.6 gm/dl (6.4-8.2) Albumin 3.2 gm/dl (3.4-5.0) Globulin 3.4 gm/dl (2.5-4.0) Albumin/Globulin Ratio 0.9 (0.9-2) Thyroid Stimulating Hormone (TSH) 2.240 uIu/ml (0.300-4.500) Urine Color DK YELLOW Urine Appearance CLOUDY (CLEAR) Urine pH 5.5 (4.5-7.5) Urine Specific [place] 1.024 (1.000-1.030) Urine Protein NEG (NEG) Urine Glucose (UA) NEG (NEG) Urine Ketones 1+ (NEG) Urine Occult Blood NEG (NEG) Urine Nitrite NEG (NEG) Urine Bilirubin NEG (NEG) Urine Urobilinogen NEG (NEG) Urine Leukocyte Esterase MODERATE (NEG) Urine WBC (Auto) 5-10 /hpf (0-5) Urine RBC (Auto) 0-4 /hpf (0-4) Urine Hyaline Casts (Auto) 1-5 /lpf (0-5) Urine Epithelial Cells (Auto) >30 /lpf (0-5) Urine Bacteria (Auto) NEG (NEG) Urine Renal Epithelial Cells /lpf (0-5) Laboratory results reviewed by me. Medications Administered Medications (Trade) Dose Ordered Sig/Patricia Route Start Time Stop Time Status Last Admin Dose Admin Sodium Chloride 500 ml @ 999 mls/hr Q31M STAT IV 12/28/17 20:01 12/28/17 20:31 DC 12/28/17 20:01 999 MLS/HR Sodium Chloride 500 ml @ 999 mls/hr Q31M STAT IV 12/28/17 22:13 12/28/17 22:43 DC 12/28/17 22:13 999 MLS/HR ECG Indication: other (fall) Rate (beats per minute): 68 Rhythm: normal sinus Findings: other (some artifact present, no ST elevation, no PVC) Change: Patient's electrocardiogram interpreted by me. ED Course 1950: The patient was evaluated in room C5. A complete history and physical exam was performed. 2001: NSS 500 ml @ 999 mls/hr IV. 2213: NSS 500 ml @ 999 mls/hr IV. 2343: I reevaluated the patient. I updated family on the results. We are waiting on the urine. 0020: Reevaluated the patient. Discussed results and discharge instructions: They verbalized understanding and agreement. The patient is ready for discharge. Medical Decision Differential diagnoses considered include intracranial bleeding, dehydration, electrolyte imbalance, UTI, pneumonia, [place], cardiac ischemia. There is no leukocytosis. The patient is anemic but this is baseline looking back at previous testing. No significant electrolyte abnormalities, kidney failure or hepatitis. Urinalysis shows some contamination, no obvious infection. Urine culture is pending. The patient appears to be in a euthyroid state. Chest film does not show pneumonia or CHF. Brain CT shows no acute bleed or mass effect. EKG shows a sinus rhythm, no acute ischemia. Cardiac enzyme testing times one is not consistent with acute cardiac injury. The patient received 2 boluses of IV saline, she is doing well. Her workup is reassuring and relatively benign. She is being discharged back to [facility]. Her fall today was very likely mechanical. Head Trauma GCS Score: 14 Medication Reconcilliation Current Medication List: was personally reviewed by me Blood Pressure Screening Patient's blood pressure: Elevated blood pressure Blood pressure disposition: Elevated BP felt to be situational Impression Primary Impression: Fall Additional Impression: Head trauma Scribe Attestation The scribe's documentation has been prepared under my direction and personally reviewed by me in its entirety. I confirm that the note above accurately reflects all work, treatment, procedures, and medical decision making performed by me. Departure Information Dispostion Home / Self-Care Referrals Edwige Young (PCP) Forms HOME CARE DOCUMENTATION FORM, IMPORTANT VISIT INFORMATION Patient Instructions My [facility] Additional Instructions care as before lab testing was baseline for her brain CT scan was negative for bleeding urine testing was negative for infection--urine culture is pending return if worsening Problem Qualifiers
[2017-12-29 02:28] VITALS: TEMP 36.6
[2017-12-29 03:10] VITALS: BP 120/70; PULSE 87; O2SAT 96
== END 2017-12-29 03:35 ==
LOC: EDBD 19:48 → C.EDC 19:49 → C.EDB 12-29 03:35
DX: S09.90XA Unspecified injury of head, initial encounter (principal); W18.30XA Fall on same level, unspecified, initial encounter; Y92.199 Unspecified place in other specified residential institution as the place of occurrence of the external cause; I95.9 Hypotension, unspecified; D64.9 Anemia, unspecified; R41.0 Disorientation, unspecified; N18.3 Chronic kidney disease, stage 3 (moderate); F32.9 Major depressive disorder, single episode, unspecified; K21.9 Gastro-esophageal reflux disease without esophagitis; Z85.3 Personal history of malignant neoplasm of breast; G20 Parkinson's disease; Z87.442 Personal history of urinary calculi; Z98.51 Tubal ligation status; Z79.82 Long term (current) use of aspirin

== ENCOUNTER → 2018-01-02 | Outpatient (CLI) | payer OTHER ==
[~2018-01-02] MED LIST changes: -ACET-1138 PO; +ACET-1693 PO; -CALC-456 PO; +MULT-513 PO; -SENN8.6T7 PO
[2018-01-02 09:04] LABS: HEMATOCRIT 27.3 % (37-47); HEMOGLOBIN 8.6 g/dL (12.0-16.0); MEAN CELL VOLUME 92.5 fL (80-100); MEAN CORPUSCULAR HEMOGLOBIN 29.2 pg (25-34); MEAN CORPUSCULAR HGB CONC 31.5 g/dl (32-36); MEAN PLATELET VOLUME 8.9 fL (7.4-10.4); PLATELET COUNT 212 K/uL (130-400); RED CELL DISTRIBUTION WIDTH SD 54.6 fL (36.4-46.3); WHITE BLOOD COUNT 3.27 K/uL (4.8-10.8)
== END ==
LOC: C.LABCC 07:43
PROVIDERS: ATTEND Internal Medicine
DX: D64.9 Anemia, unspecified (principal)

== ENCOUNTER → 2018-01-12 | Outpatient (CLI) | payer OTHER | LOC: C.LABCC 08:52 | PROVIDERS: ATTEND Internal Medicine | DX: R63.4 Abnormal weight loss (principal) ==

== ENCOUNTER → 2018-01-19 | Outpatient (CLI) | payer OTHER ==
[2018-01-19 08:40] LABS: HEMATOCRIT 27.8 % (37-47); HEMOGLOBIN 9.1 g/dL (12.0-16.0); MEAN CELL VOLUME 90.8 fL (80-100); MEAN CORPUSCULAR HEMOGLOBIN 29.7 pg (25-34); MEAN CORPUSCULAR HGB CONC 32.7 g/dl (32-36); MEAN PLATELET VOLUME 8.5 fL (7.4-10.4); PLATELET COUNT 233 K/uL (130-400); RED CELL DISTRIBUTION WIDTH SD 53.5 fL (36.4-46.3); WHITE BLOOD COUNT 3.87 K/uL (4.8-10.8)
== END ==
LOC: C.LABCC 08:21
PROVIDERS: ATTEND Internal Medicine
DX: D50.9 Iron deficiency anemia, unspecified (principal)

== ENCOUNTER → 2018-02-18 | Outpatient (CLI) | payer OTHER ==
[~2018-02-18] MED LIST changes: +ONDA-170 PO; -ONDA8TAB6 PO
[2018-02-18 09:56] LABS: HEMATOCRIT 28.6 % (37-47); HEMOGLOBIN 9.4 g/dL (12.0-16.0); MEAN CELL VOLUME 90.5 fL (80-100); MEAN CORPUSCULAR HEMOGLOBIN 29.7 pg (25-34); MEAN CORPUSCULAR HGB CONC 32.9 g/dl (32-36); MEAN PLATELET VOLUME 8.5 fL (7.4-10.4); PLATELET COUNT 266 K/uL (130-400)
[2018-02-18 10:06] LABS: BLOOD UREA NITROGEN 46 mg/dl (7-18); CALCIUM 8.8 mg/dl (8.5-10.1); CARBON DIOXIDE 30 mmol/L (21-32); CREATININE 1.16 mg/dl (0.60-1.20); GLUCOSE 77 mg/dl (70-99); POTASSIUM 4.4 mmol/L (3.5-5.1); SODIUM 141 mmol/L (136-145)
== END ==
LOC: C.LABCC 09:07
PROVIDERS: ATTEND Internal Medicine
DX: E03.9 Hypothyroidism, unspecified (principal)

== ENCOUNTER → 2018-02-25 | Outpatient (CLI) | payer OTHER | LOC: C.LABCC 08:49 | PROVIDERS: ATTEND Internal Medicine | DX: E03.9 Hypothyroidism, unspecified (principal) ==

== ENCOUNTER → 2018-03-16 | Outpatient (CLI) | payer OTHER ==
[2018-03-16 08:54] LABS: BASO % 1.1 %; BASO ABS # 0.04 K/uL (0-0.2); EOS % 5.9 %; EOS ABS # 0.22 K/uL (0-0.5); HEMATOCRIT 28.6 % (37-47); HEMOGLOBIN 9.2 g/dL (12.0-16.0); LYMPH % 32.1 %; MEAN CORPUSCULAR HEMOGLOBIN 29.6 pg (25-34); MEAN CORPUSCULAR HGB CONC 32.2 g/dl (32-36); MEAN PLATELET VOLUME 8.7 fL (7.4-10.4); MONO % 9.1 %; MONO ABS # 0.34 K/uL (0.11-0.59); NEUT % 51.8 %; NEUT ABS # 1.94 K/uL (1.4-6.5); PLATELET COUNT 203 K/uL (130-400); RED CELL DISTRIBUTION WIDTH CV 15.1 % (11.5-14.5); WHITE BLOOD COUNT 3.74 K/uL (4.8-10.8)
== END ==
LOC: C.LABCC 08:28
PROVIDERS: ATTEND Internal Medicine
DX: D64.9 Anemia, unspecified (principal)

== ENCOUNTER → 2018-03-18 | Outpatient (CLI) | payer OTHER ==
[2018-03-20 00:07] LABS: METHYLMALONIC ACID 900 NMOL/L (87-318)
== END ==
LOC: C.LABCC 07:57
PROVIDERS: ATTEND Internal Medicine
DX: E53.8 Deficiency of other specified B group vitamins (principal)

== ENCOUNTER → 2018-03-20 | Outpatient (CLI) | payer OTHER | LOC: C.LABCC 08:07 | PROVIDERS: ATTEND Internal Medicine | DX: R79.9 Abnormal finding of blood chemistry, unspecified (principal) ==

== ENCOUNTER → 2018-03-24 | Outpatient (CLI) | payer OTHER | LOC: C.LABCC 08:24 | PROVIDERS: ATTEND Internal Medicine | DX: D64.9 Anemia, unspecified (principal) ==

== ENCOUNTER → 2018-03-31 | Outpatient (CLI) | payer OTHER ==
[2018-03-31 09:25] LABS: BASO % 0.7 %; BASO ABS # 0.03 K/uL (0-0.2); EOS % 4.4 %; HEMOGLOBIN 9.1 g/dL (12.0-16.0); LYMPH % 22.3 %; LYMPH ABS # 1.02 K/uL (1.2-3.4); MEAN CELL VOLUME 92.7 fL (80-100); MEAN CORPUSCULAR HEMOGLOBIN 30.1 pg (25-34); MEAN CORPUSCULAR HGB CONC 32.5 g/dl (32-36); MEAN PLATELET VOLUME 8.5 fL (7.4-10.4); MONO ABS # 0.41 K/uL (0.11-0.59); NEUT % 63.6 %; NEUT ABS # 2.91 K/uL (1.4-6.5); PLATELET COUNT 223 K/uL (130-400); RED CELL DISTRIBUTION WIDTH CV 15.3 % (11.5-14.5); RED CELL DISTRIBUTION WIDTH SD 52.5 fL (36.4-46.3); WHITE BLOOD COUNT 4.57 K/uL (4.8-10.8)
== END ==
LOC: C.LABCC 08:23
PROVIDERS: ATTEND Internal Medicine
DX: D64.9 Anemia, unspecified (principal)

== ENCOUNTER → 2018-06-11 | Outpatient (CLI) | payer OTHER ==
[2018-06-11 09:10] LABS: BASO % 0.6 %; BASO ABS # 0.03 K/uL (0-0.2); EOS % 4.3 %; EOS ABS # 0.23 K/uL (0-0.5); HEMATOCRIT 31.7 % (37-47); HEMOGLOBIN 10.1 g/dL (12.0-16.0); LYMPH % 28.4 %; LYMPH ABS # 1.52 K/uL (1.2-3.4); MEAN CELL VOLUME 95.5 fL (80-100); MEAN CORPUSCULAR HEMOGLOBIN 30.4 pg (25-34); MEAN CORPUSCULAR HGB CONC 31.9 g/dl (32-36); MEAN PLATELET VOLUME 8.9 fL (7.4-10.4); MONO % 11.2 %; NEUT % 55.5 %; NEUT ABS # 2.98 K/uL (1.4-6.5); PLATELET COUNT 207 K/uL (130-400); RED CELL DISTRIBUTION WIDTH CV 13.4 % (11.5-14.5); RED CELL DISTRIBUTION WIDTH SD 46.7 fL (36.4-46.3); WHITE BLOOD COUNT 5.36 K/uL (4.8-10.8)
== END ==
LOC: C.LABCC 08:14
PROVIDERS: ATTEND Internal Medicine
DX: D64.9 Anemia, unspecified (principal)

== ENCOUNTER → 2018-06-26 | Outpatient (CLI) | payer OTHER ==
[2018-06-26 08:26] LABS: HEMATOCRIT 29.1 % (37-47); HEMOGLOBIN 9.3 g/dL (12.0-16.0); MEAN CELL VOLUME 95.1 fL (80-100); MEAN CORPUSCULAR HEMOGLOBIN 30.4 pg (25-34); MEAN PLATELET VOLUME 8.9 fL (7.4-10.4); PLATELET COUNT 221 K/uL (130-400); RED CELL DISTRIBUTION WIDTH CV 13.7 % (11.5-14.5); RED CELL DISTRIBUTION WIDTH SD 47.7 fL (36.4-46.3); WHITE BLOOD COUNT 3.72 K/uL (4.8-10.8)
== END ==
LOC: C.LABCC 08:00
PROVIDERS: ATTEND Internal Medicine
DX: D64.9 Anemia, unspecified (principal); E55.9 Vitamin D deficiency, unspecified

== ENCOUNTER 2019-08-06 16:23 | Inpatient (IN) ==
[2019-08-06] MEDS ORDERED: PIPERACILLIN/TAZOBACTAM 4.5 GM/120 ML BAG IV ONE (16:31)
[2019-08-06] MEDS ORDERED: SODIUM CHLORIDE 0.9% 500 ML IV ONE (16:31)
[2019-08-06] MEDS ORDERED: VANCOMYCIN CONSULT ACTIVE PRN ×2 (16:31→18:44)
[2019-08-06] MEDS ORDERED: VANCOMYCIN HCL IV ONE (16:31)
[2019-08-06] MEDS ORDERED: SODIUM CHLORIDE 0.9% IV ONE (16:31)
[2019-08-06 16:52] LABS: iSTAT Creatinine 1.5 mg/dl (0.6-1.3); iSTAT Hemoglobin 13.3 g/dl (12.0-16.0); iSTAT Ionized Calcium 1.16 mmol/l (1.12-1.32); iSTAT Potassium 3.7 mEq/L (3.3-5.0)
--- NOTE | 2019-08-06 16:52 | XRay Report ---
XR chest 1V portable CLINICAL HISTORY: 74 years-old Female presenting with Sepsis. TECHNIQUE: Portable upright AP view of the chest was obtained. COMPARISON: 12/28/2017. FINDINGS: Atherosclerosis of the aortic arch. Cardiac silhouette normal in size. Extensive perihilar predominan t fluffy opacities, left greater than right. Lungs may be mildly hyperinflated. No pleural effusion o r pneumothorax is evident. Osteopenia suspected. Left axillary surgical clips. Upper abdomen normal. IMPRESSION: 1. Bilateral perihilar predominant infiltrates, left greater than right. This could represent multif ocal pneumonia or, less likely, edema. Electronically signed by: Shamir Alejandro M.D. 08/06/2019 4:51 PM
[2019-08-06 17:00] LABS: Basophils # (auto) 0.01 K/uL (0-0.2); Basophils % (auto) 0.2 %; Hematocrit (blood only) 40.5 % (37-47); Hemoglobin 12.8 g/dL (12.0-16.0); Immature Granulocytes # (auto) 0.01 K/uL (0.00-0.02); Immature Granulocytes % (auto) 0.2 %; Lymphocytes # (auto) 0.39 K/uL (1.2-3.4); Mean Corpuscular Hgb Conc 31.6 g/dL (32-36); Mean Corpuscular Volume 95.1 fL (80-100); Mean Platelet Volume 9.2 fL (7.4-10.4); Monocytes # (auto) 0.24 K/uL (0.11-0.59); Monocytes % (auto) 5.5 %; Neutrophils # (auto) 3.68 K/uL (1.4-6.5); Neutrophils % (auto) 85.1 %; Platelet Count 246 K/uL (130-400); RDW Coefficient of Variation 13.9 % (11.5-14.5); RDW Standard Deviation 48.4 fL (36.4-46.3); Red Blood Count 4.26 M/uL (4.2-5.4); White Blood Count 4.33 K/uL (4.8-10.8)
[2019-08-06 17:01] LABS: Base Excess VBG 2.2 mEq/L; HCO3 VBG 30 mmol/L; Oxygen Saturation VBG < 60.0 %; PCO2 VBG 60 mmHg (38-50); PO2 VBG 20 mmHg; pH VBG 7.32 (7.36-7.41)
[2019-08-06 17:10] LABS: Partial Thromboplastin Ratio 0.9; Partial Thromboplastin Time 23.4 Seconds (21.0-31.0); Prothrombin Time 10.7 Seconds (9.0-12.0)
[2019-08-06 17:17] LABS: BUN Creatinine Ratio 24.9 (10-20); Bilirubin Direct 0.2 mg/dl (0-0.2); Calcium 9.8 mg/dl (8.5-10.1); Creatinine Clr Calc Pharmacy 19.1 ml/min; Est GFR (Non-African American) 27.6; Magnesium 2.3 mg/dl (1.8-2.4); Potassium 3.9 mmol/L (3.5-5.1)
[2019-08-06 17:22] LABS: Bilirubin,Total 0.6 mg/dl (0.2-1); Globulin 3.9 gm/dl (2.5-4.0); Phosphorus 2.9 mg/dl (2.5-4.9); Total Protein 7.9 gm/dl (6.4-8.2)
[2019-08-06] MEDS ORDERED: VANCOMYCIN HCL 1,000 MG in SODIUM CHLORIDE 0.9% 500 ML IV ONE (17:30)
[2019-08-06] MEDS ORDERED: ACETAMINOPHEN 1,000 MG/100 ML VIAL IV STA (17:47)
[2019-08-06] MEDS ORDERED: SODIUM CHLORIDE 0.9% 1000ML 1,000 ML IV STA (17:47)
[2019-08-06] MEDS ORDERED: PIPERACILL/TAZOBAC CONSULT ACTIVE PRN (18:44)
[2019-08-06] MEDS ORDERED: POLYETHYLENE (MIRALAX) 17 GM PACK PO PRN (18:45)
[2019-08-06] MEDS ORDERED: MAGNESIUM HYDROXIDE SUSP 30 ML UDC PO PRN (18:45)
[2019-08-06] MEDS ORDERED: ALUMINUM/MAGNESIUM SUSP 30 ML UDC PO PRN (18:45)
[2019-08-06] MEDS ORDERED: SODIUM CHLORIDE 0.45 % 1,000 ML IV SCH (18:45)
[2019-08-06] MEDS ORDERED: ZOLPIDEM TARTRATE 5 MG TAB PO PRN (18:45)
[2019-08-06] MEDS ORDERED: ONDANSETRON INJ 2 MG/ML 2 ML VIAL IV PRN (18:45)
[2019-08-06] MEDS ORDERED: ACETAMINOPHEN 325 MG TAB PO PRN (18:45)
[2019-08-06] MEDS ORDERED: BISACODYL 10 MG SUPP PR PRN (18:52)
[2019-08-06] MEDS ORDERED: NON-FORMULARY MEDICATION (Acetaminophen [Tylenol Arthritis Pain] 650 MG) PO PRN (18:52)
[2019-08-06 18:56] LABS: Influenza A virus by PCR Neg for Influ A (Neg); Influenza B virus by PCR Neg for Influ B (Neg)
--- NOTE | 2019-08-06 19:13 | History & Physical Report ---
Date of Service August 06, 2019 Assessment & Plan (1) Multifocal pneumonia: Admit to PCU Continue BiPAP as per protocol Vitals per protocol Ordered blood cultures/sputum cultures Ordered urine Legionella Ordered mycoplasma antigen Continue vancomycin/Zosyn Also would like to cover for atypical organisms, will start azithromycin 500 mg IV daily Ordered EKG to check on QTC prior to the azithromycin Lactobacillus to prevent C. difficile Heparin subcu for DVT prophylaxis Discussed CODE STATUS with and kids, patient is DNR/DNI (2) Acute metabolic encephalopathy: Likely multifactorial secondary to acute hypoxic respiratory failure Also secondary to hypernatremia Secondary to acute kidney injury Nevertheless slightly improved since admission until my evaluation as patient is currently following simple commands (3) Acute respiratory failure with hypoxia: Likely secondary to multifocal pneumonia Continue BiPAP and oxygen supplement as needed Check above (4) Acute renal failure: Likely ATN secondary to dehydration/decreased oral intake Continue gentle IV fluid hydration with half-normal saline Reevaluate in a.m. (5) Hypernatremia: Sodium level was 153 continue gentle hydration with 0.45 NSS at 70 cc/h Recheck sodium in about 12 hours avoid rapid correction Clinically patient appears to be volume depleted Already received 1 L in the ED (6) Parkinson disease: As soon as able to swallow, continue home meds History of Present Illness 74 years old female with past medical history of advanced dementia, Parkinson's disease and multiple hip fractures in the past. Patient was noticed by her son visiting her yesterday that she does have some shortness of breath and cough. Today her visited her and noticed that she is extremely lethargic and extremely short of breath, her checked her pulse and was extremely rapid so he called the nursing staff when they came over and her oxygen saturation was in the 70s and her heart rate was 120s they called the ambulance and patient was brought to the ER and found to have a fever of 38, she was breathing at a rate of 30. As per minute, heart rate was 120, VBG showed pH of 7.32 , patient was placed on BiPAP and showed significant improvement after that, Her CODE STATUS was discussed with her and son and she is DO NOT RESUSCITATE DO NOT INTUBATE. But they are okay with using BiPAP as needed. Patient will be admitted to PCU for further evaluation. Chest x-ray showed bilateral infiltrate left greater than right. Primary Care Provider: [facility] Allergies Allergy/AdvReac Type Severity Reaction Status Date / Time morphine Allergy Unknown unknown Unverified 08/06/19 18:14 Sulfa (Sulfonamide Allergy Unknown UNKNOWN Verified 08/06/19 18:14 Antibiotics) selegiline AdvReac Intermediate loss of Verified 08/06/19 18:14 taste tramadol AdvReac Intermediate GENERAL Verified 08/06/19 18:14 ITCHINESS Home Medications Home Medications Medication Instructions Recorded Confirmed Type carbidopa-levodopa 1 tab PO QID #0 12/20/11 08/06/19 History polyethylene glycol 3350 [Miralax] 17 g PO QAM #0 04/09/16 08/06/19 History entacapone [Comtan] 200 mg PO QID #0 11/03/16 08/06/19 History hydroxyzine pamoate 25 mg PO TID #0 01/29/17 08/06/19 History mirtazapine [Remeron SolTab] 15 mg PO PM #0 05/29/17 08/06/19 History duloxetine [Cymbalta] 60 mg PO BID #0 10/17/17 08/06/19 History ascorbic acid (vitamin C) [Vitamin 250 mg PO DAILY #0 tab 10/31/17 08/06/19 History C] bisacodyl [Dulcolax (bisacodyl)] 10 mg [place] DAILY PRN #0 10/31/17 08/06/19 History acetaminophen [Tylenol Arthritis 650 mg PO BID PRN #0 tab 12/28/17 08/06/19 History Pain] gabapentin 300 mg PO PM 08/06/19 08/06/19 History levothyroxine 25 mcg PO QAM 08/06/19 08/06/19 History scopolamine base 1 patch TRANSDERMAL Q3D 08/06/19 08/06/19 History sennosides 8.6 mg PO BID PRN 08/06/19 08/06/19 History Past Med/Surg History Medical History Parkinson disease (Chronic) History of breast cancer (Resolved) History of kidney stones (Resolved) Diaphragmatic hernia (Chronic) GERD (gastroesophageal reflux disease) (Chronic) CKD (chronic kidney disease) stage 3, GFR 30-59 ml/min (Chronic) Depression (Chronic) Surgical History History of tubal ligation (Resolved) History of carpal tunnel surgery (Resolved) "R side" H/O breast surgery (Resolved) "malignant-stage I tubular CA left breast" Hx of cardiac cath (Chronic) "05/2013 - normal coronaries" Family History Other Family history non-contributory Social History Preferred Language: Burmese marital status: Current Living Situation: [employer] current occupational status: retired Smoking Status: Never smoker Review of Systems Review of Systems: Due to patient mental status review of system was unobtainable/unreliable We'll attempt to obtain review of system as needed from staff and family Physical Exam Physical Exam: General frail elderly female, appears to be in severe distress, very thin but not cachectic HEENT: Atraumatic , normocephalic /no jaundice /no pallor /anicteric /no dry mucous membrane /normal external ear inspection Neck: Supple /no swelling /central trach Heart: S1/S2 normal/regular rate and rhythm/no gallop /no rub /no murmur Lungs: Decreased air entry bilaterally, generalized wheezing both lung bowens, scattered rhonchi, no chest wall tenderness Abdomen: Soft/nontender/no guarding/no rebound/no organomegaly/no pulsatile mass Musculoskeletal: No swelling/no edema/no tenderness/normal range of motion Neuro exam: Lethargic but was able to respond to strong verbal stimuli, moves all extremities and slight movement upon request Psychiatric evaluation: Unable to evaluate Skin: No rash on exposed skin area/no erythema Extremity: Normal pulse/no pitting edema/no clubbing or cyanosis Results & Data Vital Signs (Past 12 Hours) Vital Signs Temp Pulse Resp BP BP Pulse Ox 08/06/19 18:30 85 25 H 130/73 100 08/06/19 18:15 89 25 H 132/69 100 08/06/19 18:00 95 H 30 H 147/85 H 100 08/06/19 17:45 102 H 32 H 152/74 H 100 08/06/19 17:30 107 H 30 H 134/75 100 08/06/19 17:29 104/54 L 08/06/19 17:23 38 C H 08/06/19 17:00 115 H 30 H 157/85 H 98 08/06/19 16:57 111 H 38 H 93 08/06/19 16:45 110 H 30 H 154/84 H 91 08/06/19 16:41 92 08/06/19 16:33 112 H 30 H 158/76 H 92 Code Status & VTE Plan VTE Prophylaxis Plan VTE Prophylaxis will be ordered: Yes PG Care Time/CCT Total # of Minutes Spent Total Time Spent with Patient: 35 minutes total time spent is greater than 50% in coordination of care (as documented) at patient's floor/unit and/or counseling patient/family discussion of care with nursing staff (1) Acute renal failure Acute renal failure type: unspecified Qualified Code(s): N17.9 - Acute kidney failure, unspecified
[2019-08-06] MEDS: ALBUT/IPRATROP 3MG/0.5MG NEB 3 ML VIAL NEB SCH (20:16)
--- NOTE | 2019-08-06 20:51 | Pharmacy Report ---
Pharmacy Abx Dose Short Note - Date of Service August 06, 2019 - Assessment & Plan Assessment 74 year old F receiving vancomycin/Zosyn/azithromycin for treatment of possible pneumonia Day # 1 of antimicrobial therapy. Plan Vancomycin * vancomycin 1 gm IV x 1 (22 mg/kg) * Vd= 0.7 L/kg; patient currently in [facility] ... did not preform population kinetics calculation. * Order vancomycin random for tomorrow morning * goal trough for pulmonary infection is 15-20 mcg/mL Zosyn * dose adjusted to q12 hours since CrCl < 20 mL/min Pharmacy will continue to follow and will adjust dose/frequency as necessary. Thank you.
[2019-08-06] MEDS ORDERED: CARBIDOPA/LEVODOPA 25/100MG TAB PO SCH (21:00)
--- NOTE | 2019-08-06 21:07 | Emergency Department Note ---
Entered by Cristel Lockhart acting as a scribe for History of Present Illness General Chief complaint: Shortness of Breath/Dyspnea Time Seen by Provider: 08/06/19 16:30 Source: family and EMS History of Present Illness Onset (ago): hour(s) (2.5) Location: chest Pain Consistency: + other (episode) Quality: + other (shortness of breath) Associated symptoms: + cough, + fever/chills (fever) and + other (congestion, shaking, tachycardia) The patient is a 74 year old female who presents to the Emergency Room with complaints of an episode of shortness of breath starting 2.5 hours ago. Per EMS, the patient is from [facility]. They report that this afternoon they noticed that she was having an acute decline. They state that they noticed she had cough, congestion, and a fever of 101 axillary. They state that she appeared to be having difficulty breathing and when they checked her O2 saturations, they were in the 70s. They note that she appeared to move into the 80s on 4 L of O2. The patients states that he saw the patient 2 days ago she was fine. He states that this afternoon he went to visit her and she was shaking. He states that he checked her pulse and it was very fast. He reports that he called the nurse to come in and see her, who confirmed her pulse to be 125. He states that her O2 was 72% at the time. The patients notes that she is a DNR and DNI. Home Medications Home Medications Medication Instructions Recorded Confirmed Type carbidopa-levodopa 1 tab PO QID #0 12/20/11 08/06/19 History polyethylene glycol 3350 [Miralax] 17 g PO QAM #0 04/09/16 08/06/19 History entacapone [Comtan] 200 mg PO QID #0 11/03/16 08/06/19 History hydroxyzine pamoate 25 mg PO TID #0 01/29/17 08/06/19 History mirtazapine [Remeron SolTab] 15 mg PO PM #0 05/29/17 08/06/19 History duloxetine [Cymbalta] 60 mg PO BID #0 10/17/17 08/06/19 History ascorbic acid (vitamin C) [Vitamin 250 mg PO DAILY #0 tab 10/31/17 08/06/19 H istory C] bisacodyl [Dulcolax (bisacodyl)] 10 mg ID DAILY PRN #0 10/31/17 08/06/19 History acetaminophen [Tylenol Arthritis 650 mg PO BID PRN #0 tab 12/28/17 08/06/19 History Pain] gabapentin 300 mg PO PM 08/06/19 08/06/19 History levothyroxine 25 mcg PO QAM 08/06/19 08/06/19 History scopolamine base 1 patch TRANSDERMAL Q3D 08/06/19 08/06/19 History sennosides 8.6 mg PO BID PRN 08/06/19 08/06/19 History Allergies Allergy/AdvReac Type Severity Reaction Status Date / Time morphine Allergy Unknown unknown Unverified 08/06/19 18:14 Sulfa (Sulfonamide Allergy Unknown UNKNOWN Verified 08/06/19 18:14 Antibiotics) selegiline AdvReac Intermediate loss of Verified 08/06/19 18:14 taste tramadol AdvReac Intermediate GENERAL Verified 08/06/19 18:14 ITCHINESS Past Med/Surg History Medical History Parkinson disease (Chronic) History of breast cancer (Resolved) History of kidney stones (Resolved) Diaphragmatic hernia (Chronic) GERD (gastroesophageal reflux disease) (Chronic) CKD (chronic kidney disease) stage 3, GFR 30-59 ml/min (Chronic) Depression (Chronic) Surgical History History of tubal ligation (Resolved) History of carpal tunnel surgery (Resolved) "R side" H/O breast surgery (Resolved) "malignant-stage I tubular CA left breast" Hx of cardiac cath (Chronic) "05/2013 - normal coronaries" Family History Other Family history non-contributory Social History Preferred Language: Albanian Communication Ability: Impaired Beliefs That Will Affect Care: None marital status: Current Living Situation: [facility] current occupational status: retired Feels Safe at Home: Yes Smoking Status: Never smoker Hx Alcohol Use: No Hx Substance Use: No Review of Systems See HPI for pertinent positives & negatives. and A total of 10 systems reviewed and were otherwise negative Physical Exam Vital Signs Vital Signs - 24 hr 08/06/19 16:33 08/06/19 16:41 08/06/19 16:45 Temperature Temperature Source Sepsis Recent Fever Within 48 Hours Yes Sepsis New/Unexplained Change in Mental Status Yes Sepsis Action Taken by Nursing Physician Notified Oxygen Flow Rate - Titration 15 Pulse Oximetry Post Tiitration 92 Pulse Rate 112 H 110 H Pulse Rate from SpO2 Sensor 109 H Respiratory Rate 30 H 30 H Respiratory Effort / Characteristics Respiratory Depth Respiratory Pattern Blood Pressure 158/76 H 154/84 H Blood Pressure [Left Arm] Blood Pressure Mean 103 107 Blood Pressure Mean [Left Arm] Pulse Oximetry 92 92 91 Oxygen Delivery Method Non-rebreather Non-rebreather Oxygen Flow Rate 15 15 Fraction of Inspired Oxygen 08/06/19 16:57 08/06/19 17:00 08/06/19 17:23 Temperature 38 C H Temperature Source Rectal Sepsis Recent Fever Within 48 Hours Sepsis New/Unexplained Change in Mental Status Sepsis Action Taken by Nursing Oxygen Flow Rate - Titration Pulse Oximetry Post Tiitration Pulse Rate 111 H 115 H Pulse Rate from SpO2 Sensor 114 H Respiratory Rate 38 H 30 H Respiratory Effort / Characteristics Spontaneous Respiratory Depth Normal Respiratory Pattern Regular Blood Pressure 157/85 H Blood Pressure [Left Arm] Blood Pressure Mean 109 Blood Pressure Mean [Left Arm] Pulse Oximetry 93 98 Oxygen Delivery Method BiPAP Oxygen Flow Rate Fraction of Inspired Oxygen 100 08/06/19 17:29 08/06/19 17:30 08/06/19 17:45 Temperature Temperature Source Sepsis Recent Fever Within 48 Hours Sepsis New/Unexplained Change in Mental Status Sepsis Action Taken by Nursing Oxygen Flow Rate - Titration Pulse Oximetry Post Tiitration Pulse Rate 107 H 102 H Pulse Rate from SpO2 Sensor 107 H 102 H Respiratory Rate 30 H 32 H Respiratory Effort / Characteristics Respiratory Depth Respiratory Pattern Blood Pressure 134/75 152/74 H Blood Pressure [Left Arm] 104/54 L Blood Pressure Mean 94 100 Blood Pressure Mean [Left Arm] 70 Pulse Oximetry 100 100 Oxygen Delivery Method BiPAP BiPAP Oxygen Flow Rate Fraction of Inspired Oxygen 08/06/19 18:00 08/06/19 18:15 08/06/19 18:30 Temperature Temperature Source Sepsis Recent Fever Within 48 Hours Sepsis New/Unexplained Change in Mental Status Sepsis Action Taken by Nursing Oxygen Flow Rate - Titration Pulse Oximetry Post Tiitration Pulse Rate 95 H 89 85 Pulse Rate from SpO2 Sensor 95 H 88 85 Respiratory Rate 30 H 25 H 25 H Respiratory Effort / Characteristics Respiratory Depth Respiratory Pattern Blood Pressure 147/85 H 132/69 130/73 Blood Pressure [Left Arm] Blood Pressure Mean 105 90 92 Blood Pressure Mean [Left Arm] Pulse Oximetry 100 100 100 Oxygen Delivery Method BiPAP Oxygen Flow Rate Fraction of Inspired Oxygen GENERAL: Awake, alert, ill-appearing, in no distress HENT: Normocephalic, atraumatic. Oropharynx mucous membranes dry and cracked. EYES: Normal conjunctiva. Sclera non-icteric. NECK: Supple. No nuchal rigidity. FROM. No JVD. RESPIRATORY: Severe respiratory distress with increased work of breathing. Scattered rhonchi throughout, left greater than right. CARDIAC: Tachycardic rate, normal rhythm. Extremities warm and well perfused. Pulses equal. ABDOMEN: Soft, non-distended. No tenderness to palpation. No rebound or guarding. No masses. RECTAL: Deferred. MUSCULOSKELETAL: Chest examination reveals no tenderness. The back is symmetrical on inspection without obvious abnormality. There is no CVA tenderness to palpation. No joint edema. LOWER EXTREMITIES: Calves are equal size bilaterally and non-tender. No edema. No discoloration. NEURO: Normal sensorium. No sensory or motor deficits noted. SKIN: No rash or jaundice noted. Course 1623: Past medical records reviewed. The patient was evaluated in room B1. A complete history and physical exam was performed. 1735: I reevaluated the patient and updated the patient's family on her test results. I discussed the treatment plan with them. They verbally agree and understand. 1753: I discussed the patient's case with Dr. Chris JEAN Hospitalist. He will evaluate the patient for further management. Consultations Consultation #1: I discussed the patient's case with Dr. Chris JEAN Hospitalist. He will evaluate the patient for further management. Time: 17:53 Administered Medications Albuterol (Duoneb) 3 ml NEB QIDR [facility] Stop: 09/05/19 18:59 Last Admin: 08/06/19 20:16 Dose: 3 ml Documented by: [id number] Carbidopa/Levodopa (Sinemet 25/100 Mg) 1 tab PO QID [facility] Stop: 09/05/19 20:59 Last Admin: 08/06/19 22:16 Dose: Not Given Documented by: [id number] Duloxetine HCl (Cymbalta) 30 mg PO BID JACK Stop: 09/05/19 20:59 Last Admin: 08/06/19 22:15 Dose: Not Given Documented by: [id number] Entacapone (Comtan) 200 mg PO QID JACK Stop: 09/05/19 20:59 Last Admin: 08/06/19 22:15 Dose: Not Given Documented by: [id number] Gabapentin (Neurontin) 100 mg PO PM JACK Stop: 09/05/19 20:59 Last Admin: 08/06/19 22:15 Dose: Not Given Documented by: [id number] Heparin Sodium (Porcine) (Heparin Sodium (Porcine)) 5,000 units SQ Q12 JACK Stop: 09/05/19 20:59 Last Admin: 08/06/19 22:58 Dose: 5,000 units Documented by: [id number] Cosigned by: [id number] Azithromycin 500 mg/ Dextrose 255 mls @ 125 mls/hr IV Q24H JACK Stop: 08/10/19 23:03 Last Infusion: 08/07/19 01:24 Dose: 0 mls/hr Documented by: [id number] Admin: 08/06/19 22:54 Dose: 125 mls/hr Documented by: [id number] Sodium Chloride (1/2 Nss) 1,000 mls @ 70 mls/hr IV .[id number] JACK Stop: 09/05/19 18:44 Last Admin: 08/06/19 20:32 Dose: 70 mls/hr Documented by: [id number] Mirtazapine (Remeron Solutab) 15 mg PO PM JACK Stop: 09/05/19 20:59 Last Admin: 08/06/19 22:15 Dose: Not Given Documented by: [id number] Discontinued Medications Sodium Chloride (Nss) 500 mls @ 999 mls/hr IV .Q31M ONE Stop: 08/06/19 17:01 Last Infusion: 08/06/19 18:08 Dose: 0 mls/hr Documented by: [id number] Admin: 08/06/19 17:27 Dose: 999 mls/hr Documented by: [id number] Vancomycin HCl 900 mg/ Sodium (Chloride) 518 mls @ 200 mls/hr IV NOW ONE Stop: 08/06/19 19:00 Last Admin: 08/06/19 17:46 Dose: Not Given Documented by: [id number] Piperacillin Sod/Tazobactam Sod (Zosyn) 4.5 gm in 120 mls @ 30 mls/hr IV NOW ONE Stop: 08/06/19 20:30 Last Infusion: 08/06/19 18:18 Dose: 0 mls/hr Documented by: [id number] Admin: 08/06/19 17:27 Dose: 30 mls/hr Documented by: [id number] Vancomycin HCl 1,000 mg/ (Sodium Chloride) 520 mls @ 200 mls/hr IV NOW ONE Stop: 08/06/19 20:05 Last Infusion: 08/06/19 22:16 Dose: 0 mls/hr Documented by: [id number] Admin: 08/06/19 17:46 Dose: 200 mls/hr Documented by: [id number] Acetaminophen (Ofirmev) 1,000 mg in 100 mls @ 400 mls/hr IV NOW STA Stop: 08/06/19 18:01 Last Infusion: 08/06/19 18:14 Dose: 0 mls/hr Documented by: [id number] Admin: 08/06/19 17:57 Dose: 400 mls/hr Documented by: [id number] Sodium Chloride (Nss 1000ml) 1,000 mls @ 250 mls/hr IV .Q4H STA Stop: 08/06/19 21:46 Last Infusion: 08/06/19 22:16 Dose: 0 mls/hr Documented by: [id number] Admin: 08/06/19 18:14 Dose: 250 mls/hr Documented by: [id number] Medical Decision Making Differential Diagnosis Differential diagnosis includes etiologies such as sepsis, UTI, pneumonia, metabolic, electrolyte abnormalities, cardiac sources, intracerebral event, toxicologic, neurologic, as well as others were entertained. Medical Records Attestation: I reviewed the patient's medical records. Home Medications Current Medication List: was personally reviewed by me Laboratory Data Attestation: I reviewed the patient's lab results. Result diagrams: 08/06/19 16:39 08/06/19 16:39 Lab Results 08/06/19 08/06/19 08/06/19 Range/Units 16:39 16:39 16:39 WBC 4.33 L (4.8-10.8) K/uL RBC 4.26 (4.2-5.4) M/uL Hgb 12.8 (12.0-16.0) g/dL POC Hgb (12.0-16.0) g/dl Hct 40.5 (37-47) % POC Hct (37-47) % MCV 95.1 (80-100) fL MCH 30.0 (25-34) pg MCHC 31.6 L (32-36) g/dL RDW Std Deviation 48.4 H (36.4-46.3) fL RDW Coeff of Tony 13.9 (11.5-14.5) % Plt Count 246 (130-400) K/uL MPV 9.2 (7.4-10.4) fL Immature Gran % (Auto) 0.2 % Neut % (Auto) 85.1 % Lymph % (Auto) 9.0 % Emmons % (Auto) 5.5 % Eos % (Auto) 0.0 % Baso % (Auto) 0.2 % Immature Gran # (Auto) 0.01 (0.00-0.02) K/uL Neut # (Auto) 3.68 (1.4-6.5) K/uL Lymph # (Auto) 0.39 L (1.2-3.4) K/uL Emmons # (Auto) 0.24 (0.11-0.59) K/uL Eos # (Auto) 0.00 (0-0.5) K/uL Baso # (Auto) 0.01 (0-0.2) K/uL PT 10.7 (9.0-12.0) Seconds INR 1.0 (0.9-1.1) APTT 23.4 (21.0-31.0) Seconds PTT Ratio 0.9 VBG pH (7.36-7.41) VBG pCO2 (38-50) mmHg VBG pO2 mmHg VBG HCO3 mmol/L VBG O2 Saturation % VBG Base Excess mEq/L Barometric Pressure mm/Hg POC Sodium (135-144) mEq/L Sodium 150 H (136-145) mmol/L POC Potassium (3.3-5.0) mEq/L Potassium 3.9 (3.5-5.1) mmol/L POC Chloride (101-112) mEq/L Chloride 114 H (98-107) mmol/L Carbon Dioxide 28 (21-32) mmol/L POC Total CO2 (24-31) mEq/l Anion Gap 9.0 (3-11) POC Anion Gap (16-25) mmol/L POC BUN (7-18) mg/dl BUN 44 H (7-18) mg/dl Creatinine 1.76 H (0.6-1.2) mg/dl POC Creatinine (0.6-1.3) mg/dl Est Cr Clr Drug Dosing 19.1 ml/min Est GFR ( Amer) 32.0 Est GFR (Non-Af Amer) 27.6 BUN/Creatinine Ratio 24.9 H (10-20) Glucose 133 H (70-99) mg/dl POC Glucose (other) (70-99) mg/dl Lactate (0.4-2.0) mmol/L Calcium 9.8 (8.5-10.1) mg/dl POC Ioniz Calcium Bernie (1.12-1.32) mmol/l Phosphorus 2.9 (2.5-4.9) mg/dl Magnesium 2.3 (1.8-2.4) mg/dl Total Bilirubin 0.6 (0.2-1) mg/dl Direct Bilirubin 0.2 (0-0.2) mg/dl AST 56 H (15-37) U/L ALT 42 (12-78) U/L Alkaline Phosphatase 78 (45-117) U/L NT-Pro-B Natriuret Pep 1363 (0-1800) pg/ml Total Protein 7.9 (6.4-8.2) gm/dl Albumin 4.0 (3.4-5.0) gm/dl Globulin 3.9 (2.5-4.0) gm/dl Albumin/Globulin Ratio 1.0 (0.9-2) Procalcitonin (0-0.5) ng/ml Influenza Type A (PCR) (Neg) Influenza Type B (PCR) (Neg) 08/06/19 08/06/19 08/06/19 Range/Units 16:39 16:39 16:39 WBC (4.8-10.8) K/uL RBC (4.2-5.4) M/uL Hgb (12.0-16.0) g/dL POC Hgb 13.3 (12.0-16.0) g/dl Hct (37-47) % POC Hct 39 (37-47) % MCV (80-100) fL MCH (25-34) pg MCHC (32-36) g/dL RDW Std Deviation (36.4-46.3) fL RDW Coeff of Tony (11.5-14.5) % Plt Count (130-400) K/uL MPV (7.4-10.4) fL Immature Gran % (Auto) % Neut % (Auto) % Lymph % (Auto) % Emmons % (Auto) % Eos % (Auto) % Baso % (Auto) % Immature Gran # (Auto) (0.00-0.02) K/uL Neut # (Auto) (1.4-6.5) K/uL Lymph # (Auto) (1.2-3.4) K/uL Emmons # (Auto) (0.11-0.59) K/uL Eos # (Auto) (0-0.5) K/uL Baso # (Auto) (0-0.2) K/uL PT (9.0-12.0) Seconds INR (0.9-1.1) APTT (21.0-31.0) Seconds PTT Ratio VBG pH 7.32 L (7.36-7.41) VBG pCO2 60 H (38-50) mmHg VBG pO2 20 mmHg VBG HCO3 30 mmol/L VBG O2 Saturation < 60.0 % VBG Base Excess 2.2 mEq/L Barometric Pressure 736.4 mm/Hg POC Sodium 151 H (135-144) mEq/L Sodium (136-145) mmol/L POC Potassium 3.7 (3.3-5.0) mEq/L Potassium (3.5-5.1) mmol/L POC Chloride 110 (101-112) mEq/L Chloride (98-107) mmol/L Carbon Dioxide (21-32) mmol/L POC Total CO2 27 (24-31) mEq/l Anion Gap (3-11) POC Anion Gap 19.0 (16-25) mmol/L POC BUN 43 H (7-18) mg/dl BUN (7-18) mg/dl Creatinine (0.6-1.2) mg/dl POC Creatinine 1.5 H (0.6-1.3) mg/dl Est Cr Clr Drug Dosing ml/min Est GFR ( Amer) Est GFR (Non-Af Amer) BUN/Creatinine Ratio (10-20) Glucose (70-99) mg/dl POC Glucose (other) 153 H (70-99) mg/dl Lactate 4.4 H* (0.4-2.0) mmol/L Calcium (8.5-10.1) mg/dl POC Ioniz Calcium Bernie 1.16 (1.12-1.32) mmol/l Phosphorus (2.5-4.9) mg/dl Magnesium (1.8-2.4) mg/dl Total Bilirubin (0.2-1) mg/dl Direct Bilirubin (0-0.2) mg/dl AST (15-37) U/L ALT (12-78) U/L Alkaline Phosphatase (45-117) U/L NT-Pro-B Natriuret Pep (0-1800) pg/ml Total Protein (6.4-8.2) gm/dl Albumin (3.4-5.0) gm/dl Globulin (2.5-4.0) gm/dl Albumin/Globulin Ratio (0.9-2) Procalcitonin (0-0.5) ng/ml Influenza Type A (PCR) (Neg) Influenza Type B (PCR) (Neg) 08/06/19 08/06/19 Range/Units 16:39 18:04 WBC (4.8-10.8) K/uL RBC (4.2-5.4) M/uL Hgb (12.0-16.0) g/dL POC Hgb (12.0-16.0) g/dl Hct (37-47) % POC Hct (37-47) % MCV (80-100) fL MCH (25-34) pg MCHC (32-36) g/dL RDW Std Deviation (36.4-46.3) fL RDW Coeff of Tony (11.5-14.5) % Plt Count (130-400) K/uL MPV (7.4-10.4) fL Immature Gran % (Auto) % Neut % (Auto) % Lymph % (Auto) % Emmons % (Auto) % Eos % (Auto) % Baso % (Auto) % Immature Gran # (Auto) (0.00-0.02) K/uL Neut # (Auto) (1.4-6.5) K/uL Lymph # (Auto) (1.2-3.4) K/uL Emmons # (Auto) (0.11-0.59) K/uL Eos # (Auto) (0-0.5) K/uL Baso # (Auto) (0-0.2) K/uL PT (9.0-12.0) Seconds INR (0.9-1.1) APTT (21.0-31.0) Seconds PTT Ratio VBG pH (7.36-7.41) VBG pCO2 (38-50) mmHg VBG pO2 mmHg VBG HCO3 mmol/L VBG O2 Saturation % VBG Base Excess mEq/L Barometric Pressure mm/Hg POC Sodium (135-144) mEq/L Sodium (136-145) mmol/L POC Potassium (3.3-5.0) mEq/L Potassium (3.5-5.1) mmol/L POC Chloride (101-112) mEq/L Chloride (98-107) mmol/L Carbon Dioxide (21-32) mmol/L POC Total CO2 (24-31) mEq/l Anion Gap (3-11) POC Anion Gap (16-25) mmol/L POC BUN (7-18) mg/dl BUN (7-18) mg/dl Creatinine (0.6-1.2) mg/dl POC Creatinine (0.6-1.3) mg/dl Est Cr Clr Drug Dosing ml/min Est GFR ( Amer) Est GFR (Non-Af Amer) BUN/Creatinine Ratio (10-20) Glucose (70-99) mg/dl POC Glucose (other) (70-99) mg/dl Lactate (0.4-2.0) mmol/L Calcium (8.5-10.1) mg/dl POC Ioniz Calcium Bernie (1.12-1.32) mmol/l Phosphorus (2.5-4.9) mg/dl Magnesium (1.8-2.4) mg/dl Total Bilirubin (0.2-1) mg/dl Direct Bilirubin (0-0.2) mg/dl AST (15-37) U/L ALT (12-78) U/L Alkaline Phosphatase (45-117) U/L NT-Pro-B Natriuret Pep (0-1800) pg/ml Total Protein (6.4-8.2) gm/dl Albumin (3.4-5.0) gm/dl Globulin (2.5-4.0) gm/dl Albumin/Globulin Ratio (0.9-2) Procalcitonin 0.20 (0-0.5) ng/ml Influenza Type A (PCR) Neg for Influ A (Neg) Influenza Type B (PCR) Neg for Influ B (Neg) Imaging Data Radiologist's Impression: Radiology results as stated below per my review and th e radiologist's interpretation: XR chest 1V portable CLINICAL HISTORY: 74 years-old Female presenting with Sepsis. TECHNIQUE: Portable upright AP view of the chest was obtained. COMPARISON: 12/28/2017. FINDINGS: Atherosclerosis of the aortic arch. Cardiac silhouette normal in size. Extensive perihilar predominant fluffy opacities, left greater than right. Lungs may be mildly hyperinflated. No pleural effusion or pneumothorax is evident. Osteopenia suspected. Left axillary surgical clips. Upper abdomen normal. IMPRESSION: 1. Bilateral perihilar predominant infiltrates, left greater than right. This could represent multifocal pneumonia or, less likely, edema. Electronically signed by: Shamir Alejandro M.D. 08/06/2019 4:51 PM ECG Data Attestation: I personally reviewed and interpreted this ECG as follows: Indication: SOB/dyspnea Rate (beats per minute): 114 Rhythm: sinus tachycardia Findings: + other (significant artifact) and + nonspecific-ST abn; no ST depression, no ST elevation and no acute ischemic change Blood Pressure Blood Pressure Findings: Elevated blood pressure Blood Pressure Disposition: further management by hospitalist MDM Narrative The patient is a 74-year-old woman with a past medical history of Parkinson disease, CKD who presents emergency department from [facility] for acute onset respiratory distress with worsening mental status per hpi. On arrival patient is ill-appearing in severe respiratory distress with labored breathing and depressed mental status with scattered rhonchi increased on left greater than right. I did review the patient's CODE STATUS with the at the bedside and he confirms that she is DNR and DNI. He was however agreeable with BiPAP to help with her work of breathing. Limited bedside US, demonstrates IVC with greater than 50% variability suggesting component of dehydration as well as d iffuse B-lines. EKG demonstrates sinus tachycardia without overt acute ischemia. Chest x-ray with findings consistent with multifocal pneumonia. WBC 4.3, nonspecific. H/H and platelets within normal limits. VBG with pH of 7.3 with PCO2 of 60. However chemistry without acidosis and anion gap within normal limits. Sodium 150 consistent with the patient's clinically dry appearance. She does have acute renal insufficiency with a creatinine of 1.7. Lactate 4.4 though again without acidosis. Electrolytes and LFTs otherwise unremarkable. Patient appearing stabilized after being placed on BiPAP and provided with gentle IV fluid hydration. Empiric broad-spectrum antibiotics ordered and ad ministered after blood cultures drawn for sepsis. Case was discussed with Dr. Perez, [facility] hospitalist, who evaluate the patient for admission. Impression & Plan Acute respiratory failure with hypoxia, Multifocal pneumonia, Acute renal failure, Hypernatremia Critical Care Time Critical Care Time: Yes Total Critical Care Time: 70 I have personally spent greater than 70 minutes of critical care time in the direct management of this patient. This includes bedside care, interpretation of diagnostic studies, and testing, discussion with consultants, patient, and family members, and other required patient management activities. This 70 minutes is in excess of all separately billable procedures. Discharge Plan Visit Data *Final* Discharge Date/Time: 08/06/19 19:47 Chief Complaint: Shortness of Breath/Dyspnea ED Provider: Lamont Ferraro Discharge Problem: Acute respiratory failure with hypoxia, Multifocal pneumonia, Acute renal failure, Hypernatremia Patient Disposition: Admitted As Inpatient Discharge Instructions Interventions: ED Discharge Assessment Last Done: 08/06/19 19:47 Discharge Problem: Acute renal failure Qualifiers: Acute renal failure type: unspecified Qualified Code(s): N17.9 - Acute kidney failure, unspecified The scribe's documentation has been prepared under my direction and personally reviewed by me in its entirety. I confirm that the note above accurately reflects all work, treatment, procedures, and medical decision making performed by me.
[2019-08-06] MEDS: DULOXETINE HCL 30 MG CAP PO SCH (22:15)
[2019-08-06] MEDS: GABAPENTIN 100 MG CAP PO SCH (22:15)
[2019-08-06] MEDS: ENTACAPONE 200 MG TAB PO SCH (22:15)
[2019-08-06] MEDS: MIRTAZAPINE SOLTAB 15 MG PO SCH (22:15)
[2019-08-06] MEDS: CARBIDOPA/LEVODOPA 25/100MG TAB PO SCH (22:16)
[2019-08-06] MEDS: AZITHROMYCIN 500 MG in DEXTROSE 5% 250 ML IV SCH (22:54)
[2019-08-06] MEDS: HEPARIN SOD 5,000 UNIT/0.5 ML VIAL SQ SCH (22:58)
[2019-08-06 23:24] LABS: Appearance Urine Turbid (Clear); Bacteria Urine Automated Negative (Negative); Bilirubin Urine Negative (Negative); Blood Urine 2+ (Negative); Color Urine Dark Yellow; Epithelial Cell Urine Auto >30 /lpf (0-5); Glucose Urine UA Negative (Negative); Ketones Urine Trace (Negative); Leukocyte Esterase Urine Negative (Negative); Nitrite Urine Negative (Negative); Protein Urine 1+ (Negative); Specific Gravity Urine > 1.045 (1.000-1.030); Urobilinogen Urine Negative (Negative)
[2019-08-07 00:03] LABS: Cast Urine Automated 0 /lpf (0-5); Uric Acid Crystals Urine Present (None Prsent)
[2019-08-07] MEDS: PIPERACILLIN/TAZOBACTAM 3.375 GM in DEXTROSE 5% 100 ML IV SCH ×3 (02:58→18:56)
[2019-08-07] MEDS ORDERED: ACETAMINOPHEN 1000 MG/100 ML IV IV PRN (04:55)
[2019-08-07] MEDS: ACETAMINOPHEN IV PRN ×3 (05:35→20:33)
[2019-08-07] MEDS: LEVOTHYROXINE SODIUM 25 MCG TABLET PO SCH (05:36)
[2019-08-07 06:48] LABS: Hematocrit (blood only) 33.1 % (37-47); Hemoglobin 10.6 g/dL (12.0-16.0); Immature Granulocytes # (auto) 0.01 K/uL (0.00-0.02); Immature Granulocytes % (auto) 0.1 %; Lymphocytes # (auto) 0.64 K/uL (1.2-3.4); Lymphocytes % (auto) 8.3 %; Mean Corpuscular Volume 93.8 fL (80-100); Mean Platelet Volume 9.3 fL (7.4-10.4); Monocytes # (auto) 0.56 K/uL (0.11-0.59); Monocytes % (auto) 7.3 %; Neutrophils # (auto) 6.48 K/uL (1.4-6.5); Neutrophils % (auto) 84.3 %; Platelet Count 191 K/uL (130-400); RDW Coefficient of Variation 13.9 % (11.5-14.5); Red Blood Count 3.53 M/uL (4.2-5.4); White Blood Count 7.69 K/uL (4.8-10.8)
[2019-08-07] MEDS: ALBUT/IPRATROP 3MG/0.5MG NEB 3 ML VIAL NEB SCH ×4 (07:17→19:20)
[2019-08-07 07:25] LABS: Albumin Level 3.1 gm/dl (3.4-5.0); BUN Creatinine Ratio 28.6 (10-20); Calcium 8.7 mg/dl (8.5-10.1); Creatinine Clr Calc Pharmacy 24.6 ml/min; Est GFR (African American) 41.1; Est GFR (Non-African American) 35.5; Potassium 3.7 mmol/L (3.5-5.1)
[2019-08-07 07:28] LABS: Albumin Globulin Ratio 0.9 (0.9-2); Bilirubin,Total 0.8 mg/dl (0.2-1); Globulin 3.6 gm/dl (2.5-4.0); Total Protein 6.7 gm/dl (6.4-8.2)
[2019-08-07] MEDS ORDERED: LACTATED RINGER'S 500 ML IV ONE ×2 (08:25→11:53)
[2019-08-07] MEDS ORDERED: VANCOMYCIN HCL 1,000 MG in SODIUM CHLORIDE 0.9% 250 ML IV SCH (10:00)
[2019-08-07] MEDS: LACTOBACILLUS ACIDOPHILUS 1 GM PACK PO SCH ×3 (10:28→18:27)
[2019-08-07] MEDS: ENTACAPONE 200 MG TAB PO SCH ×4 (10:28→20:03)
[2019-08-07] MEDS: DULOXETINE HCL 30 MG CAP PO SCH ×2 (10:28→20:03)
[2019-08-07] MEDS: CARBIDOPA/LEVODOPA 25/100MG TAB PO SCH ×4 (10:30→20:04)
[2019-08-07] MEDS: HEPARIN SOD 5,000 UNIT/0.5 ML VIAL SQ SCH ×2 (10:37→20:16)
[2019-08-07] MEDS: LACTATED RINGER'S 1,000 ML IV SCH ×2 (10:51→22:49)
--- NOTE | 2019-08-07 12:00 | Family Medicine Progress Note ---
Date of Service August 07, 2019 Assessment & Plan (1) Multifocal pneumonia: Kaitlyn is a 74-year-old female with a past medical history of severe dementia, Parkinson's, chronic kidney disease, GERD, and breast cancer who presented with shortness of breath, cough, and altered mental status and was found to be tachycardic, febrile on admit with a chest x-ray suggestive of multilobar pneumonia requiring BiPAP. Acute hypoxic respiratory failure 2/2 multifocal pneumonia Febrile, tachycardic on admission with lactate 4.4 -X-ray shows right greater than left bilateral perihilar infiltrates suggestive for pneumonia Zosyn, vancomycin, azithromycin triple therapy initiated on admission. MRSA nare pending, ? NPV after Vanco has been ordered for 12 hours. We will continue azithromycin pending Legionella results. Vancomycin adjusted for renal function per pharmacy Lactate downtrending from 4.4 normalized to 1.2 Received 1 L saline bolus in ED +70 cc/h IVF M Converted to lactated Ringer's, 500 cc bolus given with mild improvement in tachycardia. Continues to appear clinically dry, no basilar rales/crackles appreciated on exam, additional bolus of 500 cc and IVF M converted to lactated Ringer's 80 cc/h Acute kidney injury Creatinine increased on admission to 1.76 from baseline of approximately 1 Creatinine now downtrending to 1.43 with rehydration as above BUN/creatinine ratio greater than 20 Continue fluids as above and BMP daily Hypernatremia Hypernatremic to 150 on admission, down trended to 147 with fluids as above No history of hyponatremia prior. 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 Discussed with pharmacy, her Sinemet which is not long-acting and entacapone are able to be crushed and taken via NG if needed and patient is unable to take p.o. following antibiotic treatment and rehydration as above Tremor increased with overall increased tone on exam today Dementia with acute worsening of altered mental status due to metabolic encephalopathy P.o. meds held in setting of n.p.o. Treat pneumonia as above Delirium precautions FEN/GI IV fluid maintenance as above N.p.o. due to altered mental status [facility] [place] basal requirement 1037 kcal per day Her mental status is not improved enough to be safe for p.o. Given that there is not an IV conversion for her Parkinson's meds, and she is frail without substantial nutritional reserve do not expect her p.o. status to improve by tomorrow will place core safe and start impact feeds at 10 cc/h with increased every 4 hours x 10 cc to a goal rate of 60 cc/h. Discussed with pharmacy and may give Sinemet/entacapone via NG as above. NGT discussed with both and daughter who are agreeable. DVT prophylaxis Heparin 5000 units every 12 hours subcu (2) Acute respiratory failure with hypoxia: (3) Acute renal failure: (4) Acute metabolic encephalopathy: (5) Hypernatremia: Supervising Physician Co-Signing Physician Notes I personally examined the patient and verified all herrmann points of history and exam, discussed case, and agree with decision making with Dr Bear. No meaningful HPI or review of systems obtainable. Updated family. Vitals noted, in general she is laying in bed eyes open breathing unlabored but does not really respond. HEENT normal cephalic atraumatic mucous membranes are moist. Lungs are coarse on the left with diffuse rhonchi surprisingly clear on the right. No accessory muscle use. Skin is dry. Healthcare associated pneumonia with sepsis and acute hypoxic respiratory failure present on admissioncontinue antibiotics for nosocomial pathogens and atypicals (at least pending urine Legionella) and continue supportive care Hypernatremic dehydrationimproving. Continue IV fluids. Follow. Parkinson'sthe concern is that she is weak, but obviously will continue to get weaker without her Parkinson's meds, NG tube attempted by nursing as well as by Dr. Bear with my supervision, unfortunately unable to get into the stomach. Will need to work on this again, possibly requiring assistance for tube placement if she does not start to wake up enough to be out of swallow soon. DVT prophylaxisheparin subcu Subjective Limited due to mental status. Kaitlyn is extremely somnolent, although arouses slightly and will squeeze fingers on commands. Improved mental status throughout the day and will give brief yes no answers to questions. Review of Systems Review of Systems: Unobtainable due to cognitive status Physical Exam Physical Exam: General: Somnolent, arouses briefly to voice and physical stimuli. Appears ill. Skin warm, moist. Mucous membranes dry. HEENT: Atraumatic, normocephalic. Pulm: Diminished globally but grossly CTAB A&P. -wheezes, -rales, -rhonchi. Symmetrical chest rise. No respiratory distress. Cardiac: Tachycardic, -mrg. Radial pulses intact and symmetrical. PT pulses intact symmetrical. Abdominal: Nontender, nondistended, soft. BS present. MSK: Increased global tone, cogwheeling tremor present in arms bilaterally. Resting tremor present. Results & Data Vital Signs (Past 12 Hours) Vital Signs Temp Pulse Pulse Resp BP Pulse Ox 08/07/19 11:12 101 H 31 H 100 08/07/19 08:23 37.4 C 100 H 18 118/57 L 98 08/07/19 07:18 104 H 37 H 99 08/07/19 07:17 104 H 37 H 99 08/07/19 04:16 77 08/07/19 03:55 38.8 C H 100 H 30 H 133/62 100 08/07/19 03:33 106 H 98 08/07/19 00:42 37.6 C H 86 25 H 134/69 98 PG Care Time/CCT Total # of Minutes Spent Total Time Spent with Patient: Total time spent is greater than 50% in coordination of care (as documented) at patient's floor/unit and/or counseling patient: Resident Activity Tracking Resident Involvement: Resident Care Provided Care Provided: Adult Hospital Medicine (1) Acute renal failure Acute renal failure type: unspecified Qualified Code(s): N17.9 - Acute kidney failure, unspecified
--- NOTE | 2019-08-07 17:53 | XRay Report ---
XR chest 1V portable HISTORY: confirm NGT placement COMPARISON: Chest 08/06/2019. FINDINGS: The feeding tube is located within the right lower lobe bronchus. This should be removed. B ilateral perihilar airspace opacities are again noted. No pneumothorax. No pleural effusions. The hea rt is normal in size. IMPRESSION: 1. The feeding tube is located within the right lower lobe bronchus and should be immediately removed . 2. This report was discussed with Dr. Townsend at 5:55 PM on 08/07/2019. Electronically signed by: Zeeshan Diaz M.D. 08/07/2019 6:07 PM
[2019-08-07] MEDS: IMPACT LIQD 1.0 CAL 1,000 ML BAG NG SCH ×2 (19:35→21:27)
[2019-08-07] MEDS: GABAPENTIN 100 MG CAP PO SCH (20:04)
[2019-08-07] MEDS: MIRTAZAPINE SOLTAB 15 MG PO SCH (20:04)
[2019-08-07] MEDS: AZITHROMYCIN 500 MG in DEXTROSE 5% 250 ML IV SCH (20:33)
[2019-08-07] MEDS ORDERED: VANCOMYCIN HCL 750 MG in SODIUM CHLORIDE 0.9% 250 ML IV SCH (21:00)
[2019-08-08] MEDS: IMPACT LIQD 1.0 CAL 1,000 ML BAG NG SCH ×6 (01:02→20:19)
[2019-08-08] MEDS: PIPERACILLIN/TAZOBACTAM 3.375 GM in DEXTROSE 5% 100 ML IV SCH ×3 (01:03→17:45)
[2019-08-08] MEDS: ACETAMINOPHEN IV PRN ×3 (04:41→22:14)
[2019-08-08] MEDS: LEVOTHYROXINE SODIUM 25 MCG TABLET PO SCH (05:25)
[2019-08-08 06:55] LABS: Basophils # (auto) 0.01 K/uL (0-0.2); Basophils % (auto) 0.1 %; Eosinophils # (auto) 0.01 K/uL (0-0.5); Eosinophils % (auto) 0.1 %; Hematocrit (blood only) 28.2 % (37-47); Hemoglobin 9.1 g/dL (12.0-16.0); Immature Granulocytes # (auto) 0.01 K/uL (0.00-0.02); Immature Granulocytes % (auto) 0.1 %; Lymphocytes # (auto) 0.63 K/uL (1.2-3.4); Lymphocytes % (auto) 8.1 %; Mean Corpuscular Hemoglobin 30.3 pg (25-34); Mean Corpuscular Hgb Conc 32.3 g/dL (32-36); Mean Platelet Volume 9.7 fL (7.4-10.4); Monocytes # (auto) 0.45 K/uL (0.11-0.59); Monocytes % (auto) 5.8 %; Neutrophils # (auto) 6.68 K/uL (1.4-6.5); Neutrophils % (auto) 85.8 %; Platelet Count 167 K/uL (130-400); RDW Standard Deviation 48.3 fL (36.4-46.3); White Blood Count 7.79 K/uL (4.8-10.8)
[2019-08-08] MEDS ORDERED: LACTATED RINGER'S 500 ML IV ONE (07:14)
[2019-08-08] MEDS: ALBUT/IPRATROP 3MG/0.5MG NEB 3 ML VIAL NEB SCH ×4 (07:14→19:08)
[2019-08-08 07:21] LABS: BUN Creatinine Ratio 30.1 (10-20); Calcium 8.6 mg/dl (8.5-10.1); Creatinine Clr Calc Pharmacy 32.4 ml/min; Est GFR (African American) 56.5; Est GFR (Non-African American) 48.7; Potassium 3.4 mmol/L (3.5-5.1)
[2019-08-08 07:46] LABS: Base Excess VBG 1.8 mEq/L; Oxygen Saturation VBG 98.9 %; pH VBG 7.5 (7.36-7.41)
[2019-08-08] MEDS: DULOXETINE HCL 30 MG CAP PO SCH ×2 (09:07→20:19)
[2019-08-08] MEDS: ENTACAPONE 200 MG TAB PO SCH ×4 (09:07→20:18)
[2019-08-08] MEDS: CARBIDOPA/LEVODOPA 25/100MG TAB PO SCH ×4 (09:07→20:18)
[2019-08-08] MEDS: LACTOBACILLUS ACIDOPHILUS 1 GM PACK PO SCH ×3 (09:07→16:45)
[2019-08-08] MEDS: LACTATED RINGER'S 1,000 ML IV SCH (09:08)
[2019-08-08] MEDS: HEPARIN SOD 5,000 UNIT/0.5 ML VIAL SQ SCH ×2 (09:20→20:17)
--- NOTE | 2019-08-08 09:33 | XRay Report ---
XR chest 1V portable CLINICAL HISTORY: 74 years-old Female presenting with PNA, AHRF. TECHNIQUE: Portable upright AP view of the chest was obtained. COMPARISON: 08/07/2019. FINDINGS: The feeding catheter has been removed from the right lung. Atherosclerosis of the aortic arch. Cardia c silhouette top normal in size. Central and basilar predominant left lung opacity stable to increase d from prior. Trace left pleural effusion also suspected. There may be minimal developing patchy opac ities in the right mid to lower lung. No pneumothorax. Surgical clips project over the left axilla. E xternal leads degraded evaluation. Suspected osteopenia. Chronic right AC joint widening. Upper abdom en normal. IMPRESSION: 1. Feeding catheter removed from the right lung. 2. Multifocal patchy infiltrates predominantly in the left mid to lower lung and potentially develop ing in the right mid to lower lung concerning for multifocal pneumonia. These are stable to slightly worsened from prior. Electronically signed by: Shamir Alejandro M.D. 08/08/2019 9:32 AM
[2019-08-08] MEDS: POTASSIUM CHLORIDE 20 MEQ in LACTATED RINGER'S 1,000 ML IV SCH (13:00)
[2019-08-08] MEDS: POTASSIUM CHLORIDE / WTR 10 MEQ/100 ML PLCT IV SCH ×4 (13:00→16:31)
--- NOTE | 2019-08-08 14:42 | Family Medicine Progress Note ---
Date of Service August 08, 2019 Assessment & Plan (1) Multifocal pneumonia: Kaitlyn is a 74-year-old female with a past medical history of severe dementia, Parkinson's, chronic kidney disease, GERD, and breast cancer who presented with shortness of breath, cough, and altered mental status and was found to be tachycardic, febrile on admit with a chest x-ray suggestive of multilobar pneumonia requiring BiPAP. Acute hypoxic respiratory failure 2/2 multifocal pneumonia Febrile, tachycardic on admission with lactate 4.4 normalized to 1.2 -X-ray shows right greater than left bilateral perihilar infiltrates suggestive for pneumonia Zosyn, vancomycin, azithromycin triple therapy initiated on admission. MRSA positive, continue vanc. We will continue azithromycin pending Legionella results. Vancomycin adjusted for renal function per pharmacy HR improved with serial 500cc LR boluses. - Continue LR+20KCl 80cc/hr IVFM Acute kidney injury, improved Creatinine increased on admission to 1.76 from baseline of approximately 1 Creatinine normalized to ~baseline BUN/creatinine ratio greater than 20 Continue fluids as above and BMP daily. LR boluses as needed, although prefer 500cc at a time with reevaluation for rales given frailty. Hypokalemia - Decreased to 3.4 today - Added 20meQ to IVFM, +K Vincenzo 10meQ x4 today. 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[employer] carbidopa levodopa 4 times daily and entacapone 200 mg 4 times daily May give crushed in pudding Dementia with acute worsening of altered mental status due to metabolic encephalopathy Treat pneumonia as above Delirium precautions FEN/GI IV fluid maintenance as above LImited by altered mental status, may have ice chips and meds with pudding per speech Azael [place] basal requirement 1037 kcal per day DVT prophylaxis Heparin 5000 units every 12 hours subcu Supervising Physician Co-Signing Physician Notes I personally examined the patient and verified all herrmann points of history and exam, discussed case, and agree with decision making with Dr Bear. No meaningful HPI or review of systems obtainable, but she is awake, doing well with speech therapy, and trying to verbalize. Vitals noted, in general she is laying appearing quite fatigued, but trying to verbalize some.. HEENT normal cephalic atraumatic mucous membranes are moist. Lungs are coarse on the left with diffuse rhonchi surprisingly clear on the right, no wheezing, sounds may be a little better than yesterday. No accessory muscle use. Skin is dry. Healthcare associated pneumonia with sepsis and acute hypoxic respiratory failure present on admissioncontinue antibiotics for nosocomial pathogens and atypicals (at least pending urine Legionella) and continue supportive care, appears overall to be improving. She is still showing temperatures, but with the rest of her clinical improvement, this is likely just a slow resolving fever. No indication to change antibiotics yet Hypernatremic dehydrationimproving. Continue IV fluids. Follow, hopefully will be able to start meaningful p.o. intake now Parkinson'sfortunately she is improved enough she can swallow again, we will resume her Parkinson's meds DVT prophylaxisheparin subcu Subjective Limited by mental status. More alert, follows 1 step commands today. Review of Systems Review of Systems: Unobtainable due to cognitive status Physical Exam Physical Exam: General: Somnolent, arouses more easily and more alert today. Appears ill. Skin warm, moist. Mucous membranes dry. HEENT: Atraumatic, normocephalic. Pulm: Diminished globally but grossly CTAB A&P. -wheezes, -rales, -rhonchi. Symmetrical chest rise. No respiratory distress. Weaned to 1L NC. Cardiac: RRR, -mrg. Radial pulses intact and symmetrical. PT pulses intact symmetrical. No JVD. Abdominal: Nontender, nondistended, soft. BS present. MSK: Increased global tone, cogwheeling tremor present in arms bilaterally. Resting tremor present. Extremities: No pitting edema Results & Data Vital Signs (Past 12 Hours) Vital Signs Temp Pulse Resp BP Pulse Ox 08/08/19 11:49 37.8 C H 117 H 14 148/62 H 92 08/08/19 11:05 94 H 24 98 08/08/19 07:40 38 C H 103 H 32 H 139/62 97 08/08/19 07:16 84 26 H 98 08/08/19 03:14 38.4 C H 90 26 H 99/48 L 98 08/08/19 00:34 38.0 C H 88 30 H 122/50 L 96 PG Care Time/CCT Total # of Minutes Spent Total Time Spent with Patient: Total time spent is greater than 50% in coordination of care (as documented) at patient's floor/unit and/or counseling patient: Resident Activity Tracking Resident Involvement: Resident Care Provided Care Provided: Adult [facility] Medicine
--- NOTE | 2019-08-08 15:39 | Pharmacy Report ---
Pharmacy Abx Initial Consult - Date of Service August 08, 2019 - Pharmacy Dosing Scope Date of Consult: 08/06/19 Consultation requested by: Dr. Chris Haney Pharmacy is consulted to initiate Vancomycin/Zosyn IV dosing therapy, order appropriate labs and adjust drug dose/frequency. 08/06/19 - Subjective The patient is a 74 year old F admitted on 08/06/19 18:46. - Objective Height: 5 ft 2 in Weight: 47.1 kg (BMI 19.0) Vital Signs (Past 12hrs): Vital Signs Temp Pulse Pulse Pulse Resp BP Pulse Ox 08/08/19 15:30 99 H 30 H 94 08/08/19 15:13 37.2 C 100 H 24 154/77 H 94 08/08/19 13:14 82 08/08/19 11:49 37.8 C H 117 H 14 148/62 H 92 08/08/19 11:05 94 H 24 98 08/08/19 07:40 38 C H 103 H 32 H 139/62 97 08/08/19 07:16 84 26 H 98 Lab Results (24hrs): Laboratory Tests (24 Hours) 08/08/19 08/08/19 08/08/19 06:19 06:19 06:19 WBC 7.79 Neut # (Auto) 6.68 H Creatinine 1.10 D Est Cr Clr Drug Dosing 32.4 Random Vancomycin 21.0 08/07/19 19:51 WBC Neut # (Auto) Creatinine Est Cr Clr Drug Dosing Random Vancomycin 18.7 Micro Results: 08/06/19 16:39 Anaerobic Blood Culture - Final Blood - Risk Factors for Resistance * Resident in a skilled nursing or extended-care facility - Assessment & Plan Assessment 74 year old F resident of [facility] admitted for pneumonia. Patient was found by family members to be extremely lethargic, short of breath, with a cough. Also was febrile. Chest xray showed bilateral infiltrates left side greater than right. * Patient has advanced dementia and Parkinson's disease * Initial KAYCEE 1.76(08/06/19) -----> 1.10 (08/08/19)close to baseline. * Due to changing renal function have been giving single doses and monitoring levels. * patient received 1gm 08/06/19 @ 1746; 1gm 08/07/19 @ 1000; 750mg 08/07/19 @2100 * MRSA nasal swab was positive. Plan Vancomycin and Zosyn for treatment of pneumonia. Vancomycin IV * Estimated Pkinetic parameters: Vd 0.7 L/kg; Calculated yoana from measured levels 0.101 hr-1; calculated T1/2 ~ 7hrs * Due to fluctuating renal function, I hesitate to be to agressive with the dosing interval. * Maintainence dose: Vancomycin 750 mg (~17mg/kg) IV q16h. * Will check trough level prior to 08/09/19 am dose and reassess based on level. Piperacillin/tazobactam * 4.5 g bolus administered over 30 minutes, then 3.375 g IV extended infusion every 8 hours for CrCl greater than 20 mL/min OR every 12 hours for CrCl 20 mL/min or less and dialysis. Pharmacy will continue to follow and will adjust dose/frequency as necessary. Thank you.
[2019-08-08] MEDS: VANCOMYCIN HCL 750 MG in SODIUM CHLORIDE 0.9% 250 ML IV SCH (16:34)
[2019-08-08] MEDS: MIRTAZAPINE SOLTAB 15 MG PO SCH (20:18)
[2019-08-08] MEDS: GABAPENTIN 100 MG CAP PO SCH (20:18)
[2019-08-08] MEDS: AZITHROMYCIN 500 MG in DEXTROSE 5% 250 ML IV SCH (20:38)
[2019-08-09] MEDS: POTASSIUM CHLORIDE 20 MEQ in LACTATED RINGER'S 1,000 ML IV SCH ×3 (00:48→20:41)
[2019-08-09] MEDS: IMPACT LIQD 1.0 CAL 1,000 ML BAG NG SCH ×4 (02:45→12:55)
[2019-08-09] MEDS: PIPERACILLIN/TAZOBACTAM 3.375 GM in DEXTROSE 5% 100 ML IV SCH ×2 (02:45→10:14)
[2019-08-09] MEDS: LEVOTHYROXINE SODIUM 25 MCG TABLET PO SCH (05:25)
[2019-08-09] MEDS: ALBUT/IPRATROP 3MG/0.5MG NEB 3 ML VIAL NEB SCH ×4 (07:14→19:10)
[2019-08-09] MEDS ORDERED: VANCOMYCIN TROUGH ONE (07:30)
[2019-08-09 07:38] LABS: Basophils # (auto) 0.01 K/uL (0-0.2); Basophils % (auto) 0.1 %; Eosinophils # (auto) 0.05 K/uL (0-0.5); Eosinophils % (auto) 0.7 %; Hematocrit (blood only) 29.6 % (37-47); Hemoglobin 9.4 g/dL (12.0-16.0); Immature Granulocytes # (auto) 0.02 K/uL (0.00-0.02); Immature Granulocytes % (auto) 0.3 %; Lymphocytes # (auto) 0.56 K/uL (1.2-3.4); Lymphocytes % (auto) 7.7 %; Mean Corpuscular Hemoglobin 29.7 pg (25-34); Mean Corpuscular Hgb Conc 31.8 g/dL (32-36); Mean Corpuscular Volume 93.4 fL (80-100); Mean Platelet Volume 9.2 fL (7.4-10.4); Monocytes # (auto) 0.37 K/uL (0.11-0.59); Monocytes % (auto) 5.1 %; Neutrophils # (auto) 6.23 K/uL (1.4-6.5); Neutrophils % (auto) 86.1 %; Platelet Count 178 K/uL (130-400); RDW Coefficient of Variation 13.8 % (11.5-14.5); RDW Standard Deviation 47.5 fL (36.4-46.3); Red Blood Count 3.17 M/uL (4.2-5.4); White Blood Count 7.24 K/uL (4.8-10.8)
[2019-08-09 08:27] LABS: BUN Creatinine Ratio 23.7 (10-20); Calcium 8.9 mg/dl (8.5-10.1); Creatinine Clr Calc Pharmacy 36.6 ml/min; Est GFR (African American) 64.2; Est GFR (Non-African American) 55.4
[2019-08-09] MEDS: VANCOMYCIN HCL 750 MG in SODIUM CHLORIDE 0.9% 250 ML IV SCH (08:34)
[2019-08-09] MEDS: LACTOBACILLUS ACIDOPHILUS 1 GM PACK PO SCH ×3 (08:34→17:34)
[2019-08-09] MEDS: HEPARIN SOD 5,000 UNIT/0.5 ML VIAL SQ SCH ×2 (08:35→20:42)
[2019-08-09] MEDS: CARBIDOPA/LEVODOPA 25/100MG TAB PO SCH ×4 (08:35→22:26)
[2019-08-09] MEDS: DULOXETINE HCL 30 MG CAP PO SCH ×2 (08:35→20:42)
[2019-08-09] MEDS: ENTACAPONE 200 MG TAB PO SCH ×4 (08:35→20:42)
--- NOTE | 2019-08-09 09:33 | Pharmacy Report ---
Pharmacy Abx Dose Short Note - Date of Service August 09, 2019 - Assessment & Plan Assessment * 74 year old F receiving VANCOMYCIN + ZOSYN + AZITHROMYCIN for treatment of pneumonia with risk factors for resistance * Day #4 antimicrobial therapy * Renal fxn continues to improve * MRSA nasal swab + * Blood cx's negative to date, Legionella urinary antigen pending * Yesterday's CXR read as patchy infiltrates of L mid + L lower lung and possibly developing infiltrates on the R * Sat well on room air, BPs stable, febrile last evening Plan Vancomycin * Trough level of 15.1 mcg/mL is therapeutic - however this was drawn after only 1 maintenance dose. Prior dose hung on schedule and level drawn at appropriate time. * Continue dose of 750 mg IV every 16 hours for now, however will recheck level tomorrow to confirm level remains therapeutic as level was not reflective of steady state and renal fxn continues to change * Goal trough level for pulm infxn : 15 to 20 mcg/mL Zosyn * BMI < 35, eCrCl > 20, continue 3.375gm ext-infusion Q 8 hrs Pharmacy will continue to follow and will adjust dose/frequency as necessary. Thank you.
--- NOTE | 2019-08-09 10:03 | Family Medicine Progress Note ---
Date of Service August 09, 2019 Assessment & Plan (1) Multifocal pneumonia: Kaitlyn is a 74-year-old female with a past medical history of severe dementia, Parkinson's, chronic kidney disease, GERD, and breast cancer who presented with shortness of breath, cough, and altered mental status and was found to be tachycardic, febrile on admit with a chest x-ray suggestive of multilobar pneumonia requiring BiPAP. Acute hypoxic respiratory failure 2/2 multifocal pneumonia Febrile, tachycardic on admission with lactate 4.4 normalized to 1.2 -X-ray showed right greater than left bilateral perihilar infiltrates suggestive for pneumonia Zosyn, vancomycin, azithromycin triple therapy initiated on admission. MRSA positive, Legionella negative. She is at risk for Pseudomonas, multiple hospital admissions and [facility]. -Convert to doxycycline 100 mg twice daily to cover for MRSA, Levaquin 750mg QoD (renal adjustment) for Pseudomonas. No QTp. - Continue LR+20KCl 100cc/hr IVFM. Urine output improved today. 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 well, may DC fluids tonight DVT prophylaxis Heparin 5000 units every 12 hours subcu Disposition: [facility] [place] when medically stable. after discussion with family consulted palliative care considering extent of dementia, overall poor function. (2) Acute metabolic encephalopathy: (3) Acute renal failure: (4) Hypernatremia: (5) Dementia: (6) Parkinson disease: Supervising Physician Co-Signing Physician Notes Resident Physician Supervision Note: I independently interviewed and examined the patient and verified the herrmann history and physical, reviewed labs and image studies, discussed the case with the resident Dr. Bear and agree with the findings and care plan. Subjective History limited by somnolence and dementia, but overall greatly improved today. Denies pain. Endorses hunger. Would like something to eat. Denies shortness of breath, difficulty breathing. Denies chest pain. Review of Systems Review of Systems: Unobtainable due to cognitive status Physical Exam Physical Exam: General: Awake, sitting up in bed with eyes open. Appears fatigued, but nontoxic today. Skin warm, dry. Mucous membranes dry. Follows one-step commands. HEENT: Atraumatic, normocephalic. Pulm: Diminished globally but grossly CTAB A&P. -wheezes, -rales, -rhonchi. Symmetrical chest rise. No respiratory distress. Weaned to room air. Cardiac: RRR, -mrg. Radial pulses intact and symmetrical. PT pulses intact symmetrical. No JVD. Abdominal: Nontender, nondistended, soft. BS present. MSK: Increased global tone, cogwheeling tremor present in arms bilaterally but greatly improved from prior. Resting bilateral hand tremor present. Extremities: No pitting edema. PT pulses intact and symmetrical bilaterally. Results & Data Vital Signs (Past 12 Hours) Vital Signs Temp Pulse Pulse Resp BP Pulse Ox 08/09/19 07:15 74 24 95 08/09/19 07:04 36.6 C 74 18 137/71 95 08/09/19 04:01 36.5 C 50 L 19 133/62 96 08/08/19 23:59 36.8 C 64 18 111/63 96 08/08/19 23:06 78 PG Care Time/CCT Total # of Minutes Spent Total Time Spent with Patient: Total time spent is greater than 50% in coordination of care (as documented) at patient's floor/unit and/or counseling patient: Resident Activity Tracking Resident Involvement: Resident Care Provided Care Provided: Adult Hospital Medicine (1) Acute renal failure Acute renal failure type: unspecified Qualified Code(s): N17.9 - Acute kidney failure, unspecified
--- NOTE | 2019-08-09 18:09 | Palliative Care Consultation ---
Date of Consultation August 09, 2019 Assessment & Plan (1) Palliative care encounter: Patient is a 74-year-old female with a past medical history significant for Parkinson's and dementia, CKD stage III, history of breast cancer. Patient is a resident at [facility] for the past approximately 2 years. Patient has lived at home with her of 19 years when she fell and sustained a hip fracture. She was sent for rehab and fell again refracturing that hip. Since then she has been a resident at [facility]. states that she was on a pured diet but not sure if she was on thickened liquids. He noted when he visited that she was feverish, increased shortness of breath with lethargy-he notified nursing who found her sats in the 70s. Patient was sent to the emergency room where she was found to have bilateral perihilar infiltrates left greater than right. Patient was started on IV antibiotics. Patient was evaluated by [facility] [employer]-no signs of overt aspiration on bedside swallow, however during my visit patient spit out small amounts of mashed potatoes and broccoli-not sure if she was coughing these up where she had pocketed food. Patient did cough several times during my visit-on a few occasions did bring up some food. Patient did have a follow-up chest x-ray that that when compared to admission chest x-ray was stable versus slightly worse. Patient's CODE STATUS is DNR DNI-Per patient's advanced directives she did not wish a feeding tube-family in agreement. Did discuss possible hospice care- wishes to meet again tomorrow when patient's children can be present. Patient has 5 children-1 with mental disability, 3 live locally. We will plan to meet again at 3:00 tomorrow. Discussed at length with patient's and stepdaughter the trajectory of Parkinson's and dementia including loss of appetite and uncoordinated swallow resulting in repeated aspiration that may be intermittent. Patient unable to participate in discussion. Speech is weak but able to understand at times- nonsensical at times. Patient asking to remove the statue on the shelf before it falls, etc. Discussed at length with regarding disease progression, use of antibiotics with recurrent aspiration, as well as goals of care. Has been ac cepting of patient's decline, would like her children present for any decisions. -CODE STATUS-patient will remain DNR/DNI-no feeding tube planned -Acute respiratory failure with hypoxia-patient improving on IV antibiotics and scheduled duo nebs. Suspect recurrent aspiration based on patient producing small amounts of undigested food with cough -Multifocal pneumonia-likely due to recurrent aspiration-improving with IV antibiotics and duo nebs. Will require good positioning with any p.o. intake -Parkinson's disease-patient with rigidity of extremities -Dementia-patient with significant dementia, able to communicate her needs regarding feeling hot or cold, etc. We will plan to meet with family tomorrow at 3 PM to further discuss skin detail goals of care as well as hospice care. (2) Acute respiratory failure with hypoxia: (3) Multifocal pneumonia: (4) Parkinson disease: (5) Dementia: History of Present Illness Reason for Consultation: Address goals of care and discuss options including hospice Requesting Physician: Dr.Paul Bear Attending Physician: Kita Garcia MD History of Present Illness Patient seen and examined, chart reviewed. Patient's and stepdaughter at bedside . Patient is a 74-year-old female with a past medical history significant for Parkinson's and dementia, CKD stage III, history of breast cancer. Patient is a resident at [facility] for the past approximately 2 years. Patient has lived at home with her of 19 years when she fell and sustained a hip fracture. She was sent for rehab and fell ag ain refracturing that hip. Since then she has been a resident at [facility]. states that she was on a pured diet but not sure if she was on thickened liquids. He noted when he visited that she was feverish, increased shortness of breath with lethargy-he notified nursing who found her sats in the 70s. Patient was sent to the emergency room where she was found to have bilateral perihilar infiltrates left greater than right. Patient was started on IV antibiotics. Patient was evaluated by [facility] [employer]-no signs of overt aspiration on bedside swallow, however during my visit patient spit out small amounts of mashed potatoes and broccoli-not sure if she was coughing these up where she had pocketed food. Patient did cough several times during my visit-on a few occasions did bring up some food. Patient did have a follow-up chest x-ray that that when compared to admission chest x-ray was stable versus slightly worse. Patient's CODE STATUS is DNR DNI-Per patient's advanced directives she did not wish a feeding tube-family in agreement. Did discuss possible hospice care- wishes to meet again tomorrow when patient's children can be present. Patient has 5 children-1 with mental disability, 3 live locally. We will plan to meet again at 3:00 tomorrow. Discussed at length with patient's and stepdaughter the trajectory of Parkinson's and dementia including loss of appetite and uncoordinated swallow resulting in repeated aspiration that may be intermittent. Patient unable to participate in discussion. Speech is weak but able to understand at times- nonsensical at times. Patient asking to remove the statue on the shelf before it falls, etc. Discussed at length with regarding disease progression, use of antibiotics with recurrent aspiration, as well as goals of care. Has been accepting of patient's decline, would like her children present for any decisions. Allergies Allergy/AdvReac Type Severity Reaction Status Date / Time morphine Allergy Unknown unknown Unverified 08/06/19 18:14 Sulfa (Sulfonamide Allergy Unknown UNKNOWN Verified 08/06/19 18:14 Antibiotics) selegiline AdvReac Intermediate loss of Verified 08/06/19 18:14 taste tramadol AdvReac Intermediate GENERAL Verified 08/06/19 18:14 ITCHINESS Home Medications Home Medications Medication Instructions Recorded Confirmed Type carbidopa-levodopa 1 tab PO QID #0 12/20/11 08/06/19 History polyethylene glycol 3350 [Miralax] 17 g PO QAM #0 04/09/16 08/06/19 History entacapone [Comtan] 200 mg PO QID #0 11/03/16 08/06/19 History hydroxyzine pamoate 25 mg PO TID #0 01/29/17 08/06/19 History mirtazapine [Remeron SolTab] 15 mg PO PM #0 05/29/17 08/06/19 History duloxetine [Cymbalta] 60 mg PO BID #0 10/17/17 08/06/19 History ascorbic acid (vitamin C) [Vitamin 250 mg PO DAILY #0 tab 10/31/17 08/06/19 History C] bisacodyl [Dulcolax (bisacodyl)] 10 mg NH DAILY PRN #0 10/31/17 08/06/19 History acetaminophen [Tylenol Arthritis 650 mg PO BID PRN #0 tab 12/28/17 08/06/19 History Pain] gabapentin 300 mg PO PM 08/06/19 08/06/19 History levothyroxine 25 mcg PO QAM 08/06/19 08/06/19 History scopolamine base 1 patch TRANSDERMAL Q3D 08/06/19 08/06/19 History sennosides 8.6 mg PO BID PRN 08/06/19 08/06/19 History Patient History Medical History Parkinson disease (Chronic) History of breast cancer (Resolved) History of kidney stones (Resolved) Diaphragmatic hernia (Chronic) GERD (gastroesophageal reflux disease) (Chronic) CKD (chronic kidney disease) stage 3, GFR 30-59 ml/min (Chronic) Depression (Chronic) Surgical History History of tubal ligation (Resolved) History of carpal tunnel surgery (Resolved) "R side" H/O breast surgery (Resolved) "malignant-stage I tubular CA left breast" Hx of cardiac cath (Chronic) "05/2013 - normal coronaries" Family History Other Family history non-contributory Social History Preferred Language: Azeri Communication Ability: Unable Beliefs That Will Affect Care: None marital status: Current Living Situation: [facility] current occupational status: retired Feels Safe at Home: Yes Smoking Status: Never smoker Hx Alcohol Use: No Hx Substance Use: No Review of Systems Review of Systems: Unobtainable due to cognitive status Physical Exam Physical Exam: PE: Patient awake, alert, unable to participate in conversation. Patient able to make comfort needs known HEENT: EOMI Respiratory: Diminished breath sounds bilaterally, coarse breath sounds CV: Regular rate Abdomen: Soft, nontender Neuro: Alert, positive significant cognitive deficits, unable to participate in medical decision making Results & Data Vital Signs (Past 12 Hours) Vital Signs Temp Pulse Pulse Pulse Resp BP BP 08/09/19 15:31 98.2 F 91 H 21 138/74 08/09/19 15:22 92 H 28 H 08/09/19 11:30 97.9 F 102 H 16 139/70 08/09/19 10:58 85 18 08/09/19 08:00 63 08/09/19 07:15 74 24 08/09/19 07:04 97.9 F 74 18 137/71 Pulse Ox 08/09/19 15:31 95 08/09/19 15:22 94 08/09/19 11:30 93 08/09/19 10:58 94 08/09/19 08:00 08/09/19 07:15 95 08/09/19 07:04 95 PG Care Time/CCT Total # of Minutes Spent Total Time Spent with Patient: Total time spent is greater than 50% in coordination of care (as documented) at patient's floor/unit and/or counseling patient: Time Spent Attending Total time spent 75 minutes with greater than 50% of the time spent at bedside discussing in detail progression of Parkinson's with dementia, care options including addition of hospice at long-term care facility.
[2019-08-09] MEDS: ACETAMINOPHEN IV PRN (20:36)
[2019-08-09] MEDS: PANTOprazole 40 MG TAB PO SCH (20:42)
[2019-08-09] MEDS: GABAPENTIN 100 MG CAP PO SCH (20:43)
[2019-08-09] MEDS: MIRTAZAPINE SOLTAB 15 MG PO SCH (20:43)
[2019-08-09] MEDS ORDERED: DOXYCYCLINE HYCLATE 100 MG CAP PO SCH (21:00)
[2019-08-09] MEDS ORDERED: levoFLOXacin 750 MG TAB PO SCH (21:00)
[2019-08-10] MEDS: VANCOMYCIN HCL 750 MG in SODIUM CHLORIDE 0.9% 250 ML IV SCH ×2 (00:21→17:03)
[2019-08-10 05:39] LABS: Basophils # (auto) 0.01 K/uL (0-0.2); Basophils % (auto) 0.2 %; Eosinophils # (auto) 0.07 K/uL (0-0.5); Eosinophils % (auto) 1.6 %; Hematocrit (blood only) 29.8 % (37-47); Hemoglobin 9.8 g/dL (12.0-16.0); Immature Granulocytes # (auto) 0.02 K/uL (0.00-0.02); Immature Granulocytes % (auto) 0.5 %; Lymphocytes # (auto) 0.59 K/uL (1.2-3.4); Lymphocytes % (auto) 13.7 %; Mean Corpuscular Hemoglobin 30.2 pg (25-34); Mean Corpuscular Hgb Conc 32.9 g/dL (32-36); Mean Corpuscular Volume 91.7 fL (80-100); Mean Platelet Volume 8.6 fL (7.4-10.4); Monocytes # (auto) 0.38 K/uL (0.11-0.59); Monocytes % (auto) 8.8 %; Neutrophils # (auto) 3.23 K/uL (1.4-6.5); Neutrophils % (auto) 75.2 %; Platelet Count 169 K/uL (130-400); RDW Coefficient of Variation 13.6 % (11.5-14.5); RDW Standard Deviation 45.6 fL (36.4-46.3); Red Blood Count 3.25 M/uL (4.2-5.4)
[2019-08-10 06:20] LABS: BUN Creatinine Ratio 16.9 (10-20); Calcium 9.1 mg/dl (8.5-10.1); Creatinine Clr Calc Pharmacy 37.8 ml/min; Est GFR (African American) 66.6; Est GFR (Non-African American) 57.4; Potassium 4.8 mmol/L (3.5-5.1)
[2019-08-10] MEDS: LEVOTHYROXINE SODIUM 25 MCG TABLET PO SCH (06:21)
[2019-08-10] MEDS: POTASSIUM CHLORIDE 20 MEQ in LACTATED RINGER'S 1,000 ML IV SCH (06:21)
[2019-08-10] MEDS: ALBUT/IPRATROP 3MG/0.5MG NEB 3 ML VIAL NEB SCH ×3 (07:12→14:58)
[2019-08-10] MEDS: PANTOprazole 40 MG TAB PO SCH (08:22)
[2019-08-10] MEDS: HEPARIN SOD 5,000 UNIT/0.5 ML VIAL SQ SCH ×2 (08:22→20:23)
[2019-08-10] MEDS: CARBIDOPA/LEVODOPA 25/100MG TAB PO SCH ×4 (08:22→20:22)
[2019-08-10] MEDS: LACTOBACILLUS ACIDOPHILUS 1 GM PACK PO SCH ×3 (08:22→17:03)
[2019-08-10] MEDS: ENTACAPONE 200 MG TAB PO SCH ×4 (08:22→20:21)
[2019-08-10] MEDS: DULOXETINE HCL 30 MG CAP PO SCH ×2 (08:22→20:21)
[2019-08-10] MEDS: ACETAMINOPHEN IV PRN ×2 (09:01→19:41)
--- NOTE | 2019-08-10 10:57 | Family Medicine Progress Note ---
Date of Service August 10, 2019 Assessment & Plan (1) Multifocal pneumonia: Kaitlyn is a 74-year-old female with a past medical history of severe dementia, Parkinson's, chronic kidney disease, GERD, and breast cancer who presented with shortness of breath, cough, and altered mental status and was found to be tachycardic, febrile on admit with a chest x-ray suggestive of multilobar pneumonia requiring BiPAP. Acute hypoxic respiratory failure 2/2 multifocal pneumonia, improved Febrile, tachycardic on admission with lactate 4.4 normalized to 1.2 -X-ray showed right greater than left bilateral perihilar infiltrates suggestive for pneumonia Zosyn, vancomycin, azithromycin triple therapy initiated on admission. MRSA positive, Legionella negative. She is at risk for Pseudomonas, multiple hospital admissions and resides in a shelter. - Levaquin 750mg QoD (renal adjustment) for Pseudomonas last dose tomorrow. No QTp. - Vancomycin for MRSA (didn't tolerate doxy). Last dose tomorrow. - Weaned and no longer on oxygen - Good UOP. Acute kidney injury, improved Creatinine increased on admission to 1.76 from baseline of approximately 1 Creatinine normalized to ~baseline, remains within normal limits BUN/creatinine ratio greater than 20 Continue fluids as above and BMP daily Hypokalemia, improved -Normalized following repletion - Mg Normal BMP daily Hypernatremia, improved Hypernatremic to 150 on admission, currently normalized History of Parkinson's HEALTH UNIT COORDINATOR carbidopa levodopa 4 times daily and entacapone 200 mg 4 times daily May give crushed in pudding Dementia with acute worsening of altered mental status due to metabolic encephalopathy Treat pneumonia as above Delirium precautions Considering overall prognosis - palliative care consult placed. await input FEN/GI Diet reduced to pureed. DVT prophylaxis Heparin 5000 units every 12 hours subcu Disposition: [facility] when medically stable (2) Acute renal failure: (3) Dementia: (4) Acute metabolic encephalopathy: (5) Acute respiratory failure with hypoxia: Supervising Physician Co-Signing Physician Notes Resident Physician Supervision Note: I independently interviewed and examined the patient and verified the herrmann history and physical, reviewed labs and image studies, discussed the case with the resident Dr. Bear and agree with the findings and care plan. Subjective History limited by dementia and mental status. Opens eyes and answers basic questions before falling asleep, denies fever/chills and endorses some stomach discomfort today. Palliative care meeting pending with family at approximately 3 PM today. Review of Systems Review of Systems: Unobtainable due to cognitive status Physical Exam Physical Exam: General: Awake, sitting up in bed with eyes open. Appears fatigued, but nontoxic today. Skin warm, dry. Mucous membranes dry. Follows one-step commands. HEENT: Atraumatic, normocephalic. Pulm: Diminished globally but grossly CTAB A&P. -wheezes, -rales, -rhonchi. Symm etrical chest rise. No respiratory distress. Weaned to room air. Cardiac: RRR, -mrg. Radial pulses intact and symmetrical. PT pulses intact symmetrical. No JVD. Abdominal: Nontender, nondistended, soft. BS present. MSK: Increased global tone, cogwheeling tremor present in arms bilaterally. Resting bilateral hand tremor present. Extremities: No pitting edema. PT pulses intact and symmetrical bilaterally. Results & Data Vital Signs (Past 12 Hours) Vital Signs Temp Pulse Resp BP Pulse Ox Pulse Ox 08/10/19 07:12 78 28 H 93 08/10/19 07:07 37.0 C 77 17 150/71 H 94 08/10/19 04:00 36.6 C 85 20 154/76 H 95 08/10/19 00:22 37.3 C 85 24 144/79 H 94 08/10/19 00:00 94 PG Care Time/CCT Total # of Minutes Spent Total Time Spent with Patient: Total time spent is greater than 50% in coordination of care (as documented) at patient's floor/unit and/or counseling patient: Resident Activity Tracking Resident Involvement: Resident Care Provided Care Provided: Adult Hospital Medicine (1) Acute renal failure Acute renal failure type: unspecified Qualified Code(s): N17.9 - Acute kidney failure, unspecified
[2019-08-10] MEDS ORDERED: VANCOMYCIN TROUGH ONE (15:30)
--- NOTE | 2019-08-10 17:30 | Palliative Care Progress Note ---
Date of Service August 10, 2019 Assessment & Plan (1) Palliative care encounter: Patient is a 74-year-old female with a past medical history significant for Parkinson's and dementia, CKD stage III, history of breast cancer. Patient is a resident at [facility] for the past approximately 2 years. Patient has lived at home with her of 19 years when she fell and sustained a hip fracture. She was sent for rehab and fell again refracturing that hip. Since then she has been a resident at [facility]. states that she was on a pured diet but not sure if she was on thickened liquids. He noted when he visited that she was feverish, increased shortness of breath with lethargy-he notified nursing who found her sats in the 70s. Patient was sent to the emergency room where she was found to have bilateral perihilar infiltrates left greater than right. Patient was started on IV antibiotics. Patient less alert today-was able to take a bite or 2 of applesauce this a.m., has not been alert enough for any p.o. feeds today. Patient's CODE STATUS is DNR DNI-Per patient's advanced directives she did not wish a feeding tube-family in agreement. Met with patient's 2 daughters and at bedside, a third daughter was on speaker phone-patient's current condition, prognosis and disease progression was discussed at length as well as comfort measures. Family wishes to move forward with hospice referral with the patient returning to [facility]. -CODE STATUS-patient will remain DNR/DNI-no feeding tube planned -Acute respiratory failure with hypoxia-patient on IV antibiotics-family okay with these being discontinued, would continue normal scheduled duo nebs and oxygen if needed PRN. -Multifocal pneumonia-likely due to recurrent aspiration-improving with IV antibiotics and duo nebs. Will require patient to be more alert and good posi tioning with any p.o. intake -Parkinson's disease-patient with rigidity of extremities-discussed that patient may no longer be able to take her Sinemet as it cannot be crushed -Dementia-patient with end-stage dementia-goal is comfort Left message with case management regarding hospice referral. (2) Acute respiratory failure with hypoxia: (3) Multifocal pneumonia: (4) Parkinson disease: (5) Dementia: Subjective Patient seen and examined. Had a family meeting with patient's , daughter Karly and daughter Marah at bedside - daughter Wilberto by speaker phone. Reviewed patient's current condition as well as disease progression-patient has been less responsive today and unable to take p.o. safely. Discussed p.o. feeding as well as p.o. meds as far as providing comfort and avoiding aspiration of food and meds. Discussed role of hospice in addition to nursing care she receives at [facility]. Spoke at length with family at bedside regarding comfort and following patient's wishes. Patient had stated on this admission she did not want a feeding tube. Family is in agreement. Notified case management to pursue hospice basement. Plan is for patient to return to [facility] under hospice care. Patient will likely need to have meds discontinued at this time. Discussed the role of IV antibiotics with recurrent aspiration, controlling fever and air hunger with PRN Tylenol and PRN Roxanol. Discussed the conversation with attending physician team. Review of Systems Review of Systems: Unobtainable due to cognitive status Physical Exam Physical Exam: PE: Patient appears comfortable, no facial grimacing HEENT: Neck hyperextended Respirations: Unlabored CV: Regular rate Abdomen: Not distended Neuro: Patient less responsive-was able to say a few words to family Results & Data Vital Signs (Past 12 Hours) Vital Signs Temp Pulse Pulse Resp BP Pulse Ox 08/10/19 15:07 99.5 F 92 H 18 168/88 H 96 08/10/19 15:00 90 16 94 08/10/19 11:46 99.5 F 91 H 18 156/80 H 95 08/10/19 11:18 80 26 H 95 08/10/19 07:12 78 28 H 93 08/10/19 07:07 98.6 F 77 17 150/71 H 94 PG Care Time/CCT Total # of Minutes Spent Total Time Spent with Patient: Total time spent is greater than 50% in coordination of care (as documented) at patient's floor/unit and/or counseling patient: Prolonged Care Time Prolonged Care Time: Yes Total Prolonged Care Time: 30 Critical Care Time Prolonged Care Time Prolonged Care Time: Yes Total Prolonged Care Time: 30 65 Time Spent Attending Total time spent 65 minutes with greater than 50% of the time spent at bedside discussing patient's current condition, previous stated wishes as well as goals of care
[2019-08-10] MEDS ORDERED: ALBUT/IPRATROP 3MG/0.5MG NEB 3 ML VIAL NEB PRN (17:58)
[2019-08-10] MEDS: GABAPENTIN 100 MG CAP PO SCH (20:21)
[2019-08-10] MEDS: MIRTAZAPINE SOLTAB 15 MG PO SCH (20:21)
[2019-08-11] MEDS: LEVOTHYROXINE SODIUM 25 MCG TABLET PO SCH (06:00)
[2019-08-11] MEDS: LACTOBACILLUS ACIDOPHILUS 1 GM PACK PO SCH ×2 (09:37→13:07)
[2019-08-11] MEDS: ENTACAPONE 200 MG TAB PO SCH ×2 (09:38→13:07)
[2019-08-11] MEDS: CARBIDOPA/LEVODOPA 25/100MG TAB PO SCH ×2 (09:38→13:07)
[2019-08-11] MEDS: DULOXETINE HCL 30 MG CAP PO SCH (09:39)
[2019-08-11] MEDS: PANTOprazole 40 MG TAB PO SCH (09:39)
[2019-08-11] MEDS: HEPARIN SOD 5,000 UNIT/0.5 ML VIAL SQ SCH (09:40)
[2019-08-11] MEDS ORDERED: SCOPOLAMINE 1.5 MG TDSY TD SCH (10:30)
--- NOTE | 2019-08-11 15:58 | Discharge Summary ---
Date of Service August 11, 2019 Admission HPI Per Admitting Provider 74 years old female with past medical history of advanced dementia, Parkinson's disease and multiple hip fractures in the past. Patient was noticed by her son visiting her yesterday that she does have some shortness of breath and cough. Today her visited her and noticed that she is extremely lethargic and extremely short of breath, her checked her pulse and was extremely rapid so he called the nursing staff when they came over and her oxygen saturation was in the 70s and her heart rate was 120s they called the ambulance and patient was brought to the ER and found to have a fever of 38, she was breathing at a rate of 30. As per minute, heart rate was 120, VBG showed pH of 7.32 , patient was placed on BiPAP and showed significant improvement after that, Her CODE STATUS was discussed with her and son and she is DO NOT RESUSCITATE DO NOT INTUBATE. But they are okay with using BiPAP as needed. Patient will be admitted to PCU for further evaluation. Chest x-ray showed bilateral infiltrate left greater than right. Primary Care Provider: [facility] Admission Exam Per Admitting Provider General frail elderly female, appears to be in severe distress, very thin but not cachectic HEENT: Atraumatic , normocephalic /no jaundice /no pallor /anicteric /no dry mucous membrane /normal external ear inspection Neck: Supple /no swelling /central trach Heart: S1/S2 normal/regular rate and rhythm/no gallop /no rub /no murmur Lungs: Decreased air entry bilaterally, generalized wheezing both lung bowens, scattered rhonchi, no chest wall tenderness Abdomen: Soft/nontender/no guarding/no rebound/no organomegaly/no pulsatile mass Musculoskeletal: No swelling/no edema/no tenderness/normal range of motion Neuro exam: Lethargic but was able to respond to strong verbal stimuli, moves all extremities and slight movement upon request Psychiatric evaluation: Unable to evaluate Skin: No rash on exposed skin area/no erythema Extremity: Normal pulse/no pitting edema/no clubbing or cyanosis Principal Diagnosis Multifocal pneumonia, MRSA pneumonia possible Dementia Discharge Exam General: Awake, sitting up in bed with eyes open. Appears fatigued. Skin warm, dry. Mucous membranes dry. Follows one-step commands. HEENT: Atraumatic, normocephalic. Pulm: Audible upper airway secretions. Diminished globally. -wheezes, -rales Symmetrical chest rise. No respiratory distress. On room air. Cardiac: RRR, -mrg. Radial pulses intact and symmetrical. PT pulses intact symmetrical. No JVD. Abdominal: Nontender, nondistended, soft. BS present. MSK: Increased global tone. Resting bilateral hand tremor present. Extremities: No pitting edema. PT pulses intact and symmetrical bilaterally. Discharge Data Allergies Allergy/AdvReac Type Severity Reaction Status Date / Time morphine Allergy Unknown unknown Unverified 08/06/19 18:14 Sulfa (Sulfonamide Allergy Unknown UNKNOWN Verified 08/06/19 18:14 Antibiotics) selegiline AdvReac Intermediate loss of Verified 08/06/19 18:14 taste tramadol AdvReac Intermediate GENERAL Verified 08/06/19 18:14 ITCHINESS Consultations 08/06/19 17:42 ED Decision to Admit Stat 08/09/19 15:49 Consult Palliative Care Routine Hospital Course (1) Multifocal pneumonia: Kaitlyn is a 74-year-old female with a past medical history of severe dementia, Parkinson's, chronic kidney disease, GERD, and breast cancer who presented with shortness of breath, cough, and altered mental status and was found to be tachypneic and febrile on admission with a chest x-ray suggestive of multi lobar pneumonia requiring BiPAP. She is admitted for acute hypoxic respiratory failure with multifocal pneumonia Acute hypoxic respiratory failure 2/2 septic multifocal pneumonia Kaitlyn was febrile, tachycardic, and required BiPAP on admission. She had an elevated lactate and x-ray showed right greater than left bilateral perihilar infiltrates suggestive of pneumonia. She is given crystalloid boluses and started on IV fluid maintenance. Zosyn, vancomycin, and azithromycin triple therapy was initiated on admission. Azithromycin was included to cover for potential Legionella. Her nasal MRSA swab was positive. She is continued on vancomycin to cover for MRSA, and narrowed to Levaquin to cover for Pseudomonas given her frequent hospitalizations and residence in a longterm. She is gradually weaned to room air and had improving mentation to near her prior to admission baseline. She maintained good urine output. She completed 4 days of antibiotic therapy, following palliative consultation and discussion of goals of care antibiotics were discontinued as noted below. Acute kidney injury On admission Kaitlyn had a creatinine increase from her baseline of approximately 1-1.76. Her BUN/creatinine ratio was greater than 20, suggesting prerenal KAYCEE versus azotemia. Her creatinine improved back to its normal baseline with fluid maintenance as above. She was nonoliguric. Moderate to severe dementia, enrolled in hospice and comfort care Kaitlyn has a past medical history of progressive moderate to severe dementia with Parkinson's (further discussed below). At her normal baseline she is able to answer some question and indicate wants and needs, however her overall prognosis was poor. She showed poor swallow mechanics during admission even following clinical improvement with fluid and antibiotic treatment. Palliative care was consulted during admission, and goals of care were discussed with her and her family. They noted that feeding tubes, aggressive antibiotics, and invasive treatments would not be consistent with the patient's values. Hospice services were discussed in detail, and her and her family elected to enroll in hospice services with transfer back to [facility] on comfort care measures. Antibiotics were discontinued. Oral medications important for quality of life including her parkinsonian medications were continued as noted below. She continued to have poor swallow mechanics. While following recovery she had initially passed a swallow eval fermented and moist, she had potential aspiration events and her diet was moved to pured. This was discussed with her and her , he understood that with her current mental condition and swallowing mechanics oral nutrition was highly likely to cause her to aspirate which would likely accelerate her health decline. Comfort nutrition was thought to be within the patient's care goals, and she was continued on a pured diet as tolerated when she would ask for nutrition and appeared alert enough to swallow. She was discharged to comfort care and hospice services at [facility]. Parkinson's disease Kaitlyn has a history of Parkinson's disease on carbidopa/levodopa and entacapone. These medications were not able to be given on admission due to reduced consciousness and lack of IV formulation. An NGT was attempted to be placed to allow for crush medications to be given, however was unable to be passed successfully. Patient's mental status and swallow mechanics had slightly improved the next day, and she passed a speech eval to be able to take crushed medications and a small amount of pudding. Her entacapone and carbidopa/levodo pa were prioritized and given p.o. crushed as tolerated for the remainder of her hospitalization. Parkinsonian features including voice tremor, increased tone, resting tremor, and cogwheeling were increased on admission and gradually improved through time of discharge. Hypokalemia, hypernatremia On admission Kaitlyn was hypokalemic and hypernatremic in the setting of poor p.o. intake, sepsis, and volume contraction. Her electrolyte is normalized with repletion and fluid maintenance as above. Following palliative discussion daily labs were discontinued. DVT prophylaxis DVT prophylaxis was maintained with heparin 5000 units subcu every [address] placed at which point it was discontinued. She did not show any signs of DVT during admission. (2) Acute renal failure: (3) Hypernatremia: (4) Parkinson disease: (5) Dementia: (6) Palliative care encounter: (7) Acute metabolic encephalopathy: Total Time Total Time Spent Total Time Spent (In Minutes): 30 Discharge Plan Discharge Items Patient Disposition: Trans Resident Long-Term Care Reason For Visit: PNEUMONIA Discharge Diagnosis: Multifocal PNA, Dementia Activity: Per Instructions section Non-emergency contact: Primary Care Provider Call non-emergency contact if: you have any medication questions, your symptoms worsen, your pain is not controlled, your pain is worsening, your pain is unusual for you, you have a fever and your wound pain has increased [facility]/Referrals: [facility] [Primary Care Provider] - Diet: Regular Diet Texture: Pureed (blended smooth) Addtl Attending Provider Instructions: Kaitlyn was seen in the hospital for multifocal pneumonia. She was treated with antibiotics and recovered well, but has a poor overall prognosis due to recurrent aspiration and underlying dementia. Her PNA improved and she was weaned to room air. She was seen by palliative care, and hospice care and comfort care goals established. She was at increased risk of aspiration during admission. She was able to swallow pureed bites of food intermittently when alert, but did not tolerate a minced and moist diet. Oral nutrition vs risk of aspiration was discussed with her and her family, comfort nutrition with an understanding of increased aspiration risk provided. Kaitlyn completed a course of antibiotics for pneumonia, antibiotics were withdrawn following palliative consult and made comfort care. She is being transferred to [facility] for continuation of hospice and comfort care. Pending Studies at Discharge: No Stand-Alone Forms: [facility] Skilled Items Patient informed of condition?: Yes DNR: Yes Discharge Level of Care: Other Communicable Disease: No Discharge Prognosis: Other Lines: None Urinary Catheter: No Medications and DC Order Prescriptions: Continued carbidopa-levodopa 25-100 mg Tablet 1 tab PO QID Qty: 0 RF: 0 polyethylene glycol 3350 [Miralax] 17 gram/dose Powder 17 g PO QAM Qty: 0 RF: 0 entacapone [Comtan] 200 mg Tablet 200 mg PO QID Qty: 0 RF: 0 hydroxyzine pamoate 25 mg Capsule 25 mg PO TID Qty: 0 RF: 0 mirtazapine [Remeron SolTab] 15 mg Tablet,Disintegrating 15 mg PO PM Qty: 0 RF: 0 duloxetine [Cymbalta] 60 mg Capsule,Delayed Release(Dr/Ec) 60 mg PO BID Qty: 0 RF: 0 ascorbic acid (vitamin C) [Vitamin C] 250 mg Tablet 250 mg PO DAILY Qty: 0 RF: 0 bisacodyl [Dulcolax (bisacodyl)] 10 mg Suppository 10 mg MO DAILY PRN (Reason: Constipation) Qty: 0 RF: 0 acetaminophen [Tylenol Arthritis Pain] 650 mg Tablet Extended Release 650 mg PO BID PRN (Reason: Pain) Qty: 0 RF: 0 sennosides 8.6 mg Tablet 8.6 mg PO BID PRN (Reason: Constipation) RF: 0 levothyroxine 25 mcg Tablet 25 mcg PO QAM RF: 0 gabapentin 300 mg Capsule 300 mg PO PM RF: 0 scopolamine base 1 mg over 3 days Patch 3 Day 1 patch TRANSDERMAL Q3D RF: 0 Discharge Orders: Discharge Order (Routine); Ordered 08/11/19 Ordered By: Shamir Bear Admission Data Admit Date/Time: 08/06/19 18:46 Attending Provider: Kita Garcia Admit Provider: Bety Glez Primary Care Provider: Edwige Young Other Providers: Shamir Bear ; Kirk Townsend ; Bety Glez ; Eva Abdullahi Other Interventions: Discharge Summary Assessment (RN) Last Done: 08/11/19 16:16 DC Date/Time DO NOT enter until pt leaves facility: 08/11/19 17:14 Supervising Physician Co-Signing Physician Notes Resident Physician Supervision Note: I independently interviewed and examined the patient and verified the herrmann history and physical, reviewed labs and image studies, discussed the case with the resident Dr. Bear and agree with the findings and care plan. Resident Activity Tracking Resident Involvement: Resident Care Provided Care Provided: Adult [facility]
[2019-08-11] MEDS ORDERED: CHECK SCOPOLAMINE PATCH PLACEMENT SCH (16:00)
== END 2019-08-11 17:14 | disposition hospice, inpatient (51) | DRG 177 ==
LOC: ED 16:23 → SUATTDRO 18:46 → 2E 18:46 → 4W 08-10 18:36